=== PATIENT | male | born 1935 | race Caucasian/White ===

== ENCOUNTER 2018-05-25 09:05 | Emergency (ER) | payer MEDICARE ==
[2018-05-25] MEDS ORDERED: OXYMETAZOLINE 0.05% NASL SPRAY 1 SPRAY BOTTLE NASAL STA (09:30)
[2018-05-25] MEDS ORDERED: LIDOCAINE/EPINEPHR/TETRACAINE 5 ML BOTTLE TOPICAL ONE (09:30)
--- NOTE | 2018-05-25 09:54 | ED ---
ENT HPI - General Chief complaint: ENT Stated complaint: Fell nose bleed Time Seen by Provider: 05/25/18 09:29 Source: patient, family, RN notes reviewed, old records reviewed Mode of arrival: wheelchair Limitations: no limitations - History of Present Illness Initial comments: Patient is an 82-year-old male presents emergency department today with chief complaint nosebleed. He reports he had a fall on Wednesday where he has had an. He states is been having intermittent nosebleeds for the past 4 days. Patient states that he has had multiple nosebleeds. Severe bleeding this morning. Patient states he continues to keep packing with paper towels. He is on Coumadin. His last INR was 2.2 last week. - Related Data Home Medications Medication Instructions Recorded Confirmed Carvedilol [Coreg] 3.125 mg PO BID 05/25/18 05/25/18 Warfarin [Coumadin] 5 mg PO SUMOWETHFRSA 05/25/18 05/25/18 Warfarin [Coumadin] 7.5 mg PO TU 05/25/18 05/25/18 Previous Rx's Medication Instructions Recorded Amoxic-Pot Clav 875-125Mg 1 tab PO Q12HR #20 tablet 05/25/18 [Augmentin 875-125] Mupirocin Calcium [Bactroban 2% 1 applic NASAL TID #1 tube 05/25/18 Nasal Oint] Allergies Allergy/AdvReac Type Severity Reaction Status Date / Time No Known Allergies Allergy Verified 05/25/18 09:57 Review of Systems ROS Statement: Those systems with pertinent positive or pertinent negative responses have been documented in the HPI. ROS Other: All systems not noted in ROS Statement are negative. Past Medical History Past Medical History: Atrial Fibrillation History of Any Multi-Drug Resistant Organisms: None Reported Additional Past Surgical History / Comment(s): Pacemaker Past Psychological History: No Psychological Hx Reported Smoking Status: Never smoker Past Alcohol Use History: None Reported General Exam - General Exam Comments Initial Comments: 82-year-old male. Alert and oriented. No significant distress. Limitations: no limitations General appearance: alert, in no apparent distress Head exam: Present: atraumatic, normocephalic, normal inspection Eye exam: Present: normal appearance, PERRL, EOMI. Absent: scleral icterus, conjunctival injection, periorbital swelling ENT exam: Present: normal exam, normal oropharynx, mucous membranes moist, other (Paper towel packing within the left near.) Neck exam: Present: normal inspection, other. Absent: tenderness, meningismus, lymphadenopathy Respiratory exam: Present: normal lung sounds bilaterally. Absent: respiratory distress, wheezes, rales, rhonchi, stridor Cardiovascular Exam: Present: regular rate, normal rhythm, normal heart sounds. Absent: systolic murmur, diastolic murmur, rubs, gallop, clicks Extremities exam: Present: normal inspection, full ROM, normal capillary refill. Absent: tenderness, pedal edema, joint swelling, calf tenderness Back exam: Present: normal inspection Neurological exam: Present: alert, oriented X3, CN II-XII intact Course Vital Signs 05/25/18 05/25/18 09:06 11:48 Temperature 97.8 F Pulse Rate 70 79 Respiratory 20 16 Rate Blood Pressure 151/86 139/74 O2 Sat by Pulse 95 98 Oximetry Medical Decision Making - Medical Decision Making 82 year old male presents today with nose bleed in left nare. Patient fell on Wednesday and hit the head and nose. He has had intermittent bleeding for the past 3 days. AFter arrival nose bleed did stop. Patient then later had a small amount of bleeding. Patient had topical Let solution and afrin applied to nare. Patient hten had nasal cautery with silver nitrate and bleeding stopped. Discussed using antibiotic cream into the nare. CT shows evidence of nasal bone fracture, no evidence of intracranial hemorrhage. Patient placed on antibiotic for nasal bone fracture. Discussed ENT follow up. - Lab Data Result diagrams: 05/25/18 10:01 Lab Results 05/25/18 05/25/18 Range/Units 10:01 10:01 WBC 7.4 (3.8-10.6) k/uL RBC 3.23 L (4.30-5.90) m/uL Hgb 10.9 L (13.0-17.5) gm/dL Hct 33.2 L (39.0-53.0) % MCV 102.9 H (80.0-100.0) fL MCH 33.6 (25.0-35.0) pg MCHC 32.7 (31.0-37.0) g/dL RDW 14.5 (11.5-15.5) % Plt Count 176 (150-450) k/uL Neutrophils % 74 % Lymphocytes % 11 % Monocytes % 7 % Eosinophils % 5 % Basophils % 0 % Neutrophils # 5.5 (1.3-7.7) k/uL Lymphocytes # 0.8 L (1.0-4.8) k/uL Monocytes # 0.6 (0-1.0) k/uL Eosinophils # 0.4 (0-0.7) k/uL Basophils # 0.0 (0-0.2) k/uL Macrocytosis Slight PT 17.7 H (9.0-12.0) sec INR 1.9 H (<1.2) APTT 28.9 (22.0-30.0) sec - Radiology Data Radiology results: report reviewed Nasal septum and nasal bone fracture. No acute brain abnormality. Related changes of atrophy and probable chronic small vessel disease. 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 Disposition Clinical Impression: Bleeding nose, Nasal fracture, Bleeding on Coumadin Disposition: HOME SELF-CARE Condition: Good Additional Instructions: Patient advised to follow-up with primary care provider regards to INR levels rechecked. Resume Coumadin. Patient should follow-up with your nose and throat specialist. Apply the nasal ointment few times a day to keep the area moist and dry. Make sure the have a humidifier running in her house as well. Return to emergency department if any alarming signs or symptoms occur. Prescriptions: Amoxic-Pot Clav 875-125Mg [Augmentin 875-125] 1 tab PO Q12HR #20 tablet Mupirocin Calcium [Bactroban 2% Nasal Oint] 1 applic NASAL TID #1 tube Is patient prescribed a controlled substance at d/c from ED?: No Referrals: Nonstaff,Physician [Primary Care Provider] - 1-2 days Jesus Chavez DO [Doctor of Osteopathic Medicine] - 1-2 days Time of Disposition: 11:26
[2018-05-25 10:31] LABS: Basophils % (A) 0 %; Eosinophils # (A) 0.4 k/uL (0-0.7); Eosinophils % (A) 5 %; HCT 33.2 % (39.0-53.0); HGB 10.9 gm/dL (13.0-17.5); Lymphocytes # (A) 0.8 k/uL (1.0-4.8); Lymphocytes % (A) 11 %; MCH 33.6 pg (25.0-35.0); MCHC 32.7 g/dL (31.0-37.0); MCV 102.9 fL (80.0-100.0); Macrocytosis Slight; Mean Platelet Volume 7.5; Monocytes # (A) 0.6 k/uL (0-1.0); Monocytes % (A) 7 %; Neutrophils # (A) 5.5 k/uL (1.3-7.7); Neutrophils % (A) 74 %; Platelet Count 176 k/uL (150-450); RBC 3.23 m/uL (4.30-5.90); RDW 14.5 % (11.5-15.5); WBC 7.4 k/uL (3.8-10.6)
[2018-05-25 10:49] LABS: INR 1.9 (<1.2); Partial Thromboplastin Time 28.9 sec (22.0-30.0); Prothrombin Time 17.7 sec (9.0-12.0)
--- NOTE | 2018-05-25 10:59 | CT ---
EXAMINATION TYPE: CT brain wo con, CT facial bones wo con DATE OF EXAM: 05/25/2018 COMPARISON: Prior CT brain 12/03/2009 HISTORY: patient fall on face (accession [id number]), Patient fell on face (accession [id number]) CT DLP: 984.8 (accession [id number]), 556.9 (accession [id number]) mGycm Automated exposure control for dose reduction was used. Helical imaging through the brain and facial bones. FINDINGS: There is cortical atrophy present. Periventricular white matter shows patchy areas of low attenuation . Some progression of extra-axial fluid spaces especially over the frontal region and convexity may b e due to chronic subdural hygromas. No hemorrhage or hydrocephalus. There are cerebral vascular calci fications present. Calvarium is intact. Orbits are symmetric. Some inflammatory change noted within t he maxillary sinus on the right. Facial bones are remarkable for some irregularity of the nasal bone suggesting possible nondisplaced fracture distally, the nasal septum shows minimally displaced fractu re distally. Unerupted incisor noted in the left maxilla. IMPRESSION: NASAL SEPTUM AND NASAL BONE FRACTURES. NO ACUTE BRAIN ABNORMALITY. AGE-RELATED CHANGES OF ATROPHY AND PROBABLE CHRONIC SMALL VESSEL ISCHEMIA. DIFFICULT TO EXCLUDE CHRONIC SUBDURAL HYGROMAS.
[2018-05-25] MEDS ORDERED: SILVER NITRATE APPLICATOR 1 EACH STICK..EA. TOPICAL STA (11:08)
[2018-05-25 11:50] VITALS: BP 139/74; PULSE 79; RESP 16; TEMP 97.8
== END 2018-05-25 11:47 | disposition home or self-care (01) ==
LOC: EC 09:05
DX: S02.2XXA Fracture of nasal bones, initial encounter for closed fracture (principal); I48.91 Unspecified atrial fibrillation; Z95.0 Presence of cardiac pacemaker; Z79.01 Long term (current) use of anticoagulants; Z79.899 Other long term (current) drug therapy; W01.198A Fall on same level from slipping, tripping and stumbling with subsequent striking against other object, initial encounter
CPT/HCPCS: 36415; 70450; 70486; 85025; 85610; 85730; 99284

== ENCOUNTER 2018-11-21 22:28 | Inpatient (IN) | payer MEDICARE ==
[2018-11-21] MEDS ORDERED: SODIUM CHLORIDE 0.9% 1,000 ML IV STA (22:56)
[2018-11-21] MEDS ORDERED: ONDANSETRON 4 MG/2 ML VIAL IVP STA (23:23)
[2018-11-22 00:06] LABS: Potassium 3.3 mmol/L (3.5-5.1); Total Protein 5.8 g/dL (6.3-8.2)
--- NOTE | 2018-11-22 00:14 | XR ---
EXAM: XR Abdomen, 1 View CLINICAL HISTORY: Pain TECHNIQUE: Frontal supine view of the abdomen/pelvis. COMPARISON: No relevant prior studies available. FINDINGS: Gastrointestinal tract: Unremarkable. No dilation. Bones/joints: Unremarkable. IMPRESSION: Normal abdominal x-ray.
[2018-11-22 00:26] LABS: HCT 36.3 % (39.0-53.0); HGB 12.2 gm/dL (13.0-17.5); MCH 33.1 pg (25.0-35.0); MCHC 33.7 g/dL (31.0-37.0); MCV 98.2 fL (80.0-100.0); Mean Platelet Volume 8.7; Platelet Count 200 k/uL (150-450); RDW 14.4 % (11.5-15.5); WBC 7.7 k/uL (3.8-10.6)
[2018-11-22 00:59] LABS: Calcium 8.6 mg/dL (8.4-10.2); Total Bilirubin 0.4 mg/dL (0.2-1.3)
[2018-11-22 02:00] LABS: Band Neutrophils % 28 %; Eosinophils # (M) 0.08 k/uL (0-0.7); Lymphocytes # (M) 1.46 k/uL (1.0-4.8); Monocytes # (M) 1.23 k/uL (0-1.0); Neutrophils % (M) 37 %; Nucleated Red Blood Cells 0 /100 WBC (0-0); Total Cells Counted 200
[2018-11-22 02:01] LABS: Large Platelets Present
[2018-11-22 02:04] LABS: Anisocytosis (M) Present; Poikilocytosis (M) Present; Polychromasia Present
[2018-11-22] MEDS ORDERED: SODIUM CHLORIDE 0.9% 1,000 ML IV ONE ×3 (02:44→20:26)
--- NOTE | 2018-11-22 03:11 | ED ---
Nausea/Vomiting/Diarrhea HPI - General Chief complaint: Nausea/Vomiting/Diarrhea Stated complaint: Dehyrdated Time Seen by Provider: 11/21/18 22:43 Source: patient, EMS, RN notes reviewed, old records reviewed Mode of arrival: EMS Limitations: no limitations - History of Present Illness Initial comments: Patient is an 83-year-old male who presents emergency department today with intermittent nausea vomiting diarrhea for the past week. Patient states he has been feeling dizzy. His concerns for dehydration. No bloody stools. Denies any chest pain. He denies any associated shortness of breath. Past medical history of CAD. - Related Data Home Medications Medication Instructions Recorded Confirmed Carvedilol [Coreg] 3.125 mg PO BID 05/25/18 05/25/18 Warfarin [Coumadin] 5 mg PO SUMOWETHFRSA 05/25/18 05/25/18 Warfarin [Coumadin] 7.5 mg PO TU 05/25/18 05/25/18 Previous Rx's Medication Instructions Recorded Amoxic-Pot Clav 875-125Mg 1 tab PO Q12HR #20 tablet 05/25/18 [Augmentin 875-125] Mupirocin Calcium [Bactroban 2% 1 applic NASAL TID #1 tube 05/25/18 Nasal Oint] Allergies Allergy/AdvReac Type Severity Reaction Status Date / Time No Known Allergies Allergy Verified 11/21/18 22:47 Review of Systems ROS Statement: Those systems with pertinent positive or pertinent negative responses have been documented in the HPI. ROS Other: All systems not noted in ROS Statement are negative. Past Medical History Past Medical History: Atrial Fibrillation History of Any Multi-Drug Resistant Organisms: None Reported Additional Past Surgical History / Comment(s): Pacemaker Past Psychological History: No Psychological Hx Reported Smoking Status: Never smoker Past Alcohol Use History: None Reported General Exam - General Exam Comments Initial Comments: 83-year-old male. Alert and oriented 3. Patient appears in no significant distress. Limitations: no limitations General appearance: alert, in no apparent distress Head exam: Present: atraumatic, normocephalic, normal inspection Eye exam: Present: normal appearance, PERRL, EOMI. Absent: scleral icterus, conjunctival injection, periorbital swelling ENT exam: Present: normal exam, mucous membranes moist Neck exam: Present: normal inspection. Absent: tenderness, meningismus, lymphadenopathy Respiratory exam: Present: normal lung sounds bilaterally. Absent: respiratory distress, wheezes, rales, rhonchi, stridor Cardiovascular Exam: Present: regular rate, normal rhythm, normal heart sounds. Absent: systolic murmur, diastolic murmur, rubs, gallop, clicks GI/Abdominal exam: Present: soft, tenderness (Periumbilical and epigastric tenderness.), normal bowel sounds. Absent: distended, guarding, rebound, rigid Extremities exam: Present: normal inspection, full ROM, normal capillary refill. Absent: tenderness, pedal edema, joint swelling, calf tenderness Back exam: Present: normal inspection Neurological exam: Present: alert, oriented X3, CN II-XII intact Psychiatric exam: Present: normal affect, normal mood Skin exam: Present: warm, dry, intact, normal color. Absent: rash Course Vital Signs 11/21/18 11/21/18 11/21/18 22:38 22:44 23:00 Temperature 98 F Pulse Rate 69 70 Respiratory 24 Rate Blood Pressure 117/94 117/94 O2 Sat by Pulse 94 L 95 97 Oximetry 11/21/18 11/22/18 11/22/18 23:30 00:00 00:30 Temperature Pulse Rate 73 69 73 Respiratory 14 14 Rate Blood Pressure 103/58 73/37 87/49 O2 Sat by Pulse 96 97 96 Oximetry 11/22/18 11/22/18 02:30 03:00 Temperature Pulse Rate 76 Respiratory 9 L Rate Blood Pressure 81/47 76/44 O2 Sat by Pulse 95 Oximetry Medical Decision Making - Medical Decision Making Patient is an 83-year-old male presents today with one week of nausea vomiting diarrhea. Patient has been dizzy with sitting and standing. Patient was given IV fluids labwork obtained. He complains of no significant abdominal pain. Minimal epigastric tenderness. Patient denies any associated chest pain shortness breath. At this time patient's lab work show significant acute kidney injury. BUN elevated at 68. Creatinine 4.8. While in the ER patient's blood pressure continued to drop. He is given a third liter bolus. Patient will be admitted this time with consult Dr. Cade. - Lab Data Result diagrams: 11/21/18 23:44 11/21/18 23:44 Lab Results 11/21/18 11/21/18 Range/Units 23:44 23:44 WBC 7.7 (3.8-10.6) k/uL RBC 3.70 L (4.30-5.90) m/uL Hgb 12.2 L (13.0-17.5) gm/dL Hct 36.3 L (39.0-53.0) % MCV 98.2 (80.0-100.0) fL MCH 33.1 (25.0-35.0) pg MCHC 33.7 (31.0-37.0) g/dL RDW 14.4 (11.5-15.5) % Plt Count 200 (150-450) k/uL Neutrophils % (Manual) 37 % Band Neutrophils % 28 % Lymphocytes % (Manual) 19 % Monocytes % (Manual) 16 % Eosinophils % (Manual) 1 % Neutrophils # (Manual) 5.00 (1.3-7.7) k/uL Lymphocytes # (Manual) 1.46 (1.0-4.8) k/uL Monocytes # (Manual) 1.23 H (0-1.0) k/uL Eosinophils # (Manual) 0.08 (0-0.7) k/uL Nucleated RBCs 0 (0-0) /100 WBC Manual Slide Review Performed Large Platelets Present Polychromasia Present Poikilocytosis (manual Present Anisocytosis (manual) Present Sodium 140 (137-145) mmol/L Potassium 3.3 L (3.5-5.1) mmol/L Chloride 108 H (98-107) mmol/L Carbon Dioxide 17 L (22-30) mmol/L Anion Gap 15 mmol/L BUN 66 H (9-20) mg/dL Creatinine 4.82 H (0.66-1.25) mg/dL Est GFR (CKD-EPI)AfAm 12 (>60 ml/min/1.73 sqM) Est GFR (CKD-EPI)NonAf 11 (>60 ml/min/1.73 sqM) Glucose 104 H (74-99) mg/dL Calcium 8.6 (8.4-10.2) mg/dL Total Bilirubin 0.4 (0.2-1.3) mg/dL AST 46 (17-59) U/L ALT 29 (21-72) U/L Alkaline Phosphatase 73 (38-126) U/L Total Protein 5.8 L (6.3-8.2) g/dL Albumin 3.0 L (3.5-5.0) g/dL Amylase 34 (30-110) U/L Lipase 232 (23-300) U/L 11/22/18 04:12 EKG shows undetermined rhythm, low-voltage QRS. Possible anterior lateral infarct. Abnormal EKG noted. Ventricular rate 129 ms. NH interval undetected. QRS duration 80 ms. QT QTc is 1:30 milliseconds. - Radiology Data Radiology results: report reviewed Normal abdominal x-ray. Disposition Clinical Impression: KIM (acute kidney injury), Nausea & vomiting, Hypotension Disposition: ADMITTED IP TO THIS HOSP Condition: Stable Is patient prescribed a controlled substance at d/c from ED?: No Time of Disposition: 03:35
[2018-11-22] MEDS ORDERED: Acetaminophen-Codeine 300-30mg TAB PO PRN (03:36)
[2018-11-22] MEDS ORDERED: MORPHINE SULFATE 4 MG/ML SYRINGE IV PRN (03:36)
[2018-11-22] MEDS ORDERED: NALOXONE 0.4 MG/ML 1 ML VIAL IV PRN (03:36)
[2018-11-22] MEDS ORDERED: SODIUM CHLORIDE 0.9% 1,000 ML IV STA (06:31)
[2018-11-22] MEDS: SODIUM CHLORIDE 0.9% 1,000 ML IV SCH ×2 (06:44→19:12)
[2018-11-22] MEDS: NOREPINEPHRINE 4 MG in SODIUM CHLORIDE 0.9% 250 ML IV SCH ×2 (06:44→21:52)
[2018-11-22 09:14] LABS: Glucose,Whole Blood 95 mg/dL (75-99)
[2018-11-22] MEDS ORDERED: Potassium Replacement Protocol 1 EACH MISC MISCELLANE PRN (09:18)
[2018-11-22] MEDS: POTASSIUM CHLORIDE ER 20 MEQ TAB.ER PO SCH ×2 (10:15→11:28)
[2018-11-22] MEDS: PANTOPRAZOLE 40 MG/10 ML VIAL IV SCH (10:15)
[2018-11-22 12:30] LABS: Amorphous Sediment,Urine Rare /hpf; Appearance,Urine Cloudy (Clear); Bacteria,Urine Rare /hpf; Bilirubin,Urine Negative (Negative); Blood,Urine Small (Negative); Color,Urine Yellow; Glucose,Urine (UA) Negative (Negative); Hyaline Casts,Urine 76 /lpf (0-2); Ketones,Urine Negative (Negative); Leukocyte Esterase,Urine Negative (Negative); Mucus,Urine Rare /hpf; Nitrite,Urine Negative (Negative); Protein,Urine 1+ (Negative); RBC,Urine 36 /hpf (0-5); Specific Gravity,Urine 1.023 (1.001-1.035); Squamous Epithelial Cell,Urine 1 /hpf (0-4); Urobilinogen,Urine <2.0 mg/dL (<2.0); WBC,Urine 5 /hpf (0-5)
--- NOTE | 2018-11-22 12:40 | P.CNPUL ---
History of Present Illness Consult date: 11/22/18 Chief complaint: Nausea, vomiting, dehydration History of present illness: This is a 83-year-old male patient with known history of coronary artery disease, previous history of pacemaker insertion and the patient has been on long-term articulation with warfarin. The patient is also obese. For the past 5-6 weeks the patient has been having intermittent episodes of nausea, vomiting and diarrhea. He tells that he has been stooling approximately 4-6 bouts of liquidy stool on a daily basis. He got to the point where he was getting very weak and dizzy and he was unable to keep up with his hydration and for that reason he came into the hospital. He also noted that there was a drop in her urine output. He denies having any chest pain. No cough or sputum production. No angina. No syncope. At the time of admission his labs are quite normal. His creatinine was at 4.8 with a BUN of 66. His sodium was at 140. He had a non-anion gap metabolic acidosis with a serum bicarb of 17. His cardiac rhythm was paced and coagulation profile is not available yet. He has some background A. fib. The majority of the rhythm that I saw her today was paced rhythm. In the emergency department the patient was given 4 L of IV fluids in the form of normal saline and was medicated the rate of 100 mL an hour. Driver cath was inserted in the ICU and the patient was found to have only 100 of urine output. He is currently on levo fed which is running at 0.03 units per KG per minute. No abdominal pain. No abdominal distention. No recent antibiotic use no. His bouts of diarrhea and this is obviously new findings. The patient has normal LFTs. Normal pancreatic enzymes. Influenza screen was negative. Stool for C. diff has been ordered and not resulted yet as the patient has not been ICU. Review of Systems Constitutional: Reports poor appetite, Reports weakness Eyes: denies as per HPI, denies blurred vision, denies bulging eye, denies decreased vision, denies diplopia, denies discharge, denies dry eye, denies irritation, denies itching, denies pain, denies photophobia, denies loss of peripheral vision, denies loss of vision, denies tunnel vision/blind spots Ears: deny: decreased hearing, ear discharge, earache, tinnitus Ears, nose, mouth and throat: Denies headache, Denies sore throat Cardiovascular: Reports palpitations, Denies chest pain, Denies shortness of breath Gastrointestinal: Reports diarrhea, Reports nausea, Reports vomiting Genitourinary: Reports as per HPI Musculoskeletal: Reports as per HPI Musculoskeletal: absent: ankle pain, ankle stiffness, ankle swelling, as per HPI, elbow pain, elbow stiffness, elbow swelling, foot pain, foot stiffness, foot swelling, hand pain, hand stiffness, hand swelling, hip pain, hip stiffness, hip swelling, knee pain, knee stiffness, knee swelling, shoulder pain, shoulder stiffness, shoulder swelling, wrist pain, wrist stiffness, wrist swelling Integumentary: Denies pruritus, Denies rash Neurological: Reports as per HPI Psychiatric: Reports as per HPI Endocrine: Reports fatigue Hematologic/Lymphatic: Reports as per HPI Allergic/Immunologic: Reports as per HPI Past Medical History Past Medical History: Atrial Fibrillation, Cancer, GERD/Reflux, Myocardial Infarction ([place]) Additional Past Medical History / Comment(s): Pt states he was told he had a "slight heart attack" in the , occasional low back pain, benign colon polyps, occasional lower leg edema. Last Myocardial Infarction Date:: History of Any Multi-Drug Resistant Organisms: None Reported Past Surgical History: Pacemaker Additional Past Surgical History / Comment(s): Pacemaker originally inserted in and replaced in 2018 at [facility] on [place], septal surgery for fractured nose, colonoscopy with benign polypectomy. Past Anesthesia/Blood Transfusion Reactions: No Reported Reaction Type of Cardiac Device: Permanent Pacemaker Device Placement Date:: and replaced in 2018 Smoking Status: Former smoker - Past Family History Father Family Medical History: No Reported History Additional Family Medical History / Comment(s): Father was healthy and lived to be in his 70s or 80s. Mother Family Medical History: CVA/TIA, Vascular Disorder Additional Family Medical History / Comment(s): Mother of a cerebral hemorrhage at the age of 57 yrs. Medications and Allergies Home Medications Medication Instructions Recorded Confirmed Type Carvedilol [Coreg] 3.125 mg PO BID 05/25/18 11/22/18 History Warfarin [Coumadin] 5 mg PO HS 05/25/18 11/22/18 History Furosemide [Lasix] 20 mg PO DAILY 11/22/18 11/22/18 History Allergies Allergy/AdvReac Type Severity Reaction Status Date / Time No Known Allergies Allergy Verified 11/22/18 07:09 Physical Exam Vitals: Vital Signs Temp Pulse Resp BP Pulse Ox 11/22/18 11:00 70 15 117/71 98 11/22/18 10:30 70 12 126/55 97 11/22/18 10:00 70 16 81/51 97 11/22/18 09:30 70 17 114/54 96 11/22/18 09:06 97.5 F L 70 12 126/64 97 11/22/18 08:30 70 14 99/46 97 11/22/18 08:00 70 15 99/39 97 11/22/18 07:30 70 20 101/51 98 11/22/18 07:00 75 20 89/33 98 11/22/18 06:30 68 15 75/47 11/22/18 06:00 70 16 89/56 99 11/22/18 05:30 70 12 77/51 98 11/22/18 05:08 71 20 92/40 98 11/22/18 05:00 73 23 53/38 97 11/22/18 04:30 68 12 66/46 98 11/22/18 04:00 70 18 61/45 97 11/22/18 03:30 70 14 68/46 96 11/22/18 03:00 76 9 L 76/44 95 11/22/18 02:30 81/47 11/22/18 00:30 73 14 87/49 96 11/22/18 00:00 69 14 73/37 97 11/21/18 23:30 73 103/58 96 11/21/18 23:00 70 117/94 97 11/21/18 22:44 95 11/21/18 22:38 98 F 69 24 117/94 94 L Intake and Output 11/21/18 11/22/18 11/22/18 22:59 06:59 14:59 Intake Total 320.443 Output Total 180 Balance 140.443 Intake: IV 200 Sodium Chloride 0.9% 1, 200 000 ml @ 100 mls/hr IV . Q10H TRINH Rx#:[id number] Intake, IV Titration 120.443 Amount Norepinephrine 4 mg In 120.443 Sodium Chloride 0.9% 250 ml @ 0.05 MCG/KG/MIN 26. 355 mls/hr IV .[id number] TRINH Rx#:[id number] Output: Urine 180 Other: Voiding Method Indwelling Catheter Weight 138.346 kg 155.7 kg The patient appeared well nourished and normally developed. Vital signs as documented. Head exam is unremarkable. No scleral icterus or corneal arcus noted. Neck is without jugular venous distension, thyromegaly, or carotid bruits. Carotid upstrokes are brisk bilaterally. Lungs are clear to auscultation and percussion. Cardiac exam reveals the PMI to be normally sized and situated. Rhythm is regular. First and second heart sounds normal. No murmurs, rubs or gallops. Abdominal exam reveals normal bowel sounds, no masses, no organomegaly and no aortic enlargement. Extremities are nonedematous and both femoral and pedal pulses are normal. My normal skin the patient is a pacemaker pocket over the left anterior chest area. Neurologically the patient is awake and alert and there is no focal neurological deficits. Results - Laboratory Findings CBC and BMP: 11/21/18 23:44 11/21/18 23:44 Abnormal lab findings: Abnormal Labs 11/21/18 11/21/18 11/22/18 23:44 23:44 09:38 RBC 3.70 L Hgb 12.2 L Hct 36.3 L Monocytes # (Manual) 1.23 H Potassium 3.3 L Chloride 108 H Carbon Dioxide 17 L BUN 66 H Creatinine 4.82 H Glucose 104 H Total Protein 5.8 L Albumin 3.0 L Urine Protein 1+ H Urine Blood Small H Urine RBC 36 H Amorphous Sediment Rare H Urine Bacteria Rare H Hyaline Casts 76 H Urine Mucus Rare H Assessment and Plan Plan: Assessment 1 intravascular volume depletion secondary to nausea vomiting and diarrhea. Consider gastroenteritis. Consider C. diff colitis. The patient presented with significant intravascular volume depletion and the patient had significant electrode abnormalities in kidney failure secondary to dehydration 2 acute kidney injury secondary to above 3 acute non-anion gap metabolic acidosis secondary to above 4 obesity with a BMI 45.3 5 history of paroxysmal atrial fibrillation 6 history of pacemaker insertion 7 history of coronary artery disease 8 acid reflux 9 benign colonic polyps Plan We'll continue IV fluids and will put the patient on D5 with 3 A of bicarb at the rate of 150 mL an hour. This will obviously help him with his underlying anion gap metabolic acidosis. Monitor the urine output. Monitor electrolytes. Replace potassium if needed. Check stool for C. diff antigen. Check stool for ova and parasites. Check stool for white cells. Check coagulation profile. Hold Coumadin for now and dose accordingly. The patient has been started on pressors. He has a Driver catheter in place. I'm confident we should be able to wean off the pressors with intravascular volume replenishment. He is on low- dose the low-fat for now. Adequate IV access. We'll continue to follow we'll keep him in ICU for another 24 hours. Consult GI.
[2018-11-22 12:59] LABS: Prothrombin Time 78.2 sec (9.0-12.0)
[2018-11-22 13:08] LABS: Potassium 3.6 mmol/L (3.5-5.1)
--- NOTE | 2018-11-22 13:11 | HP ---
HISTORY AND PHYSICAL CHIEF COMPLAINT: Dizziness, nausea, vomiting and diarrhea. HISTORY OF PRESENT ILLNESS: This is the first known admission for this 83-year-old white male. He presented to the emergency room with nausea, vomiting and dehydration; was extremely dehydrated. He was profoundly hypotensive. When he came in, his blood pressure was running around 70 systolically. He received fluid boluses and gradually it came up to around about 100. He denied any chest pain. He had no hematemesis, melena, etc. Little is known about him otherwise. Apparently, he is on Coumadin and carvedilol at home. He does have a history of atrial fibrillation and he has a pacemaker. He is a nonsmoker. In the emergency room, his white count was normal at 7700 with a hemoglobin of 12.2. Platelets were normal. Liver function is normal. BUN was 66 with a creatinine of 4.82. Potassium is slightly low at 3.3. PHYSICAL EXAMINATION: Blood pressure is 87/49 with a pulse of 96 and irregularly irregular. Respirations were 35. He is afebrile. In general, he appeared to be somewhat pale. He is awake, alert and oriented. Head, ears, eyes, nose, mouth, and throat were normal and neck veins were not distended. Thyroid was not enlarged. Carotids are normal. Chest is clear. Breath sounds are diminished. Cardiac exam demonstrated atrial fibrillation. Abdomen is soft, nontender without any visceromegaly or masses. Bowel sounds are present. Extremities are normal. Neurologically, he is intact He is admitted to the hospital with diagnoses: 1. Hypotension. 2. Dehydration. 3. Intractable nausea and vomiting. 4. Prerenal azotemia. 5. Rule out Chronic kidney disease. 6. Atrial fibrillation. 7. Hypokalemia. PLAN: 1. Bed rest. 2. IV fluids. 3. Cardiac evaluation. 4. Nephrology consult. MMODL / IJN: [id number] /
[2018-11-22] MEDS ORDERED: DEXTROSE 5% IN WATER 1,000 ML with SODIUM BICARB (1 MEQ/ML) 150 ML IV ONE (15:30)
[2018-11-22] MEDS ORDERED: POTASSIUM CHLORIDE ER 20 MEQ TAB.ER PO STA (18:20)
[2018-11-22] MEDS: CARVEDILOL 3.125 MG TAB PO SCH (19:12)
[2018-11-22] MEDS ORDERED: PHYTONADIONE 5 MG in SODIUM CHLORIDE 0.9% 50 ML IVPB STA (20:28)
--- NOTE | 2018-11-22 20:57 | US ---
EXAMINATION TYPE: US kidneys/renal and bladder DATE OF EXAM: 11/22/2018 COMPARISON: NONE CLINICAL HISTORY: RF. KIM hypotension, renal failure. EXAM MEASUREMENTS: Right Kidney: 10.8 x 4.9 x 4.1 cm Left Kidney: 11.4 x 4.9 x 5.3 cm Right Kidney: Simple cyst lower pole 4.6 x 5.1 x 4.9cm. Left Kidney: Lobulated cortex. Bladder: Patient has catheter in. There is no evidence for hydronephrosis at this point in time. No nephrolithiasis is seen. IMPRESSION: No acute process.
[2018-11-22] MEDS ORDERED: WARFARIN 2.5 MG TAB PO SCH (21:00)
--- NOTE | 2018-11-22 22:47 | CONS ---
CONSULTATION REASON FOR CONSULT: Renal failure. HISTORY OF PRESENT ILLNESS: The patient is an 83-year-old male who was admitted to the hospital with complaints of diarrhea, feeling weak. He was also nauseated. He was dizzy. Patient denies any prior history of kidney diseases. He was hypotensive. Blood pressure was in the 70s and 60s for systolic. Patient was therefore transferred to the ICU. He is maintained on a small amount of Levophed at about 3 mcg. He has received fluid bolus. Urine output is maintained. Patient has just had a Driver catheter placed. His serum creatinine was 4.8 yesterday. This morning it was 4.4. We do not have any previous labs available for comparison. UA was fairly benign except for hyaline casts and 1+ protein. PAST MEDICAL HISTORY: Significant for: 1. Atrial fibrillation. 2. History of coronary artery disease and PR. 3. Gastroesophageal reflux disease. 4. Cardiomyopathy. SOCIAL HISTORY: Negative for smoking currently. PAST SURGICAL HISTORY: 1. Pacemaker placement. 2. Colonoscopy. 3. Surgery for fractured nose. MEDICATIONS: Medications at home included: 1. Coreg. 2. Coumadin. 3. Lasix. ALLERGIES: NONE. PHYSICAL EXAMINATION: Patient is comfortable, awake, not in any acute distress. Blood pressure this morning was 126/55, heart rate 70 per minute. He is afebrile. EXAMINATION OF THE HEART: S1 and S2. EXAMINATION OF LUNGS: Bilateral breath sounds are heard. ABDOMEN: Soft, non-tender. Examination of lower extremities shows no significant edema. [employer] DRIVER exam is grossly intact. LABS: Sodium 140, potassium 3.3, chloride 108, CO2 17, BUN 66, serum creatinine 4.82, hemoglobin 12.2. C difficile toxin was negative. UA shows 1+ protein, hyaline casts 76. ASSESSMENT: 1. Acute kidney injury secondary to hypotension and volume depletion, currently maintained on IV fluids, which I will continue. 2. Metabolic acidosis, on sodium bicarb IV. 3. Gastroenteritis; seems to be symptomatically improved. 4. Hypokalemia from gastrointestinal fluid loss, currently improved. 5. Metabolic acidosis from diarrhea and renal failure. 6. Rule out chronic kidney disease. PLAN: Continue with IV hydration. Continue IV bicarb. Repeat labs in a.m. Avoid nephrotoxic medications. Check ultrasound of the kidneys. Thank you for this consultation. Will continue to follow the patient with you during his hospitalization. MMODL / IJN: [id number] /
[2018-11-23] MEDS: DEXTROSE 5% IN WATER 1,000 ML with SODIUM BICARB (1 MEQ/ML) 150 ML IV SCH ×3 (00:38→20:01)
[2018-11-23 06:27] LABS: HCT 35.4 % (39.0-53.0); HGB 11.2 gm/dL (13.0-17.5); MCH 32.2 pg (25.0-35.0); MCHC 31.7 g/dL (31.0-37.0); MCV 101.5 fL (80.0-100.0); Macrocytosis Slight; Platelet Count 192 k/uL (150-450); RBC 3.49 m/uL (4.30-5.90); RDW 14.3 % (11.5-15.5)
[2018-11-23 06:29] LABS: INR 2.1 (<1.2); Prothrombin Time 20.1 sec (9.0-12.0)
[2018-11-23 06:39] LABS: Calcium 7.8 mg/dL (8.4-10.2); Magnesium 1.7 mg/dL (1.6-2.3); Phosphorus 3.1 mg/dL (2.5-4.5); Potassium 3.7 mmol/L (3.5-5.1)
[2018-11-23 07:23] LABS: Band Neutrophils % 2 %; Large Platelets Present; Lymphocytes # (M) 1.62 k/uL (1.0-4.8); Neutrophils % (M) 60 %; Nucleated Red Blood Cells 0 /100 WBC (0-0); Polychromasia Present; Total Cells Counted 100
[2018-11-23] MEDS: PANTOPRAZOLE 40 MG/10 ML VIAL IV SCH (09:03)
[2018-11-23] MEDS: CARVEDILOL 3.125 MG TAB PO SCH ×2 (09:04→17:58)
[2018-11-23] MEDS: NOREPINEPHRINE 4 MG in SODIUM CHLORIDE 0.9% 250 ML IV SCH ×2 (11:32→20:35)
--- NOTE | 2018-11-23 12:42 | P.CONS ---
History of Present Illness - Reason for Consult Consult date: 11/23/18 Diarrhea Requesting physician: Carmela Garcia - Chief Complaint Nausea vomiting diarrhea lightheadedness - History of Present Illness 83-year-old gentleman admitted with intractable nausea vomiting dehydration acute kidney injury multiple episodes of nonbloody diarrhea up to 10-15 times a day for last several weeks. Blood pressures low on admission receive fluid boluses and IV pressors since discontinued. He has a history of atrial fibrillation maintained on warfarin with an elevated INR on admission 8.0 receive vitamin K presently 2.1. No history of diarrheal illnesses or infiltrate bowel diseases. Last colonoscopy less than 18 months ago to his memory was normal. Denies hematemesis hematochezia melena. No changes in medications. No recent travel sick contacts. Since admission no further episodes of diarrhea he's had one bowel movement that's more formed. Minimal abdominal discomfort associated with this until yesterday had increased lower abdominal discomfort. KUB normal. Lactoferrin positive. All other stool studies including Clostridium difficile negative. Tolerating advance diet. Afebrile. Review of Systems Constitutional: Denies fever, chills, sweats, weight gain, or loss. Lightheadedness dizziness. HEENT: Negative for migraines, blurred vision or loss, earaches, drainage, tinnitus, oral mucosal lesions, dysphagia, or odynophagia. Cardiac: Negative for chest pain, arrhythmias, or palpitation. Respiratory: Negative for shortness of breath, hemoptysis, cough, or sputum production. Gastrointestinal: See HPI for pertinent findings. Genitourinary: Negative for hematuria, urgency, frequency, polyuria, dysuria, or penile discharge. Musculoskeletal: Negative for muscle aches, swelling, arthritis, and arthralgias. Neurologic: Negative for stroke or TIA. Endocrine: Negative for thyroid problems. Skin: Negative for rash or itching. Psychiatric: Negative history for depression and anxiety Past Medical History Past Medical History: Atrial Fibrillation, Cancer, GERD/Reflux, Myocardial Infarction ([place]) Additional Past Medical History / Comment(s): Pt states he was told he had a "slight heart attack" in the , occasional low back pain, benign colon polyps, occasional lower leg edema. Last Myocardial Infarction Date:: History of Any Multi-Drug Resistant Organisms: None Reported Past Surgical History: Pacemaker Additional Past Surgical History / Comment(s): Pacemaker originally inserted in and replaced in 2018 at [facility] on [place], septal surgery for fractured nose, colonoscopy with benign polypectomy. Past Anesthesia/Blood Transfusion Reactions: No Reported Reaction Type of Cardiac Device: Permanent Pacemaker Device Placement Date:: and replaced in 2018 Smoking Status: Former smoker - Past Family History Father Family Medical History: No Reported History Additional Family Medical History / Comment(s): Father was healthy and lived to be in his 70s or 80s. Mother Family Medical History: CVA/TIA, Vascular Disorder Additional Family Medical History / Comment(s): Mother of a cerebral hemorrhage at the age of 57 yrs. Medications and Allergies Home Medications Medication Instructions Recorded Confirmed Type Carvedilol [Coreg] 3.125 mg PO BID 05/25/18 11/22/18 History Warfarin [Coumadin] 5 mg PO HS 05/25/18 11/22/18 History Furosemide [Lasix] 20 mg PO DAILY 11/22/18 11/22/18 History Allergies Allergy/AdvReac Type Severity Reaction Status Date / Time No Known Allergies Allergy Verified 11/22/18 07:09 Physical Exam Vitals: Vital Signs Temp Pulse Resp BP Pulse Ox 11/23/18 06:00 69 18 109/92 94 L 11/23/18 05:00 76 16 109/52 94 L 11/23/18 04:00 98.6 F 70 20 107/58 95 11/23/18 03:00 69 17 106/48 92 L 11/23/18 02:00 77 17 136/69 93 L 11/23/18 01:00 70 20 134/72 92 L 11/23/18 00:00 98.6 F 75 19 106/40 92 L 11/22/18 23:30 72 16 102/48 92 L 11/22/18 23:01 70 15 102/48 92 L 11/22/18 23:00 70 18 103/75 92 L 11/22/18 22:00 70 18 125/83 92 L 11/22/18 21:00 70 16 116/47 93 L 11/22/18 20:00 98.2 F 70 16 112/67 93 L 11/22/18 19:00 70 16 102/41 93 L 11/22/18 18:30 77 18 69/39 92 L 11/22/18 18:00 70 16 111/58 93 L 11/22/18 17:30 75 21 105/49 94 L 11/22/18 17:00 71 15 102/54 94 L 11/22/18 16:30 77 19 97/44 96 11/22/18 16:00 97.9 F 75 17 113/59 97 11/22/18 15:30 73 20 112/71 96 11/22/18 15:00 71 19 104/52 94 L 11/22/18 14:30 70 14 99/54 97 11/22/18 14:00 70 17 106/62 95 11/22/18 13:30 70 20 116/54 94 L 11/22/18 13:00 70 15 98/71 98 11/22/18 12:30 70 14 97/73 98 11/22/18 12:00 97.5 F L 70 13 104/63 98 11/22/18 11:30 70 16 114/61 96 11/22/18 11:00 70 15 117/71 98 11/22/18 10:30 70 12 126/55 97 11/22/18 10:00 70 16 81/51 97 11/22/18 09:30 70 17 114/54 96 Intake and Output 11/22/18 11/23/18 11/23/18 22:59 06:59 14:59 Intake Total 8995.835 8150.927 156.852 Output Total 235 380 40 Balance 4620.438 3719.927 116.852 Intake: IV 1000 2200 150 Dextrose 5% in Water 1, 850 1050 150 000 ml @ 150 mls/hr IV . Q7H40M ONE with Sodium Bicarb (1 Meq/ml) 150 ml Rx#:[id number] Phytonadione 5 mg In 50 150 Sodium Chloride 0.9% 50 ml @ 100 mls/hr IVPB ONCE STA Rx#:[id number] Sodium Chloride 0.9% 1, 100 000 ml @ 100 mls/hr IV . Q10H [facility] Rx#:[id number] Sodium Chloride 0.9% 1, 1000 000 ml @ 999 mls/hr IV . Q1H1M ONE Rx#:[id number] Intake, IV Titration 70.367 103.927 6.852 Amount Norepinephrine 4 mg In 70.367 103.927 6.852 Sodium Chloride 0.9% 250 ml @ 0.05 MCG/KG/MIN 26. 355 mls/hr IV .Q9H39M [facility] Rx#:[id number] Oral 840 Output: Urine 235 380 40 Other: Voiding Method Indwelling Catheter Indwelling Catheter General appearance: The patient is alert, oriented, in no acute distress. HET: Head is normocephalic and atraumatic. Pupils are equal and reactive. Oropharynx is clear without lesions. Neck: Supple without lymphadenopathy. Trachea midline. Heart: S1 S2. Regular rate and rhythm. Lungs: No crackles or wheezes are heard. Abdomen: Soft, nontender, nondistended with bowel sounds. No peritoneal signs. No palpable organomegaly or masses. Extremities: Normal skin color and turgor. No cyanosis, rash, ulceration, clubbing, or edema. Radial and pedal pulses are 2/4 bilaterally. Neurological: No focal deficits. Strength and sensation are grossly intact. Results CBC & Chem 7: 11/24/18 05:31 11/24/18 05:31 Labs: Abnormal Lab Results - Last 24 Hours (Table) 11/22/18 11/22/18 11/22/18 Range/Units 09:38 11:20 12:15 RBC (4.30-5.90) m/uL Hgb (13.0-17.5) gm/dL Hct (39.0-53.0) % MCV (80.0-100.0) fL Monocytes # (Manual) (0-1.0) k/uL PT (9.0-12.0) sec INR (<1.2) Chloride 114 H (98-107) mmol/L Carbon Dioxide 16 L (22-30) mmol/L BUN 67 H (9-20) mg/dL Creatinine 4.42 H (0.66-1.25) mg/dL Glucose (74-99) mg/dL Calcium 8.0 L (8.4-10.2) mg/dL Urine Protein 1+ H (Negative) Urine Blood Small H (Negative) Urine RBC 36 H (0-5) /hpf Amorphous Sediment Rare H (None) /hpf Urine Bacteria Rare H (None) /hpf Hyaline Casts 76 H (0-2) /lpf Urine Mucus Rare H (None) /hpf Stool Lactoferrin POSITIVE H (NEGATIVE) 11/22/18 11/23/18 11/23/18 Range/Units 12:15 05:30 05:30 RBC 3.49 L (4.30-5.90) m/uL Hgb 11.2 L (13.0-17.5) gm/dL Hct 35.4 L (39.0-53.0) % MCV 101.5 H (80.0-100.0) fL Monocytes # (Manual) 1.80 H (0-1.0) k/uL PT 78.2 H 20.1 H (9.0-12.0) sec INR 8.0 H* 2.1 H (<1.2) Chloride (98-107) mmol/L Carbon Dioxide (22-30) mmol/L BUN (9-20) mg/dL Creatinine (0.66-1.25) mg/dL Glucose (74-99) mg/dL Calcium (8.4-10.2) mg/dL Urine Protein (Negative) Urine Blood (Negative) Urine RBC (0-5) /hpf Amorphous Sediment (None) /hpf Urine Bacteria (None) /hpf Hyaline Casts (0-2) /lpf Urine Mucus (None) /hpf Stool Lactoferrin (NEGATIVE) 11/23/18 Range/Units 05:30 RBC (4.30-5.90) m/uL Hgb (13.0-17.5) gm/dL Hct (39.0-53.0) % MCV (80.0-100.0) fL Monocytes # (Manual) (0-1.0) k/uL PT (9.0-12.0) sec INR (<1.2) Chloride 110 H (98-107) mmol/L Carbon Dioxide 19 L (22-30) mmol/L BUN 67 H (9-20) mg/dL Creatinine 3.36 H (0.66-1.25) mg/dL Glucose 124 H (74-99) mg/dL Calcium 7.8 L (8.4-10.2) mg/dL Urine Protein (Negative) Urine Blood (Negative) Urine RBC (0-5) /hpf Amorphous Sediment (None) /hpf Urine Bacteria (None) /hpf Hyaline Casts (0-2) /lpf Urine Mucus (None) /hpf Stool Lactoferrin (NEGATIVE) Abdominal x-ray: report reviewed (Dr. Velocci) Assessment and Plan (1) Diarrhea Narrative/Plan: 83-year-old gentleman admitted with severe dehydration acute kidney injury intravascular volume depletion secondary to nausea vomiting nonbloody diarrhea several weeks duration stool studies unremarkable with the exception of positive lactoferrin. Suspect diarrhea secondary to self limiting infectious gastroenteritis possible viral. Diarrhea has improved significantly with hydration. Colonoscopy less than 18 months ago reported as normal. Current Visit: Yes Status: Acute Code(s): R19.7 - DIARRHEA, UNSPECIFIED SNOMED Code(s): 02376638 (2) Dehydration Current Visit: Yes Status: Acute Code(s): E86.0 - DEHYDRATION SNOMED Code(s): 57351159 (3) KIM (acute kidney injury) Current Visit: Yes Status: Acute Code(s): N17.9 - ACUTE KIDNEY FAILURE, UNSPECIFIED SNOMED Code(s): 60684617 (4) Warfarin-induced coagulopathy Current Visit: Yes Status: Acute Code(s): D68.32 - HEMORRHAGIC DISORD D/T EXTRINSIC CIRCULATING ANTICOAGULANTS; T45.515A - ADVERSE EFFECT OF ANTICOAGULANTS, INITIAL ENCOUNTER SNOMED Code(s): 26949413 (5) Paroxysmal atrial fibrillation Current Visit: Yes Status: Acute Code(s): I48.0 - PAROXYSMAL ATRIAL FIBRILLATION SNOMED Code(s): 527530745 (6) Morbid obesity with BMI of 45.0-49.9, adult Current Visit: Yes Status: Chronic Code(s): E66.01 - MORBID (SEVERE) OBESITY DUE TO EXCESS CALORIES; Z68.42 - BODY MASS INDEX (BMI) 45.0-49.9, ADULT SNOMED Code(s): 185173073 Plan: 1. Diet as tolerated. Inpatient endoscopic exams not planned at this time. Continue symptomatic supportive measures. Diarrhea has significantly improved. Thank you for this kind referral and the opportunity to participate in the care of your patient. This consultation was discussed with Dr. carbone. The impression and plan of care have been directed as dictated.
--- NOTE | 2018-11-23 13:53 | PN ---
PROGRESS NOTE CHIEF COMPLAINT: Dehydration and acute kidney injury with hypotension. HISTORY OF PRESENT ILLNESS: This gentleman seems to be doing fairly stable. He is somewhat lethargic. His blood pressure is still quite low. REVIEW OF SYSTEMS: Not obtainable. PHYSICAL EXAM: Chest is clear. Cardiac exam is normal and the abdomen is soft and nontender. Extremities are normal and neurologically is grossly intact. IMPRESSION: 1. Hypotension. 2. Prerenal azotemia. PLAN: Continue with rehydration and monitoring his blood pressure as well as his renal function. Discharge plan may be a problem. MMODL / IJN: [id number] /
--- NOTE | 2018-11-23 14:54 | P.PN ---
Subjective Progress Note Date: 11/23/18 This is a 83-year-old male patient with known history of coronary artery disease, previous history of pacemaker insertion and the patient has been on long-term articulation with warfarin. The patient is also obese. For the past 5-6 weeks the patient has been having intermittent episodes of nausea, vomiting and diarrhea. He tells that he has been stooling approximately 4-6 bouts of liquidy stool on a daily basis. He got to the point where he was getting very weak and dizzy and he was unable to keep up with his hydration and for that reason he came into the hospital. He also noted that there was a drop in her urine output. He denies having any chest pain. No cough or sputum production. No angina. No syncope. At the time of admission his labs are quite normal. His creatinine was at 4.8 with a BUN of 66. His sodium was at 140. He had a non-anion gap metabolic acidosis with a serum bicarb of 17. His cardiac rhythm was paced and coagulation profile is not available yet. He has some background A. fib. The majority of the rhythm that I saw her today was paced rhythm. In the emergency department the patient was given 4 L of IV fluids in the form of normal saline and was medicated the rate of 100 mL an hour. Driver cath was inserted in the ICU and the patient was found to have only 100 of urine output. He is currently on levo fed which is running at 0.03 units per KG per minute. No abdominal pain. No abdominal distention. No recent antibiotic use no. His bouts of diarrhea and this is obviously new findings. The patient has normal LFTs. Normal pancreatic enzymes. Influenza screen was negative. Stool for C. diff has been ordered and not resulted yet as the patient has not been ICU. on today's evaluation of 11/23/2018, the patient continues to be on a bicarb dr cornejo. The patient is having nonbloody diarrhea and he had few episodes in the stool for C. diff came back negative. GI has been consulted. The patient is improving. Urine output has improved. Creatinine is dropping and the patient's serum bicarb is improving. The patient also received 5 mg of vitamin K and INR today is down to 2.1. 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 Lactoferrin in the stool was positive. Ova and parasites are negative. Stool for C. diff is negative. No nausea or vomiting. No fever or chills. Objective - Vital Signs Vital signs: Vital Signs Temp 97 F L 11/23/18 12:00 Pulse 70 11/23/18 14:00 Resp 20 11/23/18 14:00 BP 124/81 11/23/18 14:00 Pulse Ox 99 11/23/18 14:00 Intake & Output 11/22/18 11/23/18 11/23/18 18:59 06:59 18:59 Intake Total 2053.007 2939.418 1446.852 Output Total 417 488 440 Balance 7545.897 1994.418 1006.852 Weight 155.7 kg Intake: IV 900 2800 1200 Dextrose 5% in Water 1, 300 1600 1200 000 ml @ 150 mls/hr IV . Q7H40M ONE with Sodium Bicarb (1 Meq/ml) 150 ml Rx#:[id number] Phytonadione 5 mg In 200 Sodium Chloride 0.9% 50 ml @ 100 mls/hr IVPB ONCE STA Rx#:[id number] Sodium Chloride 0.9% 1, 600 000 ml @ 100 mls/hr IV . Q10H [facility] Rx#:[id number] Sodium Chloride 0.9% 1, 1000 000 ml @ 999 mls/hr IV . Q1H1M ONE Rx#:[id number] Intake, IV Titration 193.007 139.418 6.852 Amount Norepinephrine 4 mg In 193.007 139.418 6.852 Sodium Chloride 0.9% 250 ml @ 0.05 MCG/KG/MIN 26. 355 mls/hr IV .Q9H39M [facility] Rx#:[id number] Oral 960 240 Output: Urine 417 488 440 Other: Voiding Method Indwelling Catheter Indwelling Catheter Indwelling Catheter # Bowel Movements 1 - Exam The patient appeared well nourished and normally developed. Vital signs as documented. Head exam is unremarkable. No scleral icterus or corneal arcus noted. Neck is without jugular venous distension, thyromegaly, or carotid bruits. Carotid upstrokes are brisk bilaterally. Lungs are clear to auscultation and percussion. Cardiac exam reveals the PMI to be normally sized and situated. Rhythm is regular. First and second heart sounds normal. No murmurs, rubs or gallops. Abdominal exam reveals normal bowel sounds, no masses, no organomegaly and no aortic enlargement. Extremities are nonedematous and both femoral and pedal pulses are normal. My normal skin the patient is a pacemaker pocket over the left anterior chest area. Neurologically the patient is awake and alert and there is no focal neurological deficits. - Labs CBC & Chem 7: 11/23/18 05:30 11/23/18 05:30 Labs: Abnormal Lab Results - Last 24 Hours (Table) 11/22/18 11/23/18 11/23/18 Range/Units 11:20 05:30 05:30 RBC 3.49 L (4.30-5.90) m/uL Hgb 11.2 L (13.0-17.5) gm/dL Hct 35.4 L (39.0-53.0) % MCV 101.5 H (80.0-100.0) fL Monocytes # (Manual) 1.80 H (0-1.0) k/uL PT 20.1 H (9.0-12.0) sec INR 2.1 H (<1.2) Chloride (98-107) mmol/L Carbon Dioxide (22-30) mmol/L BUN (9-20) mg/dL Creatinine (0.66-1.25) mg/dL Glucose (74-99) mg/dL Calcium (8.4-10.2) mg/dL Stool Lactoferrin POSITIVE H (NEGATIVE) 11/23/18 Range/Units 05:30 RBC (4.30-5.90) m/uL Hgb (13.0-17.5) gm/dL Hct (39.0-53.0) % MCV (80.0-100.0) fL Monocytes # (Manual) (0-1.0) k/uL PT (9.0-12.0) sec INR (<1.2) Chloride 110 H (98-107) mmol/L Carbon Dioxide 19 L (22-30) mmol/L BUN 67 H (9-20) mg/dL Creatinine 3.36 H (0.66-1.25) mg/dL Glucose 124 H (74-99) mg/dL Calcium 7.8 L (8.4-10.2) mg/dL Stool Lactoferrin (NEGATIVE) Assessment and Plan Plan: Assessment 1 intravascular volume depletion secondary to nausea vomiting and diarrhea. Consider gastroenteritis. The patient presented with significant intravascular volume depletion and the patient had significant electrode abnormalities in kidney failure secondary to dehydration, clinically improving 2 acute kidney injury secondary to above, improving 3 acute non-anion gap metabolic acidosis secondary to above, improving 4 obesity with a BMI 45.3 5 history of paroxysmal atrial fibrillation 6 history of pacemaker insertion 7 history of coronary artery disease 8 acid reflux 9 benign colonic polyps 10 previous history of GI bleed with a bleeding AV malformation the ascending colon that has been treated with argon plasma coagulation back in 2017 at [facility] in [place]. Plan We'll continue IV fluids and will put the patient on D5 with 3 A of bicarb at the rate of 150 mL an hour. the patient's INR/Coumadin toxicity has been treated with vitamin K. INR is down to 2.1.acute kidney injury is improving and the creatinine is down to 3.36. The serum bicarbs up to 19. GI consultation regarding the diarrhea. Hemodynamically stable and the patient is currently off pressors. He'll be kept in ICU for 24 hours and will continue to follow.
--- NOTE | 2018-11-23 22:12 | PN ---
PROGRESS NOTE Patient is seen for followup for acute kidney injury. He was admitted with hypotension and diarrhea nausea and vomiting. His diarrhea seems to have improved. The patient is maintained on IV fluids. Renal function is also improved with creatinine down to 3.36 from 4.82 on initial admission. The patient has had good urine output and he has an indwelling Driver catheter. He is maintained on IV bicarb. Stool for C difficile toxin was negative. EXAMINATION: Today blood pressure this morning was 104/52, heart rate of 70 per minute. Patient is afebrile. Examination of the heart S1, S2. Examination of the lungs, decreased breath sounds at bases. Abdomen is soft, nontender. Examination of lower extremities shows trace edema bilaterally. 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 LABS SHOW: Sodium 139, potassium 3.7, chloride 110, CO2 is 19, BUN 67, serum creatinine of 3.36, hemoglobin 11.2, white cell count 9.0. ASSESSMENT: 1. Acute kidney injury associated with volume depletion, hypotension currently improving. UA shows trace protein with small amount of blood, multiple hyaline casts which go along with hypotension and hypoperfusion. There is no evidence of obstructive uropathy and I will continue with the IV fluids for now. 2. Metabolic acidosis associated with renal failure, gastrointestinal fluid loss from diarrhea, currently improved. 3. History of paroxysmal atrial fibrillation. 4. History of gastrointestinal bleed previously in 2017 from AV malformation. 5. Hypokalemia from gastrointestinal fluid loss, improving. PLAN: Continue with IV bicarb. Repeat labs in a.m. If renal function does not improve further, I will obtain serologies studies. MMODL / IJN: [id number] /
[2018-11-24] MEDS: DEXTROSE 5% IN WATER 1,000 ML with SODIUM BICARB (1 MEQ/ML) 150 ML IV SCH ×2 (02:00→06:50)
[2018-11-24 06:11] LABS: Basophils % (A) 0 %; Eosinophils # (A) 0.2 k/uL (0-0.7); Eosinophils % (A) 2 %; HCT 34.1 % (39.0-53.0); HGB 10.6 gm/dL (13.0-17.5); Hypochromasia Slight; Lymphocytes # (A) 0.5 k/uL (1.0-4.8); Lymphocytes % (A) 6 %; MCH 32.2 pg (25.0-35.0); MCHC 31.1 g/dL (31.0-37.0); MCV 103.5 fL (80.0-100.0); Macrocytosis Slight; Mean Platelet Volume 8.3; Monocytes # (A) 0.6 k/uL (0-1.0); Monocytes % (A) 7 %; Neutrophils % (A) 80 %; Platelet Count 176 k/uL (150-450); RBC 3.29 m/uL (4.30-5.90); WBC 8.8 k/uL (3.8-10.6)
[2018-11-24 06:18] LABS: INR 1.3 (<1.2)
[2018-11-24 06:20] LABS: Calcium 7.9 mg/dL (8.4-10.2); Potassium 3.7 mmol/L (3.5-5.1)
[2018-11-24] MEDS: NOREPINEPHRINE 4 MG in SODIUM CHLORIDE 0.9% 250 ML IV SCH (06:50)
[2018-11-24] MEDS: CARVEDILOL 3.125 MG TAB PO SCH ×2 (08:15→17:09)
[2018-11-24] MEDS: PANTOPRAZOLE 40 MG TABLET PO SCH (08:15)
--- NOTE | 2018-11-24 09:46 | P.PN ---
Subjective Progress Note Date: 11/24/18 This is a 83-year-old male patient with known history of coronary artery disease, previous history of pacemaker insertion and the patient has been on long-term articulation with warfarin. The patient is also obese. For the past 5-6 weeks the patient has been having intermittent episodes of nausea, vomiting and diarrhea. He tells that he has been stooling approximately 4-6 bouts of liquidy stool on a daily basis. He got to the point where he was getting very weak and dizzy and he was unable to keep up with his hydration and for that reason he came into the hospital. He also noted that there was a drop in her urine output. He denies having any chest pain. No cough or sputum production. No angina. No syncope. At the time of admission his labs are quite normal. His creatinine was at 4.8 with a BUN of 66. His sodium was at 140. He had a non-anion gap metabolic acidosis with a serum bicarb of 17. His cardiac rhythm was paced and coagulation profile is not available yet. He has some background A. fib. The majority of the rhythm that I saw her today was paced rhythm. In the emergency department the patient was given 4 L of IV fluids in the form of normal saline and was medicated the rate of 100 mL an hour. Driver cath was inserted in the ICU and the patient was found to have only 100 of urine output. He is currently on levo fed which is running at 0.03 units per KG per minute. No abdominal pain. No abdominal distention. No recent antibiotic use no. His bouts of diarrhea and this is obviously new findings. The patient has normal LFTs. Normal pancreatic enzymes. Influenza screen was negative. Stool for C. diff has been ordered and not resulted yet as the patient has not been ICU. on today's evaluation of 11/23/2018, the patient continues to be on a bicarb dr cornejo. The patient is having nonbloody diarrhea and he had few episodes in the stool for C. diff came back negative. GI has been consulted. The patient is improving. Urine output has improved. Creatinine is dropping and the patient's serum bicarb is improving. The patient also received 5 mg of vitamin K and INR today is down to 2.1. 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 Lactoferrin in the stool was positive. Ova and parasites are negative. Stool for C. diff is negative. No nausea or vomiting. No fever or chills. On 11/24/2018 the patient is doing well. No diarrhea. Serum bicarb has normalized. Renal function is improving. INR is down to 1.3. No plans to do a colonoscopy. No nausea. No vomiting. Hemodynamically stable. No other significant events overnight. He is resting comfortably and is able to sit up on a chair. No dizziness. No hypotension. No other significant events overnight. No fever or chills. GI is on the case. Objective - Vital Signs Vital signs: Vital Signs Temp 98.9 F 11/24/18 08:00 Pulse 67 11/24/18 09:00 Resp 15 11/24/18 09:00 BP 119/64 11/24/18 09:00 Pulse Ox 96 11/24/18 09:34 Intake & Output 11/23/18 11/24/18 11/24/18 18:59 06:59 18:59 Intake Total 2196.852 1650 690 Output Total 965 930 240 Balance 1231.852 720 450 Weight 159.1 kg Intake: IV 1950 1650 450 Dextrose 5% in Water 1949 1650 450 000 ml @ 150 mls/hr IV . Q7H40M ONE with Sodium Bicarb (1 Meq/ml) 150 ml Rx#:[id number] Intake, IV Titration 6.852 Amount Norepinephrine 4 mg In 6.852 Sodium Chloride 0.9% 250 ml @ 0.05 MCG/KG/MIN 26. 355 mls/hr IV .Q9H39M [facility] Rx#:[id number] Oral 240 240 Output: Urine 965 930 240 Other: Voiding Method Indwelling Catheter Indwelling Catheter Indwelling Catheter - Exam The patient appeared well nourished and normally developed. Vital signs as doc umented. Head exam is unremarkable. No scleral icterus or corneal arcus noted. Neck is without jugular venous distension, thyromegaly, or carotid bruits. Carotid upstrokes are brisk bilaterally. Lungs are clear to auscultation and percussion. Cardiac exam reveals the PMI to be normally sized and situated. Rhythm is regular. First and second heart sounds normal. No murmurs, rubs or gallops. Abdominal exam reveals normal bowel sounds, no masses, no organomegaly and no aortic enlargement. Extremities are nonedematous and both femoral and pedal pulses are normal. My normal skin the patient is a pacemaker pocket over the left anterior chest area. Neurologically the patient is awake and alert and there is no focal neurological deficits. - Labs CBC & Chem 7: 11/24/18 05:31 11/24/18 05:31 Labs: Abnormal Lab Results - Last 24 Hours (Table) 11/24/18 11/24/18 11/24/18 Range/Units 05:31 05:31 05:31 RBC 3.29 L (4.30-5.90) m/uL Hgb 10.6 L (13.0-17.5) gm/dL Hct 34.1 L (39.0-53.0) % MCV 103.5 H (80.0-100.0) fL Lymphocytes # 0.5 L (1.0-4.8) k/uL PT 13.0 H (9.0-12.0) sec INR 1.3 H (<1.2) Chloride 109 H (98-107) mmol/L BUN 60 H (9-20) mg/dL Creatinine 2.12 H (0.66-1.25) mg/dL Glucose 106 H (74-99) mg/dL Calcium 7.9 L (8.4-10.2) mg/dL Assessment and Plan Plan: Assessment 1 intravascular volume depletion secondary to nausea vomiting and diarrhea. Consider gastroenteritis. The patient presented with significant intravascular volume depletion and the patient had significant electrode abnormalities in kidney failure secondary to dehydration, clinically improving 2 acute kidney injury secondary to above, improving 3 acute non-anion gap metabolic acidosis secondary to above, covered 4 obesity with a BMI 45.3 5 history of paroxysmal atrial fibrillation, subtherapeutic PT/INR 6 history of pacemaker insertion 7 history of coronary artery disease 8 acid reflux 9 benign colonic polyps 10 previous history of GI bleed with a bleeding AV malformation the ascending colon that has been treated with argon plasma coagulation back in 2017 at [facility] in [place]. Plan Discontinue the bicarb and start the patient on half normal saline at the rate of 1 25 mL's an hour. Restart Coumadin 5 mg by mouth daily. Monitor PT/INR. Monitor diarrhea. Patient is on no pressors for now. Transfer this patient to a medical surgical floor.
--- NOTE | 2018-11-24 11:34 | P.PN ---
Subjective Progress Note Date: 11/24/18 Principal diagnosis: Diarrhea No further episodes of diarrhea. Feels well. Additional information provided by linux administrator about previous colonoscopy approximately 18 months ago patient had an AVM that was cauterized in the colon. No rectal bleeding. Tolerating diet. Afebrile. Hemoccult in 10.6. White count 8.8. Warfarin restarted. INR 1.3. Objective - Vital Signs Vital signs: Vital Signs Temp 98.9 F 11/24/18 08:00 Pulse 67 11/24/18 09:00 Resp 15 11/24/18 09:00 BP 119/64 11/24/18 09:00 Pulse Ox 96 11/24/18 09:34 Intake & Output 11/23/18 11/24/18 11/24/18 18:59 06:59 18:59 Intake Total 2196.852 1650 990 Output Total 965 930 515 Balance 1231.852 720 475 Weight 159.1 kg Intake: IV 1949 1650 750 Dextrose 5% in Water 1949 1650 750 000 ml @ 150 mls/hr IV . Q7H40M ONE with Sodium Bicarb (1 Meq/ml) 150 ml Rx#:[id number] Intake, IV Titration 6.852 Amount Norepinephrine 4 mg In 6.852 Sodium Chloride 0.9% 250 ml @ 0.05 MCG/KG/MIN 26. 355 mls/hr IV .Q9H39M [facility] Rx#:[id number] Oral 240 240 Output: Urine 965 930 515 Other: Voiding Method Indwelling Catheter Indwelling Catheter Indwelling Catheter - Exam General appearance: The patient is alert, oriented, in no acute distress. HET: Head is normocephalic and atraumatic. Pupils are equal and reactive. Oropharynx is clear without lesions. Neck: Supple without lymphadenopathy. Trachea midline. Heart: S1 S2. Regular rate and rhythm. Lungs: No crackles or wheezes are heard. Abdomen: Soft, nontender, nondistended with bowel sounds. No peritoneal signs. No palpable organomegaly or masses. Extremities: Normal skin color and turgor. No cyanosis, rash, ulceration, clubbing, or edema. Radial and pedal pulses are 2/4 bilaterally. Neurological: No focal deficits. Strength and sensation are grossly intact. - Labs CBC & Chem 7: 11/24/18 05:31 11/24/18 05:31 Labs: Abnormal Lab Results - Last 24 Hours (Table) 11/24/18 11/24/18 11/24/18 Range/Units 05:31 05:31 05:31 RBC 3.29 L (4.30-5.90) m/uL Hgb 10.6 L (13.0-17.5) gm/dL Hct 34.1 L (39.0-53.0) % MCV 103.5 H (80.0-100.0) fL Lymphocytes # 0.5 L (1.0-4.8) k/uL PT 13.0 H (9.0-12.0) sec INR 1.3 H (<1.2) Chloride 109 H (98-107) mmol/L BUN 60 H (9-20) mg/dL Creatinine 2.12 H (0.66-1.25) mg/dL Glucose 106 H (74-99) mg/dL Calcium 7.9 L (8.4-10.2) mg/dL Assessment and Plan (1) Diarrhea Narrative/Plan: 83-year-old gentleman admitted with severe dehydration acute kidney injury intravascular volume depletion secondary to nausea vomiting nonbloody diarrhea s everal weeks duration stool studies unremarkable with the exception of positive lactoferrin. Suspect diarrhea secondary to self limiting infectious gastroenteritis possible viral. Diarrhea has improved significantly with hydration. Colonoscopy less than 18 months ago with reported bleeding colonic AVM status post cautery. Clinically improving no active diarrhea. Current Visit: Yes Status: Acute Code(s): R19.7 - DIARRHEA, UNSPECIFIED SNOMED Code(s): 53741798 (2) Dehydration Current Visit: Yes Status: Acute Code(s): E86.0 - DEHYDRATION SNOMED Code(s): 41480604 (3) KIM (acute kidney injury) Current Visit: Yes Status: Acute Code(s): N17.9 - ACUTE KIDNEY FAILURE, UN SPECIFIED SNOMED Code(s): 95240453 (4) Warfarin-induced coagulopathy Current Visit: Yes Status: Acute Code(s): D68.32 - HEMORRHAGIC DISORD D/T EXTRINSIC CIRCULATING ANTICOAGULANTS; T45.515A - ADVERSE EFFECT OF ANTICOAGULANTS, INITIAL ENCOUNTER SNOMED Code(s): 11335314 (5) Paroxysmal atrial fibrillation Current Visit: Yes Status: Acute Code(s): I48.0 - PAROXYSMAL ATRIAL FIBRILLATION SNOMED Code(s): 816191044 (6) Morbid obesity with BMI of 45.0-49.9, adult Current Visit: Yes Status: Chronic Code(s): E66.01 - MORBID (SEVERE) OBESITY DUE TO EXCESS CALORIES; Z68.42 - BODY MASS INDEX (BMI) 45.0-49.9, ADULT SNOMED Code(s): 187828509 Plan: 1. Okay to restart warfarin. CBC PT/INR monitoring. Diet as tolerate. We'll continue to follow. Assessment and plan a care discussed with Dr. Tomlinson
[2018-11-24] MEDS: SODIUM CHLORIDE 0.45% 1,000 ML IV SCH ×2 (12:37→17:11)
--- NOTE | 2018-11-24 13:37 | PN ---
PROGRESS NOTE Patient is seen for followup for acute kidney injury, mainly prerenal associated with volume depletion from diarrhea, nausea and vomiting. The patient is maintained on IV fluids. His creatinine is down to 2.1 from 4.8 on initial admission. He has had good urine output. Diarrhea has improved as well. PHYSICAL EXAMINATION: On examination, blood pressure this morning was 128/64, heart rate 70 per minute. Patient is afebrile. EXAMINATION OF THE HEART: S1 and S2. EXAMINATION OF THE LUNGS: Decreased breath sounds at the bases. Abdomen is soft, obese. Examination of the lower extremities showed no edema bilaterally. [employer] exam is grossly intact. LABS: Labs show sodium 140, potassium 3.7, chloride 109, BUN 60, creatinine 2.12. INR 1.3. Hemoglobin 10.6. ASSESSMENT: 1. Acute kidney injury, prerenal, currently improving. 2. Metabolic acidosis, non anion gap secondary to gastrointestinal fluid loss and renal failure. 3. History of paroxysmal atrial fibrillation. 4. History of previous gastrointestinal bleed in 2017 from AV malformation. 5. Hypokalemia secondary to gastrointestinal fluid loss, status post replacement. PLAN: DC IV bicarb. Continue to avoid nephrotoxic agents. Repeat labs in a.m. MMODL / IJN: [id number] /
[2018-11-24] MEDS ORDERED: WARFARIN 5 MG TAB PO ONE (18:00)
--- NOTE | 2018-11-24 18:34 | PN ---
PROGRESS NOTE CHIEF COMPLAINT: Hypotension, dehydration and renal failure. HISTORY OF PRESENT ILLNESS: This gentleman is doing reasonably well. His renal function is improving. His creatinine has gone from 4.4 to 2.12. PHYSICAL EXAM: He remains slightly lethargic, but neurologically intact when he is awaken. Hydration is improving. Chest is clear. Cardiac exam is normal. Abdomen is soft and nontender. Extremities are normal. IMPRESSION: 1. Dehydration. 2. Prerenal azotemia. 3. Chronic renal failure. 4. Delirium. PLAN: Continue with IV fluids and continue while watching his renal function. MMODL / IJN: [id number] /
[2018-11-25] MEDS ORDERED: LISINOPRIL 20 MG TAB PO STA (05:14)
[2018-11-25 05:50] LABS: INR 1.4 (<1.2); Prothrombin Time 14.3 sec (9.0-12.0)
[2018-11-25] MEDS: CARVEDILOL 3.125 MG TAB PO SCH ×2 (08:03→17:07)
[2018-11-25] MEDS: PANTOPRAZOLE 40 MG TABLET PO SCH (08:03)
[2018-11-25] MEDS: SODIUM CHLORIDE 0.45% 1,000 ML IV SCH ×3 (10:30→17:38)
--- NOTE | 2018-11-25 10:32 | P.PN ---
Subjective Progress Note Date: 11/25/18 Principal diagnosis: Diarrhea No complaints. Tolerating diet. No diarrhea. No bleeding. Objective - Vital Signs Vital signs: Vital Signs Temp 98.1 F 11/25/18 07:00 Pulse 70 11/25/18 07:00 Resp 20 11/25/18 07:00 BP 123/71 11/25/18 07:00 Pulse Ox 95 11/25/18 04:00 Intake & Output 11/24/18 11/25/18 11/25/18 18:59 06:59 18:59 Intake Total 1490 2590 Output Total 515 Balance 975 2590 Intake: IV 750 2000 Dextrose 5% in Water 1, 750 000 ml @ 150 mls/hr IV . Q7H40M ONE with Sodium Bicarb (1 Meq/ml) 150 ml Rx#:[id number] Sodium Chloride 0.45% 1, 2000 000 ml @ 125 mls/hr IV . Q8H [facility] Rx#:[id number] Intake, IV Titration 500 Amount Sodium Chloride 0.45% 1, 500 000 ml @ 125 mls/hr IV . Q8H [facility] Rx#:[id number] Oral 240 590 Output: Urine 515 Other: Voiding Method Indwelling Catheter # Voids 2 3 # Bowel Movements 2 - Exam General appearance: The patient is alert, oriented, in no acute distress. HET: Head is normocephalic and atraumatic. Pupils are equal and reactive. Oropharynx is clear without lesions. Neck: Supple without lymphadenopathy. Trachea midline. Heart: S1 S2. Regular rate and rhythm. Lungs: No crackles or wheezes are heard. Abdomen: Soft, nontender, nondistended with bowel sounds. No peritoneal signs. No palpable organomegaly or masses. Extremities: Normal skin color and turgor. No cyanosis, rash, ulceration, clubbing, or edema. Radial and pedal pulses are 2/4 bilaterally. Neurological: No focal deficits. Strength and sensation are grossly intact. - Labs CBC & Chem 7: 11/24/18 05:31 11/24/18 05:31 Labs: Abnormal Lab Results - Last 24 Hours (Table) 11/25/18 Range/Units 05:09 PT 14.3 H (9.0-12.0) sec INR 1.4 H (<1.2) Assessment and Plan (1) Diarrhea Narrative/Plan: 83-year-old gentleman admitted with severe dehydration acute kidney injury intravascular volume depletion secondary to nausea vomiting nonbloody diarrhea several weeks duration stool studies unremarkable with the exception of positive lactoferrin. Suspect diarrhea secondary to self limiting infectious gastroenteritis possible viral. Diarrhea has improved significantly with hydration. Colonoscopy less than 18 months ago with reported bleeding colonic AVM status post cautery. Clinically improving no active diarrhea. Current Visit: Yes Status: Acute Code(s): R19.7 - DIARRHEA, UNSPECIFIED SNOMED Code(s): 67614155 (2) Dehydration Current Visit: Yes Status: Acute Code(s): E86.0 - DEHYDRATION SNOMED C ode(s): 40562266 (3) KIM (acute kidney injury) Current Visit: Yes Status: Acute Code(s): N17.9 - ACUTE KIDNEY FAILURE, UNSPECIFIED SNOMED Code(s): 09092017 (4) Warfarin-induced coagulopathy Current Visit: Yes Status: Acute Code(s): D68.32 - HEMORRHAGIC DISORD D/T EXTRINSIC CIRCULATING ANTICOAGULANTS; T45.515A - ADVERSE EFFECT OF ANTICOAGULANTS, INITIAL ENCOUNTER SNOMED Code(s): 75731198 (5) Paroxysmal atrial fibrillation Current Visit: Yes Status: Acute Code(s): I48.0 - PAROXYSMAL ATRIAL FIBRILLATION SNOMED Code(s): 051341301 (6) Morbid obesity with BMI of 45.0-49.9, adult Current Visit: Yes Status: Chronic Code(s): E66.01 - MORBID (SEVERE) OBESITY DUE TO EXCESS CALORIES; Z68.42 - BODY MASS INDEX (BMI) 45.0-49.9, ADULT SNOMED Code(s): 221547211 Plan: 1. Continue present medical therapy and warfarin. Discharge per medicine. We'll follow as needed. Assessment and plan a care discussed with Dr. Tomlinson
[2018-11-25 11:17] VITALS: BMI 46.3
[2018-11-25 11:37] LABS: Calcium 8.1 mg/dL (8.4-10.2); Potassium 3.8 mmol/L (3.5-5.1)
--- NOTE | 2018-11-25 14:44 | CDI ---
Documentation Clarification Form Date: 11/25/2018 2:24:04 PM From: Kaya Huerta RN CCDS Admit Date: 11/22/2018 3:50:00 AM Patient Name: Royal Hopkins Visit Number: [id number] Discharge Date: ATTENTION: The Clinical Documentation Specialists (CDI) and [facility] Coding Staff appreciate your assistance in clarifying documentation. Please respond to the clarification below the line at the bottom and electronically sign. The CDI & [facility] Coding staff will review the response and follow-up if needed. Please note: Queries are made part of the Legal Health Record. If you have any questions, please contact the author of this message via ITS. Dr. Aneudy Sanches Conflicting documentation has been found in the medical record: Acute Renal Failure Nephrology Consult and Progress notes Chronic Renal Failure Your Progress note History/Risk Factors:83 y/o male presents to the ED with nausea vomiting and Diarrhea. Medical history Paroxysmal Fibrillation and GI Bleed Clinical Indicators: 11/21/2018 4.82; 11/22/2018 4.42; 11/23/2018 3.36; 11/24/2018 2.12; 11/25/2018 1.62; Per Nephro progress note 11/23/2018 Acute Kidney Injury associated with volume depletion, hypotension currently improving. Ua shows trace protein with small amount of blood, multiple hyaline casts which go along with hypotension and hypoperfusion. Thre is no evidence of obstructive uropathy and I will continue with IV fluids for now Treatment: Nephrology Consult , Sodium Bicarb 15cc/hr 11/22/2018 thru 11/24/2018; 0.9ns 4L iv bolus. In your opinion, what is the most clinically appropriate diagnosis for this patient? * Acute Renal Failure * Chronic Renal Failure * Other explanation of clinical findings * Unable to determine (no explanation for clinical findings) (Last Revision: November 2017) MTDD
--- NOTE | 2018-11-25 15:01 | P.PN ---
Subjective Progress Note Date: 11/25/18 On today's evaluation the patient has no specific complaints. Doing well. No diarrhea. Tolerating diet. The renal function continues to improve in the creatinine is down to 1.6. The patient was started back on Coumadin and INR is up to 1.4. No nausea. No vomiting. No abdominal pain. No altered mentation. No other significant events over the past 24 hours. The patient will be moved out of the intensive care unit. The patient is currently on IV fluids with half-normal saline at the rate of 125 mL an hour. Objective - Vital Signs Vital signs: Vital Signs Temp 98.1 F 11/25/18 13:55 Pulse 70 11/25/18 13:55 Resp 20 11/25/18 07:00 BP 144/68 11/25/18 13:55 Pulse Ox 95 11/25/18 13:55 Intake & Output 11/24/18 11/25/18 11/25/18 18:59 06:59 18:59 Intake Total 1490 2590 Output Total 515 Balance 975 2590 Weight 159.1 kg Intake: IV 750 2000 Dextrose 5% in Water 1, 750 000 ml @ 150 mls/hr IV . Q7H40M ONE with Sodium Bicarb (1 Meq/ml) 150 ml Rx#:[id number] Sodium Chloride 0.45% 1, 2000 000 ml @ 125 mls/hr IV . Q8H [facility] Rx#:[id number] Intake, IV Titration 500 Amount Sodium Chloride 0.45% 1, 500 000 ml @ 125 mls/hr IV . Q8H [facility] Rx#:[id number] Oral 240 590 Output: Urine 515 Other: Voiding Method Indwelling Catheter # Voids 2 3 1 # Bowel Movements 2 2 - Exam The patient appeared well nourished and normally developed. Vital signs as documented. Head exam is unremarkable. No scleral icterus or corneal arcus noted. Neck is without jugular venous distension, thyromegaly, or carotid bruits. Carotid upstrokes are brisk bilaterally. Lungs are clear to auscultation and percussion. Cardiac exam reveals the PMI to be normally sized and situated. Rhythm is regular. First and second heart sounds normal. No murmurs, rubs or gallops. Abdominal exam reveals normal bowel sounds, no masses, no organomegaly and no aortic enlargement. Extremities are nonedematous and both femoral and pedal pulses are normal. My normal skin the patient is a pacemaker pocket over the left anterior chest area. Neurologically the patient is awake and alert and there is no focal neurological deficits. - Labs CBC & Chem 7: 11/24/18 05:31 11/25/18 05:09 Labs: Abnormal Lab Results - Last 24 Hours (Table) 11/25/18 11/25/18 Range/Units 05:09 05:09 PT 14.3 H (9.0-12.0) sec INR 1.4 H (<1.2) BUN 51 H (9-20) mg/dL Creatinine 1.62 H (0.66-1.25) mg/dL Glucose 101 H (74-99) mg/dL Calcium 8.1 L (8.4-10.2) mg/dL Assessment and Plan Plan: Assessment 1 intravascular volume depletion secondary to nausea vomiting and diarrhea. Consider gastroenteritis. The patient presented with significant intravascular volume depletion and the patient had significant electrode abnormalities in kidney failure secondary to dehydration, clinically improving and the patient is diarrhea has subsided and the patient's renal function continues to improve 2 acute kidney injury secondary to above, improving 3 acute non-anion gap metabolic acidosis secondary to above, covered 4 obesity with a BMI 45.3 5 history of paroxysmal atrial fibrillation, subtherapeutic PT/INR, currently b ack on Coumadin 6 history of pacemaker insertion 7 history of coronary artery disease 8 acid reflux 9 benign colonic polyps 10 previous history of GI bleed with a bleeding AV malformation the ascending colon that has been treated with argon plasma coagulation back in 2017 at [facility] in [place]. Plan Continue IV fluids. 5 mg of Coumadin today. Creatinine is down to 1.6. Continue IV fluids for another 24 hours. No diarrhea. Hemodynamically stable. Transfer out of the intensive care units.
[2018-11-25] MEDS ORDERED: WARFARIN 5 MG TAB PO ONE (18:00)
--- NOTE | 2018-11-25 19:41 | PN ---
PROGRESS NOTE Patient is seen for followup for acute kidney injury which was mainly prerenal and improved with IV hydration. Serum creatinine is down to 1.6 mg/dL from 4.8 on initial admission. Diarrhea has improved and patient will be transferred out of the ICU. PHYSICAL EXAMINATION: This morning blood pressure was 123/71, heart rate about 80 per minute. Patient is afebrile. Examination shows he is euvolemic with no evidence of edema in his lower extremities. ABDOMEN: Soft and obese, nontender. LABS: Show sodium 141, potassium 3.8, chloride 107, BUN 51, serum creatinine 1.62. ASSESSMENT: 1. Acute kidney injury, prerenal, nonoliguric, currently improving. The patient is maintained on half-normal saline. 2. Diarrhea, most likely viral, currently improved. 3. Hypertension, controlled. 4. Non-gap metabolic acidosis secondary to diarrhea and renal failure, currently resolved. PLAN: Continue to encourage increased oral intake. Repeat labs in a.m. The patient is stable for discharge from Nephrology standpoint. MMODL / IJN: [id number] /
--- NOTE | 2018-11-25 22:02 | PN ---
PROGRESS NOTE DATE OF SERVICE: 11/25/2018 CHIEF COMPLAINT: Dehydration, hypotension and acute kidney injury. HISTORY OF PRESENT ILLNESS: This gentleman is doing a little bit better each day. He has slowly become a little bit more alert. His blood pressure has gone up today, and this will be treated. REVIEW OF SYSTEMS: He has no complaints. PHYSICAL EXAMINATION: He is awake and breath sounds are heard bilaterally. Cardiac exam is normal. The abdomen is soft and nontender. IMPRESSION: 1. Dehydration with hypotension and acute renal injury. 2. Hypertension. PLAN: Treat elevated blood pressure. Work on a discharge plan. MMODL / IJN: [id number] /
[2018-11-26] MEDS: SODIUM CHLORIDE 0.45% 1,000 ML IV SCH ×3 (04:38→17:46)
[2018-11-26] MEDS: CARVEDILOL 3.125 MG TAB PO SCH ×2 (08:44→17:58)
[2018-11-26] MEDS: PANTOPRAZOLE 40 MG TABLET PO SCH (08:44)
[2018-11-26] MEDS: ACETAMINOPHEN TAB 325 MG TAB PO PRN (08:47)
[2018-11-26 09:33] LABS: INR 1.6 (<1.2); Prothrombin Time 16.4 sec (9.0-12.0)
[2018-11-26] MEDS ORDERED: FUROSEMIDE 10 MG/ML 2 ML VIAL IV STA (11:50)
[2018-11-26] MEDS: IPRATROPIUM-ALBUTEROL 3 ML NEB INHALATION SCH ×3 (11:59→20:58)
--- NOTE | 2018-11-26 12:44 | XR ---
EXAMINATION TYPE: XR chest 1V portable DATE OF EXAM: 11/26/2018 HISTORY: shortness of breath. REFERENCE: Previous study dated 4:20 PM. FINDINGS: There is a bipolar pacemaker in place on the left. There is an interval change. Approximate ly overlies the right atrium and distally overlies right ventricle. The heart is enlarged. There is mild vascular congestion without edema. There is some bibasilar airsp jemma disease. No definite pleural fluid is seen. IMPRESSION: 1. CARDIOMEGALY. 2. BIBASILAR AIRSPACE DISEASE.
--- NOTE | 2018-11-26 15:29 | P.PN ---
Subjective Progress Note Date: 11/26/18 Principal diagnosis: Intravascular volume depletion secondary to nausea vomiting diarrhea. The patient is seen today in follow-up on the regular medical floor. He is currently awake and alert in no acute distress. He's been up ambulating to the bathroom and back. No pulmonary complaints. Maintaining O2 saturations in the 90s on room air. He's been afebrile. Hemodynamically stable. INR 1.6. His warfarin has been resumed. IV 0.45 normal saline at 20 ML's per hour. Objective - Vital Signs Vital signs: Vital Signs Temp 98.1 F 11/26/18 08:44 Pulse 68 11/26/18 12:02 Resp 18 11/26/18 11:40 BP 99/65 11/26/18 12:03 Pulse Ox 95 11/26/18 11:40 Intake & Output 11/25/18 11/26/18 11/26/18 18:59 06:59 18:59 Intake Total 437.5 360 Balance 437.5 360 Weight 159.1 kg Intake: IV 437.5 Sodium Chloride 0.45% 1, 437.5 000 ml @ 125 mls/hr IV . Q8H [facility] Rx#:[id number] Oral 360 Other: Voiding Method Toilet Toilet # Voids 1 2 # Bowel Movements 2 - Exam The patient appeared well nourished and normally developed. Vital signs as documented. Head exam is unremarkable. No scleral icterus or corneal arcus noted. Neck is without jugular venous distension, thyromegaly, or carotid bru its. Carotid upstrokes are brisk bilaterally. Lungs are clear to auscultation and percussion. Cardiac exam reveals the PMI to be normally sized and situated. Rhythm is regular. First and second heart sounds normal. No murmurs, rubs or gallops. Abdominal exam reveals normal bowel sounds, no masses, no organomegaly and no aortic enlargement. Extremities are nonedematous and both femoral and pedal pulses are normal. My normal skin the patient is a pacemaker pocket over the left anterior chest area. Neurologically the patient is awake and alert and there is no focal neurological deficits. - Labs CBC & Chem 7: 11/24/18 05:31 11/25/18 05:09 Labs: Abnormal Lab Results - Last 24 Hours (Table) 11/26/18 Range/Units 08:30 PT 16.4 H (9.0-12.0) sec INR 1.6 H (<1.2) Assessment and Plan Assessment: Assessment 1 intravascular volume depletion secondary to nausea vomiting and diarrhea. Consider gastroenteritis. The patient presented with significant intravascular volume depletion and the patient had significant electrode abnormalities in kidney failure secondary to dehydration, clinically improving and the patient is diarrhea has subsided and the patient's renal function continues to improve 2 acute kidney injury secondary to above, improving 3 acute non-anion gap metabolic acidosis secondary to above, covered 4 obesity with a BMI 45.3 5 history of paroxysmal atrial fibrillation, subtherapeutic PT/INR, currently back on Coumadin 6 history of pacemaker insertion 7 history of coronary artery disease 8 acid reflux 9 benign colonic polyps 10 previous history of 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 Plan The patient was seen and evaluated by Dr. Garcia. He is stable from the pulmonary and critical care standpoint. He is back on his warfarin. INR 1.6. We'll follow the patient on as-needed basis. I, the cosigning physician, performed a history & physical examination of the patient. Lungs sounds are clear. Maintaining good O2 saturations in the 90s on room air. I discussed the assessment and plan of care with my nurse practitioner, Radha Chung. I attest to the above note as dictated by her.
--- NOTE | 2018-11-26 15:33 | PN ---
PROGRESS NOTE DATE OF SERVICE: 11/26/2018 CHIEF COMPLAINT: Dehydration, electrolyte imbalance and prerenal azotemia. HISTORY OF PRESENT ILLNESS: This gentleman started to have difficulty with shortness of breath. He was probably fluid-overloaded. A small dose of diuretic was administered and his IV rate was slowed and he feels much better. PHYSICAL EXAMINATION: He has occasional rales. Cardiac exam is normal. Abdomen is protuberant and soft. IMPRESSION: 1. Congestive heart failure. 2. Dehydration. 3. Prerenal azotemia. 4. Hypotension. 5. Renal failure. PLAN: He has been referred for discharge planning, but he lives alone and probably will be able to return there in a day or two. MMODL / IJN: [id number] /
[2018-11-26] MEDS: LOPERAMIDE 2 MG CAP PO SCH ×2 (17:58→22:23)
[2018-11-26] MEDS ORDERED: WARFARIN 5 MG TAB PO ONE ×2 (18:00→19:30)
[2018-11-27] MEDS: IPRATROPIUM-ALBUTEROL 3 ML NEB INHALATION PRN (05:13)
[2018-11-27] MEDS: IPRATROPIUM-ALBUTEROL 3 ML NEB INHALATION SCH ×4 (07:50→19:46)
[2018-11-27 08:06] LABS: Calcium 8.1 mg/dL (8.4-10.2); Potassium 3.6 mmol/L (3.5-5.1)
[2018-11-27 08:07] LABS: INR 1.9 (<1.2); Prothrombin Time 19.1 sec (9.0-12.0)
[2018-11-27] MEDS: CARVEDILOL 3.125 MG TAB PO SCH ×2 (09:29→17:01)
[2018-11-27] MEDS: PANTOPRAZOLE 40 MG TABLET PO SCH (09:29)
[2018-11-27] MEDS: LOPERAMIDE 2 MG CAP PO SCH ×4 (09:29→22:26)
--- NOTE | 2018-11-27 11:45 | PN ---
PROGRESS NOTE Patient is seen for followup for acute kidney injury which was mainly prerenal associated with diarrhea and volume depletion. Renal function has improved with creatinine down to 1.59 now from 4.8 mg/dL on initial admission. The patient was maintained on IV fluids, however, they were held as patient became volume overloaded and he received a dose of Lasix. Currently he is comfortable. The patient denies any significant symptoms. PHYSICAL EXAMINATION: Blood pressure was 103/67, heart rate 70 per minute. He is afebrile. Examination of the heart S1, S2. Examination of the lungs, decreased breath sounds at the bases. Abdomen is soft, obese, nontender. Examination lower extremities shows edema trace bilaterally. TRAUMA DOCTOR exam is grossly intact. LABS: Sodium 140, potassium 3.6, BUN 44, serum creatinine 1.59. ASSESSMENT: 1. Acute kidney injury, mainly prerenal, currently improving with IV fluids. 2. Non-gap metabolic acidosis associated with diarrhea and renal failure, now resolved. 3. Mild volume overload. Continue to maintain patient off of IV fluids for now. 4. Diarrhea on admission. Seems to have improved although still present. Clostridium difficile toxin is negative. MMODL / IJN: [id number] /
--- NOTE | 2018-11-27 14:45 | P.PN ---
Subjective Progress Note Date: 11/27/18 On 11/27/2018 the patient doing well no complaints still having some liquidy diarrhea currently on Imodium. Adequately replenished and the patient's creatinine is down to 1.59 and the patient has been resuscitated with IV fluids. INR is at 1.9. No reported chest pain. No shortness of breath. A bit weak especially with activity. Objective - Vital Signs Vital signs: Vital Signs Temp 99.3 F 11/27/18 07:49 Pulse 72 11/27/18 11:25 Resp 20 11/27/18 07:49 BP 103/67 11/27/18 07:49 Pulse Ox 93 L 11/27/18 07:49 Intake & Output 11/26/18 11/27/18 11/27/18 18:59 06:59 18:59 Intake Total 360 320 200 Output Total 300 Balance 360 320 -100 Intake: IV 320 Sodium Chloride 0.45% 1, 320 000 ml @ 20 mls/hr IV . Q24H [facility] Rx#:[id number] Oral 360 200 Output: Stool 300 Other: # Voids 3 # Bowel Movements 3 1 2 - Exam The patient appeared well nourished and normally developed. Vital signs as documented. Head exam is unremarkable. No scleral icterus or corneal arcus noted. Neck is without jugular venous distension, thyromegaly, or carotid bruits. Carotid upstrokes are brisk bilaterally. Lungs are clear to auscultation and percussion. Cardiac exam reveals the PMI to be normally sized and situated. Rhythm is regular. First and second heart sounds normal. No murmurs, rubs or gallops. Abdominal exam reveals normal bowel sounds, no masses, no organomegaly and no aortic enlargement. Extremities are nonedematous and both femoral and pedal pulses are normal. My normal skin the patient is a pacemaker pocket over the left anterior chest area. Neurologically the patient is awake and alert and there is no focal neurological deficits. - Labs CBC & Chem 7: 11/24/18 05:31 11/27/18 07:19 Labs: Abnormal Lab Results - Last 24 Hours (Table) 11/27/18 11/27/18 Range/Units 07:11 07:19 PT 19.1 H (9.0-12.0) sec INR 1.9 H (<1.2) Chloride 108 H (98-107) mmol/L BUN 44 H (9-20) mg/dL Creatinine 1.59 H (0.66-1.25) mg/dL Glucose 113 H (74-99) mg/dL Calcium 8.1 L (8.4-10.2) mg/dL Assessment and Plan Plan: Assessment 1 acute dehydration/ intravascular volume depletion secondary to nausea vomiting and diarrhea. Consider gastroenteritis. The patient presented with significant intravascular volume depletion and the patient had significant electrode abnormalities in kidney failure secondary to dehydration, clinically improving and the patient is diarrhea has subsided and the patient's renal function continues to improve 2 acute kidney injury secondary to above, improving 3 acute non-anion gap metabolic acidosis secondary to above, covered 4 obesity with a BMI 45.3 5 history of paroxysmal atrial fibrillation, subtherapeutic PT/INR, currently back on Coumadin 6 history of pacemaker insertion 7 history of coronary artery disease 8 acid reflux 9 benign colonic polyps 10 previous history of GI bleed with a bleeding AV malformation the ascending colon that has been treated with argon plasma coagulation back in 2017 at [facility] in [place]. Plan Give the patient 2.5 mg of Coumadin today. Diarrhea management per medicine. Accurately and adequately replenished with IV fluids. Pulmonary and critical care services we'll sign off.
[2018-11-27] MEDS ORDERED: WARFARIN 2.5 MG TAB PO ONE (18:00)
[2018-11-27 18:36] LABS: Basophils % (A) 1 %; Eosinophils # (A) 0.2 k/uL (0-0.7); Eosinophils % (A) 2 %; HCT 33.1 % (39.0-53.0); HGB 10.5 gm/dL (13.0-17.5); Lymphocytes # (A) 0.6 k/uL (1.0-4.8); Lymphocytes % (A) 8 %; MCH 31.7 pg (25.0-35.0); MCHC 31.6 g/dL (31.0-37.0); MCV 100.5 fL (80.0-100.0); Macrocytosis Slight; Mean Platelet Volume 7.7; Monocytes # (A) 0.4 k/uL (0-1.0); Monocytes % (A) 5 %; Neutrophils # (A) 6.1 k/uL (1.3-7.7); Neutrophils % (A) 79 %; Platelet Count 227 k/uL (150-450); WBC 7.8 k/uL (3.8-10.6)
--- NOTE | 2018-11-27 19:00 | XR ---
EXAMINATION TYPE: XR chest 2V DATE OF EXAM: 11/27/2018 COMPARISON: 11/26/2018 HISTORY: Heart failure. Short of breath TECHNIQUE: Frontal and lateral views of the chest are obtained. FINDINGS: Heart is enlarged. There is mild pulmonary congestion. There is no definite pleural effusi on. There is a left axillary pacemaker. Bony thorax is intact. IMPRESSION: Cardiomegaly and mild heart failure. Pulmonary vascularity is increased compared to yest [place].
[2018-11-27] MEDS ORDERED: WARFARIN 5 MG TAB PO ONE (19:30)
[2018-11-27] MEDS: ACETAMINOPHEN TAB 325 MG TAB PO PRN (19:58)
[2018-11-27] MEDS ORDERED: FUROSEMIDE 10 MG/ML 2 ML VIAL IV STA (20:50)
--- NOTE | 2018-11-27 21:04 | PN ---
PROGRESS NOTE CHIEF COMPLAINT: Dehydration. HISTORY OF PRESENT ILLNESS: This gentleman has suddenly started to have difficulties. He has elevated his temp over 100, and he is describing chills and shaking. He is also developing nausea and vomiting and he states it is due to "1 pill." He denies chest pain, abdominal pain, cough, etc. PHYSICAL EXAM: Chest demonstrates poor breath sounds with occasional rales. Cardiac exam is normal. The abdomen is protuberant and soft and nontender without any visceromegaly or masses. Bowel sounds are present. IMPRESSION: 1. Low-grade fever. 2. Nausea and vomiting, etiology unknown. 3. Dehydration. 4. Renal failure. PLAN: 1. Blood cultures. 2. Stop Coreg. 3. Continue to monitor. If he continues to have further difficulty, he will have to undergo further GI evaluation. MMODL / IJN: [id number] /
[2018-11-27] MEDS: SODIUM CHLORIDE 0.45% 1,000 ML IV SCH (22:19)
[2018-11-28] MEDS: IPRATROPIUM-ALBUTEROL 3 ML NEB INHALATION PRN (04:14)
[2018-11-28] MEDS: PANTOPRAZOLE 40 MG TABLET PO SCH (06:21)
[2018-11-28 07:35] LABS: INR 2.3 (<1.2); Prothrombin Time 22.3 sec (9.0-12.0)
[2018-11-28 07:47] LABS: Albumin 2.7 g/dL (3.5-5.0); Potassium 3.8 mmol/L (3.5-5.1); Total Bilirubin 0.6 mg/dL (0.2-1.3); Total Protein 5.8 g/dL (6.3-8.2)
[2018-11-28] MEDS: LOPERAMIDE 2 MG CAP PO SCH ×4 (08:14→22:54)
[2018-11-28] MEDS: IPRATROPIUM-ALBUTEROL 3 ML NEB INHALATION SCH ×4 (09:04→20:12)
--- NOTE | 2018-11-28 11:46 | CONS ---
CONSULTATION CHIEF COMPLAINT: Shortness of breath. Royal is an 83-year-old gentleman with history of atrial fibrillation, congestive heart failure, who follows with a it training specialist in [place] but lives in [place]. Initially came to hospital almost a week ago with symptoms of nausea, vomiting. He was dehydrated and hypotensive. He has since received IV fluids. Diarrhea has improved and he is feeling better. Subsequently developed some shortness of breath and leg edema and workup showed that he has congestive heart failure for which Cardiology had been consulted. At the time of my evaluation this morning, patient is comfortable at rest. Has O2 on. A chest x-ray revealed cardiomegaly with mild congestive heart failure. Patient had been seen by multiple experts on this admission including the wool puller and packaging sales and a photoengraving finisher. The patient initially was in renal failure and this is improved significantly. I believe patient developed fluid overload, probably related to the IV hydration he received and he is currently receiving IV Lasix. We do not have an echocardiogram on this admission. I am going to obtain one on him. PAST MEDICAL HISTORY: Significant for atrial fibrillation, hypertension, and permanent pacemaker. MEDICATIONS: Include Lasix, Coreg 3.125 b.i.d., and Coumadin. ALLERGIES: There are no known drug allergies. FAMILY HISTORY: Negative for premature coronary artery disease. SOCIAL HISTORY: Significant for smoking. There is no history of EtOH abuse or drug abuse. REVIEW OF SYSTEMS: HEENT is unremarkable. CARDIAC: As described above. RESPIRATORY: As described above. GI: As described above. GENITOURINARY: As described above. PSYCHOSOCIAL: Negative. ENDOCRINE: Negative. DERM: Negative. CONSTITUTIONAL: Negative. ONCOLOGICAL: Negative. Rest of the system review is not relevant. PHYSICAL EXAM: He is comfortable at rest, O2 sat is 96% on 2 L. Heart rate is 79 beats per minute. Blood pressure is 120/97, respiratory rate is 18. Chest exam reveals diminished air entry at the bases without any crackles or rhonchi. Heart exam reveals first and second heart sounds, irregular rhythm and a systolic murmur at the apex. Abdomen is soft. Exam of extremities reveal trace edema. Peripheral pulses are palpable. LABS: Show an INR of 2.3. Hemoglobin is 10.5. Potassium is 3.8. His creatinine is 1.3. Patient initially came in with a creatinine of 4.8. Her BNP is elevated at 2170. ASSESSMENT: Acute onset congestive heart failure probably secondary to fluid overload and diastolic dysfunction. Try to hold off on IV fluids at this time and use and use IV Lasix judiciously. This will resume the patient's Coreg that he was on and will obtain a 2D echo. CITNIA / ANNI: [id number] /
[2018-11-28] MEDS ORDERED: FUROSEMIDE 10 MG/ML 4 ML VIAL IV STA (13:39)
[2018-11-28] MEDS: ACETAMINOPHEN TAB 325 MG TAB PO PRN ×2 (14:41→20:54)
--- NOTE | 2018-11-28 15:14 | PN ---
PROGRESS NOTE Patient is seen for followup for acute kidney injury which was mainly prerenal. Patient was admitted with complaints of diarrhea. He was volume depleted. Renal function has improved with serum creatinine down to 1.3 from 4.28 mg/dL on initial admission. PHYSICAL EXAMINATION: This morning, blood pressure is 163/77, heart rate 71 per minute. He is afebrile. Examination of the heart, S1, S2. Examination of the lungs, bilateral breath sounds are heard. Abdomen is soft, nontender. Examination of the lower extremities shows trace edema bilaterally. EXTENSION CLERK exam is grossly intact. LABS: Show sodium of 140, potassium 3.8, chloride 108, BUN 39, serum creatinine 1.3, hemoglobin 10.5 g/dL. ASSESSMENT: 1. Acute kidney injury, prerenal, currently improved. 2. Diarrhea with Clostridium difficile toxin negative, improved since admission, still persistent though. 3. History of paroxysmal atrial fibrillation maintained on anticoagulation. 4. Previous history of GI bleed from AV malformation in the ascending colon in 2017. 5. Non-gap metabolic acidosis secondary to renal failure and diarrhea, now improved. 6. Volume overload, now improved. PLAN: Continue to encourage increased oral intake. Continue off of IV fluids. I will repeat a dose of IV Lasix today and then we can maintain him on oral Lasix, if needed. MMODL / IJN: [id number] /
[2018-11-28] MEDS: PIPERACILLIN-TAZOBACTAM 3.375 GM in SODIUM CHLORIDE 0.9% 100 ML IVPB SCH ×2 (16:04→22:45)
[2018-11-28] MEDS: SODIUM CHLORIDE 0.45% 1,000 ML IV SCH (16:04)
[2018-11-28] MEDS: CARVEDILOL 3.125 MG TAB PO SCH (16:04)
[2018-11-28 17:09] LABS: Appearance,Urine Cloudy (Clear); Bacteria,Urine Moderate /hpf; Bilirubin,Urine Negative (Negative); Blood,Urine Trace (Negative); Color,Urine Yellow; Glucose,Urine (UA) Negative (Negative); Ketones,Urine Negative (Negative); Leukocyte Esterase,Urine Large (Negative); Mucus,Urine Rare /hpf; Nitrite,Urine Positive (Negative); PH, Urine 5.5 (5.0-8.0); Protein,Urine Trace (Negative); RBC,Urine 5 /hpf (0-5); Specific Gravity,Urine 1.016 (1.001-1.035); Squamous Epithelial Cell,Urine 2 /hpf (0-4); Urobilinogen,Urine <2.0 mg/dL (<2.0)
--- NOTE | 2018-11-28 17:44 | PN ---
PROGRESS NOTE CHIEF COMPLAINT: Congestive heart failure, renal failure, and hypotension. HISTORY OF PRESENT ILLNESS: This gentleman continues to be a difficult management issue. He is still short of breath. He does not seem to be nauseated today. His blood pressure is still low. He received a small dose of Lasix IV, but he still is short of breath and congested. PHYSICAL EXAM: He has occasional scattered rales and rhonchi bilaterally with an inspiratory wheeze on both sides. Cardiac exam is unchanged. Abdomen is soft and nontender. IMPRESSION: 1. Congestive heart failure. 2. Renal failure. 3. Hypotension. PLAN: Continue efforts to treat to hold his congestive heart failure under control. Discharge planning is in progress. MMODL / IJN: [id number] /
[2018-11-28] MEDS ORDERED: WARFARIN 2.5 MG TAB PO ONE (18:00)
--- NOTE | 2018-11-28 18:25 | CONS ---
CONSULTATION DATE OF SERVICE: 11/28/2018 REASON FOR CONSULTATION: Fever. HISTORY OF PRESENT ILLNESS: The patient is an 83-year-old male who initially presented to the [facility] ER on 11/21/2018 with chief complaints of intermittent nausea, vomiting and diarrhea for about a week. The patient had been feeling dizzy, with concern about dehydration. No fever or any bloody stool. With these symptoms, the patient was initially evaluated by the ER physician. On admission the patient has been afebrile. The patient did have a normal white count of 7.7. His white count remains normal. The patient did have elevated BUN and creatinine with a creatinine of 4.82 that was thought to be related to dehydration with nausea, vomiting and diarrhea. The patient did have stool for C difficile which came back negative, and the stool cultures were negative as well. Stool lactoferrin was positive. The patient has been treated symptomatically with Imodium. The patient did spike a new fever of 100.4 yesterday afternoon and a subsequent fever of 100 degrees Fahrenheit. The patient also was complaining of some increasing shortness of breath. For that reason, the patient has been transferred down to the telemetry unit. The patient did have a chest x-ray completed which shows cardiomegaly with mild heart failure, and pulmonary vascular disease increased compared to yesterday. With his fever pattern, infectious disease consultation and UA were requested; however, not completed. Blood cultures have been obtained which are currently pending. As of this morning, the patient is afebrile. He is breathing comfortably. The patient did have a very mild cough, but not bringing up any sputum. No chest pain. No nausea, no vomiting. No abdominal pain. His diarrhea has resolved. REVIEW OF SYSTEMS: Positive points have been mentioned in the HPI. Rest of the systems negative. PAST MEDICAL HISTORY: 1. Atrial fibrillation. 2. Gastroesophageal reflux disease. 3. FL. 4. Colon polyps. PAST SURGICAL HISTORY: 1. Pacemaker placement that had to be replaced. It was replaced in 2018 at [facility]. 2. Septal surgery for fractured nose. 3. Colonoscopy with benign polypectomy. SOCIAL HISTORY: Remote history of smoking. No drinking or drug use. FAMILY HISTORY: Mother with history of CVA, TIA. ALLERGIES: NO KNOWN DRUG ALLERGIES. MEDICATION: Current medications include: 1. Tylenol. 2. DuoNeb. 3. Coreg. 4. Morphine sulfate. 5. Narcan. 6. Protonix. 7. Coumadin. 8. Imodium. PHYSICAL EXAMINATION: Blood pressure 163/77 with a pulse of 70. Temperature 98.7. He is 100% on 2 L nasal cannula. General description is an elderly male up in the chair in no distress. No tachypnea or accessory muscle of respiration use. HEENT examination shows pallor. No scleral icterus. Oral mucosa membrane is dry. No pharyngeal erythema or thrush. NECK: Trachea is central. No thyromegaly. LUNGS: Unlabored breathing with decreased breath sounds in the bases. No wheeze. HEART: S1, S2. Regular rate and rhythm. No added sound. ABDOMEN: Soft. No tenderness. No guarding or rigidity. No hepatosplenomegaly. EXTREMITIES: Some trace edema of feet. SKIN EXAMINATION: No rash or mass palpable. Neurologically patient is awake, alert, oriented x3. Mood and affect normal. LABS: Hemoglobin 10.5, white count 7.8. BUN of 60, creatinine 2.12. It was last done on 11/24. His creatinine is 1.31 as of blood work this morning. Urine on admission has been negative. DIAGNOSTIC IMPRESSION AND PLAN: Patient admitted to hospital with acute nausea and vomiting, diarrhea, and this patient did have acute renal failure, more likely because of dehydration. The patient did have a workup for infectious diarrhea that was negative, and currently on Imodium with resolution of his diarrhea. Now the patient with a new fever with no obvious clinical focus of infection. Chest x-ray report more of a congestive heart failure. Patient with no evidence of any cellulitis. UA has been requested. No significant urinary symptoms and not collected. PLAN: 1. Will advise obtaining a UA and culture to complete the workup. 2. Discontinue the Imodium. 3. As the patient's fever has resolved and does not look toxic, we will hold on any systemic empiric antibiotic therapy. However, if the patient spikes any fever or has changes in his clinical condition, antibiotic will be started after obtaining further cultures. Continue with supportive care. MMODL / IJN: [id number] /
[2018-11-29] MEDS: IPRATROPIUM-ALBUTEROL 3 ML NEB INHALATION PRN (04:41)
[2018-11-29] MEDS: CARVEDILOL 3.125 MG TAB PO SCH ×2 (06:22→16:28)
[2018-11-29] MEDS: PANTOPRAZOLE 40 MG TABLET PO SCH (06:22)
[2018-11-29 06:28] LABS: INR 2.6 (<1.2); Prothrombin Time 25.2 sec (9.0-12.0)
--- NOTE | 2018-11-29 07:48 | ECHOF ---
Referral Reason:heart failure MEASUREMENTS -------- HEIGHT: 185.4 cm WEIGHT: 158.8 kg BP: 140/91 RVIDd: 4.7 cm (< 3.3) IVSd: 1.2 cm (0.6 - 1.1) LVIDd: 5.2 cm (3.9 - 5.3) LVPWd: 1.3 cm (0.6 - 1.1) IVSs: 1.7 cm LVIDs: 4.9 cm LVPWs: 1.6 cm LA Diam: 4.9 cm (2.7 - 3.8) LAESV Index (A-L): 43.76 ml/m Ao Diam: 3.9 cm (2.0 - 3.7) AV Cusp: 2.4 cm (1.5 - 2.6) MV EXCURSION: 12.148 mm (> 18.000) MV EF SLOPE: 94 mm/s (70 - 150) EPSS: 0.4 cm IVSd: 3.9 cm (0.6 - 1.1) AV maxP.14 mmHg AV meanP.33 mmHg RAP: 5.00 mmHg RVSP: 71.77 mmHg FINDINGS -------- Paced rhythm. This was a technically difficult study with suboptimal views. The left ventricular size is normal. There is mild concentric left ventricular hypertrophy. Overa ll left ventricular systolic function is low-normal with, an EF between 50 - 55 %. There is septal flattening in diastole and systole which is consistent with right ventricular pressure and volume ove rload. The right ventricle is severely enlarged. LA is severely dilated >40 ml/m2 The right atrium is normal in size. 5 ml of Lumason was utilized for enhancement of images. There is mild aortic stenosis present. Peak/mean gradient across the Aortic Valve is 15.14mmHg / 9. 33mmHg. The mitral valve leaflets are mildly thickened. Mild mitral annular calcification present. Mild-t o-moderate mitral regurgitation is present. Severe tricuspid regurgitation present. There is severe pulmonary hypertension. The right ventric ular systolic pressure, as measured by Doppler, is 71.77mmHg. The pulmonic valve was not well visualized. The aortic root is dilated measuring 3.9cm. IVC Not well visulized. There is a moderate pericardial effusion located near the left ventricle. CONCLUSIONS -------- 1. Paced rhythm. 2. This was a technically difficult study with suboptimal views. 3. The left ventricular size is normal. 4. There is mild concentric left ventricular hypertrophy. 5. Overall left ventricular systolic function is low-normal with, an EF between 50 - 55 %. 6. There is septal flattening in diastole and systole which is consistent with right ventricular pres sure and volume overload. 7. The right ventricle is severely enlarged. 8. LA is severely dilated >40 ml/m2 9. The right atrium is normal in size. 10. 5 ml of Lumason was utilized for enhancement of images. 11. There is mild aortic stenosis present. 12. Peak/mean gradient across the Aortic Valve is 15.14mmHg / 9.33mmHg. 13. The mitral valve leaflets are mildly thickened. 14. Mild mitral annular calcification present. 15. [id number] mitral regurgitation is present. 16. Severe tricuspid regurgitation present. 17. There is severe pulmonary hypertension. 18. The right ventricular systolic pressure, as measured by Doppler, is 71.77mmHg. 19. The pulmonic valve was not well visualized. 20. The aortic root is dilated measuring 3.9cm. 21. IVC Not well visulized. 22. There is a moderate pericardial effusion located near the left ventricle. VENEER GRADER: Delicia Sullivan RDCS
[2018-11-29] MEDS: IPRATROPIUM-ALBUTEROL 3 ML NEB INHALATION SCH ×4 (07:59→20:13)
[2018-11-29] MEDS: LOPERAMIDE 2 MG CAP PO SCH ×4 (09:08→20:54)
[2018-11-29] MEDS: PIPERACILLIN-TAZOBACTAM 3.375 GM in SODIUM CHLORIDE 0.9% 100 ML IVPB SCH ×2 (09:08→16:28)
[2018-11-29 10:20] LABS: Calcium 8.2 mg/dL (8.4-10.2); Potassium 3.7 mmol/L (3.5-5.1)
--- NOTE | 2018-11-29 11:48 | P.PN ---
Subjective Patient is seen in follow-up for acute kidney injury which is improved significantly since admission. Creatinine 1.39 today. Admits to edema in his lower extremity. He did receive a dose of IV Lasix yesterday. He has been voiding. Denies chest pain or shortness of breath. Vital signs are stable. General: The patient appeared well nourished and normally developed. HEENT: Head exam is unremarkable. Neck is without jugular venous distension. LUNGS: Breath sounds decreased. HEART: Rate and Rhythm are regular. First and second heart sounds normal. No murmurs, rubs or gallops. ABDOMEN: Abdominal exam reveals normal bowel sounds. Non-tender and non- distended. No evidence of peritonitis. EXTREMITITES: 1+ edema. Objective - Vital Signs Vital signs: Vital Signs Temp 97.7 F 11/29/18 08:00 Pulse 76 11/29/18 08:10 Resp 18 11/29/18 08:00 BP 130/75 11/29/18 08:00 Pulse Ox 92 L 11/29/18 08:00 Intake & Output 11/28/18 11/29/18 11/29/18 18:59 06:59 18:59 Intake Total 600 480 Balance 600 480 Weight 156 kg Intake: Oral 600 480 Other: Voiding Method Toilet Bedside Commode Bedside Commode # Voids 1 200 # Bowel Movements 2 4 - Labs CBC & Chem 7: 11/27/18 17:54 11/29/18 05:29 Labs: Abnormal Lab Results - Last 24 Hours (Table) 11/28/18 11/29/18 11/29/18 Range/Units 16:35 05:29 05:29 PT 25.2 H (9.0-12.0) sec INR 2.6 H (<1.2) BUN 35 H (9-20) mg/dL Creatinine 1.39 H (0.66-1.25) mg/dL Glucose 102 H (74-99) mg/dL Calcium 8.2 L (8.4-10.2) mg/dL Urine Protein Trace H (Negative) Urine Blood Trace H (Negative) Ur Leukocyte Esterase Large H (Negative) Urine WBC >182 H (0-5) /hpf Urine WBC Clumps Few H (None) /hpf Urine Bacteria Moderate H (None) /hpf Urine Mucus Rare H (None) /hpf Microbiology - Last 24 Hours (Table) 11/28/18 16:35 Urine Culture - Preliminary Urine,Voided 11/27/18 17:54 Blood Culture - Preliminary Blood No Growth after 24 hours Assessment and Plan Plan: Assessment: 1. Acute kidney injury mostly prerenal secondary to intravascular volume depletion from diarrhea improved with IV hydration. Renal function stable. 2. Volume overload. 3. History of A. fib maintained on anticoagulation. 4. Diastolic CHF with mild to moderate mitral regurgitation and severe tricuspid regurgitation and pulmonary hypertension. Plan: Add Lasix 40 mg IV twice daily. Low-salt diet. Repeat electrolytes in the morning.
[2018-11-29] MEDS: FUROSEMIDE 10 MG/ML 4 ML VIAL IV SCH ×2 (12:32→21:14)
--- NOTE | 2018-11-29 15:25 | P.PN ---
Subjective Progress Note Date: 11/29/18 Intravascular volume depletion secondary to nausea, vomiting, and diarrhea. Patient seen and examined today, awake and alert, in no acute distress. Maintaining oxygen saturations in the 90s, blood pressure 130/60 with a heart rate of 70. Pro time 25.2 with an INR of 2.6. Sodium 139, potassium 3.7, BUN 35 and creatinine 1.3. We will continue with the Lasix IV 40 mg twice a day, if patient continues to diurese well we'll loom changeover operator to oral diuretics tomorrow. Objective - Vital Signs Vital signs: Vital Signs Temp 97.4 F L 11/29/18 12:00 Pulse 78 11/29/18 12:03 Resp 18 11/29/18 12:00 BP 132/63 11/29/18 12:00 Pulse Ox 93 L 11/29/18 12:00 Intake & Output 11/28/18 11/29/18 11/29/18 18:59 06:59 18:59 Intake Total 600 580 Balance 600 580 Weight 156 kg Intake: Intake, IV Titration 100 Amount Piperacillin-Tazobactam 3 100 .375 gm In Sodium Chloride 0.9% 100 ml @ 25 mls/hr IVPB Q8HR [facility] Rx# :[id number] Oral 600 480 Other: Voiding Method Toilet Bedside Commode Bedside Commode # Voids 1 200 # Bowel Movements 2 4 - Exam Vital signs are stable. General: The patient appeared well nourished and normally developed. HEENT: Head exam is unremarkable. Neck is without jugular venous distension. LUNGS: Breath sounds decreased. HEART: Rate and Rhythm are regular. First and second heart sounds normal. No murmurs, rubs or gallops. ABDOMEN: Abdominal exam reveals normal bowel sounds. Non-tender and non- distended. No evidence of peritonitis. EXTREMITITES: 1+ edema. - Labs CBC & Chem 7: 11/27/18 17:54 11/29/18 05:29 Labs: Abnormal Lab Results - Last 24 Hours (Table) 11/28/18 11/29/18 11/29/18 Range/Units 16:35 05:29 05:29 PT 25.2 H (9.0-12.0) sec INR 2.6 H (<1.2) BUN 35 H (9-20) mg/dL Creatinine 1.39 H (0.66-1.25) mg/dL Glucose 102 H (74-99) mg/dL Calcium 8.2 L (8.4-10.2) mg/dL Urine Protein Trace H (Negative) Urine Blood Trace H (Negative) Ur Leukocyte Esterase Large H (Negative) Urine WBC >182 H (0-5) /hpf Urine WBC Clumps Few H (None) /hpf Urine Bacteria Moderate H (None) /hpf Urine Mucus Rare H (None) /hpf Microbiology - Last 24 Hours (Table) 11/28/18 16:35 Urine Culture - Preliminary Urine,Voided 11/27/18 17:54 Blood Culture - Preliminary Blood No Growth after 24 hours Assessment and Plan Plan: Assessment: 1. Acute kidney injury mostly prerenal secondary to intravascular volume depletion from diarrhea improved with IV hydration. Renal function stable. 2. Volume overload. 3. History of A. fib maintained on anticoagulation. 4. Diastolic CHF with mild to moderate mitral regurgitation and severe tricuspid regurgitation and pulmonary hypertension. Plan Continue IV Lasix 40 mg twice a day, lytes BUN and creatinine in the morning. Patient continues to her grass while we may discontinue the IV Lasix and change patient over to oral diuretics tomorrow. DNP note has been reviewed, I agree with a documented findings and plan of care. Patient was seen and examined.
[2018-11-29] MEDS: SODIUM CHLORIDE 0.45% 1,000 ML IV SCH (16:29)
--- NOTE | 2018-11-29 16:56 | PN ---
PROGRESS NOTE DATE OF SERVICE: 11/29/2018. REASON FOR FOLLOWUP: Fever, source likely urinary tract infection. INTERVAL HISTORY: The patient's overall fever pattern has improved. No fever has been recorded in the last 24 hours. The patient is breathing comfortably. Complaining of some lower abdominal pain. Did have slight loose stool. No chest pain. Some shortness of breath. Occasional cough. PHYSICAL EXAMINATION: Blood pressure 132/63 with a pulse of 70. Temperature 97.4. He is 93% on room air. General description is an elderly male lying in bed in no distress. Respiratory system: Unlabored breathing. Clear to auscultation anteriorly. Heart S1, S2. Regular rate and rhythm. Abdomen soft, mildly distended. No guarding or rigidity. LABS: BUN of 35, creatinine is 1.39. UA was positive. Urine cultures currently pending. DIAGNOSTIC IMPRESSION AND PLAN: Patient with fever, source is likely urinary tract infection. The patient currently covered with Zosyn that will continue while waiting for the culture to finalize to determine his discharge antibiotics. Continue supportive care. MMODL / IJN: [id number] /
[2018-11-29] MEDS ORDERED: WARFARIN 2.5 MG TAB PO ONE (18:00)
--- NOTE | 2018-11-29 19:36 | PN ---
PROGRESS NOTE . CHIEF COMPLAINT: Dehydration and congestive heart failure. HISTORY OF PRESENT ILLNESS: This gentleman continues to struggle. He has developed increased peripheral edema and he is still quite dyspneic. PHYSICAL EXAM: He has extensive rales at the bases posteriorly as well as throughout and occasional rhonchi. He has an expiratory wheeze. He has 3 to 4+ edema in the lower extremities now. IMPRESSION: Congestive heart failure. PLAN: 1. Probably increase diuretic management. 2. Discussed with Cardiology who will re-evaluate the patient. MMODL / IJN: [id number] /
[2018-11-30] MEDS: PIPERACILLIN-TAZOBACTAM 3.375 GM in SODIUM CHLORIDE 0.9% 100 ML IVPB SCH ×3 (01:49→16:26)
[2018-11-30] MEDS: CARVEDILOL 3.125 MG TAB PO SCH ×2 (07:00→17:29)
[2018-11-30] MEDS: PANTOPRAZOLE 40 MG TABLET PO SCH (07:00)
[2018-11-30 07:07] LABS: INR 2.9 (<1.2); Prothrombin Time 27.9 sec (9.0-12.0)
[2018-11-30 07:18] LABS: Calcium 8.2 mg/dL (8.4-10.2); Magnesium 1.4 mg/dL (1.6-2.3); Potassium 3.4 mmol/L (3.5-5.1)
[2018-11-30] MEDS: IPRATROPIUM-ALBUTEROL 3 ML NEB INHALATION SCH ×4 (08:36→20:40)
[2018-11-30] MEDS: FUROSEMIDE 10 MG/ML 4 ML VIAL IV SCH ×2 (08:49→22:55)
[2018-11-30] MEDS: LOPERAMIDE 2 MG CAP PO SCH ×4 (08:49→22:56)
[2018-11-30] MEDS ORDERED: POTASSIUM CHLORIDE ER 20 MEQ TAB.ER PO STA (10:36)
--- NOTE | 2018-11-30 11:05 | P.PN ---
Subjective Patient is seen in follow-up for acute kidney injury which is improved significantly since admission. Creatinine 1.42 today. Admits to edema in his lower extremity. Currently maintained on Lasix 40 mg IV twice daily. Urine output is good. Weight is trending down. Denies chest pain or shortness of breath. Vital signs are stable. General: The patient appeared well nourished and normally developed. HEENT: Head exam is unremarkable. Neck is without jugular venous distension. LUNGS: Breath sounds decreased. HEART: Rate and Rhythm are regular. First and second heart sounds normal. No murmurs, rubs or gallops. ABDOMEN: Abdominal exam reveals normal bowel sounds. Non-tender and non- distended. No evidence of peritonitis. EXTREMITITES: 1+ edema. Objective - Vital Signs Vital signs: Vital Signs Temp 98.3 F 11/30/18 07:53 Pulse 76 11/30/18 08:49 Resp 20 11/30/18 07:53 BP 126/59 11/30/18 07:53 Pulse Ox 93 L 11/30/18 07:53 Intake & Output 11/29/18 11/30/18 11/30/18 18:59 06:59 18:59 Intake Total 820 600 150 Output Total 600 Balance 820 0 150 Weight 152.2 kg Intake: Intake, IV Titration 100 600 Amount Piperacillin-Tazobactam 3 100 600 .375 gm In Sodium Chloride 0.9% 100 ml @ 25 mls/hr IVPB Q8HR [facility] Rx# :[id number] Oral 720 150 Output: Stool 600 Other: Voiding Method Bedside Commode Bedside Commode - Labs CBC & Chem 7: 11/27/18 17:54 11/30/18 06:34 Labs: Abnormal Lab Results - Last 24 Hours (Table) 11/30/18 11/30/18 Range/Units 06:34 06:34 PT 27.9 H (9.0-12.0) sec INR 2.9 H (<1.2) Potassium 3.4 L (3.5-5.1) mmol/L BUN 28 H (9-20) mg/dL Creatinine 1.42 H (0.66-1.25) mg/dL Glucose 105 H (74-99) mg/dL Calcium 8.2 L (8.4-10.2) mg/dL Magnesium 1.4 L (1.6-2.3) mg/dL Microbiology - Last 24 Hours (Table) 11/28/18 16:35 Urine Culture - Preliminary Urine,Voided Gram Neg Bacilli 11/27/18 17:54 Blood Culture - Preliminary Blood No Growth after 48 hours 11/28/18 15:44 Blood Culture - Preliminary Blood No Growth after 24 hours Assessment and Plan Plan: Assessment: 1. Acute kidney injury mostly prerenal secondary to intravascular volume depletion from diarrhea improved with IV hydration. Renal function stable. 2. Volume overload. 3. History of A. fib maintained on anticoagulation. 4. Diastolic CHF with mild to moderate mitral regurgitation and severe tricuspid regurgitation and pulmonary hypertension. 5. Hypokalemia secondary to diuresis. 6. Hypomagnesemia secondary to diuresis. Plan: Maintain Lasix 40 mg IV twice daily. Replace potassium. 40 mEq today. Replace magnesium. 2 g IV today. Low-salt diet. Repeat electrolytes in the morning.
[2018-11-30] MEDS: MAGNESIUM SULFATE-D5W PMX 1 GM in DEXTROSE/WATER 1 100ML.BAG IVPB SCH ×2 (12:10→14:19)
[2018-11-30] MEDS: ACETAMINOPHEN TAB 325 MG TAB PO PRN (12:10)
[2018-11-30] MEDS ORDERED: MECLIZINE 12.5 MG TAB PO STA (13:26)
--- NOTE | 2018-11-30 13:51 | PN ---
PROGRESS NOTE CHIEF COMPLAINT: Congestive heart failure and renal failure. HISTORY OF PRESENT ILLNESS: This gentleman is improving. He is no longer vomiting. His breathing improved. PHYSICAL EXAM: He has slightly less edema distally. Chest demonstrates breath sounds to be improved and there is fewer and scattered rales. Cardiac exam is unchanged. Abdomen is protuberant soft. IMPRESSION: 1. Congestive heart failure. 2. Renal failure. PLAN: Continue slow diuresis and continue to monitor his renal function. MMODL / IJN: [id number] /
--- NOTE | 2018-11-30 14:11 | XR ---
EXAMINATION TYPE: XR chest 2V DATE OF EXAM: 11/30/2018 COMPARISON: 11/27/2018 TECHNIQUE: PA and lateral views submitted. HISTORY: Shortness of breath FINDINGS: Cardiac device is seen and there is cardiomegaly and diffuse increased interstitial pattern with tiny right pleural effusion. Arthropathy of the shoulders greater on the right. No pneumothorax. Hypertro phic and degenerative change of the spine. IMPRESSION: 1. Severe cardiomegaly correlate for mild interstitial venous congestion.
--- NOTE | 2018-11-30 14:46 | P.PN ---
Subjective Progress Note Date: 11/30/18 Intravascular volume depletion secondary to nausea, vomiting, and diarrhea. Patient seen and examined today, awake and alert, in no acute distress. Maintaining oxygen saturations in the 90s, blood pressure 130/60 with a heart rate of 70. Pro time 25.2 with an INR of 2.6. Sodium 139, potassium 3.7, BUN 35 and creatinine 1.3. We will continue with the Lasix IV 40 mg twice a day, if patient continues to diurese well we'll exchange administrator to oral diuretics tomorrow. 11/30/2018 Patient was seen and examined today, renal function improving significantly. Creatinine today 1.4. Continues to have lower extremity edema however improving. Currently being maintained on Lasix 40 mg IV twice a day with good urine output. Weight is trending down. Patient was complaining of some double vision and dizziness this morning Objective - Vital Signs Vital signs: Vital Signs Temp 98.7 F 11/30/18 11:16 Pulse 70 11/30/18 12:13 Resp 20 11/30/18 11:16 BP 118/58 11/30/18 11:16 Pulse Ox 95 11/30/18 11:16 Intake & Output 11/29/18 11/30/18 11/30/18 18:59 06:59 18:59 Intake Total 820 600 850 Output Total 600 100 Balance 820 0 750 Weight 152.2 kg Intake: IV 160 Sodium Chloride 0.45% 1, 160 000 ml @ 20 mls/hr IV . Q24H [facility] Rx#:[id number] Intake, IV Titration 100 600 300 Amount Magnesium Sulfate-D5w Pmx 200 1 gm In Dextrose/Water 1 100ml.bag @ 100 mls/hr IVPB Q1H [facility] Rx#: [id number] Piperacillin-Tazobactam 3 100 600 100 .375 gm In Sodium Chloride 0.9% 100 ml @ 25 mls/hr IVPB Q8HR [facility] Rx# :[id number] Oral 720 390 Output: Urine 100 Stool 600 Other: Voiding Method Bedside Commode Bedside Commode # Bowel Movements 2 - Exam Vital signs are stable. General: The patient appeared well nourished and normally developed. HEENT: Head exam is unremarkable. Neck is without jugular venous distension. LUNGS: Breath sounds decreased. HEART: Rate and Rhythm are regular. First and second heart sounds normal. No murmurs, rubs or gallops. ABDOMEN: Abdominal exam reveals normal bowel sounds. Non-tender and non-distende d. No evidence of peritonitis. EXTREMITITES: 1+ edema. - Labs CBC & Chem 7: 11/27/18 17:54 11/30/18 06:34 Labs: Abnormal Lab Results - Last 24 Hours (Table) 11/30/18 11/30/18 Range/Units 06:34 06:34 PT 27.9 H (9.0-12.0) sec INR 2.9 H (<1.2) Potassium 3.4 L (3.5-5.1) mmol/L BUN 28 H (9-20) mg/dL Creatinine 1.42 H (0.66-1.25) mg/dL Glucose 105 H (74-99) mg/dL Calcium 8.2 L (8.4-10.2) mg/dL Magnesium 1.4 L (1.6-2.3) mg/dL Microbiology - Last 24 Hours (Table) 11/28/18 16:35 Urine Culture - Preliminary Urine,Voided Gram Neg Bacilli 11/27/18 17:54 Blood Culture - Preliminary Blood No Growth after 48 hours 11/28/18 15:44 Blood Culture - Preliminary Blood No Growth after 24 hours Assessment and Plan Plan: Assessment: 1. Acute kidney injury mostly prerenal secondary to intravascular volume depletion from diarrhea improved with IV hydration. Renal function stable. 2. Volume overload. 3. History of A. fib maintained on anticoagulation. 4. Diastolic CHF with mild to moderate mitral regurgitation and severe tricuspid regurgitation and pulmonary hypertension. Plan Continue IV Lasix 40 mg twice a day, exchange administrator to once daily from tomorrow. lytes BUN and creatinine in the morning. Replace potassium and magnesium. Add Antivert to the medication regime. DNP note has been reviewed, I agree with a documented findings and plan of care. Patient was seen and examined.
--- NOTE | 2018-11-30 17:52 | PN ---
PROGRESS NOTE DATE OF SERVICE: 11/30/2018. REASON FOR FOLLOWUP: Urinary tract infection. INTERVAL HISTORY: The patient is currently afebrile with no fever recorded in last 72 hours. The patient denies having any chest pain or shortness of breath. Occasional cough. No abdominal pain. No diarrhea. EXAMINATION: Blood pressure 118/58 with a pulse of 73, temperature 98.7. He is 95% on 2 L nasal cannula. General description is an elderly male lying in bed in no distress. Respiratory system: Unlabored breathing with decreased breath sounds at the bases. No wheeze. Heart S1, S2. Regular rate and rhythm. Abdomen soft. No tenderness. LABS: BUN of 28, creatinine 1.42. Urine showing gram-negative blood culture remains to be negative. DIAGNOSTIC IMPRESSION AND PLAN: Patient with a fever, source is gram-negative urinary tract infection. Patient is currently covered on Zosyn that will continue for now, to which his fever has responded adjusting the culture report. Continue supportive care. MMODL / IJN: [id number] /
[2018-11-30] MEDS ORDERED: WARFARIN 2 MG TAB PO ONE (18:00)
[2018-12-01] MEDS: PIPERACILLIN-TAZOBACTAM 3.375 GM in SODIUM CHLORIDE 0.9% 100 ML IVPB SCH ×3 (00:05→14:59)
[2018-12-01 07:46] LABS: INR 3.3 (<1.2); Prothrombin Time 31.4 sec (9.0-12.0)
[2018-12-01 07:47] LABS: Calcium 8.2 mg/dL (8.4-10.2); Magnesium 1.8 mg/dL (1.6-2.3); Potassium 3.4 mmol/L (3.5-5.1)
[2018-12-01] MEDS: IPRATROPIUM-ALBUTEROL 3 ML NEB INHALATION SCH ×3 (08:36→16:14)
[2018-12-01] MEDS: SODIUM CHLORIDE 0.45% 1,000 ML IV SCH ×2 (08:36→14:55)
[2018-12-01] MEDS: LOPERAMIDE 2 MG CAP PO SCH ×3 (08:37→14:56)
[2018-12-01] MEDS: PANTOPRAZOLE 40 MG TABLET PO SCH (08:44)
[2018-12-01] MEDS: CARVEDILOL 3.125 MG TAB PO SCH ×2 (08:44→14:55)
[2018-12-01] MEDS ORDERED: FUROSEMIDE 10 MG/ML 4 ML VIAL IV SCH (09:00)
[2018-12-01] MEDS ORDERED: POTASSIUM CHLORIDE ER 20 MEQ TAB.ER PO STA (10:41)
[2018-12-01 11:15] LABS: Glucose,Whole Blood 167 mg/dL (75-99)
--- NOTE | 2018-12-01 11:22 | P.PN ---
Subjective Patient is seen in follow-up for acute kidney injury which is improved significantly since admission. Creatinine 1.48 today. Admits to edema in his lower extremities. Currently maintained on Lasix 40 mg IV twice daily. Accurate Is and Os not being done. Patient was slightly more confused today. He's also been complaining of dizziness. Vital signs are stable. General: The patient appeared well nourished and normally developed. HEENT: Head exam is unremarkable. Neck is without jugular venous distension. LUNGS: Breath sounds decreased. HEART: Rate and Rhythm are regular. First and second heart sounds normal. No murmurs, rubs or gallops. ABDOMEN: Abdominal exam reveals normal bowel sounds. Non-tender and non- distended. No evidence of peritonitis. EXTREMITITES: 2+ edema. Objective - Vital Signs Vital signs: Vital Signs Temp 98.4 F 12/01/18 08:00 Pulse 75 12/01/18 08:45 Resp 20 12/01/18 08:00 BP 130/56 12/01/18 08:00 Pulse Ox 94 L 12/01/18 08:00 Intake & Output 11/30/18 12/01/18 12/01/18 18:59 06:59 18:59 Intake Total 1090 300 400 Output Total 200 Balance 890 300 400 Intake: IV 160 Sodium Chloride 0.45% 1, 160 000 ml @ 20 mls/hr IV . Q24H [facility] Rx#:[id number] Intake, IV Titration 300 Amount Magnesium Sulfate-D5w Pmx 200 1 gm In Dextrose/Water 1 100ml.bag @ 100 mls/hr IVPB Q1H [facility] Rx#: [id number] Piperacillin-Tazobactam 3 100 .375 gm In Sodium Chloride 0.9% 100 ml @ 25 mls/hr IVPB Q8HR [facility] Rx# :[id number] Oral 630 300 400 Output: Urine 200 Other: Voiding Method Bedside Commode Incontinent # Voids 1 1 # Bowel Movements 2 - Labs CBC & Chem 7: 11/27/18 17:54 12/01/18 07:18 Labs: Abnormal Lab Results - Last 24 Hours (Table) 12/01/18 12/01/18 12/01/18 Range/Units 07:18 07:18 11:05 PT 31.4 H (9.0-12.0) sec INR 3.3 H (<1.2) Potassium 3.4 L (3.5-5.1) mmol/L Carbon Dioxide 31 H (22-30) mmol/L BUN 26 H (9-20) mg/dL Creatinine 1.48 H (0.66-1.25) mg/dL Glucose 107 H (74-99) mg/dL POC Glucose (mg/dL) 167 H (75-99) mg/dL Calcium 8.2 L (8.4-10.2) mg/dL Microbiology - Last 24 Hours (Table) 11/28/18 16:35 Urine Culture - Final Urine,Voided Escherichia coli 11/27/18 17:54 Blood Culture - Preliminary Blood No Growth after 72 hours 11/28/18 15:44 Blood Culture - Preliminary Blood No Growth after 48 hours Assessment and Plan Plan: Assessment: 1. Acute kidney injury mostly prerenal secondary to intravascular volume depletion from diarrhea improved with IV hydration. Renal function slightly worse which is due to diuresis. Creatinine 1.4 today. 2. Volume overload. 3. History of A. fib maintained on anticoagulation. 4. Diastolic CHF with mild to moderate mitral regurgitation and severe tricuspid regurgitation and pulmonary hypertension. 5. Hypokalemia secondary to diuresis. 6. Hypomagnesemia secondary to diuresis. Better post replacement. 7. UTI. Urine culture positive for E. coli maintained on antibiotics. Plan: Discontinue IV Lasix. Start Lasix drip at 10 mL an hour. Add metolazone 5 mg once daily. Replace potassium. 40 mEq today. Insert Driver catheter. Strict is and os. Repeat electrolytes in the morning. Check CT of the brain due to confusion.
[2018-12-01] MEDS ORDERED: METOLAZONE 5 MG TAB PO SCH (11:30)
[2018-12-01] MEDS ORDERED: FUROSEMIDE 100 MG in SODIUM CHLORIDE 0.9% 90 ML IV SCH (11:30)
--- NOTE | 2018-12-01 12:18 | CT ---
EXAMINATION TYPE: CT brain wo con DATE OF EXAM: 12/01/2018 COMPARISON: 05/25/2018 HISTORY: Patient poor historian CT DLP: 1217.4 mGycm Automated exposure control for dose reduction was used. FINDINGS: Exam limited by patient rotation. Grossly the calvarium. There is no midline shift or mass effect. No acute intracranial hemorrhage. Ventricular system compat ible with the patient's age. Low-attenuation the white matter is nonspecific. Intracranial atherosclerotic changes are noted. Calcification in the right basal ganglia stable. Soft tissue density in the right posterior parietal subcutaneous tissues is stable from the prior exa m may represent a subcutaneous lesion rather than a small amount of edema or hematoma. IMPRESSION: NONSPECIFIC WHITE MATTER CHANGES MOST SUGGESTIVE OF REMOTE MICROVASCULAR ISCHEMIA. IF THERE IS CONCER N FOR ACUTE ISCHEMIA CORRELATE WITH MRI CLINICALLY WARRANTED.
--- NOTE | 2018-12-01 14:44 | P.PN ---
Subjective Progress Note Date: 12/01/18 Intravascular volume depletion secondary to nausea, vomiting, and diarrhea. Patient seen and examined today, awake and alert, in no acute distress. Maintaining oxygen saturations in the 90s, blood pressure 130/60 with a heart rate of 70. Pro time 25.2 with an INR of 2.6. Sodium 139, potassium 3.7, BUN 35 and creatinine 1.3. We will continue with the Lasix IV 40 mg twice a day, if patient continues to diurese well we'll tar heat exchanger cleaner to oral diuretics tomorrow. 11/30/2018 Patient was seen and examined today, renal function improving significantly. Creatinine today 1.4. Continues to have lower extremity edema however improving. Currently being maintained on Lasix 40 mg IV twice a day with good urine output. Weight is trending down. Patient was complaining of some double vision and dizziness this morning. 12/01/2018 Patient seen and examined this morning, continues to feel dizzy and is very tired today. Blood pressure 130/50 with a heart rate in the 70s, 94% on 2 L of oxygen. PTT 31.4 with an INR 3.3, sodium 140, potassium 3.4, BUN 26 and creatinine 1.4. Patient has been initiated on IV Lasix drip by nephrology as well as Rose. Objective - Vital Signs Vital signs: Vital Signs Temp 97.3 F L 12/01/18 12:00 Pulse 86 12/01/18 12:00 Resp 18 12/01/18 12:00 BP 121/59 12/01/18 12:00 Pulse Ox 96 12/01/18 12:00 Intake & Output 11/30/18 12/01/18 12/01/18 18:59 06:59 18:59 Intake Total 1090 300 690 Output Total 200 1000 Balance 890 300 -310 Weight 156.1 kg Intake: IV 160 290 Furosemide 100 mg In 30 Sodium Chloride 0.9% 90 ml @ 10 MG/HR 10 mls/hr IV .Q10H [facility] Rx#: [id number] Piperacillin-Tazobactam 3 100 .375 gm In Sodium Chloride 0.9% 100 ml @ 25 mls/hr IVPB Q8HR [facility] Rx# :[id number] Sodium Chloride 0.45% 1, 160 160 000 ml @ 20 mls/hr IV . Q24H [facility] Rx#:[id number] Intake, IV Titration 300 Amount Magnesium Sulfate-D5w Pmx 200 1 gm In Dextrose/Water 1 100ml.bag @ 100 mls/hr IVPB Q1H [facility] Rx#: [id number] Piperacillin-Tazobactam 3 100 .375 gm In Sodium Chloride 0.9% 100 ml @ 25 mls/hr IVPB Q8HR [facility] Rx# :[id number] Oral 630 300 400 Output: Urine 200 1000 Other: Voiding Method Indwelling Catheter # Voids 1 1 # Bowel Movements 2 - Exam Vital signs are stable. General: The patient appeared well nourished and normally developed. HEENT: Head exam is unremarkable. Neck is without jugular venous distension. LUNGS: Breath sounds decreased. HEART: Rate and Rhythm are regular. First and second heart sounds normal. No murmurs, rubs or gallops. ABDOMEN: Abdominal exam reveals normal bowel sounds. Non-tender and non- distended. No evidence of peritonitis. EXTREMITITES: 1+ edema. - Labs CBC & Chem 7: 11/27/18 17:54 12/01/18 07:18 Labs: Abnormal Lab Results - Last 24 Hours (Table) 12/01/18 12/01/18 12/01/18 Range/Units 07:18 07:18 11:05 PT 31.4 H (9.0-12.0) sec INR 3.3 H (<1.2) Potassium 3.4 L (3.5-5.1) mmol/L Carbon Dioxide 31 H (22-30) mmol/L BUN 26 H (9-20) mg/dL Creatinine 1.48 H (0.66-1.25) mg/dL Glucose 107 H (74-99) mg/dL POC Glucose (mg/dL) 167 H (75-99) mg/dL Calcium 8.2 L (8.4-10.2) mg/dL Microbiology - Last 24 Hours (Table) 11/28/18 16:35 Urine Culture - Final Urine,Voided Escherichia coli 11/27/18 17:54 Blood Culture - Preliminary Blood No Growth after 72 hours 11/28/18 15:44 Blood Culture - Preliminary Blood No Growth after 48 hours Assessment and Plan Plan: Assessment: 1. Acute kidney injury mostly prerenal secondary to intravascular volume depletion from diarrhea improved with IV hydration. Renal function stable. 2. Volume overload. 3. History of A. fib maintained on anticoagulation. 4. Diastolic CHF with mild to moderate mitral regurgitation and severe tricuspid regurgitation and pulmonary hypertension. Plan Patient has been initiated on IV Lasix drip along with Zaroxolyn today by nephrology. Potassium is been replaced. Continues to complain of dizziness and tiredness. DNP note has been reviewed, I agree with a documented findings and plan of care. Patient was seen and examined.
[2018-12-01 15:08] VITALS: BP 130/61; PULSE 69; RESP 16; TEMP 97.2
--- NOTE | 2018-12-01 17:26 | PN ---
PROGRESS NOTE DATE OF SERVICE: 12/01/2018. REASON FOR FOLLOW UP: E. coli urinary tract infection. INTERVAL HISTORY: The patient is currently afebrile. The patient noticed to have some mental status changes, adjusted CT has been ordered by admitting team. The patient himself after CT denies any headache to me or any chest pain. He is complaining of feeling weak. No nausea, vomiting. No abdominal pain or any diarrhea. PHYSICAL EXAMINATION: Blood pressure is 121/59, pulse 86. Temperature 97.3. He is 93% on 2 L nasal cannula. General description is an elderly male lying in bed in no distress. RESPIRATORY SYSTEM: Unlabored breathing. Clear to auscultation anteriorly. Heart is S1, S2. Regular rate and rhythm. ABDOMEN: Soft. No tenderness. LABS: BUN of 26, creatinine is 1.48. Urine has been colonized with an E coli that is sensitive to pathogen. Blood cultures negative. DIAGNOSTIC IMPRESSION AND PLAN: Patient admitted with fever, source is likely E coli urinary tract infection. Antibiotic will be adjusted to Rocephin 2 g daily. Discontinue the Zosyn. Monitor his clinical course closely. Continue supportive care. MMODL / IJN: [id number] /
[2018-12-01] MEDS ORDERED: WARFARIN 0.5 MG TAB PO ONE (18:00)
--- NOTE | 2018-12-01 18:14 | DS ---
DISCHARGE SUMMARY CHIEF COMPLAINT: Dehydration, hypotension, and renal failure. HISTORY OF PRESENT ILLNESS AND PHYSICAL EXAM: Details of this man's history and physical can be found in the initial workup. LABORATORY STUDIES: While he was in the hospital, he had laboratory studies, details of which can be found laboratory section of his chart. COURSE IN HOSPITAL: After admission, he was placed on bedrest, started on intravenous fluids and efforts were made to rehydrate him. Throughout his hospitalization, he remained short of breath and edematous. Whenever efforts were made to push his diuresis, his blood pressure would drop. His renal function was not normal, but remained steady. He suddenly was noted to have an acute change in his mental status on the morning of the when he was seen by Nephrology. CT was ordered and there were multiple ischemic areas seen. It is felt that he may have a progressing cerebral vascular issue. He does not have an advance directive and has this a significant other who thought that he would want everything done. There being no neurology available in this hospital, [facility] was contacted and agreed to take him in transfer. FINAL DIAGNOSES: 1. Hypotension. 2. Dehydration. 3. Chronic renal failure. 4. Congestive heart failure. 5. Cerebrovascular accident. OPERATIONS: None. CONSULTATIONS: Cardiology and Pulmonology. MMODL / IJN: [id number] /
[2018-12-01] MEDS ORDERED: FUROSEMIDE 10 MG/ML 10 ML VIAL IVP SCH (21:00)
--- NOTE | 2018-12-03 13:21 | MISC ---
MISCELLANOUS REPORT QUERY Chronic renal failure. MMODL / IJN: [id number] /
== END 2018-12-01 16:13 | disposition short-term general hospital (02) | DRG 682 ==
LOC: EC 22:28 → 3SCARD 11-22 03:50 → 2SICU 11-22 07:54 → 4SSUR 11-25 14:04 → 3SCARD 11-27 22:14
PROVIDERS: ADMIT Family Medicine; ATTEND Family Medicine
DX: N17.9 Acute kidney failure, unspecified (principal); I50.33 Acute on chronic diastolic (congestive) heart failure; I63.9 Cerebral infarction, unspecified; N39.0 Urinary tract infection, site not specified; E87.2 Acidosis; Z68.42 Body mass index [BMI] 45.0-49.9, adult; I42.9 Cardiomyopathy, unspecified; I13.0 Hypertensive heart and chronic kidney disease with heart failure and stage 1 through stage 4 chronic kidney disease, or unspecified chronic kidney disease; E66.01 Morbid (severe) obesity due to excess calories; I48.0 Paroxysmal atrial fibrillation; I95.9 Hypotension, unspecified; E86.0 Dehydration; I27.20 Pulmonary hypertension, unspecified; I08.1 Rheumatic disorders of both mitral and tricuspid valves; E83.42 Hypomagnesemia; E87.6 Hypokalemia; N18.9 Chronic kidney disease, unspecified; I25.10 Atherosclerotic heart disease of native coronary artery without angina pectoris; H53.2 Diplopia; A08.4 Viral intestinal infection, unspecified; B96.20 Unspecified Escherichia coli [E. coli] as the cause of diseases classified elsewhere; T50.2X5A Adverse effect of carbonic-anhydrase inhibitors, benzothiadiazides and other diuretics, initial encounter; R79.1 Abnormal coagulation profile; T45.515A Adverse effect of anticoagulants, initial encounter; K55.20 Angiodysplasia of colon without hemorrhage; I25.2 Old myocardial infarction; M54.5 Low back pain; K21.9 Gastro-esophageal reflux disease without esophagitis; Z79.01 Long term (current) use of anticoagulants; Z79.899 Other long term (current) drug therapy; Z71.3 Dietary counseling and surveillance; Z95.0 Presence of cardiac pacemaker; Z87.19 Personal history of other diseases of the digestive system; Z87.891 Personal history of nicotine dependence; Z87.81 Personal history of (healed) traumatic fracture; Z82.3 Family history of stroke
CPT/HCPCS: 36415; 70450; 71045; 71046; 74018; 76770; 80048; 80053; 81001; 82150; 83605; 83630; 83690; 83735; 83880; 84100; 85025; 85610; 87040; 87077; 87086; 87186; 87324; 87328; 87329; 87502; 93005; 93306; 94640; 94760; 96361; 96365; 96366; 96375; 99285

== ENCOUNTER 2019-06-29 11:00 | Inpatient (IN) | payer MEDICARE ==
--- NOTE | 2019-06-29 11:49 | ED ---
Recheck HPI - General Chief Complaint: Recheck/Abnormal Lab/Rx Stated Complaint: Low blood count Time Seen by Provider: 06/29/19 11:25 Source: patient, family, RN notes reviewed Mode of arrival: wheelchair Limitations: physical limitation - History of Present Illness Initial Comments: This is a 83-year-old male with a history of anemia in the past also pacemaker who is here today because he was told to come in by his physician who stated he had hemoglobin level . Patient has been hospitalized recently and had an extensive workup and colonoscopies with no source of his anemia being found. He had previously been on Coumadin is no longer on Coumadin. He is only an 81 mg of aspirin daily. He denies any headaches does have lightheadedness dizziness weakness he states when he sitting down he's fine going tries moving doesn't. Patient denies any black or burgundy red colored stools no hematemesis. No other modifying factors MD Complaint: other - Related Data Home Medications Medication Instructions Recorded Confirmed Carvedilol [Coreg] 3.125 mg PO BID 05/25/18 06/29/19 Aspirin [Adult Low Dose Aspirin EC] 81 mg PO DAILY 06/29/19 06/29/19 Atorvastatin [Lipitor] 40 mg PO DAILY 06/29/19 06/29/19 Bumetanide [Bumex] 1 mg PO BID@0900,1200 06/29/19 06/29/19 Docusate [Colace] 100 mg PO DAILY 06/29/19 06/29/19 Ferrous Sulfate [Feosol] 325 mg PO DAILY 06/29/19 06/29/19 Furosemide [Lasix] 40 mg PO DAILY 06/29/19 06/29/19 Magnesium Oxide [Mag-Ox] 400 mg PO BID 06/29/19 06/29/19 Pantoprazole [Protonix] 40 mg PO DAILY 06/29/19 06/29/19 Potassium Chloride ER [K-Dur 20] 20 meq PO DAILY 06/29/19 06/29/19 Spironolactone 50 mg PO DAILY 06/29/19 06/29/19 Allergies Allergy/AdvReac Type Severity Reaction Status Date / Time No Known Allergies Allergy Verified 06/29/19 11:21 Review of Systems ROS Statement: Those systems with pertinent positive or pertinent negative responses have been documented in the HPI. ROS Other: All systems not noted in ROS Statement are negative. Past Medical History Past Medical History: Atrial Fibrillation, Cancer, GERD/Reflux, Myocardial Infarction (OR) Additional Past Medical History / Comment(s): Pt states he was told he had a "slight heart attack" in the , occasional low back pain, benign colon polyps, occasional lower leg edema. Last Myocardial Infarction Date:: History of Any Multi-Drug Resistant Organisms: None Reported Past Surgical History: Pacemaker Additional Past Surgical History / Comment(s): Pacemaker originally inserted in and replaced in 2018 at [facility] on [place], septal surgery for fractured nose, colonoscopy with benign polypectomy. Past Anesthesia/Blood Transfusion Reactions: No Reported Reaction Type of Cardiac Device: Permanent Pacemaker Device Placement Date:: and replaced in 2018 Past Psychological History: No Psychological Hx Reported Smoking Status: Former smoker Past Alcohol Use History: None Reported Past Drug Use History: None Reported - Past Family History Father Family Medical History: No Reported History Additional Family Medical History / Comment(s): Father was healthy and lived to be in his 70s or 80s. Mother Family Medical History: CVA/TIA, Vascular Disorder Additional Family Medical History / Comment(s): Mother of a cerebral hemorrhage at the age of 57 yrs. General Exam - General Exam Comments Initial Comments: This is a well-developed well-nourished awake alert oriented 3 male Limitations: physical limitation General appearance: alert, in no apparent distress Head exam: Present: atraumatic, normocephalic, normal inspection Eye exam: Present: normal appearance, PERRL, EOMI. Absent: scleral icterus, conjunctival injection, periorbital swelling ENT exam: Present: normal exam, mucous membranes moist Neck exam: Present: normal inspection. Absent: tenderness, meningismus, lymphadenopathy Respiratory exam: Present: normal lung sounds bilaterally. Absent: respiratory distress, wheezes, rales, rhonchi, stridor Cardiovascular Exam: Present: regular rate, normal rhythm, normal heart sounds. Absent: systolic murmur, diastolic murmur, rubs, gallop, clicks GI/Abdominal exam: Present: soft, normal bowel sounds. Absent: distended, tenderness, guarding, rebound, rigid Rectal exam: Present: normal inspection, heme (+) stool (HEENT positive dark brown stool) Extremities exam: Present: normal inspection, full ROM, normal capillary refill. Absent: tenderness, pedal edema, joint swelling, calf tenderness Back exam: Present: normal inspection Neurological exam: Present: alert, oriented X3, CN II-XII intact Psychiatric exam: Present: normal affect, normal mood Skin exam: Present: warm, dry, intact, pallor. Absent: rash Course Vital Signs 06/29/19 06/29/19 11:18 12:51 Temperature 97.4 F L Pulse Rate 74 70 Respiratory 18 16 Rate Blood Pressure 119/50 119/93 O2 Sat by Pulse 94 L 98 Oximetry Medical Decision Making - Medical Decision Making I did discuss [employer] the patient family members patient will be admitted for transfusion. The case is discussed with Dr. Sarmiento's group - Lab Data Result diagrams: 06/29/19 11:38 06/29/19 11:38 Lab Results 06/29/19 06/29/19 06/29/19 Range/Units 11:35 11:38 11:38 WBC 6.3 (3.8-10.6) k/uL RBC 2.07 L (4.30-5.90) m/uL Hgb 6.1 L* (13.0-17.5) gm/dL Hct 19.5 L* (39.0-53.0) % MCV 94.1 (80.0-100.0) fL MCH 29.4 (25.0-35.0) pg MCHC 31.2 (31.0-37.0) g/dL RDW 15.4 (11.5-15.5) % Plt Count 250 (150-450) k/uL Neutrophils % (Manual) 70 % Band Neutrophils % 1 % Lymphocytes % (Manual) 10 % Monocytes % (Manual) 7 % Eosinophils % (Manual) 13 % Neutrophils # (Manual) 4.40 (1.3-7.7) k/uL Lymphocytes # (Manual) 0.63 L (1.0-4.8) k/uL Monocytes # (Manual) 0.44 (0-1.0) k/uL Eosinophils # (Manual) 0.82 H (0-0.7) k/uL Nucleated RBCs 0 (0-0) /100 WBC Manual Slide Review Performed Polychromasia Present Hypochromasia Marked Poikilocytosis Slight Anisocytosis (manual) Present Sodium (137-145) mmol/L Potassium (3.5-5.1) mmol/L Chloride (98-107) mmol/L Carbon Dioxide (22-30) mmol/L Anion Gap mmol/L BUN (9-20) mg/dL Creatinine (0.66-1.25) mg/dL Est GFR (CKD-EPI)AfAm (>60 ml/min/1.73 sqM) Est GFR (CKD-EPI)NonAf (>60 ml/min/1.73 sqM) Glucose (74-99) mg/dL Calcium (8.4-10.2) mg/dL Magnesium (1.6-2.3) mg/dL Total Bilirubin (0.2-1.3) mg/dL AST (17-59) U/L ALT (21-72) U/L Alkaline Phosphatase (38-126) U/L Creatine Kinase (55-170) U/L Troponin I (0.000-0.034) ng/mL Total Protein (6.3-8.2) g/dL Albumin (3.5-5.0) g/dL Blood Type A Positive Blood Type Confirm A Positive Blood Type Recheck No Previous Record Bld Type Recheck Status CABO Indicated Antibody Screen NEGATIVE Crossmatch See Detail Spec Expiration Date 07/02/2019 - 233706/29/19 06/29/19 Range/Units 11:38 11:38 WBC (3.8-10.6) k/uL RBC (4.30-5.90) m/uL Hgb (13.0-17.5) gm/dL Hct (39.0-53.0) % MCV (80.0-100.0) fL MCH (25.0-35.0) pg MCHC (31.0-37.0) g/dL RDW (11.5-15.5) % Plt Count (150-450) k/uL Neutrophils % (Manual) % Band Neutrophils % % Lymphocytes % (Manual) % Monocytes % (Manual) % Eosinophils % (Manual) % Neutrophils # (Manual) (1.3-7.7) k/uL Lymphocytes # (Manual) (1.0-4.8) k/uL Monocytes # (Manual) (0-1.0) k/uL Eosinophils # (Manual) (0-0.7) k/uL Nucleated RBCs (0-0) /100 WBC Manual Slide Review Polychromasia Hypochromasia Poikilocytosis Anisocytosis (manual) Sodium 141 (137-145) mmol/L Potassium 4.6 (3.5-5.1) mmol/L Chloride 102 (98-107) mmol/L Carbon Dioxide 34 H (22-30) mmol/L Anion Gap 5 mmol/L BUN 23 H (9-20) mg/dL Creatinine 1.06 (0.66-1.25) mg/dL Est GFR (CKD-EPI)AfAm 76 (>60 ml/min/1.73 sqM) Est GFR (CKD-EPI)NonAf 66 (>60 ml/min/1.73 sqM) Glucose 108 H (74-99) mg/dL Calcium 9.0 (8.4-10.2) mg/dL Magnesium 2.3 (1.6-2.3) mg/dL Total Bilirubin 0.6 (0.2-1.3) mg/dL AST 28 (17-59) U/L ALT 22 (21-72) U/L Alkaline Phosphatase 191 H (38-126) U/L Creatine Kinase 40 L (55-170) U/L Troponin I 0.016 (0.000-0.034) ng/mL Total Protein 6.6 (6.3-8.2) g/dL Albumin 3.3 L (3.5-5.0) g/dL Blood Type Blood Type Confirm Blood Type Recheck Bld Type Recheck Status Antibody Screen Crossmatch Spec Expiration Date Disposition Clinical Impression: Symptomatic anemia, GI bleed Disposition: ADMITTED IP TO THIS [facility] Condition: Fair Referrals: Renato Maya MD [Primary Care Provider] - 1-2 days
[2019-06-29 12:00] LABS: Hypochromasia Marked; MCH 29.4 pg (25.0-35.0); MCHC 31.2 g/dL (31.0-37.0); MCV 94.1 fL (80.0-100.0); Mean Platelet Volume 6.9; Platelet Count 250 k/uL (150-450); Poikilocytosis Slight; RBC 2.07 m/uL (4.30-5.90); RDW 15.4 % (11.5-15.5); WBC 6.3 k/uL (3.8-10.6)
[2019-06-29 12:09] LABS: Albumin 3.3 g/dL (3.5-5.0); Magnesium 2.3 mg/dL (1.6-2.3); Potassium 4.6 mmol/L (3.5-5.1); Total Bilirubin 0.6 mg/dL (0.2-1.3); Total Protein 6.6 g/dL (6.3-8.2)
[2019-06-29 12:25] LABS: HCT 19.5 % (39.0-53.0); HGB 6.1 gm/dL (13.0-17.5)
[2019-06-29 12:52] LABS: Band Neutrophils % 1 %; Eosinophils # (M) 0.82 k/uL (0-0.7); Lymphocytes # (M) 0.63 k/uL (1.0-4.8); Monocytes # (M) 0.44 k/uL (0-1.0); Neutrophils % (M) 70 %; Nucleated Red Blood Cells 0 /100 WBC (0-0); Total Cells Counted 200
[2019-06-29 12:53] LABS: Anisocytosis (M) Present; Polychromasia Present
[2019-06-29] MEDS ORDERED: ONDANSETRON 4 MG/2 ML VIAL IVP PRN (13:11)
[2019-06-29] MEDS ORDERED: NALOXONE 0.4 MG/ML 1 ML VIAL IV PRN (13:11)
[2019-06-29] MEDS ORDERED: SODIUM CHLORIDE 0.9% 1,000 ML IV SCH (13:15)
[2019-06-29 14:19] VITALS: RESP 18
[2019-06-29] MEDS ORDERED: FUROSEMIDE 10 MG/ML 4 ML VIAL IV STA (15:21)
--- NOTE | 2019-06-29 15:28 | P.HPIM ---
History of Present Illness 83-year-old pleasant gentleman with known history of atrial fibrillation was on Coumadin until 3 weeks ago had an extensive history of GI bleed. 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 This is all from patient's history. At the time of discharge from [facility] about a week ago patient's hemoglobin apparently was 7 now came down to 6.1 after his discharge it appears like patient has couple episodes of small GI bleed and a nosebleed and his hemoglobin is 6.1 at this point of time and for last couple days patient denied any GI bleed he denied any hematemesis hematochezia or melena. He believes his hemoglobin dropped because of this nosebleed and small blood in the stools and blood draws. Patient is on aspirin twice a day because of atrial fibrillation. Patient believes and I agree that we probably have to switch aspirin to 81 mg once a day and see if he has any bleeding episodes and patient need to be transfused about a unit or 2 and probably can be discharged tomorrow. She appears to chronic diastolic dysfunction along with the severe pulmonary hypertension, pulmonary right-sided heart failure leading to extensive pedal edema patient is on Bumex and oral Lasix. Couple doses of IV Lasix will benefit him to get it of some that edema after which the the Bumex and oral Lasix can be effective. According to one dose of Lasix now as he is receiving blood transfusion. Review of Systems REVIEW OF SYSTEMS: CONSTITUTIONAL: No fever, no malaise, no fatigue. HEENT: No recent visual problems or hearing problems. Denied any sore throat. CARDIOVASCULAR: No chest pain, orthopnea, PND, no palpitations, no syncope. PULMONARY: No shortness of breath, no cough, no hemoptysis. GASTROINTESTINAL: No diarrhea, no nausea, no vomiting, no abdominal pain. NEUROLOGICAL: No headaches, no weakness, no numbness. HEMATOLOGICAL: Denies any bleeding or petechiae. GENITOURINARY: Denies any burning micturition, frequency, or urgency. MUSCULOSKELETAL/RHEUMATOLOGICAL: Denies any joint pain, swelling, or any muscle pain. ENDOCRINE: Denies any polyuria or polydipsia. The rest of the 14-point review of systems is negative. Past Medical History Past Medical History: Atrial Fibrillation, Cancer, GERD/Reflux, Myocardial Infarction (NM) Additional Past Medical History / Comment(s): Pt states he was told he had a "slight heart attack" in the , occasional low back pain, benign colon polyps, occasional lower leg edema. Last Myocardial Infarction Date:: History of Any Multi-Drug Resistant Organisms: None Reported Past Surgical History: Pacemaker Additional Past Surgical History / Comment(s): Pacemaker originally inserted in and replaced in 2018 at [facility] on [place], septal surgery for fractured nose, colonoscopy with benign polypectomy, upper scope Past Anesthesia/Blood Transfusion Reactions: No Reported Reaction Type of Cardiac Device: Permanent Pacemaker Device Placement Date:: and replaced in 2017 Past Psychological History: No Psychological Hx Reported Additional Psychological History / Comment(s): Pt resides with his girlfriend. He is independent Smoking Status: Former smoker Past Alcohol Use History: None Reported Additional Past Alcohol Use History / Comment(s): Pt started smoking in 1952 and quit in 1993 Past Drug Use History: None Reported - Past Family History Father Family Medical History: No Reported History Additional Family Medical History / Comment(s): Father was healthy and lived to be in his 70s or 80s. Mother Family Medical History: CVA/TIA, Vascular Disorder Additional Family Medical History / Comment(s): Mother of a cerebral hemorrhage at the age of 57 yrs. Medications and Allergies Home Medications Medication Instructions Recorded Confirmed Type Carvedilol [Coreg] 3.125 mg PO BID 05/25/18 06/29/19 History Aspirin [Adult Low Dose Aspirin EC] 81 mg PO DAILY 06/29/19 06/29/19 History Atorvastatin [Lipitor] 40 mg PO DAILY 06/29/19 06/29/19 History Bumetanide [Bumex] 1 mg PO BID@0900,1200 06/29/19 06/29/19 History Docusate [Colace] 100 mg PO DAILY 06/29/19 06/29/19 History Ferrous Sulfate [Feosol] 325 mg PO DAILY 06/29/19 06/29/19 History Furosemide [Lasix] 40 mg PO DAILY 06/29/19 06/29/19 History Magnesium Oxide [Mag-Ox] 400 mg PO BID 06/29/19 06/29/19 History Pantoprazole [Protonix] 40 mg PO DAILY 06/29/19 06/29/19 History Potassium Chloride ER [K-Dur 20] 20 meq PO DAILY 06/29/19 06/29/19 History Spironolactone 50 mg PO DAILY 06/29/19 06/29/19 History Allergies Allergy/AdvReac Type Severity Reaction Status Date / Time No Known Allergies Allergy Verified 06/29/19 11:21 Physical Exam Vitals: Vital Signs Temp Pulse Pulse Resp BP BP Pulse Ox 06/29/19 14:58 97.4 F L 73 18 128/58 95 06/29/19 14:28 97.6 F 70 18 108/51 94 L 06/29/19 14:18 97.8 F 70 18 114/57 100 06/29/19 14:02 97.4 F L 73 20 118/44 98 06/29/19 13:30 97.8 F 72 18 122/78 98 06/29/19 12:51 70 16 119/93 98 06/29/19 11:18 97.4 F L 74 18 119/50 94 L Intake and Output 06/29/19 06/29/19 06/29/19 06:59 14:59 22:59 Intake Total 20 Balance 20 Intake: Intake, IV Titration 20 Amount Sodium Chloride 0.9% 1, 20 000 ml @ 20 mls/hr IV . Q24H [facility] Rx#:[id number] Blood Product 0 Rc As-1 Unit 0 [id number] Other: Weight 140.614 kg PHYSICAL EXAMINATION: GENERAL: The patient is alert and oriented x3, not in any acute distress. obese HEENT: Pupils are round and equally reacting to light. EOMI. No scleral icterus. Does have conjunctival pallor. Normocephalic, atraumatic. No pharyngeal erythema. No thyromegaly. CARDIOVASCULAR: S1 and S2 present. No murmurs, rubs, or gallops. PULMONARY: Chest is clear to auscultation, no wheezing or crackles. ABDOMEN: Soft, nontender, nondistended, normoactive bowel sounds. No palpable organomegaly. MUSCULOSKELETAL: No joint swelling or deformity. EXTREMITIES: No cyanosis, clubbing, 3+ pitting pedal edema NEUROLOGICAL: Gross neurological examination did not reveal any focal deficits. SKIN: No rashes. Results CBC & Chem 7: 06/29/19 11:38 06/29/19 11:38 Labs: Abnormal Lab Results - Last 24 Hours (Table) 06/29/19 06/29/19 06/29/19 Range/Units 11:38 11:38 11:38 RBC 2.07 L (4.30-5.90) m/uL Hgb 6.1 L* (13.0-17.5) gm/dL Hct 19.5 L* (39.0-53.0) % Lymphocytes # (Manual) 0.63 L (1.0-4.8) k/uL Eosinophils # (Manual) 0.82 H (0-0.7) k/uL Carbon Dioxide 34 H (22-30) mmol/L BUN 23 H (9-20) mg/dL Glucose 108 H (74-99) mg/dL Alkaline Phosphatase 191 H (38-126) U/L Creatine Kinase 40 L (55-170) U/L Albumin 3.3 L (3.5-5.0) g/dL Crossmatch See Detail Thrombosis Risk Factor Assmnt - Choose All That Apply Any of the Below Risk Factors Present?: Yes Each Factor Represents 1 point: Obesity (BMI >25) Other Risk Factors: Yes Each Risk Factor Represents 3 Points: Age 75 years or older Thrombosis Risk Factor Assessment Total Risk Factor Score: 4 Thrombosis Risk Factor Assessment Level: Moderate Risk Assessment and Plan Plan: -Anemia appears to be subacute to chronic no evidence of acute GI bleed at this time patient will be transfused 102 units of PRBC gastroenterology was consulted will hold off on aspirin now probably patient need to be discharged on 81 mg of aspirin and if he continues to have these on and off small bleeds, even that need to be discontinued at length I discussed with the patient regarding his risk of stroke without anticoagulation. -Atrial fibrillation presently rate controlled continue with Coreg and regarding anti-correlation as mentioned above Extensive bilateral pedal edema secondary to right-sided heart failure, cor pulmonale patient will benefit from couple doses of IV Lasix followed by resumption of oral Lasix and continuation of Bumex. -Chronic diastolic dysfunction without any acute exacerbation -Gastroesophageal reflux disease - Recent GI bleed Morbid obesity, pulmonary hypertension although patient denies history of sleep apnea
[2019-06-29 16:52] LABS: Reticulocyte % 2.3 % (0.5-2.0)
[2019-06-29] MEDS: CARVEDILOL 3.125 MG TAB PO SCH (17:08)
[2019-06-29] MEDS: PANTOPRAZOLE 40 MG/10 ML VIAL IV SCH (19:56)
[2019-06-29] MEDS ORDERED: FUROSEMIDE 10 MG/ML 4 ML VIAL IV SCH (21:00)
--- NOTE | 2019-06-30 00:04 | CONS ---
CONSULTATION DATE OF DICTATION: 06/29/2019 REASON FOR CONSULTATION: Severe symptomatic anemia. HISTORY OF PRESENT ILLNESS: The patient is an 83-year-old pleasant white male who was admitted to the hospital with severe symptomatic anemia and a hemoglobin of 7 g/dL. He has history of atrial fibrillation, on Coumadin until 3 weeks ago. He was admitted to [facility] in the [facility] for severe anemia requiring 3 units of blood transfusion. He underwent an EGD and a colonoscopy, and according to the patient he was diagnosed with possible AV malformation, for which he underwent clip replacement. Three days later he stated that he had a repeat upper endoscopy as well as colonoscopy done, and this time he had no active bleeding. He was discharged home and is now admitted to the hospital with fatigue, weakness, hemoglobin of 7 g/dL. He denies any active bleeding. He reports no nausea, vomiting. No rectal bleeding or melena. He has been off the Coumadin for the last 2 weeks' duration. No recent NSAID use. No prior history of peptic ulcer disease. PAST MEDICAL HISTORY: Past medical history is significant for atrial fibrillation, on Coumadin, on hold for the last 2 weeks, history of GI bleed with recent hospitalization as mentioned above. Coronary artery disease, status post [facility] in the past and pacemaker implantation. PAST SURGICAL HISTORY: 1. EGD and colonoscopy 3 weeks ago. 2. Pacemaker implantation. 3. Nasal septal surgery. SOCIAL HISTORY: Former smoker. No alcohol use. FAMILY HISTORY: Father lived up to his 70s and was healthy. Mother had CVA and vascular disorder. MEDICATIONS: Medications at home include: 1. Aspirin. 2. Lipitor. 3. Bumex. 4. Colace. 5. Feosol. 6. Lasix. 7. Magnesium oxide. 8. Protonix. 9. K-Dur. 10.Spironolactone. 11.Coreg. ALLERGIES: NONE. REVIEW OF SYSTEMS: CARDIOPULMONARY: No chest pain or shortness of breath. GENITOURINARY: No dysuria or hematuria. MUSCULOSKELETAL: Unremarkable. SKIN: Unremarkable. ENDOCRINE: Unremarkable. PSYCHIATRIC: Unremarkable. NEUROLOGY: Unremarkable. ENT/VISION: Unremarkable. CONSTITUTIONAL: Fatigue, weakness, shortness of breath. HEMATOLOGY: Severe anemia. CARDIOLOGY: As mentioned above. PHYSICAL EXAMINATION: He appears comfortable. No apparent distress. Vital signs are stable. Blood pressure is 132/86, pulse rate 76, temperature 98. HEENT examination unremarkable. Conjunctivae pink. Sclerae anicteric. Oral cavity no lesions. NECK: No JVD or lymph node enlargement. CHEST: Clear to auscultation. HEART: Regular rate and rhythm. ABDOMEN: Soft. Obese. Bowel sounds are positive. No organomegaly. EXTREMITIES: No pedal edema. SKIN: No rashes. NEUROLOGIC: Alert and oriented x3. No focal deficits. LABS: Labs done today show WBC 6.3, hemoglobin 6.1, platelets 250. BUN is 23, creatinine 1.06. Rest of the labs are normal. Stool Hemoccult was positive. IMPRESSION: 1. Severe symptomatic anemia with a hemoglobin of 6.1 g/dL. Clinically no active bleeding. However, he does have occult GI blood loss. 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 Reports not available at the time of this dictation. Clinically he does not have any active bleeding currently. 2. Atrial fibrillation, on Coumadin, which has been on hold for the last few weeks since he had a gastrointestinal bleed. 3. History of pacemaker implantation. 4. Morbid obesity. RECOMMENDATIONS: 1. Agree with blood transfusion. 2. Repeat CBC in the morning. 3. Will request all the records of previous EGD and colonoscopy done 2 to 3 weeks ago. 4. No plans for any endoscopic intervention at the present time. Will follow with you closely during his hospital stay. Thank you for this consultation. MMODL / IJN: [id number] /
[2019-06-30 06:13] LABS: Anisocytosis Slight; HCT 22.8 % (39.0-53.0); Hypochromasia Marked; MCH 28.7 pg (25.0-35.0); MCHC 30.9 g/dL (31.0-37.0); MCV 93.2 fL (80.0-100.0); Platelet Count 244 k/uL (150-450); Poikilocytosis Moderate; RBC 2.45 m/uL (4.30-5.90); RDW 16.2 % (11.5-15.5); WBC 7.3 k/uL (3.8-10.6)
[2019-06-30] MEDS: CARVEDILOL 3.125 MG TAB PO SCH (06:15)
[2019-06-30 06:20] LABS: Calcium 8.8 mg/dL (8.4-10.2); Potassium 4.4 mmol/L (3.5-5.1)
[2019-06-30] MEDS: PANTOPRAZOLE 40 MG/10 ML VIAL IV SCH (08:23)
[2019-06-30] MEDS ORDERED: SPIRONOLACTONE 25 MG TAB PO SCH (09:00)
[2019-06-30] MEDS ORDERED: BUMETANIDE 1 MG TAB PO SCH (09:00)
[2019-06-30] MEDS ORDERED: FUROSEMIDE 40 MG TAB PO SCH ×2 (09:00)
[2019-06-30] MEDS ORDERED: ATORVASTATIN 40 MG TAB PO SCH (09:00)
[2019-06-30 09:37] VITALS: BP 138/69; PULSE 74; TEMP 98.4
--- NOTE | 2019-06-30 09:52 | CDI ---
Documentation Clarification Form Date: 06/30/2019 9:38:10 AM From: Liliana Benavidez RN, CCDS Admit Date: 06/29/2019 1:13:00 PM Patient Name: Royal Hopkins Visit Number: [id number] ATTENTION: The Clinical Documentation Specialists (CDI) and [facility] Coding Staff appreciate your assistance in clarifying documentation. Please respond to the clarification below the line at the bottom and electronically sign. The CDI & [facility] Coding staff will review the response and follow-up if needed. Please note: Queries are made part of the Legal Health Record. If you have any questions, please contact the author of this message via ITS. Dr. Jammie Peterson A diagnosis of anemia lacks specificity to accurately reflect your patients severity of condition and clarification is needed. History/Risk Factors: Recent hospitalization of anemia and GIB at outside facility, Atrial Fib, GERD, [place], former smoker Clinical indicators: 06/29 H&P: "Anemia appears to be subacute to chronic no evidence of acute GI bleed at this time patient will be transfused 102 units of PRBC gastroenterology was consulted will hold off on aspirin now probably patient need to be discharged on 81 mg of aspirin and if he continues to have these on and off small bleeds." 06/29 GI Consult: "IMPRESSION: 1."Severe symptomatic anemia with a hemoglobin of 6.1 g/dL. Clinically no active bleeding. However, he does have occult GI blood loss. 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 Reports not available at the time of this dictation. Clinically he does not have any active bleeding currently." Hemoglobin: 6.1/7 Hematocrit: 19.5/22.8 Treatment: 2 units of PRBCs transfused Monitoring labs In order to capture the severity of condition, please clarify the type of anemia and etiology if known: Acute on chronic blood loss anemia Chronic blood loss anemia Iron deficiency anemia Drug induced anemia Nutritional anemia Anemia of chronic disease Unable to determine Other, please specify (Last Revision: May 2017) Unable to determine MTDD
--- NOTE | 2019-06-30 10:00 | CDI ---
Documentation Clarification Form Date: 06/30/2019 9:53:23 AM From: Liliana Benavidez RN, CCDS Admit Date: 06/29/2019 1:13:00 PM Patient Name: Royal Hopkins Visit Number: [id number] ATTENTION: The Clinical Documentation Specialists (CDI) and [facility] Coding Staff appreciate your assistance in clarifying documentation. Please respond to the clarification below the line at the bottom and electronically sign. The CDI & [facility] Coding staff will review the response and follow-up if needed. Please note: Queries are made part of the Legal Health Record. If you have any questions, please contact the author of this message via ITS. Dr. Jammie Peterson Atrial Fibrillation is documented in the H&P and consult and requires further specificity. History/Risk Factors: Atrial Fib, GIB, CO, PPM Clinical Indicators: 06/29 GI Consult: "Past medical history is significant for atrial fibrillation, on Coumadin, on hold for the last 2 weeks, history of GI bleed with recent hospitalization as mentioned above." 06/29 H&P: "83-year-old pleasant gentleman with known history of atrial fibrillation was on Coumadin until 3 weeks ago had an extensive history of GI bleed. Patient is on aspirin twice a day because of atrial fibrillation. Past Medical History: Atrial Fibrillation, Cancer, GERD/Reflux, Myocardial Infarction (CO) Plan: -Atrial fibrillation presently rate controlled continue with Coreg and regarding anti-correlation as mentioned above." EKG/telemetry: Ventricular pacing Treatment: none at current time In your professional opinion, can you please clarify the type of Atrial Fibrillation, if known? Chronic/Permanent Paroxysmal Persistent Other, please specify Unable to determine (Last Revision: November 2017) Unable to determine MTDD
[2019-06-30 15:59] LABS: % Iron Saturation 27.02 (15.00-50.00)
--- NOTE | 2019-06-30 17:45 | P.DS ---
Providers Date of admission: 06/29/19 13:13 Expected date of discharge: 06/30/19 Attending physician: Jammie Peterson Consults: 06/29/19 13:13 Consult Physician Routine Consulting Provider: Brigitte Briceno Consult Reason/Comments: Anemia with heme positive stools Do you want consulting provider notified?: Yes Primary care physician: [facility] Course: 83-year-old pleasant gentleman with known history of atrial fibrillation was on Coumadin until 3 weeks ago had an extensive history of GI bleed. 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 This is all from patient's history. At the time of discharge from [facility] about a week ago patient's hemoglobin apparently was 7 now came down to 6.1 after his discharge it appears like patient has couple episodes of small GI bleed and a nosebleed and his hemoglobin is 6.1 at this point of time and for last couple days patient denied any GI bleed he denied any hematemesis hematochezia or melena. He believes his hemoglobin dropped because of this nosebleed and small blood in the stools and blood draws. Patient is on aspirin twice a day because of atrial fibrillation. Patient believes and I agree that we probably have to switch aspirin to 81 mg once a day and see if he has any bleeding episodes and patient need to be transfused about a unit or 2 and probably can be discharged tomorrow. She appears to chronic diastolic dysfunction along with the severe pulmonary hypertension, pulmonary right-sided heart failure leading to extensive pedal edema patient is on Bumex and oral Lasix. Couple doses of IV Lasix will benefit him to get it of some that edema after which the the Bumex and oral Lasix can be effective. According to one dose of Lasix now as he is receiving blood transfusion. Patient was evaluated by GI and was recommended continued monitoring of hemoglobin; due to recent GI workup no further evaluation was recommended; patient was advised continued monitoring of hemoglobin for next 24 hours; patient related that he could have his hemoglobin checked at his primary care physician's office and threatening to leave AMA if not discharged; hemoglobin was stable at that point see was discharged to have repeat CBC done on Wednesday in 2 days at PCP Patient Condition at Discharge: Stable Plan - Discharge Summary Discharge Rx Participant: Yes New Discharge Prescriptions: Continue Carvedilol [Coreg] 3.125 mg PO BID Pantoprazole [Protonix] 40 mg PO DAILY Ferrous Sulfate [Iron (65 MG Elemental)] 325 mg PO DAILY Docusate [Colace] 100 mg PO DAILY Aspirin [Adult Low Dose Aspirin EC] 81 mg PO DAILY Spironolactone 50 mg PO DAILY Potassium Chloride ER [K-Dur 20] 20 meq PO DAILY Magnesium Oxide [Mag-Ox] 400 mg PO BID Furosemide [Lasix] 40 mg PO DAILY Bumetanide [BUMEX] 1 mg PO BID@0900,1200 Atorvastatin [Lipitor] 40 mg PO DAILY Discharge Medication List Carvedilol [Coreg] 3.125 mg PO BID 05/25/18 [History] Aspirin [Adult Low Dose Aspirin EC] 81 mg PO DAILY 06/29/19 [History] Atorvastatin [Lipitor] 40 mg PO DAILY 06/29/19 [History] Bumetanide [BUMEX] 1 mg PO BID@0900,1200 06/29/19 [History] Docusate [Colace] 100 mg PO DAILY 06/29/19 [History] Ferrous Sulfate [Iron (65 MG Elemental)] 325 mg PO DAILY 06/29/19 [History] Furosemide [Lasix] 40 mg PO DAILY 06/29/19 [History] Magnesium Oxide [Mag-Ox] 400 mg PO BID 06/29/19 [History] Pantoprazole [Protonix] 40 mg PO DAILY 06/29/19 [History] Potassium Chloride ER [K-Dur 20] 20 meq PO DAILY 06/29/19 [History] Spironolactone 50 mg PO DAILY 06/29/19 [History] Follow up Appointment(s)/Referral(s): Renato Maya MD [Primary Care Provider] - 07/04/19 (Physician will be out to visit on Wednesday.) Ambulatory/Diagnostic Orders: Complete Blood Count w/diff [LAB.AMB] Time Frame: 3 Days, Facility: [facility], Location: [facility] Patient Instructions/Handouts: Gastrointestinal Bleeding (DC), Diet for Stomach Ulcers and Gastritis (ED) Activity/Diet/Wound Care/Special Instructions: GI BLEED 1. Take all new medication as directed. 2. Avoid foods that can be irritating to your intestines (See dietary teaching). 3. Avoid motrin (ibuprofen) and aleve (naproxen). These medications can increase your risk of internal bleeding. Tylenol (acetaminophen) is safe to take as long as you do not have any liver disease. 4. Avoid drinking alcohol and smoking, these can also irritate your intestines and increase risk of internal bleeding. 5. Increase activity gradually, do not overexert yourself. Your blood count is lower and your body will need time to recover. Discharge Disposition: HOME SELF-CARE Care Plan Goals (MU): Follow up with Primary Gastroenerologist in 2-3 days
== END 2019-06-30 15:37 | disposition home or self-care (01) | DRG 812 ==
LOC: EC 11:00 → 3SCARD 13:13
PROVIDERS: ADMIT Internal Medicine; ATTEND Internal Medicine
PROC: 30233N1 Transfusion of Nonautologous Red Blood Cells into Peripheral Vein, Percutaneous Approach (ICD-10-PCS; principal; 2019-06-29)
DX: D64.9 Anemia, unspecified (principal); I50.32 Chronic diastolic (congestive) heart failure; Z68.41 Body mass index [BMI] 40.0-44.9, adult; E66.01 Morbid (severe) obesity due to excess calories; I25.10 Atherosclerotic heart disease of native coronary artery without angina pectoris; I25.2 Old myocardial infarction; I27.29 Other secondary pulmonary hypertension; I27.81 Cor pulmonale (chronic); I48.91 Unspecified atrial fibrillation; K21.9 Gastro-esophageal reflux disease without esophagitis; Z79.01 Long term (current) use of anticoagulants; Z79.82 Long term (current) use of aspirin; Z79.899 Other long term (current) drug therapy; Z82.3 Family history of stroke; Z87.891 Personal history of nicotine dependence; Z95.0 Presence of cardiac pacemaker
CPT/HCPCS: 36415; 80048; 80053; 82272; 82550; 82607; 82728; 83540; 83550; 83735; 84484; 85025; 85027; 85045; 86850; 86900; 86901; 86920; 93005; 99285

== ENCOUNTER → 2020-03-05 | Outpatient (CLI) | payer MEDICARE ==
--- NOTE | 2020-03-05 17:38 | XR ---
EXAMINATION TYPE: XR knee complete LT DATE OF EXAM: 03/05/2020 CLINICAL HISTORY: Knee pain with twisting. No known injury. TECHNIQUE: AP, oblique, and lateral views of the left knee are obtained. COMPARISON: None. FINDINGS: There is no acute fracture/dislocation evident in left knee. There is chondrocalcinosis of the medial and lateral compartments. There is joint space narrowing of the medial compartment. Trico mpartmental degenerative spurring is seen. There is high riding patella. Small suprapatellar joint ef fusion. Normal osseous mineralization. Vascular calcifications. IMPRESSION: 1. There is no acute fracture or dislocation in the left knee. 2. Tricompartmental degenerative changes with chondrocalcinosis, medial compartment joint space narr owing, and high riding patella. 3. Small suprapatellar joint effusion.
== END | disposition home or self-care (01) ==
LOC: RADXRYALE 16:20
PROVIDERS: ATTEND Family Medicine
DX: M11.262 Other chondrocalcinosis, left knee (principal)

== ENCOUNTER → 2020-12-05 | Outpatient (CLI) | payer MEDICARE ==
--- NOTE | 2020-12-05 15:18 | XR ---
EXAMINATION TYPE: XR chest 2V DATE OF EXAM: 12/05/2020 COMPARISON: Chest x-ray 11/30/2018 HISTORY: Congestive heart failure, increased shortness of breath TECHNIQUE: Frontal and lateral views of the chest are obtained. FINDINGS: Heart remains enlarged, pacemaker is stable. No evident pneumothorax or pleural effusion. Interstitium is mildly increased. Patient is rotated. There is increased AP diameter chest, prominent lung volumes with flattening of hemidiaphragms. Aorta is dense. IMPRESSION: Correlate for possible pulmonary venous hypertension and interstitial edema in a patient with pre-existing COPD.
== END | disposition home or self-care (01) ==
LOC: RADXRYALE 14:36
PROVIDERS: ATTEND Physician Assistant Medical
DX: I50.22 Chronic systolic (congestive) heart failure (principal)
CPT/HCPCS: 71046

== ENCOUNTER → 2021-04-11 | Outpatient (CLI) | payer MEDICARE ==
--- NOTE | 2021-04-11 10:38 | XR ---
EXAMINATION TYPE: XR chest 2V DATE OF EXAM: 04/11/2021 COMPARISON: 12/05/2020 TECHNIQUE: PA and lateral views submitted. HISTORY: Shortness of breath FINDINGS: Heart is enlarged and there is bilateral small effusions and basilar infiltrate with interstitial pat tern. No sizable pneumothorax. Cardiac device seen. Atherosclerotic change aorta. Hyperinflation sugg ests COPD. Hypertrophic and degenerative changes spine. IMPRESSION: 1. Correlate for CHF.
== END | disposition home or self-care (01) ==
LOC: RADXRYALE 09:49
PROVIDERS: ATTEND Family Medicine
DX: J90 Pleural effusion, not elsewhere classified (principal); R91.8 Other nonspecific abnormal finding of lung field; I70.0 Atherosclerosis of aorta
CPT/HCPCS: 71046

== ENCOUNTER → 2022-03-09 | Outpatient (CLI) | payer MEDICARE ==
--- NOTE | 2022-03-09 18:50 | US ---
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 Cystitis EXAM MEASUREMENTS: Right Kidney: 10.5 x 5.1 x 4.7 cm Left Kidney: 11.1 x 5.8 x 5.2 cm technical limitations due to patient's body habitus. Patient unable to lay down, exam performed in wheelchair Right Kidney: cystic area = 4.9 x 5.8 x 5.1cm Left Kidney: lobulated contour Bladder: not fully distended and limited assessment. Bilateral Jets seen: no No hydronephrosis or nephrolithiasis. IMPRESSION: 1. Bladder is limited by incomplete distention and therefore suboptimally evaluated. Spina bifida 2 t here is 5.8 cm cyst right kidney slightly increased in size relative to prior exam. Cortical thinning and lobulation more pronounced on the left. Correlate for chronic medical renal disease.
== END | disposition home or self-care (01) ==
LOC: RADUSWWP 16:22
PROVIDERS: ATTEND Family Medicine
DX: N30.21 Other chronic cystitis with hematuria (principal); N32.89 Other specified disorders of bladder
CPT/HCPCS: 76770

== ENCOUNTER 2023-02-17 19:49 | Inpatient (IN) | payer MEDICARE ==
--- NOTE | 2023-02-17 20:36 | ED ---
General Adult HPI - General Source: patient, EMS, RN notes reviewed, old records reviewed Mode of arrival: EMS Limitations: no limitations <Andrews Beckett - Last Filed: 02/17/23 20:36> <Bob Brar - Last Filed: 02/26/23 05:52> - General Chief complaint: Shortness of Breath Stated complaint: MISSY Time Seen by Provider: 02/17/23 20:00 - History of Present Illness Initial comments: This is an 87-year-old male who presents emergency Department is a very poor historian. Patient states here for shortness of breath which she states she's been getting worse for the last couple months. Patient also is noted for the last few months and is getting weaker and weaker and more and more off balance. Patient states his been no acute change in the last couple of days she has been slowly progressing to the point where he feels unstable and very short of breath doing anything so he came to the emergency department. Patient denies any headache patient denies any focal numbness or weakness. Patient denies any re cent fever chills or cough per patient denies any chest pain or palpitations. Patient denies any abdominal pain patient denies nausea vomiting. Patient states there is no calf pain. Patient states that someone told him there might be some fluid around his lung or heart he can't remember (Andrews Beckett) - Related Data Home Medications Medication Instructions Recorded Confirmed carvediloL [Coreg] 3.125 mg PO BID 05/25/18 02/17/23 Aspirin [Adult Low Dose Aspirin EC] 81 mg PO BID 06/29/19 02/17/23 Bumetanide [BUMEX] 1 mg PO BID@0900,1200 06/29/19 02/17/23 Docusate [Colace] 100 mg PO BID 06/29/19 02/17/23 Spironolactone 50 mg PO DAILY 06/29/19 02/17/23 HYDROcodone/APAP 7.5-325MG [[place] 1.5 tab PO BID 02/17/23 02/17/23 7.5-325] Solifenacin Succinate [Vesicare] 5 mg PO DAILY 02/17/23 02/17/23 metOLazone [Zaroxolyn] 2.5 mg PO MOFR 02/17/23 02/17/23 Allergies Allergy/AdvReac Type Severity Reaction Status Date / Time No Known Allergies Allergy Verified 02/17/23 21:48 Review of Systems ROS Other: All systems not noted in ROS Statement are negative. <Andrews Beckett - Last Filed: 02/17/23 20:36> ROS Other: All systems not noted in ROS Statement are negative. <RaheelBob pantoja - Last Filed: 02/26/23 05:52> ROS Statement: Those systems with pertinent positive or pertinent negative responses have been documented in the HPI. Past Medical History Past Medical History: Atrial Fibrillation, Cancer, GERD/Reflux, Myocardial Infarction (VT) Additional Past Medical History / Comment(s): Pt states he was told he had a "slight heart attack" in the , occasional low back pain, benign colon p olyps, occasional lower leg edema. Last Myocardial Infarction Date:: History of Any Multi-Drug Resistant Organisms: None Reported Past Surgical History: Pacemaker Additional Past Surgical History / Comment(s): Pacemaker originally inserted in and replaced in 2018 at [facility] on [place], septal surgery for fractured nose, colonoscopy with benign polypectomy, upper scope Past Anesthesia/Blood Transfusion Reactions: No Reported Reaction Type of Cardiac Device: Permanent Pacemaker Device Placement Date:: and replaced in 2018 Past Psychological History: No Psychological Hx Reported Smoking Status: Former smoker Past Alcohol Use History: None Reported Past Drug Use History: None Reported - Past Family History Father Family Medical History: No Reported History Additional Family Medical History / Comment(s): Father was healthy and lived to be in his 70s or 80s. Mother Family Medical History: CVA/TIA, Vascular Disorder Additional Family Medical History / Comment(s): Mother of a cerebral hemorrhage at the age of 57 yrs. <Andrews Beckett - Last Filed: 02/17/23 20:36> General Exam Limitations: no limitations <Andrews Beckett - Last Filed: 02/17/23 20:36> - General Exam Comments Initial Comments: GENERAL: Patient is well-developed and well-nourished. Patient is nontoxic and well- hydrated and is in mild distress. ENT: Neck is soft and supple. No significant lymphadenopathy is noted. Oropharynx is clear. Moist mucous membranes. Neck has full range of motion without eliciting any pain. EYES: The sclera were anicteric and conjunctiva were pink and moist. Extraocular movements were intact and pupils were equal round and reactive to light. Eyelids were unremarkable. PULMONARY: Unlabored respirations. Good breath sounds bilaterally. No audible rales rhonchi or wheezing was noted. CARDIOVASCULAR: There is a regular rate and rhythm without any murmurs gallops or rubs. ABDOMEN: Soft and nontender with normal bowel sounds. Patient is morbidly obese SKIN: Skin is clear with no lesions or rashes and otherwise unremarkable. NEUROLOGIC: Patient is alert and oriented x3. Cranial nerves II through XII are grossly intact. Motor and sensory are also intact. Normal speech, volume and content. Symmetrical smile. Patient's NIH is 0 MUSCULOSKELETAL: Normal extremities with adequate strength and full range of motion. 1+ edema bilaterally LYMPHATICS: No significant lymphadenopathy is noted PSYCHIATRIC: Normal psychiatric evaluation. (Andrews Beckett) Course Vital Signs 02/17/23 02/17/23 02/18/23 19:53 21:03 00:00 Temperature 97.4 F L Pulse Rate 71 70 70 Respiratory 20 20 20 Rate Blood Pressure 109/84 111/72 119/63 O2 Sat by Pulse 99 97 98 Oximetry 02/18/23 02/18/23 02/18/23 01:00 02:00 03:51 Temperature Pulse Rate 71 70 70 Respiratory 20 20 20 Rate Blood Pressure 94/67 120/79 121/63 O2 Sat by Pulse 98 97 97 Oximetry 02/18/23 02/18/23 02/18/23 05:35 07:40 08:00 Temperature 97.5 F L Pulse Rate 70 67 70 Respiratory 20 20 20 Rate Blood Pressure 107/58 110/66 110/64 O2 Sat by Pulse 99 98 98 Oximetry 02/18/23 02/18/23 02/18/23 10:06 12:56 14:35 Temperature Pulse Rate 70 70 70 Respiratory 20 20 22 Rate Blood Pressure 106/57 99/59 106/90 O2 Sat by Pulse 98 99 98 Oximetry 02/18/23 20:44 Temperature 97.6 F Pulse Rate 70 Respiratory 20 Rate Blood Pressure 102/73 O2 Sat by Pulse 98 Oximetry Medical Decision Making <Andrews Beckett - Last Filed: 02/17/23 20:36> - Lab Data Result diagrams: 02/25/23 03:35 02/25/23 03:35 <Bob Brar - Last Filed: 02/26/23 05:52> - Medical Decision Making EKG is interpreted by myself shows a paced rhythm at 70 bpm QRS is 176 QT interval 460 QTC is 481. Was pt. sent in by a medical professional or institution ([facility], [employer], urgent care, hospital, or senior care...) When possible be specific @ -[No] Did you speak to anyone other than the patient for history (EMS, parent, family, police, friend...)? What history was obtained from this source @ -[No] Did you review nursing and triage notes (agree or disagree)? Why? @ -[I reviewed and agree with nursing and triage notes] Were old charts reviewed (outside hosp., previous admission, EMS record, old EKG, old radiological studies, urgent care reports/EKG's, senior care records)? Report findings @ -I reviewed prior lab work from prior charts on this patient Differential Diagnosis (chest pain, altered mental status, abdominal pain women, abdominal pain men, vaginal bleeding, weakness, fever, dyspnea, syncope, headache, dizziness, GI bleed, back pain, seizure, CVA, palpatations, mental health, musculoskeletal)? @ -Differential Dyspnea: Coronary syndrome, arrhythmia, tamponade, asthma, COPD, pulmonary embolism, pneumonia, pneumothorax, pulmonary effusion, anaphylaxis, diabetic ketoacidosis, flailed chest, pulmonary contusion, diaphragmatic rupture, anemia, neuromuscular, this is not meant to be an all-inclusive list. EKG interpreted by me (3pts min.). @ -[As above] X-rays interpreted by me (1pt min.). @ -[None done] CT interpreted by me (1pt min.). @ -[None done] U/S interpreted by me (1pt. min.). @ -[None done] What testing was considered but not performed or refused? (CT, X-rays, U/S, labs)? Why? @ -[None] What meds were considered but not given or refused? Why? @ -[None] Did you discuss the management of the patient with other professionals (professionals i.e. [facility], [employer], lab, RT, psych nurse, social services coordinator, meat hostess, teacher, learning officer, family service caseworker)? Give summary @ -[No] Was smoking cessation discussed for >3mins.? @ -[No] Was critical care preformed (if so, how long)? @ -[No] Were there social determinants of health that impacted care today? How? (Homele ssness, low income, unemployed, alcoholism, drug addiction, transportation, low edu. Level, literacy, decrease access to med. care, retirement, rehab)? @ -[No] Was there de-escalation of care discussed even if they declined (Discuss DNR or withdrawal of care, Hospice)? DNR status @ -[No] What co-morbidities impacted this encounter? (DM, HTN, Smoking, COPD, CAD, Cancer, CVA, ARF, Chemo, Hep., AIDS, mental health diagnosis, sleep apnea, morbid obesity)? @ -[None] Was patient admitted / discharged? Hospital course, mention meds given and route, prescriptions, significant lab abnormalities, going to OR and other pertinent info. @ -1 initially saw this patient he was oxygenating in the high 90s to 100%. Patient was on 4 L of oxygen at that time. Patient had poor breath sounds in the bases but he stated he couldn't take a deep breath because his abdomen was so big. Patient was in no distress at this time lab work was ordered x-rays ordered. Dr. Brar be taking over care of this patient at 9 PM (Andrews Beckett) Was patient admitted / discharged? Hospital course, mention meds given and route, prescriptions, significant lab abnormalities, going to OR and other pertinent info. @ -[I receive this patient has a sign out pending some of the studies. The lab results do show a number of abnormalities including significant hyponatremia. Other abnormalities include anemia and abnormal kidney function however we do not have old results to go whether this is acute or chronic. The patient is displaying weakness and given the hypokalemia will admit to have sodium replacement and other evaluation and treatment Undiagnosed new problem with uncertain prognosis? @ -[No] Drug Therapy requiring intensive monitoring for toxicity (Heparin, Nitro, Insulin, Cardizem)? @ -[No] Were any procedures done? @ -[No] Diagnosis/symptom? @ -[Acute hyponatremia Acute, or Chronic, or Acute on Chronic? @ -[default] Uncomplicated (without systemic symptoms) or Complicated (systemic symptoms)? @ -[Complicated by generalized weakness and fatigue Side effects of treatment? @ -[No] Exacerbation, Progression, or Severe Exacerbation? @ -[No] Poses a threat to life or bodily function? How? (Chest pain, USA, VT, pneumonia, PE, COPD, DKA, ARF, appy, cholecystitis, CVA, Diverticulitis, Homicidal, Suicidal, threat to staff... and all critical care pts) @ -[No] (MaykelBob) - Lab Data Lab Results 02/17/23 02/17/23 02/17/23 Range/Units 20:28 20:28 20:28 WBC 5.2 (3.8-10.6) k/uL RBC 2.20 L (4.30-5.90) m/uL Hgb 7.9 L (13.0-17.5) gm/dL Hct 23.0 L (39.0-53.0) % MCV 104.6 H (80.0-100.0) fL MCH 35.7 H (25.0-35.0) pg MCHC 34.2 (31.0-37.0) g/dL RDW 13.2 (11.5-15.5) % Plt Count 154 (150-450) k/uL MPV 9.1 Neutrophils % (Manual) 66 % Lymphocytes % (Manual) 7 % Monocytes % (Manual) 16 % Eosinophils % (Manual) 11 % Neutrophils # (Manual) 3.43 (1.3-7.7) k/uL Lymphocytes # (Manual) 0.36 L (1.0-4.8) k/uL Monocytes # (Manual) 0.83 (0-1.0) k/uL Eosinophils # (Manual) 0.57 (0-0.7) k/uL Nucleated RBCs 0 (0-0) /100 WBC Manual Slide Review Performed Macrocytosis Slight PT 11.0 (9.0-12.0) sec INR 1.0 (<1.2) APTT 26.5 (22.0-30.0) sec D-Dimer 0.67 H (<0.60) mg/L FEU Sodium 116 L* (137-145) mmol/L Potassium 4.7 (3.5-5.1) mmol/L Chloride 81 L (98-107) mmol/L Carbon Dioxide 27 (22-30) mmol/L Anion Gap 8 mmol/L BUN 53 H (9-20) mg/dL Creatinine 2.23 H (0.66-1.25) mg/dL Est GFR (CKD-EPI)AfAm 30 (>60 ml/min/1.73 sqM) Est GFR (CKD-EPI)NonAf 26 (>60 ml/min/1.73 sqM) Glucose 114 H (74-99) mg/dL Osmolality (280-301) mosm/kg Plasma Lactic Acid Ranjan (0.7-2.0) mmol/L Calcium 8.4 (8.4-10.2) mg/dL Magnesium 2.6 H (1.6-2.3) mg/dL Total Bilirubin 1.4 H (0.2-1.3) mg/dL AST 39 (17-59) U/L ALT 17 (4-49) U/L Alkaline Phosphatase 152 H (38-126) U/L Troponin I (0.000-0.034) ng/mL NT-Pro-B Natriuret Pep pg/mL Total Protein 6.4 (6.3-8.2) g/dL Albumin 3.4 L (3.5-5.0) g/dL 02/17/23 02/17/23 02/17/23 Range/Units 20:28 20:28 20:28 WBC (3.8-10.6) k/uL RBC (4.30-5.90) m/uL Hgb (13.0-17.5) gm/dL Hct (39.0-53.0) % MCV (80.0-100.0) fL MCH (25.0-35.0) pg MCHC (31.0-37.0) g/dL RDW (11.5-15.5) % Plt Count (150-450) k/uL MPV Neutrophils % (Manual) % Lymphocytes % (Manual) % Monocytes % (Manual) % Eosinophils % (Manual) % Neutrophils # (Manual) (1.3-7.7) k/uL Lymphocytes # (Manual) (1.0-4.8) k/uL Monocytes # (Manual) (0-1.0) k/uL Eosinophils # (Manual) (0-0.7) k/uL Nucleated RBCs (0-0) /100 WBC Manual Slide Review Macrocytosis PT (9.0-12.0) sec INR (<1.2) APTT (22.0-30.0) sec D-Dimer (<0.60) mg/L FEU Sodium (137-145) mmol/L Potassium (3.5-5.1) mmol/L Chloride (98-107) mmol/L Carbon Dioxide (22-30) mmol/L Anion Gap mmol/L BUN (9-20) mg/dL Creatinine (0.66-1.25) mg/dL Est GFR (CKD-EPI)AfAm (>60 ml/min/1.73 sqM) Est GFR (CKD-EPI)NonAf (>60 ml/min/1.73 sqM) Glucose (74-99) mg/dL Osmolality (280-301) mosm/kg Plasma Lactic Acid Ranjan 0.9 (0.7-2.0) mmol/L Calcium (8.4-10.2) mg/dL Magnesium (1.6-2.3) mg/dL Total Bilirubin (0.2-1.3) mg/dL AST (17-59) U/L ALT (4-49) U/L Alkaline Phosphatase (38-126) U/L Troponin I 0.013 (0.000-0.034) ng/mL NT-Pro-B Natriuret Pep 801 pg/mL Total Protein (6.3-8.2) g/dL Albumin (3.5-5.0) g/dL 02/17/23 Range/Units 20:28 WBC (3.8-10.6) k/uL RBC (4.30-5.90) m/uL Hgb (13.0-17.5) gm/dL Hct (39.0-53.0) % MCV (80.0-100.0) fL MCH (25.0-35.0) pg MCHC (31.0-37.0) g/dL RDW (11.5-15.5) % Plt Count (150-450) k/uL MPV Neutrophils % (Manual) % Lymphocytes % (Manual) % Monocytes % (Manual) % Eosinophils % (Manual) % Neutrophils # (Manual) (1.3-7.7) k/uL Lymphocytes # (Manual) (1.0-4.8) k/uL Monocytes # (Manual) (0-1.0) k/uL Eosinophils # (Manual) (0-0.7) k/uL Nucleated RBCs (0-0) /100 WBC Manual Slide Review Macrocytosis PT (9.0-12.0) sec INR (<1.2) APTT (22.0-30.0) sec D-Dimer (<0.60) mg/L FEU Sodium (137-145) mmol/L Potassium (3.5-5.1) mmol/L Chloride (98-107) mmol/L Carbon Dioxide (22-30) mmol/L Anion Gap mmol/L BUN (9-20) mg/dL Creatinine (0.66-1.25) mg/dL Est GFR (CKD-EPI)AfAm (>60 ml/min/1.73 sqM) Est GFR (CKD-EPI)NonAf (>60 ml/min/1.73 sqM) Glucose (74-99) mg/dL Osmolality 265 L (280-301) mosm/kg Plasma Lactic Acid Ranjan (0.7-2.0) mmol/L Calcium (8.4-10.2) mg/dL Magnesium (1.6-2.3) mg/dL Total Bilirubin (0.2-1.3) mg/dL AST (17-59) U/L ALT (4-49) U/L Alkaline Phosphatase (38-126) U/L Troponin I (0.000-0.034) ng/mL NT-Pro-B Natriuret Pep pg/mL Total Protein (6.3-8.2) g/dL Albumin (3.5-5.0) g/dL Disposition <Andrews Beckett - Last Filed: 02/17/23 20:36> <Bob Brar - Last Filed: 02/26/23 05:52> Clinical Impression: Hyponatremia Disposition: ADMITTED IP TO THIS HOSP Condition: Poor
[2023-02-17 20:38] LABS: HGB 7.9 gm/dL (13.0-17.5); MCH 35.7 pg (25.0-35.0); MCHC 34.2 g/dL (31.0-37.0); MCV 104.6 fL (80.0-100.0); Macrocytosis Slight; Mean Platelet Volume 9.1; Platelet Count 154 k/uL (150-450); RDW 13.2 % (11.5-15.5); WBC 5.2 k/uL (3.8-10.6)
[2023-02-17 20:51] LABS: ALT 17 U/L (4-49); AST 39 U/L (17-59); African American GFR (CKD) 30 (>60 ml/min/1.73 sqM); Albumin 3.4 g/dL (3.5-5.0); Alkaline Phosphatase 152 U/L (38-126); Anion Gap 8 mmol/L; Blood Urea Nitrogen 53 mg/dL (9-20); Calcium 8.4 mg/dL (8.4-10.2); Carbon Dioxide 27 mmol/L (22-30); Chloride 81 mmol/L (98-107); Glucose 114 mg/dL (74-99); Magnesium 2.6 mg/dL (1.6-2.3); Non-African American GFR(CKD) 26 (>60 ml/min/1.73 sqM); Potassium 4.7 mmol/L (3.5-5.1); Total Bilirubin 1.4 mg/dL (0.2-1.3); Total Protein 6.4 g/dL (6.3-8.2)
[2023-02-17 20:54] LABS: Partial Thromboplastin Time 26.5 sec (22.0-30.0)
--- NOTE | 2023-02-17 20:57 | XR ---
EXAMINATION TYPE: XR chest 2V DATE OF EXAM: 02/17/2023 8:44 PM COMPARISON: Chest radiographs from 04/11/2021 TECHNIQUE: XR chest 2V Frontal and lateral views of the chest. CLINICAL INDICATION:Male, 87 years old with history of difficulty breathing; FINDINGS: Lungs/Pleura: Blunting of the left posterior angle. No focal consolidation or pneumothorax. Pulmonary vascularity: Pulmonary vascular congestion. Heart/mediastinum: Cardiomediastinal silhouette is enlarged and stable. Atherosclerotic calcificatio ns are seen in the aorta. Three lead cardiac conduction device overlying the left hemithorax with benito d tips projecting over the right ventricle, right atrium and coronary sinus. Musculoskeletal: No acute osseous pathology. Mild multilevel degenerative disc disease of the thoraci c spine. IMPRESSION: Cardiomegaly, pulmonary vascular congestion and small left pleural effusion. Correlate with BNP for c ongestive heart failure.
[2023-02-17 21:01] LABS: Sodium 116 mmol/L (137-145)
[2023-02-17] MEDS ORDERED: MAG HYDROX/AL HYDROX/SIMETH 30 ML CUP PO PRN (21:23)
[2023-02-17] MEDS ORDERED: NALOXONE 0.4 MG/ML 1 ML VIAL IV PRN (21:23)
[2023-02-17] MEDS ORDERED: ONDANSETRON 4 MG/2 ML VIAL IVP PRN (21:23)
[2023-02-17 21:41] LABS: Eosinophils # (M) 0.57 k/uL (0-0.7); Lymphocytes # (M) 0.36 k/uL (1.0-4.8); Monocytes # (M) 0.83 k/uL (0-1.0); Neutrophils # (M) 3.43 k/uL (1.3-7.7); Neutrophils % (M) 66 %; Nucleated Red Blood Cells 0 /100 WBC (0-0); Total Cells Counted 100
[2023-02-17 21:57] LABS: Appearance,Urine Clear (Clear); Bilirubin,Urine Negative (Negative); Blood,Urine Negative (Negative); Color,Urine Yellow; Glucose,Urine (UA) Negative (Negative); Ketones,Urine Negative (Negative); Leukocyte Esterase,Urine Negative (Negative); Nitrite,Urine Negative (Negative); Protein,Urine Negative (Negative); Urobilinogen,Urine <2.0 mg/dL (<2.0)
[2023-02-17 22:44] LABS: Creatinine,Urine Random 78.4 mg/dL
--- NOTE | 2023-02-18 01:07 | P.HPIM ---
History of Present Illness H&P Date: 02/17/23 Patient is a 87-year-old male with a PMH of chronic CHF, status post pacemaker placement, macrocytic anemia, chronic kidney disease, who presents to the emergency room with complaints of shortness of breath and lower extremity edema. History supplemented by the patient's partner at the bedside. The patient reports that he has been feeling somewhat uneasy over the past few days with gradually worsening swelling of both his legs. He also reports that his appetite is severely diminished. Denied extremity chest discomfort, nausea, vomiting. Also denied diarrhea, fever, chills, cough. Chest x-ray in the emergency room was consistent with congestive heart failure. EKG revealed a V paced rhythm at 70 bpm. Laboratory evaluation revealed a hemoglobin of 7.9 down from previously 10.8 in 2020, sodium 116, chloride 81, BUN 53, creatinine 2.23, serum osmolality 265, lactic acid 0.9, magnesium 2.6, pro BNP 801, and urine osmolality 313. ED documentation reviewed and case discussed with ED provider. Review of systems: Pertinent positives and negatives as discussed in HPI, a complete review of systems was performed and all other systems are negative. Physical examination: Vital signs reviewed General: non toxic, no distress, appears at stated age Derm: no unusual rashes/lesions, warm Head: atraumatic, normocephalic, symmetric Eyes: EOMI, no lid lag, anicteric sclera, pupils equal round reactive to light ENT: Nose and ears atraumatic Neck: No cervical lymphadenopathy, trachea midline, supple Mouth: no lip lesion, mucus membranes dry Cardiovascular: S1S2 reg, no murmur, positive dorsalis pedis pulse bilateral, 1+ luis LE pitting edema Lungs: Bibasilar rales noted, no accessory muscle use Abdominal: soft, nontender to palpation, no guarding Ext: muscle strength 4 out of 5 in all 4 extremities grossly, no gross muscle atrophy, no contractures, Neuro: CN II-XI grossly intact, no gross focal neuro deficits Psych: Alert, oriented, appropriate affect Assessment: Severe hyponatremia, suspect may be due to diuretic use (Aldactone and Bumex) Macrocytic anemia Acute kidney injury Imaging: Chest x-ray in the emergency room was consistent with congestive heart failure. EKG revealed a V paced rhythm at 70 bpm. Data Review: Laboratory evaluation revealed a hemoglobin of 7.9 down from previously 10.8 in 2020, sodium 116, chloride 81, BUN 53, creatinine 2.23, serum osmolality 265, lactic acid 0.9, magnesium 2.6, pro BNP 801, and urine osmolality 313. Plan: Hyponatremia workup pending Nephrology consulted Hold off on IV fluids Monitor BMP closely DVT prophylaxis: Heparin subcu The patient is admitted with an anticipated greater than 2 midnight stay for evaluation of hypoNa CODE STATUS: Full Code Discussed with: Patient Anticipated discharge place: Home Past Medical History Past Medical History: Atrial Fibrillation, Cancer, GERD/Reflux, Myocardial Infarction ([place]) Additional Past Medical History / Comment(s): Pt states he was told he had a "slight heart attack" in the , occasional low back pain, benign colon p olyps, occasional lower leg edema. Last Myocardial Infarction Date:: History of Any Multi-Drug Resistant Organisms: None Reported Past Surgical History: Pacemaker Additional Past Surgical History / Comment(s): Pacemaker originally inserted in and replaced in 2018 at [facility] on [place], septal surgery for fractured nose, colonoscopy with benign polypectomy, upper scope Past Anesthesia/Blood Transfusion Reactions: No Reported Reaction Type of Cardiac Device: Permanent Pacemaker Device Placement Date:: and replaced in 2018 Past Psychological History: No Psychological Hx Reported Smoking Status: Former smoker Past Alcohol Use History: None Reported Past Drug Use History: None Reported - Past Family History Father Family Medical History: No Reported History Additional Family Medical History / Comment(s): Father was healthy and lived to be in his 70s or 80s. Mother Family Medical History: CVA/TIA, Vascular Disorder Additional Family Medical History / Comment(s): Mother of a cerebral hemorrhage at the age of 57 yrs. Medications and Allergies Home Medications Medication Instructions Recorded Confirmed Type carvediloL [Coreg] 3.125 mg PO BID 05/25/18 02/17/23 History Aspirin [Adult Low Dose Aspirin EC] 81 mg PO BID 06/29/19 02/17/23 History Bumetanide [BUMEX] 1 mg PO BID@0900,1200 06/29/19 02/17/23 History Docusate [Colace] 100 mg PO BID 06/29/19 02/17/23 History Spironolactone 50 mg PO DAILY 06/29/19 02/17/23 History HYDROcodone/APAP 7.5-325MG [[place] 1.5 tab PO BID 02/17/23 02/17/23 History 7.5-325] Solifenacin Succinate [Vesicare] 5 mg PO DAILY 02/17/23 02/17/23 History metOLazone [Zaroxolyn] 2.5 mg PO MOFR 02/17/23 02/17/23 History Allergies Allergy/AdvReac Type Severity Reaction Status Date / Time No Known Allergies Allergy Verified 02/17/23 21:48 Physical Exam Vitals: Vital Signs Temp Pulse Resp BP Pulse Ox 02/17/23 21:03 70 20 111/72 97 02/17/23 19:53 97.4 F L 71 20 109/84 99 Intake and Output 02/17/23 02/17/23 02/18/23 14:59 22:59 06:59 Other: Weight 136.078 kg Results CBC & Chem 7: 02/17/23 20:28 02/17/23 20:28 Labs: Abnormal Lab Results - Last 24 Hours (Table) 02/17/23 02/17/23 02/17/23 Range/Units 20:28 20:28 20:28 RBC 2.20 L (4.30-5.90) m/uL Hgb 7.9 L (13.0-17.5) gm/dL Hct 23.0 L (39.0-53.0) % MCV 104.6 H (80.0-100.0) fL MCH 35.7 H (25.0-35.0) pg Lymphocytes # (Manual) 0.36 L (1.0-4.8) k/uL D-Dimer 0.67 H (<0.60) mg/L FEU Sodium 116 L* (137-145) mmol/L Chloride 81 L (98-107) mmol/L BUN 53 H (9-20) mg/dL Creatinine 2.23 H (0.66-1.25) mg/dL Glucose 114 H (74-99) mg/dL Osmolality (280-301) mosm/kg Magnesium 2.6 H (1.6-2.3) mg/dL Total Bilirubin 1.4 H (0.2-1.3) mg/dL Alkaline Phosphatase 152 H (38-126) U/L Albumin 3.4 L (3.5-5.0) g/dL 02/17/23 Range/Units 20:28 RBC (4.30-5.90) m/uL Hgb (13.0-17.5) gm/dL Hct (39.0-53.0) % MCV (80.0-100.0) fL MCH (25.0-35.0) pg Lymphocytes # (Manual) (1.0-4.8) k/uL D-Dimer (<0.60) mg/L FEU Sodium (137-145) mmol/L Chloride (98-107) mmol/L BUN (9-20) mg/dL Creatinine (0.66-1.25) mg/dL Glucose (74-99) mg/dL Osmolality 265 L (280-301) mosm/kg Magnesium (1.6-2.3) mg/dL Total Bilirubin (0.2-1.3) mg/dL Alkaline Phosphatase (38-126) U/L Albumin (3.5-5.0) g/dL
--- NOTE | 2023-02-18 07:48 | P.CRDCN ---
History of Present Illness Consult date: 02/18/23 Chief complaint: Generalized weakness History of present illness: The patient is an 87-year-old gentleman who is extremely poor historian. We re quested to see the patient in the emergency department for further evaluation of congestive heart failure. The patient is very poor historian. According to the previous medical record he does have history of permanent pacemaker as well as history of paroxysmal atrial fibrillation and coronary artery disease and morbid obesity and overweight. He lives alone. He was brought because he was experi encing symptoms of being tired and fatigued and also he is more short of breath. No pain in the chest. He underwent further workup including an EKG and that showed underlying atrial fibrillation with ventricular paced rhythm and also underwent chest x-ray showed evidence of volume overload with bilateral pleural effusion and pulmonary vascular congestions. Also further workup including electrolytes checked and came in to be abnormal showing a sodium of 116 and his creatinine is 2.36. His baseline creatinine his weight lower than that. Currently the patient is not experiencing any chest pain or chest discomfort. Hemodynamically he is stable. He is experiencing upper and lower extremity discomfort and generalized pain. He doesn't seems to be in overt congestive heart failure. The last echo from 2018 showing normal biventricular dimension and systolic function with mild aortic stenosis and moderate mitral regurgitation and severe pulmonary hypertension and severe tricuspid regurg itation. The examination is remarkable for distant heart sounds with diminished breathing sounds bilaterally and mild bilateral lower extremity edema Assessment Generalized weakness and fatigue Severe electrolytes abnormalities with severe hyponatremia Acute on chronic renal failure Mild volume overload Generalized pain Multiple comorbid conditions Plan Avoid any diuretics at this point in the light of severe hyponatremia and the patient is not in overt overload Further risk stratification by obtaining an echo to assess the current ejection fraction and the current status of the aortic and mitral valve He is not on any oral anticoagulation probably because of high risk of falling and bleeding Follow-up with the patient and further recommendation to follow the echocardiogram Past Medical History Past Medical History: Atrial Fibrillation, Cancer, GERD/Reflux, Myocardial Infarction ([place]) Additional Past Medical History / Comment(s): Pt states he was told he had a "slight heart attack" in the , occasional low back pain, benign colon polyps, occasional lower leg edema. Last Myocardial Infarction Date:: History of Any Multi-Drug Resistant Organisms: None Reported Past Surgical History: Pacemaker Additional Past Surgical History / Comment(s): Pacemaker originally inserted in and replaced in 2018 at [facility] on [place], septal surgery for fractured nose, colonoscopy with benign polypectomy, upper scope Past Anesthesia/Blood Transfusion Reactions: No Reported Reaction Type of Cardiac Device: Permanent Pacemaker Device Placement Date:: and replaced in 2017 Past Psychological History: No Psychological Hx Reported Smoking Status: Former smoker Past Alcohol Use History: None Reported Past Drug Use History: None Reported - Past Family History Father Family Medical History: No Reported History Additional Family Medical History / Comment(s): Father was healthy and lived to be in his 70s or 80s. Mother Family Medical History: CVA/TIA, Vascular Disorder Additional Family Medical History / Comment(s): Mother of a cerebral hemorrhage at the age of 57 yrs. Medications and Allergies Home Medications Medication Instructions Recorded Confirmed Type carvediloL [Coreg] 3.125 mg PO BID 05/25/18 02/17/23 History Aspirin [Adult Low Dose Aspirin EC] 81 mg PO BID 06/29/19 02/17/23 History Bumetanide [BUMEX] 1 mg PO BID@0900,1200 06/29/19 02/17/23 History Docusate [Colace] 100 mg PO BID 06/29/19 02/17/23 History Spironolactone 50 mg PO DAILY 06/29/19 02/17/23 History HYDROcodone/APAP 7.5-325MG [[place] 1.5 tab PO BID 02/17/23 02/17/23 History 7.5-325] Solifenacin Succinate [Vesicare] 5 mg PO DAILY 02/17/23 02/17/23 History metOLazone [Zaroxolyn] 2.5 mg PO MOFR 02/17/23 02/17/23 History Allergies Allergy/AdvReac Type Severity Reaction Status Date / Time No Known Allergies Allergy Verified 02/17/23 21:48 Physical Exam Vitals: Vital Signs Temp Pulse Resp BP Pulse Ox 02/18/23 05:35 70 20 107/58 99 02/18/23 03:51 70 20 121/63 97 02/18/23 02:00 70 20 120/79 97 02/18/23 01:00 71 20 94/67 98 02/18/23 00:00 70 20 119/63 98 02/17/23 21:03 70 20 111/72 97 02/17/23 19:53 97.4 F L 71 20 109/84 99 Intake and Output 02/17/23 02/18/23 02/18/23 22:59 06:59 14:59 Other: Weight 136.078 kg Results 02/17/23 20:28 02/17/23 20:28 Cardiac Enzymes 02/17/23 02/17/23 Range/Units 20:28 20:28 AST 39 (17-59) U/L Troponin I 0.013 (0.000-0.034) ng/mL Coagulation 02/17/23 Range/Units 20:28 PT 11.0 (9.0-12.0) sec APTT 26.5 (22.0-30.0) sec CBC 02/17/23 Range/Units 20:28 WBC 5.2 (3.8-10.6) k/uL RBC 2.20 L (4.30-5.90) m/uL Hgb 7.9 L (13.0-17.5) gm/dL Hct 23.0 L (39.0-53.0) % Plt Count 154 (150-450) k/uL Comprehensive Metabolic Panel 02/17/23 Range/Units 20:28 Sodium 116 L* (137-145) mmol/L Potassium 4.7 (3.5-5.1) mmol/L Chloride 81 L (98-107) mmol/L Carbon Dioxide 27 (22-30) mmol/L BUN 53 H (9-20) mg/dL Creatinine 2.23 H (0.66-1.25) mg/dL Glucose 114 H (74-99) mg/dL Calcium 8.4 (8.4-10.2) mg/dL AST 39 (17-59) U/L ALT 17 (4-49) U/L Alkaline Phosphatase 152 H (38-126) U/L Total Protein 6.4 (6.3-8.2) g/dL Albumin 3.4 L (3.5-5.0) g/dL Current Medications Generic Name Dose Route Start Last Admin Trade Name Freq PRN Reason Stop Dose Admin Acetaminophen 650 mg 02/17/23 21:23 Acetaminophen Tab 325 Mg Tab PO Q6HR PRN Mild Pain or Fever > 100.5 Hydrocodone Bitart/Acetaminophen 1.5 each 02/18/23 09:00 Hydrocodone/Apap 7.5-325mg 1 Each Tab PO BID TRINH Al Hydroxide/Mg Hydroxide 15 ml 02/17/23 21:23 Mag Hydrox/Al Hydrox/Simeth 30 Ml Cup PO Q6HR PRN Indigestion Alprazolam 0.25 mg 02/17/23 21:23 Alprazolam 0.25 Mg Tab PO Q6HR PRN Anxiety Aspirin 81 mg 02/18/23 09:00 Aspirin 81 Mg PO BID [facility] Carvedilol 3.125 mg 02/18/23 07:30 Carvedilol 3.125 Mg Tab PO BID-W/MEALS TRINH Famotidine 20 mg 02/18/23 09:00 Famotidine 20 Mg Tab PO BID [facility] Naloxone HCl 0.2 mg 02/17/23 21:23 Naloxone 0.4 Mg/Ml 1 Ml Vial IV Q2M PRN Opioid Reversal Ondansetron HCl 4 mg 02/17/23 21:23 Ondansetron 4 Mg/2 Ml Vial IVP Q8HR PRN Nausea And Vomiting Intake and Output 02/17/23 02/18/23 02/18/23 22:59 06:59 14:59 Other: Weight 136.078 kg 02/17/23 20:28 02/17/23 20:28
[2023-02-18] MEDS: HYDROcodone/APAP 7.5-325MG 1 EACH TAB PO SCH ×2 (08:01→22:16)
[2023-02-18] MEDS: carvediloL 3.125 MG TAB PO SCH ×2 (08:03→18:27)
[2023-02-18] MEDS: ASPIRIN 81 MG PO SCH ×2 (08:56→22:16)
[2023-02-18] MEDS ORDERED: FAMOTIDINE 20 MG TAB PO SCH (09:00)
--- NOTE | 2023-02-18 11:58 | P.NPCON ---
History of Present Illness - Reason for Consult hyponatremia - History of Present Illness Patient is an 87-year-old male who has a history of CHF and [facility] due to history of fatigue and weakness. It appears that patient was also short of breath. Blood pressure has been on the lower side Chest x-ray showed cardiomegaly and pulmonary vascular congestion. O2 sats 98% on 2 L nasal cannula No history of fever and no cough Patient is a poor historian Sodium was noted to be 116. No previous history of hyponatremia. He was maintained on Bumex at the prison. Patient has not been voiding much. Review of Systems [facility] HPI. Other systems negative Past Medical History Past Medical History: Atrial Fibrillation, Cancer, GERD/Reflux, Myocardial Infarction ([place]) Additional Past Medical History / Comment(s): Pt states he was told he had a "slight heart attack" in the , occasional low back pain, benign colon polyps, occasional lower leg edema. Last Myocardial Infarction Date:: History of Any Multi-Drug Resistant Organisms: None Reported Past Surgical History: Pacemaker Additional Past Surgical History / Comment(s): Pacemaker originally inserted in and replaced in 2018 at [facility] on [place], septal surgery for fractured nose, colonoscopy with benign polypectomy, upper scope Past Anesthesia/Blood Transfusion Reactions: No Reported Reaction Type of Cardiac Device: Permanent Pacemaker Device Placement Date:: and replaced in 2018 Past Psychological History: No Psychological Hx Reported Smoking Status: Former smoker Past Alcohol Use History: None Reported Past Drug Use History: None Reported - Past Family History Father Family Medical History: No Reported History Additional Family Medical History / Comment(s): Father was healthy and lived to be in his 70s or 80s. Mother Family Medical History: CVA/TIA, Vascular Disorder Additional Family Medical History / Comment(s): Mother of a cerebral hemorrhage at the age of 57 yrs. Medications and Allergies Home Medications Medication Instructions Recorded Confirmed Type carvediloL [Coreg] 3.125 mg PO BID 05/25/18 02/17/23 History Aspirin [Adult Low Dose Aspirin EC] 81 mg PO BID 06/29/19 02/17/23 History Bumetanide [BUMEX] 1 mg PO BID@0900,1200 06/29/19 02/17/23 History Docusate [Colace] 100 mg PO BID 06/29/19 02/17/23 History Spironolactone 50 mg PO DAILY 06/29/19 02/17/23 History HYDROcodone/APAP 7.5-325MG [[place] 1.5 tab PO BID 02/17/23 02/17/23 History 7.5-325] Solifenacin Succinate [Vesicare] 5 mg PO DAILY 02/17/23 02/17/23 History metOLazone [Zaroxolyn] 2.5 mg PO MOFR 02/17/23 02/17/23 History Allergies Allergy/AdvReac Type Severity Reaction Status Date / Time No Known Allergies Allergy Verified 02/17/23 21:48 Physical Exam Vitals: Vital Signs Temp Pulse Resp BP Pulse Ox 02/18/23 10:06 70 20 106/57 98 02/18/23 08:00 70 20 110/64 98 02/18/23 07:40 97.5 F L 67 20 110/66 98 02/18/23 05:35 70 20 107/58 99 02/18/23 03:51 70 20 121/63 97 02/18/23 02:00 70 20 120/79 97 02/18/23 01:00 71 20 94/67 98 02/18/23 00:00 70 20 119/63 98 02/17/23 21:03 70 20 111/72 97 02/17/23 19:53 97.4 F L 71 20 109/84 99 Intake and Output 02/17/23 02/18/23 02/18/23 22:59 06:59 14:59 Output Total 500 Balance -500 Output: Urine 500 Other: Weight 136.078 kg Patient is awake, comfortable, no acute distress Examination of the heart S1 and S2 Examination of the lungs bilateral breath sounds are heard Abdomen is soft obese nontender Examination of the lower extremities shows no significant edema, trace edema right lower extremity LINE [employer]DER exam shows patient is moving all 4 extremities. Results - Lab Results Most recent lab results Calcium 8.4 mg/dL (8.4-10.2) 02/17/23 20:28 Magnesium 2.6 mg/dL (1.6-2.3) H 02/17/23 20:28 02/17/23 20:28 02/18/23 10:41 Assessment and Plan Assessment: 1. Hyponatremia, clinically patient does not appear significantly hypervolemic although chest x-ray shows evidence of pulmonary vascular congestion. Urine sodium of less than 20 and urine osmolality at 313. Rule out urine retention. Continue off of IV fluids and diuretics for now. Repeat stat sodium level. 2. Mental status changes possibly related to electrolyte imbalance 3. History of CHF with EF 50-55% on echocardiogram in 2019 with severely dilated left atrium. Severe pulmonary hypertension was noted 4. Severe pulmonary hypertension which can cause some degree of lower extremity edema with elevated right heart pressures 5. Obesity Plan: Check a bladder scan Continue off of IV fluids and diuretics for now. Repeat sodium now and then again in about 4-5 hours. Add parameters for Coreg as blood pressure is low Thank you for the consultation. We will continue to follow the patient with you during his hospitalization
[2023-02-18] MEDS: ALPRAZolam 0.25 MG TAB PO PRN (13:06)
--- NOTE | 2023-02-18 13:51 | P.PN ---
Subjective Progress Note Date: 02/18/23 Hospital Course: 87-year-old male with a PMH of chronic CHF, status post pacemaker placement, macrocytic anemia, chronic kidney disease, who presents to the emergency room with complaints of shortness of breath and lower extremity edema. Chest x-ray in the emergency room was consistent with congestive heart failure. EKG revealed a V paced rhythm at 70 bpm. Laboratory evaluation revealed a hemoglobin of 7.9 down from previously 10.8 in 2020, sodium 116, chloride 81, BUN 53, creatinine 2.23, serum osmolality 265, lactic acid 0.9, magnesium 2.6, pro BNP 801, and urine osmolality 313. Nephrology and cardiology consulted. Subjective: Patient seen and examined at bedside. He is a poor historian. Continues to have shortness of breath. Pertinent positives and negatives as discussed above, a complete review of systems was performed and all other systems are negative. Vitals Signs Reviewed. Vital signs reviewed General: non toxic, no distress, appears at stated age Derm: no unusual rashes/lesions, warm Head: atraumatic, normocephalic, symmetric Eyes: EOMI, no lid lag, anicteric sclera, pupils equal round reactive to light ENT: Nose and ears atraumatic Neck: No cervical lymphadenopathy, trachea midline, supple Mouth: no lip lesion, mucus membranes dry Cardiovascular: S1S2 reg, no murmur, positive dorsalis pedis pulse bilateral, no significant edema Lungs: Bibasilar rales noted, no accessory muscle use Abdominal: soft, nontender to palpation, no guarding Ext: muscle strength 4 out of 5 in all 4 extremities grossly, no gross muscle atrophy, no contractures, Neuro: CN II-XI grossly intact, no gross focal neuro deficits Psych: Alert, oriented, appropriate affect Data Reviewed Today: Pertinent Labs: Repeat sodium is still 116, urinalysis negative, urine sodium less than 20, urine osmolarity 313 Imaging: No new imaging Assessment and Plan: Severe hyponatremia, likely in the setting of diuretic use Macrocytic anemia Acute kidney injury History of CHF History of atrial fibrillation, paroxysmal History of coronary artery disease -Cardiology noted review, avoid diuretics at the moment -Personally discussed management with nephrology repeat sodium, check bladder scan, may need to decrease Couric, may need to challenge with IV fluids -Repeat BMP tomorrow -Currently not on anticoagulation DVT ppx: SCDs Code status: Full code Anticipated discharge place: Pending clinical course Anticipated discharge time: Pending clinical course Objective - Vital Signs Vital signs: Vital Signs Temp 97.5 F L 02/18/23 07:40 Pulse 70 02/18/23 13:03 Resp 7 L 02/18/23 13:03 BP 99/59 02/18/23 13:03 Pulse Ox 100 02/18/23 13:03 FiO2 Intake & Output 02/17/23 02/18/23 02/18/23 18:59 06:59 18:59 Output Total 1300 Balance -1300 Weight 136.078 kg Output: Urine 1300 Uretheral (Driver) 700 Other: # Voids 1 - Labs CBC & Chem 7: 02/17/23 20:28 02/18/23 10:41 Labs: Abnormal Lab Results - Last 24 Hours (Table) 02/17/23 02/17/23 02/17/23 Range/Units 20:28 20:28 20:28 RBC 2.20 L (4.30-5.90) m/uL Hgb 7.9 L (13.0-17.5) gm/dL Hct 23.0 L (39.0-53.0) % MCV 104.6 H (80.0-100.0) fL MCH 35.7 H (25.0-35.0) pg Lymphocytes # (Manual) 0.36 L (1.0-4.8) k/uL D-Dimer 0.67 H (<0.60) mg/L FEU Sodium 116 L* (137-145) mmol/L Chloride 81 L (98-107) mmol/L BUN 53 H (9-20) mg/dL Creatinine 2.23 H (0.66-1.25) mg/dL Glucose 114 H (74-99) mg/dL Osmolality (280-301) mosm/kg Magnesium 2.6 H (1.6-2.3) mg/dL Total Bilirubin 1.4 H (0.2-1.3) mg/dL Alkaline Phosphatase 152 H (38-126) U/L Albumin 3.4 L (3.5-5.0) g/dL Ur Random Sodium (40-220) mmol/L 02/17/23 02/17/23 02/18/23 Range/Units 20:28 21:36 10:41 RBC (4.30-5.90) m/uL Hgb (13.0-17.5) gm/dL Hct (39.0-53.0) % MCV (80.0-100.0) fL MCH (25.0-35.0) pg Lymphocytes # (Manual) (1.0-4.8) k/uL D-Dimer (<0.60) mg/L FEU Sodium 116 L* (137-145) mmol/L Chloride (98-107) mmol/L BUN (9-20) mg/dL Creatinine (0.66-1.25) mg/dL Glucose (74-99) mg/dL Osmolality 265 L (280-301) mosm/kg Magnesium (1.6-2.3) mg/dL Total Bilirubin (0.2-1.3) mg/dL Alkaline Phosphatase (38-126) U/L Albumin (3.5-5.0) g/dL Ur Random Sodium <20 L (40-220) mmol/L
--- NOTE | 2023-02-18 15:13 | CA ---
Transthoracic Echo Report Name: Royal Hopkins Age: 87 Gender: M : 1935 Exam Date: 02/18/2023 09:01 Exam Location: [facility] Ht (in): 72 Wt (lb): 300 Ordering Physician: Lebron Cano MD ([id number]) Attending/Referring Phys: Pants Presser Delicia Sullivan RDCS Procedure CPT: Indications: chf Cardiac Hx: pacemaker Technical Quality: Very technically difficult study Contrast 1: Lumason Total Dose (mL): 3 Contrast 2: Total Dose (mL): MEASUREMENTS (Male / Female) Normal Values 2D ECHO LV Diastolic Diameter PLAX 7.3 cm 4.2 - 5.9 / 3.9 - 5.3 cm LV Systolic Diameter PLAX 4.4 cm IVS Diastolic Thickness 1.3 cm 0.6 - 1.0 / 0.6 - 0.9 cm LVPW Diastolic Thickness 1.5 cm 0.6 - 1.0 / 0.6 - 0.9 cm LV Relative Wall Thickness 0.4 RV Internal Dim ED PLAX 5.2 cm LA Systolic Diameter LX 5.1 cm 3.0 - 4.0 / 2.7 - 3.8 cm M-MODE Aortic Root Diameter MM 3.8 cm AV Cusp Separation MM 2.3 cm DOPPLER AV Peak Velocity 163.2 cm/s AV Peak Gradient 10.7 mmHg MV Area PHT 4.3 cm??? MV Deceleration Time 233.6 ms TR Peak Velocity 357.2 cm/s TR Peak Gradient 51.0 mmHg Right Ventricular Systolic Press 56.0 mmHg FINDINGS Left Ventricle Left ventricular ejection fraction is estimated at 45-50 %. Mildly increased septal wall thickness. Severely increased left ventricular diastolic diameter. Mildly reduced global left ventricular systolic function. Right Ventricle Severe right ventricular dilatation. Severe pulmonary hypertension. Right ventricular systolic pressure estimated at 56 mm hg. Right Atrium Right atrium not well visualized. Left Atrium Moderately increased left atrial diameter. Mitral Valve Mitral valve not well visualized. Mild mitral regurgitation. Aortic Valve Aortic valve not well visualized. No aortic valve stenosis or regurgitation. Tricuspid Valve Tricuspid valve not well visualized. [id number] tricuspid regurgitation. Pulmonic Valve Pulmonic valve not well visualized. Pericardium Small pericardial effusion. Aorta Mild aortic dilatation at the level of the sinuses of valsalva 38 mm CONCLUSIONS Dilated LV with reduced systolic function ejection fraction 45-50% Dilated RV with pulmonary hypertension Previewed by: Dr. Cam Rivera MD (Electronically Signed) Final Date: 18 February 2023 15:12
[2023-02-18] MEDS: ACETAMINOPHEN TAB 325 MG TAB PO PRN (16:41)
[2023-02-18] MEDS: SODIUM CHLORIDE 0.9% 1,000 ML IV SCH (16:42)
[2023-02-18 17:09] LABS: ABG Base Excess 5.6 mmol/L; ABG HCO3 30 mmol/L (21-25); ABG Oxygen Saturation 98.7 % (94-97); ABG PCO2 43 mmHg (35-45); ABG PH 7.45 (7.35-7.45); ABG PO2 108 mmHg (83-108); ABG TCO2 31 mmol/L (19-24); Allen Test Performed? Yes
[2023-02-18 21:54] LABS: African American GFR (CKD) 29 (>60 ml/min/1.73 sqM); Anion Gap 8 mmol/L; Blood Urea Nitrogen 53 mg/dL (9-20); Calcium 8.5 mg/dL (8.4-10.2); Carbon Dioxide 28 mmol/L (22-30); Chloride 80 mmol/L (98-107); Glucose 95 mg/dL (74-99); Non-African American GFR(CKD) 25 (>60 ml/min/1.73 sqM)
[2023-02-18 22:05] LABS: Sodium 116 mmol/L (137-145)
[2023-02-19 05:13] LABS: African American GFR (CKD) 29 (>60 ml/min/1.73 sqM); Anion Gap 7 mmol/L; Blood Urea Nitrogen 54 mg/dL (9-20); Calcium 8.3 mg/dL (8.4-10.2); Carbon Dioxide 27 mmol/L (22-30); Chloride 82 mmol/L (98-107); Glucose 81 mg/dL (74-99); Non-African American GFR(CKD) 26 (>60 ml/min/1.73 sqM); Potassium 5.1 mmol/L (3.5-5.1)
[2023-02-19 05:17] LABS: Sodium 116 mmol/L (137-145)
[2023-02-19 05:21] LABS: HCT 22.5 % (39.0-53.0); HGB 7.6 gm/dL (13.0-17.5); MCH 35.4 pg (25.0-35.0); MCHC 33.5 g/dL (31.0-37.0); MCV 105.6 fL (80.0-100.0); Macrocytosis Moderate; Platelet Count 150 k/uL (150-450); RBC 2.14 m/uL (4.30-5.90); RDW 13.2 % (11.5-15.5); WBC 7.4 k/uL (3.8-10.6)
[2023-02-19] MEDS ORDERED: FUROSEMIDE 10 MG/ML 4 ML VIAL IV STA (05:41)
[2023-02-19] MEDS: carvediloL 3.125 MG TAB PO SCH ×2 (05:48→17:09)
[2023-02-19] MEDS: SODIUM CHLORIDE 0.9% 1,000 ML IV SCH (05:49)
--- NOTE | 2023-02-19 06:34 | P.PN ---
Subjective Progress Note Date: 02/19/23 Principal diagnosis: CHF The patient is an 87-year-old gentleman who is extremely poor historian. We requested to see the patient in the emergency department for further evaluation of congestive heart failure. The patient is very poor historian. According to the previous medical record he does have history of permanent pacemaker as well as history of paroxysmal atrial fibrillation and coronary artery disease and morbid obesity and overweight. He lives alone. He was brought because he was experiencing symptoms of being tired and fatigued and also he is more short of breath. No pain in the chest. He underwent further workup including an EKG and that showed underlying atrial fibrillation with ventricular paced rhythm and also underwent chest x-ray showed evidence of volume overload with bilateral pleural effusion and pulmonary vascular congestions. Also further workup including electrolytes checked and came in to be abnormal showing a sodium of 116 and his creatinine is 2.36. His baseline creatinine his weight lower than that. Currently the patient is not experiencing any chest pain or chest discomfort. Hemodynamically he is stable. He is experiencing upper and lower extremity discomfort and generalized pain. He doesn't seems to be in overt congestive heart failure. The last echo from 2017 showing normal biventricular dimension and systolic function with mild aortic stenosis and moderate mitral regurgitation and severe pulmonary hypertension and severe tricuspid regurgitation. 02/19/2023 The patient was seen and evaluated this morning. His mentation has improved compared to before. He still hypoxic requiring only some oxygen. On examina tion he seems to be euvolemic with only diminished breathing sounds bilaterally and no lower extremities edema noted. He was given one dose of Lasix yesterday by the nephrology service. The echo revealed mildly impaired LV function was EF around 45% with moderate pulmonary hypertension. The examination is remarkable for distant heart sounds with diminished breathing sounds bilaterally and no bilateral lower extremity edema Assessment Generalized weakness and fatigue Severe electrolytes abnormalities with severe hyponatremia Acute on chronic renal failure Mild volume overload Generalized pain Cardiomyopathy was EF around 45% Plan Continue the current medical regimen Diuretics to be managed by the nephrology service Follow-up with the patient Objective - Vital Signs Vital signs: Vital Signs Temp 97.8 F 02/19/23 04:00 Pulse 68 02/19/23 04:00 Resp 15 02/19/23 04:00 BP 122/69 02/19/23 04:00 Pulse Ox 98 02/19/23 06:25 FiO2 Intake & Output 02/18/23 02/18/23 02/19/23 06:59 18:59 06:59 Output Total 1500 600 Balance -1500 -600 Weight 136.078 kg 136.078 kg Output: Urine 1500 600 Uretheral (Driver) 900 Other: Voiding Method Indwelling Catheter # Voids 1 - Labs CBC & Chem 7: 02/19/23 03:46 02/19/23 03:46 Labs: Abnormal Lab Results - Last 24 Hours (Table) 02/18/23 02/18/23 02/18/23 Range/Units 10:41 14:52 17:05 RBC (4.30-5.90) m/uL Hgb (13.0-17.5) gm/dL Hct (39.0-53.0) % MCV (80.0-100.0) fL MCH (25.0-35.0) pg ABG HCO3 30 H (21-25) mmol/L ABG Total CO2 31 H (19-24) mmol/L ABG O2 Saturation 98.7 H (94-97) % Sodium 116 L* 115 L* (137-145) mmol/L Chloride (98-107) mmol/L BUN (9-20) mg/dL Creatinine (0.66-1.25) mg/dL Calcium (8.4-10.2) mg/dL 02/18/23 02/19/23 02/19/23 Range/Units 21:22 03:46 03:46 RBC 2.14 L (4.30-5.90) m/uL Hgb 7.6 L (13.0-17.5) gm/dL Hct 22.5 L (39.0-53.0) % MCV 105.6 H (80.0-100.0) fL MCH 35.4 H (25.0-35.0) pg ABG HCO3 (21-25) mmol/L ABG Total CO2 (19-24) mmol/L ABG O2 Saturation (94-97) % Sodium 116 L* 116 L* (137-145) mmol/L Chloride 80 L 82 L (98-107) mmol/L BUN 53 H 54 H (9-20) mg/dL Creatinine 2.28 H 2.26 H (0.66-1.25) mg/dL Calcium 8.3 L (8.4-10.2) mg/dL
[2023-02-19 07:37] LABS: Eosinophils # (M) 0.15 k/uL (0-0.7); Lymphocytes # (M) 1.11 k/uL (1.0-4.8); Monocytes # (M) 0.74 k/uL (0-1.0); Neutrophils % (M) 73 %; Nucleated Red Blood Cells 0 /100 WBC (0-0); Total Cells Counted 100
[2023-02-19 07:40] LABS: Anisocytosis (M) Present; Poikilocytosis (M) Present
[2023-02-19] MEDS: HYDROcodone/APAP 7.5-325MG 1 EACH TAB PO SCH ×2 (08:38→20:11)
[2023-02-19] MEDS: ASPIRIN 81 MG PO SCH ×2 (08:38→20:10)
[2023-02-19] MEDS: FAMOTIDINE 20 MG TAB PO SCH (08:38)
[2023-02-19 11:07] LABS: African American GFR (CKD) 28 (>60 ml/min/1.73 sqM); Anion Gap 7 mmol/L; Blood Urea Nitrogen 51 mg/dL (9-20); Calcium 8.1 mg/dL (8.4-10.2); Carbon Dioxide 28 mmol/L (22-30); Chloride 82 mmol/L (98-107); Glucose 137 mg/dL (74-99); Non-African American GFR(CKD) 24 (>60 ml/min/1.73 sqM); Potassium 4.5 mmol/L (3.5-5.1)
[2023-02-19] MEDS ORDERED: TOLVAPTAN 15 MG TABLET PO ONE ×2 (11:09→22:30)
--- NOTE | 2023-02-19 11:09 | P.PN ---
Subjective Patient is seen for follow-up for hyponatremia. Patient was started on challenge of normal saline yesterday as he did not appear to be clinically significantly volume overloaded. Chest x-ray shows evidence of pulmonary vascular congestion. Urine osmolality is 313 and random urine sodium less than 20 Serum sodium has not changed and remains at 116. Driver catheter was placed for urine retention. This morning patient is comfortable awake. No acute distress. Objective - Vital Signs Vital signs: Vital Signs Temp 98.5 F 02/19/23 08:00 Pulse 74 02/19/23 08:00 Resp 20 02/19/23 08:00 BP 125/65 02/19/23 08:00 Pulse Ox 98 02/19/23 08:00 FiO2 Intake & Output 02/18/23 02/19/23 02/19/23 18:59 06:59 18:59 Intake Total 118 Output Total 1500 600 Balance -1500 -600 118 Weight 136.078 kg Intake: Oral 118 Output: Urine 1500 600 Uretheral (Driver) 900 Other: Voiding Method Indwelling Catheter Indwelling Catheter # Voids 1 - Exam Patient is awake, comfortable, no acute distress Examination of the heart S1 and S2 Examination of the lungs bilateral breath sounds are heard Abdomen is soft obese nontender Examination of the lower extremities shows no significant edema OFFICE SECRETARY exam shows patient is moving all 4 extremities. - Labs CBC & Chem 7: 02/19/23 03:46 02/19/23 03:46 Labs: Abnormal Lab Results - Last 24 Hours (Table) 02/18/23 02/18/23 02/18/23 Range/Units 10:41 14:52 17:05 RBC (4.30-5.90) m/uL Hgb (13.0-17.5) gm/dL Hct (39.0-53.0) % MCV (80.0-100.0) fL MCH (25.0-35.0) pg ABG HCO3 30 H (21-25) mmol/L ABG Total CO2 31 H (19-24) mmol/L ABG O2 Saturation 98.7 H (94-97) % Sodium 116 L* 115 L* (137-145) mmol/L Chloride (98-107) mmol/L BUN (9-20) mg/dL Creatinine (0.66-1.25) mg/dL Calcium (8.4-10.2) mg/dL 02/18/23 02/19/23 02/19/23 Range/Units 21:22 03:46 03:46 RBC 2.14 L (4.30-5.90) m/uL Hgb 7.6 L (13.0-17.5) gm/dL Hct 22.5 L (39.0-53.0) % MCV 105.6 H (80.0-100.0) fL MCH 35.4 H (25.0-35.0) pg ABG HCO3 (21-25) mmol/L ABG Total CO2 (19-24) mmol/L ABG O2 Saturation (94-97) % Sodium 116 L* 116 L* (137-145) mmol/L Chloride 80 L 82 L (98-107) mmol/L BUN 53 H 54 H (9-20) mg/dL Creatinine 2.28 H 2.26 H (0.66-1.25) mg/dL Calcium 8.3 L (8.4-10.2) mg/dL Assessment and Plan Assessment: 1. Hyponatremia, clinically patient does not appear significantly hypervolemic although chest x-ray shows evidence of pulmonary vascular congestion. Urine sodium of less than 20 and urine osmolality at 313. Status post challenge with normal saline with no improvement in serum sodium. Driver catheter was placed for urine retention. I will order cortisol level as blood pressure remains low and potassium is borderline at 5. 2. Mental status changes possibly related to electrolyte imbalance 3. History of CHF with EF 50-55% on echocardiogram in 2019 with severely dilated left atrium. Severe pulmonary hypertension was noted 4. Severe pulmonary hypertension which can cause some degree of lower extremity edema with elevated right heart pressures 5. Obesity Plan: Check random cortisol level Continue off of IV fluids. Status post normal saline challenge with no improvement in serum sodium. Samsca 1 Repeat sodium later this evening Continue with Driver catheter
[2023-02-19 11:10] LABS: Sodium 117 mmol/L (137-145)
--- NOTE | 2023-02-19 12:17 | P.PN ---
Subjective Progress Note Date: 02/19/23 Hospital Course: 87-year-old male with a PMH of chronic CHF, status post pacemaker placement, ma crocytic anemia, chronic kidney disease, who presents to the emergency room with complaints of shortness of breath and lower extremity edema. Chest x-ray in the emergency room was consistent with congestive heart failure. EKG revealed a V paced rhythm at 70 bpm. Laboratory evaluation revealed a hemoglobin of 7.9 down from previously 10.8 in 2020, sodium 116, chloride 81, BUN 53, creatinine 2.23, serum osmolality 265, lactic acid 0.9, magnesium 2.6, pro BNP 801, and urine osmolality 313. Nephrology and cardiology consulted. Subjective: Patient seen and examined at bedside. Shortness of breath is improved. Has a Driver catheter in place. Pertinent positives and negatives as discussed above, a complete review of systems was performed and all other systems are negative. Vital signs reviewed General: non toxic, no distress, appears at stated age Derm: no unusual rashes/lesions, warm Head: atraumatic, normocephalic, symmetric Eyes: EOMI, no lid lag, anicteric sclera, pupils equal round reactive to light ENT: Nose and ears atraumatic Neck: No cervical lymphadenopathy, trachea midline, supple Mouth: no lip lesion, mucus membranes dry Cardiovascular: S1S2 reg, no murmur, positive dorsalis pedis pulse bilateral, no significant edema Lungs: Bibasilar rales noted, no accessory muscle use Abdominal: soft, nontender to palpation, no guarding Ext: muscle strength 4 out of 5 in all 4 extremities grossly, no gross muscle atrophy, no contractures, Neuro: CN II-XI grossly intact, no gross focal neuro deficits Psych: Alert, oriented, appropriate affect Data Reviewed Today: Pertinent Labs: Sodium 117, creatinine 2.24, hemoglobin 7.6 Imaging: No new imaging Assessment and Plan: Patient is critically ill, prognosis guarded Severe hyponatremia, likely in the setting of diuretic use Macrocytic anemia Acute kidney injury History of CHF History of atrial fibrillation, paroxysmal History of coronary artery disease -Cardiology note review, continue current management -Personally discussed management with nephrology IV fluids discontinued, Samsca 1 -Repeat sodium in the afternoon -Currently not on anticoagulation DVT ppx: SCDs Code status: Full code Anticipated discharge place: Pending clinical course Anticipated discharge time: Pending clinical course Objective - Vital Signs Vital signs: Vital Signs Temp 98.5 F 02/19/23 08:00 Pulse 74 02/19/23 08:00 Resp 20 02/19/23 08:00 BP 125/65 02/19/23 08:00 Pulse Ox 98 02/19/23 08:00 FiO2 Intake & Output 02/18/23 02/19/23 02/19/23 18:59 06:59 18:59 Intake Total 118 Output Total 1500 600 Balance -1500 -600 118 Weight 136.078 kg Intake: Oral 118 Output: Urine 1500 600 Uretheral (Driver) 900 Other: Voiding Method Indwelling Catheter Indwelling Catheter # Voids 1 - Labs CBC & Chem 7: 02/19/23 03:46 02/19/23 10:08 Labs: Abnormal Lab Results - Last 24 Hours (Table) 02/18/23 02/18/23 02/18/23 Range/Units 14:52 17:05 21:22 RBC (4.30-5.90) m/uL Hgb (13.0-17.5) gm/dL Hct (39.0-53.0) % MCV (80.0-100.0) fL MCH (25.0-35.0) pg ABG HCO3 30 H (21-25) mmol/L ABG Total CO2 31 H (19-24) mmol/L ABG O2 Saturation 98.7 H (94-97) % Sodium 115 L* 116 L* (137-145) mmol/L Chloride 80 L (98-107) mmol/L BUN 53 H (9-20) mg/dL Creatinine 2.28 H (0.66-1.25) mg/dL Glucose (74-99) mg/dL Calcium (8.4-10.2) mg/dL 02/19/23 02/19/23 02/19/23 Range/Units 03:46 03:46 10:08 RBC 2.14 L (4.30-5.90) m/uL Hgb 7.6 L (13.0-17.5) gm/dL Hct 22.5 L (39.0-53.0) % MCV 105.6 H (80.0-100.0) fL MCH 35.4 H (25.0-35.0) pg ABG HCO3 (21-25) mmol/L ABG Total CO2 (19-24) mmol/L ABG O2 Saturation (94-97) % Sodium 116 L* 117 L* (137-145) mmol/L Chloride 82 L 82 L (98-107) mmol/L BUN 54 H 51 H (9-20) mg/dL Creatinine 2.26 H 2.34 H (0.66-1.25) mg/dL Glucose 137 H (74-99) mg/dL Calcium 8.3 L 8.1 L (8.4-10.2) mg/dL
--- NOTE | 2023-02-19 13:15 | CDI ---
Documentation Clarification Form Date: From: Lucy Bradley Phone: [phone] Admit Date: 02/17/2023 09:23:00 PM Patient Name: Royal Hopkins Visit Number: [id number] Discharge Date: ATTENTION: The Clinical Documentation Specialists (CDI) and [facility] Coding Staff appreciate your assistance in clarifying documentation. Please respond to the clarification below the line at the bottom and electronically sign. The CDI & [facility] Coding staff will review the response and follow-up if needed. Please note: Queries are made part of the Legal Health Record. If you have any questions, please contact the author of this message via ITS. Dr. Alix King Your patient has the documented symptom of Altered Mental Status in H&P dated 02/17. Additional clarification regarding the etiology/cause of this symptom is requested. History/Risk Factors: "87-year-old male who presents emergency Department is a very poor historian. Patient states here for shortness of breath which she states she's been getting worse for the last couple months. Patient also is noted for the last few months and is getting weaker and weaker and more and more off balance." Clinical Indicators: "Mental status changes possibly related to electrolyte imbalance" - Per Progress Note on 02/19 Labs: Sodium: 02/17 - 116 02/18 - 116, 115, 116 02/19 - 16 02/19 - 117 Treatment: Consult Nephrology Per Nephrology Note on 02/19 "Check random cortisol level Continue off of IV fluids. Status post normal saline challenge with no improvement in serum sodium. Samsca 1 Repeat sodium later this evening" Please clarify the etiology of the symptom of Altered Mental Status: [ ] Metabolic Encephalopathy due to Hyponatremia [ ] Other condition (please specify) [ ] Unable to determine MTDD
--- NOTE | 2023-02-19 13:32 | CDI ---
Documentation Clarification Form Date: From: Lucy Bradley Phone: [phone] Admit Date: 02/17/2023 09:23:00 PM Patient Name: Royal Hopkins Visit Number: [id number] Discharge Date: ATTENTION: The Clinical Documentation Specialists (CDI) and [facility] Coding Staff appreciate your assistance in clarifying documentation. Please respond to the clarification below the line at the bottom and electronically sign. The CDI & [facility] Coding staff will review the response and follow-up if needed. Please note: Queries are made part of the Legal Health Record. If you have any questions, please contact the author of this message via ITS. Dr. Alix King Your patient has Hypoxia documented in the Progress Note on 02/19. Based on this information and the findings below, is there an additional diagnosis that is clinically appropriate for this patient? History/Risk Factors: "87-year-old male with a PMH of chronic CHF, status post pacemaker placement, macrocytic anemia, chronic kidney disease, who presents to the emergency room with complaints of shortness of breath and lower extremity edema." - Per H&P on 02/17 Tobacco use: former smoker Home oxygen: none Clinical Indicators: "shortness of breath which she states she's been getting worse for the last couple months" - Per ED Note on 02/17 "still hypoxic requiring only some oxygen" - Per Progress Note on 02/19 Pulse oximetry: 02/17 - 99% on 4L NC 02/18 - 98% on 2L NC 02/19 - 98% on 2L NC "Lungs: Bibasilar rales noted, no accessory muscle use" - Per H&P on 02/17 "Chest x-ray in the emergency room was consistent with congestive heart failure" - Per H&P on 02/17 Treatment: "one dose of Lasix yesterday by the nephrology service" - Per Progress Note on 02/19 Supplemental O2 via Nasal Canula Is there an additional diagnosis that is clinically appropriate for this patient? [ ] Acute Hypoxic Respiratory Failure (pO2 <60 mm Hg or SpO2 <91% on room air) [ ] Other Diagnosis, please specify [ ] Unable to determine MTDD
[2023-02-19 15:52] VITALS: BMI 40.6
[2023-02-19 20:49] LABS: Sodium 117 mmol/L (137-145)
[2023-02-20 04:25] LABS: HCT 20.9 % (39.0-53.0); HGB 7.1 gm/dL (13.0-17.5); MCH 35.1 pg (25.0-35.0); MCHC 34.2 g/dL (31.0-37.0); MCV 102.6 fL (80.0-100.0); Macrocytosis Slight; Mean Platelet Volume 9.1; Platelet Count 141 k/uL (150-450); RBC 2.04 m/uL (4.30-5.90); RDW 13.5 % (11.5-15.5); WBC 7.1 k/uL (3.8-10.6)
[2023-02-20 04:39] LABS: African American GFR (CKD) 27 (>60 ml/min/1.73 sqM); Anion Gap 9 mmol/L; Blood Urea Nitrogen 57 mg/dL (9-20); Calcium 8.4 mg/dL (8.4-10.2); Carbon Dioxide 26 mmol/L (22-30); Chloride 82 mmol/L (98-107); Glucose 86 mg/dL (74-99); Non-African American GFR(CKD) 23 (>60 ml/min/1.73 sqM); Potassium 4.8 mmol/L (3.5-5.1)
[2023-02-20 04:43] LABS: Band Neutrophils % 1 %; Monocytes # (M) 0.92 k/uL (0-1.0); Neutrophils % (M) 72 %; Nucleated Red Blood Cells 0 /100 WBC (0-0); Total Cells Counted 100
[2023-02-20 05:07] LABS: Sodium 117 mmol/L (137-145)
[2023-02-20] MEDS: carvediloL 3.125 MG TAB PO SCH ×2 (06:30→17:03)
--- NOTE | 2023-02-20 07:05 | P.PN ---
Subjective Progress Note Date: 02/20/23 Principal diagnosis: CHF The patient is an 87-year-old gentleman who is extremely poor historian. We requested to see the patient in the emergency department for further evaluation of congestive heart failure. The patient is very poor historian. According to the previous medical record he does have history of permanent pacemaker as well as history of paroxysmal atrial fibrillation and coronary artery disease and morbid obesity and overweight. He lives alone. He was brought because he was experiencing symptoms of being tired and fatigued and also he is more short of breath. No pain in the chest. He underwent further workup including an EKG and that showed underlying atrial fibrillation with ventricular paced rhythm and also underwent chest x-ray showed evidence of volume overload with bilateral pleural effusion and pulmonary vascular congestions. Also further workup including electrolytes checked and came in to be abnormal showing a sodium of 116 and his creatinine is 2.36. His baseline creatinine his weight lower than that. Currently the patient is not experiencing any chest pain or chest discomfort. Hemodynamically he is stable. He is experiencing upper and lower extremity discomfort and generalized pain. He doesn't seems to be in overt congestive heart failure. The last echo from 2018 showing normal biventricular dimension and systolic function with mild aortic stenosis and moderate mitral regurgitation and severe pulmonary hypertension and severe tricuspid regurgitation. 02/19/2023 The patient was seen and evaluated this morning. His mentation has improved compared to before. He still hypoxic requiring only some oxygen. On examina tion he seems to be euvolemic with only diminished breathing sounds bilaterally and no lower extremities edema noted. He was given one dose of Lasix yesterday by the nephrology service. The echo revealed mildly impaired LV function was EF around 45% with moderate pulmonary hypertension. 02/20/2023 The patient was seen and evaluated this morning. He seems to be stable from the cardiovascular standpoint of view. He doesn't seems to be in any overt congestive heart failure at this point. The sodium is slightly better. Hemodynamically he is stable. The echo revealed mildly impaired LV function was EF around 45% with pulmonary hypertension and dilated the right ventricle. From the cardiovascular standpoint of view, we will continue the current medical regimen. The examination is remarkable for distant heart sounds with diminished breathing sounds bilaterally and no bilateral lower extremity edema Assessment Generalized weakness and fatigue Severe electrolytes abnormalities with severe hyponatremia Acute on chronic renal failure Mild volume overload Generalized pain Cardiomyopathy was EF around 45% Plan Continue the current medical regimen Diuretics to be managed by the nephrology service Follow-up with the patient Objective - Vital Signs Vital signs: Vital Signs Temp 97.8 F 02/20/23 04:00 Pulse 70 02/20/23 04:00 Resp 16 02/20/23 04:00 BP 122/60 02/20/23 04:00 Pulse Ox 97 02/20/23 04:00 FiO2 Intake & Output 02/19/23 02/20/23 02/20/23 18:59 06:59 18:59 Intake Total 118 560 Output Total 600 400 Balance -482 160 Weight 136.078 kg Intake: IV 20 Invasive Line 1 10 Invasive Line 2 10 Oral 118 540 Output: Urine 600 400 Uretheral (Driver) 200 Other: Voiding Method Indwelling Catheter Indwelling Catheter - Labs CBC & Chem 7: 02/20/23 03:50 02/20/23 03:47 Labs: Abnormal Lab Results - Last 24 Hours (Table) 02/19/23 02/19/23 02/19/23 Range/Units 10:08 16:18 20:15 RBC (4.30-5.90) m/uL Hgb (13.0-17.5) gm/dL Hct (39.0-53.0) % MCV (80.0-100.0) fL MCH (25.0-35.0) pg Plt Count (150-450) k/uL Lymphocytes # (Manual) (1.0-4.8) k/uL Sodium 117 L* 116 L* 117 L* (137-145) mmol/L Chloride 82 L (98-107) mmol/L BUN 51 H (9-20) mg/dL Creatinine 2.34 H (0.66-1.25) mg/dL Glucose 137 H (74-99) mg/dL Calcium 8.1 L (8.4-10.2) mg/dL 02/20/23 02/20/23 Range/Units 03:47 03:50 RBC 2.04 L (4.30-5.90) m/uL Hgb 7.1 L (13.0-17.5) gm/dL Hct 20.9 L (39.0-53.0) % MCV 102.6 H (80.0-100.0) fL MCH 35.1 H (25.0-35.0) pg Plt Count 141 L (150-450) k/uL Lymphocytes # (Manual) 0.50 L (1.0-4.8) k/uL Sodium 117 L* (137-145) mmol/L Chloride 82 L (98-107) mmol/L BUN 57 H (9-20) mg/dL Creatinine 2.47 H (0.66-1.25) mg/dL Glucose (74-99) mg/dL Calcium (8.4-10.2) mg/dL
[2023-02-20] MEDS: HYDROcodone/APAP 7.5-325MG 1 EACH TAB PO SCH ×2 (09:43→21:19)
[2023-02-20] MEDS: FAMOTIDINE 20 MG TAB PO SCH (09:43)
[2023-02-20] MEDS: ASPIRIN 81 MG PO SCH ×2 (09:43→21:20)
[2023-02-20] MEDS ORDERED: IPRATROPIUM-ALBUTEROL 3 ML NEB INHALATION PRN (10:08)
[2023-02-20] MEDS ORDERED: FUROSEMIDE 10 MG/ML 4 ML VIAL IV STA (10:09)
--- NOTE | 2023-02-20 10:13 | P.PN ---
Subjective Patient is seen in follow-up for acute kidney injury and hyponatremia. Sodium level 117 as of this morning. Creatinine stable at 2.47. Has a Driver catheter for urinary retention. Nonoliguric. Oral intake fair. Hemodynamically stable. Vital signs are stable. General: No acute distress. HEENT: Head exam is unremarkable. LUNGS: No audible rhonchi or wheezes. HEART: Rate and Rhythm are regular. ABDOMEN: Nontender. EXTREMITITES: No edema. Objective - Vital Signs Vital signs: Vital Signs Temp 97.8 F 02/20/23 04:00 Pulse 70 02/20/23 04:00 Resp 16 02/20/23 04:00 BP 122/60 02/20/23 04:00 Pulse Ox 97 02/20/23 04:00 FiO2 Intake & Output 02/19/23 02/20/23 02/20/23 18:59 06:59 18:59 Intake Total 118 560 118 Output Total 600 400 Balance -482 160 118 Weight 136.078 kg Intake: IV 20 Invasive Line 1 10 Invasive Line 2 10 Oral 118 540 118 Output: Urine 600 400 Uretheral (Driver) 200 Other: Voiding Method Indwelling Catheter Indwelling Catheter - Labs CBC & Chem 7: 02/20/23 03:50 02/20/23 03:47 Labs: Abnormal Lab Results - Last 24 Hours (Table) 02/19/23 02/19/23 02/19/23 Range/Units 10:08 16:18 20:15 RBC (4.30-5.90) m/uL Hgb (13.0-17.5) gm/dL Hct (39.0-53.0) % MCV (80.0-100.0) fL MCH (25.0-35.0) pg Plt Count (150-450) k/uL Lymphocytes # (Manual) (1.0-4.8) k/uL Sodium 117 L* 116 L* 117 L* (137-145) mmol/L Chloride 82 L (98-107) mmol/L BUN 51 H (9-20) mg/dL Creatinine 2.34 H (0.66-1.25) mg/dL Glucose 137 H (74-99) mg/dL Calcium 8.1 L (8.4-10.2) mg/dL 07/08/23 07/08/23 Range/Units 03:47 03:50 RBC 2.04 L (4.30-5.90) m/uL Hgb 7.1 L (13.0-17.5) gm/dL Hct 20.9 L (39.0-53.0) % MCV 102.6 H (80.0-100.0) fL MCH 35.1 H (25.0-35.0) pg Plt Count 141 L (150-450) k/uL Lymphocytes # (Manual) 0.50 L (1.0-4.8) k/uL Sodium 117 L* (137-145) mmol/L Chloride 82 L (98-107) mmol/L BUN 57 H (9-20) mg/dL Creatinine 2.47 H (0.66-1.25) mg/dL Glucose (74-99) mg/dL Calcium (8.4-10.2) mg/dL Assessment and Plan Plan: Assessment: 1. Acute kidney injury secondary to ATN and component of urinary retention. Creatinine stable at 2.47 today. UA benign. 2. Hyponatremia, hypervolemic. Urine sodium less than 20 and urine osmolality 313. Cortisol level not low. 3. Chronic kidney disease stage IIIa with baseline creatinine 1.1-1.3 secondary to nephrosclerosis. 4. Urinary retention. Has Driver catheter. 5. Acute on chronic systolic CHF with ejection fraction of 45-50% with mild to moderate tricuspid regurgitation and severe pulmonary hypertension. 6. Anemia. Rule out iron deficiency. Plan: Lasix 40 mg IV once now. Patient received Samsca yesterday evening and again near midnight. Add fluid restriction. Repeat sodium level this afternoon. Check TSH. Add Flomax. Check iron studies.
[2023-02-20] MEDS: TAMSULOSIN 0.4 MG CAP.ER.24H PO SCH (11:57)
[2023-02-20] MEDS: NYSTATIN 100,000 UNIT/GM POWD 15 GM TOPICAL SCH ×2 (11:57→21:20)
--- NOTE | 2023-02-20 12:15 | P.PN ---
Subjective Progress Note Date: 02/20/23 Hospital Course: 87-year-old male with a PMH of chronic CHF, status post pacemaker placement, macrocytic anemia, chronic kidney disease, who presents to the emergency room with complaints of shortness of breath and lower extremity edema. Chest x-ray in the emergency room was consistent with congestive heart failure. EKG revealed a V paced rhythm at 70 bpm. Laboratory evaluation revealed a hemoglobin of 7.9 down from previously 10.8 in 2020, sodium 116, chloride 81, BUN 53, creatinine 2.23, serum osmolality 265, lactic acid 0.9, magnesium 2.6, pro BNP 801, and urine osmolality 313. Nephrology and cardiology consulted. She is samsca x2, Na remains similar. Subjective: Patient seen and examined at bedside. Shortness of breath is improved. Has a Driver catheter in place. Pertinent positives and negatives as discussed above, a complete review of systems was performed and all other systems are negative. Vital signs reviewed General: non toxic, no distress, appears at stated age Derm: no unusual rashes/lesions, warm Head: atraumatic, normocephalic, symmetric Eyes: EOMI, no lid lag, anicteric sclera, pupils equal round reactive to light ENT: Nose and ears atraumatic Neck: No cervical lymphadenopathy, trachea midline, supple Mouth: no lip lesion, mucus membranes dry Cardiovascular: S1S2 reg, no murmur, positive dorsalis pedis pulse bilateral, no significant edema Lungs: Bibasilar rales noted, no accessory muscle use Abdominal: soft, nontender to palpation, no guarding Ext: muscle strength 4 out of 5 in all 4 extremities grossly, no gross muscle atrophy, no contractures, Neuro: CN II-XI grossly intact, no gross focal neuro deficits Psych: Alert, oriented, appropriate affect Data Reviewed Today: Pertinent Labs: Hemoglobin 7.1, sodium 117, creatinine 2.47, TSH 1.04, cortisol 21 Imaging: No new imaging Assessment and Plan: Patient is critically ill, prognosis guarded Severe hyponatremia Macrocytic anemia Acute kidney injury History of CHF History of atrial fibrillation, paroxysmal History of coronary artery disease -Cardiology note review, continue current management -Nephrology note reviewed, samsca x2, 40 IV Lasix today, but restriction -Repeat sodium in the afternoon -Currently not on anticoagulation DVT ppx: SCDs Code status: Full code Anticipated discharge place: Pending clinical course Anticipated discharge time: Pending clinical course Objective - Vital Signs Vital signs: Vital Signs Temp 98.1 F 02/20/23 09:40 Pulse 70 02/20/23 09:40 Resp 18 02/20/23 09:40 BP 120/77 02/20/23 09:40 Pulse Ox 99 02/20/23 09:40 FiO2 Intake & Output 02/19/23 02/20/23 02/20/23 18:59 06:59 18:59 Intake Total 118 560 358 Output Total 600 400 Balance -482 160 358 Weight 136.078 kg Intake: IV 20 Invasive Line 1 10 Invasive Line 2 10 Oral 118 540 358 Output: Urine 600 400 Uretheral (Driver) 200 Other: Voiding Method Indwelling Catheter Indwelling Catheter Indwelling Catheter - Labs CBC & Chem 7: 02/20/23 03:50 02/20/23 03:47 Labs: Abnormal Lab Results - Last 24 Hours (Table) 02/19/23 02/19/23 02/20/23 Range/Units 16:18 20:15 03:47 RBC (4.30-5.90) m/uL Hgb (13.0-17.5) gm/dL Hct (39.0-53.0) % MCV (80.0-100.0) fL MCH (25.0-35.0) pg Plt Count (150-450) k/uL Lymphocytes # (Manual) (1.0-4.8) k/uL Sodium 116 L* 117 L* 117 L* (137-145) mmol/L Chloride 82 L (98-107) mmol/L BUN 57 H (9-20) mg/dL Creatinine 2.47 H (0.66-1.25) mg/dL 02/20/23 Range/Units 03:50 RBC 2.04 L (4.30-5.90) m/uL Hgb 7.1 L (13.0-17.5) gm/dL Hct 20.9 L (39.0-53.0) % MCV 102.6 H (80.0-100.0) fL MCH 35.1 H (25.0-35.0) pg Plt Count 141 L (150-450) k/uL Lymphocytes # (Manual) 0.50 L (1.0-4.8) k/uL Sodium (137-145) mmol/L Chloride (98-107) mmol/L BUN (9-20) mg/dL Creatinine (0.66-1.25) mg/dL
[2023-02-20 18:03] LABS: Glucose,Whole Blood 131 mg/dL (70-110)
[2023-02-20] MEDS: SODIUM CHLORIDE 3%(HYPERTONIC) 500 ML IV ONE (18:18)
[2023-02-20 23:48] LABS: % Iron Saturation 10.16 (15.00-50.00); Ferritin 86.4 ng/mL (22.0-322.0)
[2023-02-21] MEDS: ACETAMINOPHEN TAB 325 MG TAB PO PRN (01:28)
[2023-02-21 05:56] LABS: African American GFR (CKD) 24 (>60 ml/min/1.73 sqM); Anion Gap 6 mmol/L; Blood Urea Nitrogen 61 mg/dL (9-20); Calcium 8.3 mg/dL (8.4-10.2); Carbon Dioxide 27 mmol/L (22-30); Chloride 87 mmol/L (98-107); Glucose 121 mg/dL (74-99); Non-African American GFR(CKD) 21 (>60 ml/min/1.73 sqM); Potassium 4.7 mmol/L (3.5-5.1); Sodium 120 mmol/L (137-145)
[2023-02-21 05:57] LABS: HCT 20.8 % (39.0-53.0); HGB 7.1 gm/dL (13.0-17.5); MCH 35.4 pg (25.0-35.0); MCV 104.2 fL (80.0-100.0); Macrocytosis Slight; Mean Platelet Volume 8.9; Platelet Count 122 k/uL (150-450); RDW 13.5 % (11.5-15.5); WBC 6.8 k/uL (3.8-10.6)
[2023-02-21 06:51] LABS: Eosinophils # (M) 1.09 k/uL (0-0.7); Lymphocytes # (M) 0.54 k/uL (1.0-4.8); Monocytes # (M) 0.75 k/uL (0-1.0); Neutrophils # (M) 4.42 k/uL (1.3-7.7); Neutrophils % (M) 65 %; Nucleated Red Blood Cells 0 /100 WBC (0-0); Total Cells Counted 100
--- NOTE | 2023-02-21 08:01 | XR ---
EXAMINATION TYPE: XR chest 1V DATE OF EXAM: 02/21/2023 7:45 AM COMPARISON: Chest radiographs from 02/17/2023 TECHNIQUE: XR chest 1V Frontal view of the chest. CLINICAL INDICATION:Male, 87 years old with history of sob; FINDINGS: Lungs/Pleura: Patchy left basilar airspace opacities. No pneumothorax. Blunting of the left costophre moose angle. Pulmonary vascularity: Unremarkable. Heart/mediastinum: Cardiomediastinal silhouette is enlarged and stable. Atherosclerotic calcificatio ns are seen in the aorta. Two lead cardiac conduction device overlying the left hemithorax with lead tips projecting over the right ventricle and right atrium. Musculoskeletal: No acute osseous pathology. IMPRESSION: Similar small left pleural effusion with left basilar patchy airspace opacities which may represent a telectasis versus infiltrate.
--- NOTE | 2023-02-21 09:03 | P.PN ---
Subjective Progress Note Date: 02/21/23 Principal diagnosis: CHF The patient is an 87-year-old gentleman who is extremely poor historian. We requested to see the patient in the emergency department for further evaluation of congestive heart failure. The patient is very poor historian. According to the previous medical record he does have history of permanent pacemaker as well as history of paroxysmal atrial fibrillation and coronary artery disease and morbid obesity and overweight. He lives alone. He was brought because he was experiencing symptoms of being tired and fatigued and also he is more short of breath. No pain in the chest. He underwent further workup including an EKG and that showed underlying atrial fibrillation with ventricular paced rhythm and also underwent chest x-ray showed evidence of volume overload with bilateral pleural effusion and pulmonary vascular congestions. Also further workup including electrolytes checked and came in to be abnormal showing a sodium of 116 and his creatinine is 2.36. His baseline creatinine his weight lower than that. Currently the patient is not experiencing any chest pain or chest discomfort. Hemodynamically he is stable. He is experiencing upper and lower extremity discomfort and generalized pain. He doesn't seems to be in overt congestive heart failure. The last echo from 2018 showing normal biventricular dimension and systolic function with mild aortic stenosis and moderate mitral regurgitation and severe pulmonary hypertension and severe tricuspid regurgitation. 02/19/2023 The patient was seen and evaluated this morning. His mentation has improved compared to before. He still hypoxic requiring only some oxygen. On examina tion he seems to be euvolemic with only diminished breathing sounds bilaterally and no lower extremities edema noted. He was given one dose of Lasix yesterday by the nephrology service. The echo revealed mildly impaired LV function was EF around 45% with moderate pulmonary hypertension. 02/20/2023 The patient was seen and evaluated this morning. He seems to be stable from the cardiovascular standpoint of view. He doesn't seems to be in any overt congestive heart failure at this point. The sodium is slightly better. Hemodynamically he is stable. The echo revealed mildly impaired LV function was EF around 45% with pulmonary hypertension and dilated the right ventricle. From the cardiovascular standpoint of view, we will continue the current medical regimen. February [id number] The patient was seen this morning. Hemodynamically he is stable. The sodium is slightly better. His mentation is slightly better. The patient has been treated with Lasix managed by the nephrology team. Currently he is on hypertonic saline. He seems to be slightly congested. The chest x-ray showed small bilateral pleural effusion with possible pneumonia. From the cardiovascular standpoint of view, we'll continue the current medical regimen including the current dose of carvedilol to manage her pressure. No need for any further cardiac workup. The echo revealed mildly impaired LV function with EF around 45% with pulmonary hypertension and dilated right ventricle. The examination is remarkable for distant heart sounds with diminished breathing sounds bilaterally and no bilateral lower extremity edema Assessment Generalized weakness and fatigue Severe electrolytes abnormalities with severe hyponatremia Acute on chronic renal failure Generalized pain Cardiomyopathy was EF around 45% Plan Continue the current medical regimen Diuretics to be managed by the nephrology service Follow-up with the patient on when necessary Objective - Vital Signs Vital signs: Vital Signs Temp 98.0 F 02/21/23 04:25 Pulse 70 02/21/23 07:03 Resp 21 02/21/23 07:03 BP 105/57 02/21/23 07:03 Pulse Ox 100 02/21/23 07:03 FiO2 Intake & Output 02/20/23 02/21/23 02/21/23 18:59 06:59 18:59 Intake Total 358 560 30 Output Total 290 520 30 Balance 68 40 0 Weight 151.3 kg Intake: Intake, IV Titration 360 30 Amount Sodium Chloride 3%( 360 30 Hypertonic) 500 ml @ 30 mls/hr IV .[id number] ONE Rx #:[id number] Oral 358 Tube Feeding 200 Output: Urine 290 520 30 Other: Voiding Method Indwelling Catheter Indwelling Catheter - Labs CBC & Chem 7: 02/21/23 05:16 02/21/23 05:16 Labs: Abnormal Lab Results - Last 24 Hours (Table) 02/20/23 02/20/23 02/20/23 Range/Units 03:47 15:14 18:01 RBC (4.30-5.90) m/uL Hgb (13.0-17.5) gm/dL Hct (39.0-53.0) % MCV (80.0-100.0) fL MCH (25.0-35.0) pg Plt Count (150-450) k/uL Lymphocytes # (Manual) (1.0-4.8) k/uL Eosinophils # (Manual) (0-0.7) k/uL Sodium 116 L* (137-145) mmol/L Chloride (98-107) mmol/L BUN (9-20) mg/dL Creatinine (0.66-1.25) mg/dL Glucose (74-99) mg/dL POC Glucose (mg/dL) 131 H (70-110) mg/dL Calcium (8.4-10.2) mg/dL Iron 39 L (65-175) UG/DL % Saturation 10.16 L (15.00-50.00) 02/20/23 02/21/23 02/21/23 Range/Units 20:08 00:06 05:16 RBC (4.30-5.90) m/uL Hgb (13.0-17.5) gm/dL Hct (39.0-53.0) % MCV (80.0-100.0) fL MCH (25.0-35.0) pg Plt Count (150-450) k/uL Lymphocytes # (Manual) (1.0-4.8) k/uL Eosinophils # (Manual) (0-0.7) k/uL Sodium 117 L* 119 L* 120 L (137-145) mmol/L Chloride 87 L (98-107) mmol/L BUN 61 H (9-20) mg/dL Creatinine 2.64 H (0.66-1.25) mg/dL Glucose 121 H (74-99) mg/dL POC Glucose (mg/dL) (70-110) mg/dL Calcium 8.3 L (8.4-10.2) mg/dL Iron (65-175) UG/DL % Saturation (15.00-50.00) 02/21/23 Range/Units 05:16 RBC 2.00 L (4.30-5.90) m/uL Hgb 7.1 L (13.0-17.5) gm/dL Hct 20.8 L (39.0-53.0) % MCV 104.2 H (80.0-100.0) fL MCH 35.4 H (25.0-35.0) pg Plt Count 122 L (150-450) k/uL Lymphocytes # (Manual) 0.54 L (1.0-4.8) k/uL Eosinophils # (Manual) 1.09 H (0-0.7) k/uL Sodium (137-145) mmol/L Chloride (98-107) mmol/L BUN (9-20) mg/dL Creatinine (0.66-1.25) mg/dL Glucose (74-99) mg/dL POC Glucose (mg/dL) (70-110) mg/dL Calcium (8.4-10.2) mg/dL Iron (65-175) UG/DL % Saturation (15.00-50.00)
[2023-02-21] MEDS: carvediloL 3.125 MG TAB PO SCH ×2 (09:17→18:39)
[2023-02-21] MEDS: FUROSEMIDE 10 MG/ML 4 ML VIAL IV STA ×2 (09:41→09:44)
[2023-02-21] MEDS: HYDROcodone/APAP 7.5-325MG 1 EACH TAB PO SCH ×2 (09:43→20:35)
[2023-02-21] MEDS: ASPIRIN 81 MG PO SCH (09:43)
[2023-02-21] MEDS: TAMSULOSIN 0.4 MG CAP.ER.24H PO SCH (09:44)
[2023-02-21] MEDS: FAMOTIDINE 20 MG TAB PO SCH (09:45)
[2023-02-21] MEDS: NYSTATIN 100,000 UNIT/GM POWD 15 GM TOPICAL SCH ×2 (09:45→20:37)
--- NOTE | 2023-02-21 09:55 | P.PN ---
Subjective Patient is seen in follow-up for acute kidney injury and hyponatremia. Sodium level 120 this morning. Creatinine 2.64. Urine output 25-30 mL an hour. Receiving 3% saline. Has a Driver catheter for urinary retention. Hemodynamically stable. Vital signs are stable. General: No acute distress. HEENT: Head exam is unremarkable. LUNGS: No audible rhonchi or wheezes. HEART: Rate and Rhythm are regular. ABDOMEN: Nontender. EXTREMITITES: No edema. Objective - Vital Signs Vital signs: Vital Signs Temp 98.0 F 02/21/23 04:25 Pulse 70 02/21/23 07:03 Resp 21 02/21/23 07:03 BP 105/57 02/21/23 07:03 Pulse Ox 100 02/21/23 07:03 FiO2 Intake & Output 02/20/23 02/21/23 02/21/23 18:59 06:59 18:59 Intake Total 358 560 30 Output Total 290 520 30 Balance 68 40 0 Weight 151.3 kg Intake: Intake, IV Titration 360 30 Amount Sodium Chloride 3%( 360 30 Hypertonic) 500 ml @ 30 mls/hr IV .[id number] ONE Rx #:[id number] Oral 358 Tube Feeding 200 Output: Urine 290 520 30 Other: Voiding Method Indwelling Catheter Indwelling Catheter - Labs CBC & Chem 7: 02/21/23 05:16 02/21/23 05:16 Labs: Abnormal Lab Results - Last 24 Hours (Table) 02/20/23 02/20/23 02/20/23 Range/Units 03:47 15:14 18:01 RBC (4.30-5.90) m/uL Hgb (13.0-17.5) gm/dL Hct (39.0-53.0) % MCV (80.0-100.0) fL MCH (25.0-35.0) pg Plt Count (150-450) k/uL Lymphocytes # (Manual) (1.0-4.8) k/uL Eosinophils # (Manual) (0-0.7) k/uL Sodium 116 L* (137-145) mmol/L Chloride (98-107) mmol/L BUN (9-20) mg/dL Creatinine (0.66-1.25) mg/dL Glucose (74-99) mg/dL POC Glucose (mg/dL) 131 H (70-110) mg/dL Calcium (8.4-10.2) mg/dL Iron 39 L (65-175) UG/DL % Saturation 10.16 L (15.00-50.00) 02/20/23 02/21/23 02/21/23 Range/Units 20:08 00:06 05:16 RBC (4.30-5.90) m/uL Hgb (13.0-17.5) gm/dL Hct (39.0-53.0) % MCV (80.0-100.0) fL MCH (25.0-35.0) pg Plt Count (150-450) k/uL Lymphocytes # (Manual) (1.0-4.8) k/uL Eosinophils # (Manual) (0-0.7) k/uL Sodium 117 L* 119 L* 120 L (137-145) mmol/L Chloride 87 L (98-107) mmol/L BUN 61 H (9-20) mg/dL Creatinine 2.64 H (0.66-1.25) mg/dL Glucose 121 H (74-99) mg/dL POC Glucose (mg/dL) (70-110) mg/dL Calcium 8.3 L (8.4-10.2) mg/dL Iron (65-175) UG/DL % Saturation (15.00-50.00) 02/21/23 Range/Units 05:16 RBC 2.00 L (4.30-5.90) m/uL Hgb 7.1 L (13.0-17.5) gm/dL Hct 20.8 L (39.0-53.0) % MCV 104.2 H (80.0-100.0) fL MCH 35.4 H (25.0-35.0) pg Plt Count 122 L (150-450) k/uL Lymphocytes # (Manual) 0.54 L (1.0-4.8) k/uL Eosinophils # (Manual) 1.09 H (0-0.7) k/uL Sodium (137-145) mmol/L Chloride (98-107) mmol/L BUN (9-20) mg/dL Creatinine (0.66-1.25) mg/dL Glucose (74-99) mg/dL POC Glucose (mg/dL) (70-110) mg/dL Calcium (8.4-10.2) mg/dL Iron (65-175) UG/DL % Saturation (15.00-50.00) Assessment and Plan Plan: Assessment: 1. Acute kidney injury secondary to ATN and component of urinary retention. Creatinine 2.64 today. UA benign. 2. Hyponatremia, hypervolemic. Urine sodium less than 20 and urine osmolality 313. Cortisol level not low. TSH normal. Status post IV Lasix and Samsca with no improvement in sodium level. Now on 3%. 3. Chronic kidney disease stage IIIa with baseline creatinine 1.1-1.3 secondary to nephrosclerosis. 4. Urinary retention. Has Driver catheter. On Flomax. 5. Acute on chronic systolic CHF with ejection fraction of 45-50% with mild to moderate tricuspid regurgitation and severe pulmonary hypertension. 6. Anemia. Iron deficiency noted. Plan: Maintain 3% saline for now. Stop if next level higher. Lasix 40 mg IV once again today. Maintain fluid restriction. Encouraged oral intake. Add IV iron.
[2023-02-21] MEDS: SODIUM FERRIC GLUCONAT-SUCROSE 125 MG in SODIUM CHLORIDE 0.9% 100 ML IVPB SCH (10:15)
[2023-02-21] MEDS: SODIUM CHLORIDE 3%(HYPERTONIC) 500 ML IV ONE (10:28)
--- NOTE | 2023-02-21 10:45 | P.CNPUL ---
History of Present Illness Consult date: 02/21/23 Requesting physician: Magdalena Jose Reason for consult: other (Critical care management) Chief complaint: Progressive weakness and shortness of breath History of present illness: This is an 87-year-old male patient who is a poor historian. He does have a history of atrial fibrillation, permanent pacemaker implantation, previous myocardial infarction, former smoker, congestive heart failure, gastroesophageal reflux disease. He presented to the emergency room back on 01/18/2023 with evette oing progression of weakness and worsening shortness of breath. Chest x-ray showed evidence of cardiomegaly and pulmonary vascular congestion with a small left pleural effusion. Echocardiogram revealed preserved left ventricular systolic function with ejection fraction of 45-50%. There is severe right ventricular dilatation. Severe pulmonary hypertension with an RSVP of 56 mmHg. Troponins were negative. ProBNP 801. He was hyponatremic on admission with sodium of 116. His sodium remained low last several days and nephrology was consulted yesterday. He wanted the patient on 3% saline and have the patient transferred to the ICU. He is seen today in consultation. Current sodium 121. White count 6.8. Hemoglobin 7.1. Platelets 122. Potassium 4.7. Bicarb 27. BUN 61. Creatinine 2.64. Glucose 121. He is on 3% saline at 30 ML's per hour. He is arousable. Maintain O2 saturations up to 100% on 2 L/m per nasal cannula. He's been afebrile. Hemodynamically stable. Paced rhythm. Chest x- ray reveals a similar small left pleural effusion with left basilar patchy airspace opacity/atelectasis. Review of Systems REVIEW OF SYSTEMS: CONSTITUTIONAL: Positive for progressive weakness. Denies any recent significant weight loss or weight gain. EYES: Denies change in vision. EARS, NOSE, MOUTH, THROAT: Denies headaches, denies sore throat. CARDIOVASCULAR: Denies chest pain, palpitations or syncopal episodes. RESPIRATORY: Positive for shortness of breath, cough, congestion no hemoptysis. GASTROINTESTINAL: Denies change in appetite, denies abdominal pain GENITOURINARY: Denies hematuria, denies infections. MUSKULOSKELETAL: Denies pain, denies swelling. INTEGUMENTARY: Denies rash, denies eczema. NEUROLOGICAL: Denies recent memory loss, no recent seizure activity. PSYCHIATRIC: Denies anxiety, denies depression. HEMATOLOGIC/LYMPHATIC: Denies anemia, denies enlarged lymph nodes. Past Medical History Past Medical History: Atrial Fibrillation, Cancer, GERD/Reflux, Myocardial Infarction ([place]) Additional Past Medical History / Comment(s): Pt states he was told he had a "slight heart attack" in the , occasional low back pain, benign colon polyps, occasional lower leg edema. Last Myocardial Infarction Date:: History of Any Multi-Drug Resistant Organisms: None Reported Past Surgical History: Pacemaker Additional Past Surgical History / Comment(s): Pacemaker originally inserted in and replaced in 2018 at [facility] on [place], septal surgery for fractured nose, colonoscopy with benign polypectomy, upper scope Past Anesthesia/Blood Transfusion Reactions: No Reported Reaction Type of Cardiac Device: Permanent Pacemaker Device Placement Date:: and replaced in 2017 Past Psychological History: No Psychological Hx Reported Additional Psychological History / Comment(s): Pt resides with his girlfriend. He is independent Smoking Status: Former smoker Past Alcohol Use History: None Reported Additional Past Alcohol Use History / Comment(s): Pt started smoking in 1951 and quit in 1993 Past Drug Use History: None Reported - Past Family History Father Family Medical History: No Reported History Additional Family Medical History / Comment(s): Father was healthy and lived to be in his 70s or 80s. Mother Family Medical History: CVA/TIA, Vascular Disorder Additional Family Medical History / Comment(s): Mother of a cerebral hemorrhage at the age of 57 yrs. Medications and Allergies Home Medications Medication Instructions Recorded Confirmed Type carvediloL [Coreg] 3.125 mg PO BID 05/25/18 02/17/23 History Aspirin [Adult Low Dose Aspirin EC] 81 mg PO BID 06/29/19 02/17/23 History Bumetanide [BUMEX] 1 mg PO BID@0900,1200 06/29/19 02/17/23 History Docusate [Colace] 100 mg PO BID 06/29/19 02/17/23 History Spironolactone 50 mg PO DAILY 06/29/19 02/17/23 History HYDROcodone/APAP 7.5-325MG [[place] 1.5 tab PO BID 02/17/23 02/17/23 History 7.5-325] Solifenacin Succinate [Vesicare] 5 mg PO DAILY 02/17/23 02/17/23 History metOLazone [Zaroxolyn] 2.5 mg PO MOFR 02/17/23 02/17/23 History Allergies Allergy/AdvReac Type Severity Reaction Status Date / Time No Known Allergies Allergy Verified 02/17/23 21:48 Physical Exam Vitals: Vital Signs Temp Pulse Pulse Resp BP BP Pulse Ox 02/21/23 10:06 70 16 99 02/21/23 09:58 98.0 F 70 20 104/58 100 02/21/23 07:03 70 21 105/57 100 02/21/23 06:03 70 9 L 102/61 100 02/21/23 05:02 70 10 L 106/64 100 02/21/23 04:25 98.0 F 70 22 107/63 100 02/21/23 04:00 70 02/21/23 03:54 70 8 L 86/70 100 02/21/23 02:00 62 16 87/58 100 02/21/23 01:05 70 14 87/58 100 02/21/23 00:08 98.0 F 70 7 L 98/56 100 02/21/23 00:00 70 02/20/23 23:23 70 10 L 98/43 100 02/20/23 22:11 70 7 L 93/44 100 02/20/23 20:05 98.3 F 70 11 L 85/41 98 02/20/23 20:00 70 02/20/23 19:08 70 20 116/57 92 L 02/20/23 18:19 97.9 F 70 18 113/54 93 L 02/20/23 17:00 70 18 94/56 99 02/20/23 13:21 18 02/20/23 12:56 72 02/20/23 12:45 72 02/20/23 11:55 97.7 F 70 18 136/80 98 Intake and Output 02/20/23 02/21/23 02/21/23 22:59 06:59 14:59 Intake Total 320 240 215 Output Total 285 275 30 Balance 35 -35 185 Intake: IV 90 Sodium Chloride 3%( 90 Hypertonic) 500 ml @ 30 mls/hr IV .[id number] ONE Rx #:[id number] Intake, IV Titration 120 240 125 Amount Sodium Chloride 3%( 120 240 125 Hypertonic) 500 ml @ 30 mls/hr IV .[id number] ONE Rx #:[id number] Tube Feeding 200 Output: Urine 285 275 30 Other: Voiding Method Indwelling Catheter Indwelling Catheter Weight 151.3 kg GENERAL EXAM: Arousable, poor historian, 87-year-old male patient, on 2 L nasal cannula, comfortable in no apparent distress. HEAD: Normocephalic. EYES: Normal reaction of pupils, equal size. NOSE: Clear with pink turbinates. THROAT: No erythema or exudates. NECK: No masses, no JVD. CHEST: No chest wall deformity. LUNGS: Equal air entry with faint crackles in the posterior bases. CVS: S1 and S2 normal with no audible murmur, regular rhythm. ABDOMEN: No hepatosplenomegaly, normal bowel sounds, no guarding or rigidity. SPINE: No scoliosis or deformity SKIN: No rashes CENTRAL NERVOUS SYSTEM: No focal deficits, tone is normal in all 4 extremities. EXTREMITIES: There is trace peripheral edema. No clubbing, no cyanosis. Peripheral pulses are intact. Results - Laboratory Findings CBC and BMP: 02/21/23 05:16 02/21/23 10:05 ABG ABG pH 7.45 (7.35-7.45) 02/18/23 17:05 ABG pCO2 43 mmHg (35-45) 02/18/23 17:05 ABG pO2 108 mmHg (83-108) 02/18/23 17:05 ABG O2 Saturation 98.7 % (94-97) H 02/18/23 17:05 PT/INR, D-dimer PT 11.0 sec (9.0-12.0) 02/17/23 20:28 INR 1.0 (<1.2) 02/17/23 20:28 D-Dimer 0.67 mg/L FEU (<0.60) H 02/17/23 20:28 Abnormal lab findings: Abnormal Labs 02/17/23 02/17/23 02/17/23 20:28 20:28 20:28 RBC 2.20 L Hgb 7.9 L Hct 23.0 L MCV 104.6 H MCH 35.7 H Plt Count Lymphocytes # (Manual) 0.36 L Eosinophils # (Manual) D-Dimer 0.67 H ABG HCO3 ABG Total CO2 ABG O2 Saturation Sodium 116 L* Chloride 81 L BUN 53 H Creatinine 2.23 H Glucose 114 H POC Glucose (mg/dL) Osmolality Calcium Magnesium 2.6 H Iron % Saturation Total Bilirubin 1.4 H Alkaline Phosphatase 152 H Albumin 3.4 L Ur Random Sodium 02/17/23 02/17/23 02/18/23 20:28 21:36 10:41 RBC Hgb Hct MCV MCH Plt Count Lymphocytes # (Manual) Eosinophils # (Manual) D-Dimer ABG HCO3 ABG Total CO2 ABG O2 Saturation Sodium 116 L* Chloride BUN Creatinine Glucose POC Glucose (mg/dL) Osmolality 265 L Calcium Magnesium Iron % Saturation Total Bilirubin Alkaline Phosphatase Albumin Ur Random Sodium <20 L 02/18/23 02/18/23 02/18/23 14:52 17:05 21:22 RBC Hgb Hct MCV MCH Plt Count Lymphocytes # (Manual) Eosinophils # (Manual) D-Dimer ABG HCO3 30 H ABG Total CO2 31 H ABG O2 Saturation 98.7 H Sodium 115 L* 116 L* Chloride 80 L BUN 53 H Creatinine 2.28 H Glucose POC Glucose (mg/dL) Osmolality Calcium Magnesium Iron % Saturation Total Bilirubin Alkaline Phosphatase Albumin Ur Random Sodium 02/19/23 02/19/23 02/19/23 03:46 03:46 10:08 RBC 2.14 L Hgb 7.6 L Hct 22.5 L MCV 105.6 H MCH 35.4 H Plt Count Lymphocytes # (Manual) Eosinophils # (Manual) D-Dimer ABG HCO3 ABG Total CO2 ABG O2 Saturation Sodium 116 L* 117 L* Chloride 82 L 82 L BUN 54 H 51 H Creatinine 2.26 H 2.34 H Glucose 137 H POC Glucose (mg/dL) Osmolality Calcium 8.3 L 8.1 L Magnesium Iron % Saturation Total Bilirubin Alkaline Phosphatase Albumin Ur Random Sodium 02/19/23 02/19/23 02/20/23 16:18 20:15 03:47 RBC Hgb Hct MCV MCH Plt Count Lymphocytes # (Manual) Eosinophils # (Manual) D-Dimer ABG HCO3 ABG Total CO2 ABG O2 Saturation Sodium 116 L* 117 L* 117 L* Chloride 82 L BUN 57 H Creatinine 2.47 H Glucose POC Glucose (mg/dL) Osmolality Calcium Magnesium Iron % Saturation Total Bilirubin Alkaline Phosphatase Albumin Ur Random Sodium 02/20/23 02/20/23 02/20/23 03:47 03:50 15:14 RBC 2.04 L Hgb 7.1 L Hct 20.9 L MCV 102.6 H MCH 35.1 H Plt Count 141 L Lymphocytes # (Manual) 0.50 L Eosinophils # (Manual) D-Dimer ABG HCO3 ABG Total CO2 ABG O2 Saturation Sodium 116 L* Chloride BUN Creatinine Glucose POC Glucose (mg/dL) Osmolality Calcium Magnesium Iron 39 L % Saturation 10.16 L Total Bilirubin Alkaline Phosphatase Albumin Ur Random Sodium 02/20/23 02/20/23 02/21/23 18:01 20:08 00:06 RBC Hgb Hct MCV MCH Plt Count Lymphocytes # (Manual) Eosinophils # (Manual) D-Dimer ABG HCO3 ABG Total CO2 ABG O2 Saturation Sodium 117 L* 119 L* Chloride BUN Creatinine Glucose POC Glucose (mg/dL) 131 H Osmolality Calcium Magnesium Iron % Saturation Total Bilirubin Alkaline Phosphatase Albumin Ur Random Sodium 02/21/23 02/21/23 02/21/23 05:16 05:16 10:05 RBC 2.00 L Hgb 7.1 L Hct 20.8 L MCV 104.2 H MCH 35.4 H Plt Count 122 L Lymphocytes # (Manual) 0.54 L Eosinophils # (Manual) 1.09 H D-Dimer ABG HCO3 ABG Total CO2 ABG O2 Saturation Sodium 120 L 121 L Chloride 87 L BUN 61 H Creatinine 2.64 H Glucose 121 H POC Glucose (mg/dL) Osmolality Calcium 8.3 L Magnesium Iron % Saturation Total Bilirubin Alkaline Phosphatase Albumin Ur Random Sodium - Diagnostic Findings Chest x-ray: image reviewed Assessment and Plan Assessment: Progressive weakness suspect secondary to hyponatremia and acute kidney injury Hypovolemic hyponatremia with presenting sodium of 116. Currently on 3% normal saline at 30 MLS per hour. 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 Number of minutes spent on the visit: 20.
--- NOTE | 2023-02-21 11:13 | P.PN ---
Subjective Progress Note Date: 02/21/23 Hospital Course: 87-year-old male with a PMH of chronic CHF, status post pacemaker placement, ma crocytic anemia, chronic kidney disease, who presents to the emergency room with complaints of shortness of breath and lower extremity edema. Chest x-ray in the emergency room was consistent with congestive heart failure. EKG revealed a V paced rhythm at 70 bpm. Laboratory evaluation revealed a hemoglobin of 7.9 down from previously 10.8 in 2020, sodium 116, chloride 81, BUN 53, creatinine 2.23, serum osmolality 265, lactic acid 0.9, magnesium 2.6, pro BNP 801, and urine osmolality 313. Nephrology and cardiology consulted. She is samsca x2, sodium remained similar. Patient transferred to medical ICU for 3% saline infusion. Sodium now slowly improving. Subjective: Patient seen and examined at bedside. Shortness of breath is improved. Has a Driver catheter in place. Mental status is at baseline Pertinent positives and negatives as discussed above, a complete review of systems was performed and all other systems are negative. Vital signs reviewed General: non toxic, no distress, appears at stated age Derm: no unusual rashes/lesions, warm Head: atraumatic, normocephalic, symmetric Eyes: EOMI, no lid lag, anicteric sclera, pupils equal round reactive to light ENT: Nose and ears atraumatic Neck: No cervical lymphadenopathy, trachea midline, supple Mouth: no lip lesion, mucus membranes dry Cardiovascular: S1S2 reg, no murmur, positive dorsalis pedis pulse bilateral, no significant edema Lungs: Bibasilar rales noted, no accessory muscle use Abdominal: soft, nontender to palpation, no guarding Ext: muscle strength 4 out of 5 in all 4 extremities grossly, no gross muscle atrophy, no contractures, Neuro: CN II-XI grossly intact, no gross focal neuro deficits Psych: Alert, oriented 2, appropriate affect Data Reviewed Today: Pertinent Labs: Hemoglobin 7.1, sodium 120, creatinine 2.64 Imaging: Chest x-ray independently interpreted, appears slightly improved from admission, less congestion Assessment and Plan: Patient is critically ill in the medical ICU, prognosis guarded. Severe hyponatremia Iron deficiency anemia Macrocytic anemia Acute kidney injury History of CHF History of atrial fibrillation, paroxysmal History of coronary artery disease -Cardiology note review, continue current management -Nephrology note reviewed, continue 3% saline, another 40 mg Lasix IV once today, maintain fluid restriction -Started on IV iron -Folic acid and B12 levels pending -Repeat sodium in the afternoon -Currently not on anticoagulation DVT ppx: SCDs Code status: Full code Anticipated discharge place: Pending clinical course Anticipated discharge time: Pending clinical course Objective - Vital Signs Vital signs: Vital Signs Temp 98.0 F 02/21/23 09:58 Pulse 70 02/21/23 11:05 Resp 17 02/21/23 11:05 BP 116/59 02/21/23 11:05 Pulse Ox 100 02/21/23 11:05 FiO2 40 02/21/23 11:05 Intake & Output 02/20/23 02/21/23 02/21/23 18:59 06:59 18:59 Intake Total 358 560 245 Output Total 290 520 130 Balance 68 40 115 Weight 151.3 kg Intake: IV 120 Sodium Chloride 3%( 120 Hypertonic) 500 ml @ 30 mls/hr IV .[id number] ONE Rx #:[id number] Intake, IV Titration 360 125 Amount Sodium Chloride 3%( 360 125 Hypertonic) 500 ml @ 30 mls/hr IV .[id number] ONE Rx #:[id number] Oral 358 Tube Feeding 200 Output: Urine 290 520 130 Other: Voiding Method Indwelling Catheter Indwelling Catheter - Labs CBC & Chem 7: 02/21/23 05:16 02/21/23 10:05 Labs: Abnormal Lab Results - Last 24 Hours (Table) 02/20/23 02/20/23 02/20/23 Range/Units 03:47 15:14 18:01 RBC (4.30-5.90) m/uL Hgb (13.0-17.5) gm/dL Hct (39.0-53.0) % MCV (80.0-100.0) fL MCH (25.0-35.0) pg Plt Count (150-450) k/uL Lymphocytes # (Manual) (1.0-4.8) k/uL Eosinophils # (Manual) (0-0.7) k/uL Sodium 116 L* (137-145) mmol/L Chloride (98-107) mmol/L BUN (9-20) mg/dL Creatinine (0.66-1.25) mg/dL Glucose (74-99) mg/dL POC Glucose (mg/dL) 131 H (70-110) mg/dL Calcium (8.4-10.2) mg/dL Iron 39 L (65-175) UG/DL % Saturation 10.16 L (15.00-50.00) 02/20/23 02/21/23 02/21/23 Range/Units 20:08 00:06 05:16 RBC (4.30-5.90) m/uL Hgb (13.0-17.5) gm/dL Hct (39.0-53.0) % MCV (80.0-100.0) fL MCH (25.0-35.0) pg Plt Count (150-450) k/uL Lymphocytes # (Manual) (1.0-4.8) k/uL Eosinophils # (Manual) (0-0.7) k/uL Sodium 117 L* 119 L* 120 L (137-145) mmol/L Chloride 87 L (98-107) mmol/L BUN 61 H (9-20) mg/dL Creatinine 2.64 H (0.66-1.25) mg/dL Glucose 121 H (74-99) mg/dL POC Glucose (mg/dL) (70-110) mg/dL Calcium 8.3 L (8.4-10.2) mg/dL Iron (65-175) UG/DL % Saturation (15.00-50.00) 02/21/23 02/21/23 Range/Units 05:16 10:05 RBC 2.00 L (4.30-5.90) m/uL Hgb 7.1 L (13.0-17.5) gm/dL Hct 20.8 L (39.0-53.0) % MCV 104.2 H (80.0-100.0) fL MCH 35.4 H (25.0-35.0) pg Plt Count 122 L (150-450) k/uL Lymphocytes # (Manual) 0.54 L (1.0-4.8) k/uL Eosinophils # (Manual) 1.09 H (0-0.7) k/uL Sodium 121 L (137-145) mmol/L Chloride (98-107) mmol/L BUN (9-20) mg/dL Creatinine (0.66-1.25) mg/dL Glucose (74-99) mg/dL POC Glucose (mg/dL) (70-110) mg/dL Calcium (8.4-10.2) mg/dL Iron (65-175) UG/DL % Saturation (15.00-50.00)
[2023-02-22 04:13] LABS: HCT 21.5 % (39.0-53.0); HGB 7.2 gm/dL (13.0-17.5); MCH 35.9 pg (25.0-35.0); MCHC 33.5 g/dL (31.0-37.0); MCV 107.2 fL (80.0-100.0); Macrocytosis Moderate; Mean Platelet Volume 8.5; Platelet Count 134 k/uL (150-450); RDW 13.4 % (11.5-15.5); WBC 9.7 k/uL (3.8-10.6)
[2023-02-22 04:33] LABS: Band Neutrophils % 3 %; Eosinophils # (M) 0.39 k/uL (0-0.7); Lymphocytes # (M) 0.49 k/uL (1.0-4.8); Monocytes # (M) 1.16 k/uL (0-1.0); Neutrophils % (M) 76 %; Nucleated Red Blood Cells 0 /100 WBC (0-0); Total Cells Counted 100
[2023-02-22 05:00] LABS: African American GFR (CKD) 23 (>60 ml/min/1.73 sqM); Anion Gap 7 mmol/L; Blood Urea Nitrogen 63 mg/dL (9-20); Calcium 8.4 mg/dL (8.4-10.2); Carbon Dioxide 27 mmol/L (22-30); Chloride 90 mmol/L (98-107); Glucose 120 mg/dL (74-99); Non-African American GFR(CKD) 20 (>60 ml/min/1.73 sqM); Potassium 4.8 mmol/L (3.5-5.1); Sodium 124 mmol/L (137-145)
--- NOTE | 2023-02-22 07:53 | P.PN ---
Subjective Progress Note Date: 02/22/23 PROGRESS NOTE The patient is an 87-year-old male with a history of cardiomyopathy, atrial fibrillation who presented with change in mental status and severe hyponatremia. He has a history of permanent pacemaker implantation. He received hypertonic saline infusion. He is awake, alert, denies any chest discomfort, dizziness or palpitations. He denies any nausea or vomiting. His blood pressure has been on the low side and his beta tuyet has been on hold. Medications: Aspirin, Flomax, he received IV Lasix once PHYSICAL EXAMINATION: Blood pressure 98/50 heart rate 70 LUNGS: Clear to auscultation HEART: Irregular rate and rhythm, S1, S2. No S3. Holosystolic systolic murmur ABDOMEN: Soft, nontender, no organomegaly EXTREMETIES: Trace to 1+ edema LAB: Sodium 124, BUN 63, creatinine 2.73. Hemoglobin 7.2 IMPRESSION: 1. Severe hyponatremia, improving 2. Cardiomyopathy, etiology unclear 3. History of atrial fibrillation 4. Post-pacemaker implantation 5. Renal failure PLAN: 1. Continue to hold beta tuyet for now 2. Follow blood pressure to adjust beta tuyet 3. Will need to assess the reason for not being anticoagulated, the patient has a prior history of atrial fibrillation 4. Follow renal functions 5. Management of sodium per nephrology 6. Depending on his progress further recommendations will be made Objective - Vital Signs Vital signs: Vital Signs Temp 99.2 F 02/22/23 06:40 Pulse 70 02/22/23 03:14 Resp 21 02/22/23 06:40 BP 94/54 02/22/23 06:40 Pulse Ox 97 02/22/23 06:40 FiO2 40 02/21/23 11:05 Intake & Output 02/21/23 02/22/23 02/22/23 18:59 06:59 18:59 Intake Total 405 110 Output Total 865 360 Balance -460 -250 Weight 147.1 kg Intake: IV 280 110 0.9 NACL 40 110 Sodium Chloride 3%( 240 Hypertonic) 500 ml @ 30 mls/hr IV .[id number] ONE Rx #:[id number] Intake, IV Titration 125 Amount Sodium Chloride 3%( 125 Hypertonic) 500 ml @ 30 mls/hr IV .[id number] ONE Rx #:[id number] Output: Urine 865 360 Other: Voiding Method Indwelling Catheter Indwelling Catheter - Labs CBC & Chem 7: 02/22/23 03:47 02/22/23 03:47 Labs: Abnormal Lab Results - Last 24 Hours (Table) 02/21/23 02/21/23 02/21/23 Range/Units 10:05 10:05 14:05 RBC (4.30-5.90) m/uL Hgb (13.0-17.5) gm/dL Hct (39.0-53.0) % MCV (80.0-100.0) fL MCH (25.0-35.0) pg Plt Count (150-450) k/uL Lymphocytes # (Manual) (1.0-4.8) k/uL Monocytes # (Manual) (0-1.0) k/uL Sodium 121 L 123 L (137-145) mmol/L Chloride (98-107) mmol/L BUN (9-20) mg/dL Creatinine (0.66-1.25) mg/dL Glucose (74-99) mg/dL Procalcitonin 0.15 H (0.02-0.09) ng/mL 02/21/23 02/22/23 02/22/23 Range/Units 18:45 03:47 03:47 RBC 2.00 L (4.30-5.90) m/uL Hgb 7.2 L (13.0-17.5) gm/dL Hct 21.5 L (39.0-53.0) % MCV 107.2 H (80.0-100.0) fL MCH 35.9 H (25.0-35.0) pg Plt Count 134 L (150-450) k/uL Lymphocytes # (Manual) 0.49 L (1.0-4.8) k/uL Monocytes # (Manual) 1.16 H (0-1.0) k/uL Sodium 124 L 124 L (137-145) mmol/L Chloride 90 L (98-107) mmol/L BUN 63 H (9-20) mg/dL Creatinine 2.73 H (0.66-1.25) mg/dL Glucose 120 H (74-99) mg/dL Procalcitonin (0.02-0.09) ng/mL
[2023-02-22] MEDS: SODIUM FERRIC GLUCONAT-SUCROSE 125 MG in SODIUM CHLORIDE 0.9% 100 ML IVPB SCH (08:22)
[2023-02-22] MEDS: TAMSULOSIN 0.4 MG CAP.ER.24H PO SCH (08:46)
[2023-02-22] MEDS: FAMOTIDINE 20 MG TAB PO SCH (08:46)
[2023-02-22] MEDS: HYDROcodone/APAP 7.5-325MG 1 EACH TAB PO SCH ×2 (08:47→21:19)
[2023-02-22] MEDS: ASPIRIN 81 MG PO SCH (08:47)
[2023-02-22] MEDS: FUROSEMIDE 10 MG/ML 4 ML VIAL IV STA ×2 (08:47→09:28)
[2023-02-22] MEDS: NYSTATIN 100,000 UNIT/GM POWD 15 GM TOPICAL SCH ×2 (08:47→21:42)
--- NOTE | 2023-02-22 09:31 | P.PN ---
Subjective Progress Note Date: 02/22/23 This is an 87-year-old male patient who is a poor historian. He does have a history of atrial fibrillation, permanent pacemaker implantation, previous myocardial infarction, former smoker, congestive heart failure, gastroesophageal reflux disease. He presented to the emergency room back on 01/18/2023 with ongoing progression of weakness and worsening shortness of breath. Chest x-ray showed evidence of cardiomegaly and pulmonary vascular congestion with a small left pleural effusion. Echocardiogram revealed preserved left ventricular systolic function with ejection fraction of 45-50%. There is severe right ventricular dilatation. Severe pulmonary hypertension with an RSVP of 56 mmHg. Troponins were negative. ProBNP 801. He was hyponatremic on admission with sodium of 116. His sodium remained low last several days and nephrology was consulted yesterday. He wanted the patient on 3% saline and have the patient transferred to the ICU. He is seen today in consultation. Current sodium 121. White count 6.8. Hemoglobin 7.1. Platelets 122. Potassium 4.7. Bicarb 27. BUN 61. Creatinine 2.64. Glucose 121. He is on 3% saline at 30 ML's per hour. He is arousable. Maintain O2 saturations up to 100% on 2 L/m per nasal cannula. He's been afebrile. Hemodynamically stable. Paced rhythm. Chest x- ray reveals a similar small left pleural effusion with left basilar patchy airsp jemma opacity/atelectasis. On today's evaluation of 02/22/2023, patient's volume status is adequate. No significant abnormalities of the chest x-ray. No evidence of any heart failure. The patient has diastolic heart failure with ejection fraction of 45-50% with severe pulmonary hypertension. The patient also developed an acute on top of chronic kidney failure with significant hyponatremia requiring hypertonic saline. The patient was given 3% saline and his sodium level is currently improvedIs at 124, potassium is at 4.8, BUN is at 63 with a creatinine of 2.7. The patient also has a built-in seat of 9.7 with a hemoglobin of 7.2 and a platelet count of 134. Chest x-ray shows no acute abnormalities. The patient is currently on room air oxygen. The patient was started on salt tablets. Lasix is currently on hold. No altered mentation. Is communicating. Is having his breakfast this morning. Objective - Vital Signs Vital signs: Vital Signs Temp 100.0 F H 02/22/23 08:28 Pulse 70 02/22/23 08:28 Resp 27 H 02/22/23 08:28 BP 117/73 02/22/23 08:28 Pulse Ox 97 02/22/23 08:28 FiO2 40 02/21/23 11:05 Intake & Output 02/21/23 02/22/23 02/22/23 18:59 06:59 18:59 Intake Total 405 110 120 Output Total 865 360 80 Balance -460 -250 40 Weight 147.1 kg Intake: IV 280 110 120 0.9 NACL 40 110 20 Sodium Chloride 3%( 240 Hypertonic) 500 ml @ 30 mls/hr IV .[id number] ONE Rx #:[id number] Sodium Ferric Gluconat- 100 Sucrose 125 mg In Sodium Chloride 0.9% 100 ml @ 100 mls/hr IVPB DAILY [facility] Rx#:[id number] Intake, IV Titration 125 Amount Sodium Chloride 3%( 125 Hypertonic) 500 ml @ 30 mls/hr IV .[id number] ONE Rx #:[id number] Output: Urine 865 360 80 Other: Voiding Method Indwelling Catheter Indwelling Catheter - Exam GENERAL EXAM: Arousable, poor historian, 87-year-old male patient, on RA, comfortable in no apparent distress. HEAD: Normocephalic. EYES: Normal reaction of pupils, equal size. NOSE: Clear with pink turbinates. THROAT: No erythema or exudates. NECK: No masses, no JVD. CHEST: No chest wall deformity. LUNGS: Equal air entry with faint crackles in the posterior bases. CVS: S1 and S2 normal with no audible murmur, regular rhythm. ABDOMEN: No hepatosplenomegaly, normal bowel sounds, no guarding or rigidity. SPINE: No scoliosis or deformity SKIN: No rashes CENTRAL NERVOUS SYSTEM: No focal deficits, tone is normal in all 4 extremities. EXTREMITIES: There is trace peripheral edema. No clubbing, no cyanosis. Peripheral pulses are intact. - Labs CBC & Chem 7: 02/22/23 03:47 02/22/23 03:47 Labs: Abnormal Lab Results - Last 24 Hours (Table) 02/21/23 02/21/23 02/21/23 Range/Units 10:05 10:05 14:05 RBC (4.30-5.90) m/uL Hgb (13.0-17.5) gm/dL Hct (39.0-53.0) % MCV (80.0-100.0) fL MCH (25.0-35.0) pg Plt Count (150-450) k/uL Lymphocytes # (Manual) (1.0-4.8) k/uL Monocytes # (Manual) (0-1.0) k/uL Sodium 121 L 123 L (137-145) mmol/L Chloride (98-107) mmol/L BUN (9-20) mg/dL Creatinine (0.66-1.25) mg/dL Glucose (74-99) mg/dL Vitamin B12 1324.0 H (200.0-944.0) pg/mL Procalcitonin 0.15 H (0.02-0.09) ng/mL 02/21/23 02/22/23 02/22/23 Range/Units 18:45 03:47 03:47 RBC 2.00 L (4.30-5.90) m/uL Hgb 7.2 L (13.0-17.5) gm/dL Hct 21.5 L (39.0-53.0) % MCV 107.2 H (80.0-100.0) fL MCH 35.9 H (25.0-35.0) pg Plt Count 134 L (150-450) k/uL Lymphocytes # (Manual) 0.49 L (1.0-4.8) k/uL Monocytes # (Manual) 1.16 H (0-1.0) k/uL Sodium 124 L 124 L (137-145) mmol/L Chloride 90 L (98-107) mmol/L BUN 63 H (9-20) mg/dL Creatinine 2.73 H (0.66-1.25) mg/dL Glucose 120 H (74-99) mg/dL Vitamin B12 (200.0-944.0) pg/mL Procalcitonin (0.02-0.09) ng/mL Assessment and Plan Plan: Hyponatremia, likely secondary to diuresis/CHF and the patient is optimized and the fluid balance is adequate for now. No edema in his lower extremities. No significant abnormalities in his chest x-ray. The patient was given hypertonic saline and his sodium level came from 116-124. Currently is off the hypertonic saline taken salt tablets. That is also placed on hold. Progressive weakness suspect secondary to hyponatremia Acute hypoxemic respiratory failure secondary to acute exacerbation of combined chronic mild systolic and diastolic congestive heart failure, currently on room air oxygen History of chronic kidney disease stage III Acute on top of chronic kidney disease and a creatinine today is at 2.7 with a serum bicarb of 27 History of atrial fibrillation Permanent pacemaker implantation Morbid obesity Former smoker Plan: Hold diuretics Fluid restriction Stop hypertonic saline Monitor sodium level Continue aspirin Continue Coreg with parameters Aldactone and Zaroxolyn are both on hold. The patient was also taking Bumex on outpatient basis is also on hold. Monitor renal function Monitor fluid balance
[2023-02-22] MEDS: SODIUM CHLORIDE TAB 1 GM TAB PO SCH ×2 (09:37→21:19)
[2023-02-22] MEDS: carvediloL 3.125 MG TAB PO SCH ×2 (09:37→18:51)
--- NOTE | 2023-02-22 10:15 | P.PN ---
Subjective Patient is seen in follow-up for acute kidney injury and hyponatremia. Sodium level 124 this morning. Creatinine 2.73. Urine output 25-30 mL an hour. Currently off IV fluids. Has a Driver catheter for urinary retention. Hemodynamically stable. Vital signs are stable. General: No acute distress. HEENT: Head exam is unremarkable. LUNGS: No audible rhonchi or wheezes. HEART: Rate and Rhythm are regular. ABDOMEN: Nontender. EXTREMITITES: No edema. Objective - Vital Signs Vital signs: Vital Signs Temp 100.0 F H 02/22/23 08:28 Pulse 70 02/22/23 09:45 Resp 20 02/22/23 09:45 BP 123/82 02/22/23 09:45 Pulse Ox 98 02/22/23 09:45 FiO2 40 02/21/23 11:05 Intake & Output 02/21/23 02/22/23 02/22/23 18:59 06:59 18:59 Intake Total 405 110 630 Output Total 865 360 135 Balance -460 -250 495 Weight 147.1 kg Intake: IV 280 110 140 0.9 NACL 40 110 40 Sodium Chloride 3%( 240 Hypertonic) 500 ml @ 30 mls/hr IV .[id number] ONE Rx #:[id number] Sodium Ferric Gluconat- 100 Sucrose 125 mg In Sodium Chloride 0.9% 100 ml @ 100 mls/hr IVPB DAILY [facility] Rx#:[id number] Intake, IV Titration 125 Amount Sodium Chloride 3%( 125 Hypertonic) 500 ml @ 30 mls/hr IV .[id number] ONE Rx #:[id number] Oral 490 Output: Urine 865 360 135 Other: Voiding Method Indwelling Catheter Indwelling Catheter - Labs CBC & Chem 7: 02/22/23 03:47 02/22/23 03:47 Labs: Abnormal Lab Results - Last 24 Hours (Table) 02/21/23 02/21/23 02/21/23 Range/Units 10:05 10:05 14:05 RBC (4.30-5.90) m/uL Hgb (13.0-17.5) gm/dL Hct (39.0-53.0) % MCV (80.0-100.0) fL MCH (25.0-35.0) pg Plt Count (150-450) k/uL Lymphocytes # (Manual) (1.0-4.8) k/uL Monocytes # (Manual) (0-1.0) k/uL Sodium 121 L 123 L (137-145) mmol/L Chloride (98-107) mmol/L BUN (9-20) mg/dL Creatinine (0.66-1.25) mg/dL Glucose (74-99) mg/dL Vitamin B12 1324.0 H (200.0-944.0) pg/mL Procalcitonin 0.15 H (0.02-0.09) ng/mL 02/21/23 02/22/23 02/22/23 Range/Units 18:45 03:47 03:47 RBC 2.00 L (4.30-5.90) m/uL Hgb 7.2 L (13.0-17.5) gm/dL Hct 21.5 L (39.0-53.0) % MCV 107.2 H (80.0-100.0) fL MCH 35.9 H (25.0-35.0) pg Plt Count 134 L (150-450) k/uL Lymphocytes # (Manual) 0.49 L (1.0-4.8) k/uL Monocytes # (Manual) 1.16 H (0-1.0) k/uL Sodium 124 L 124 L (137-145) mmol/L Chloride 90 L (98-107) mmol/L BUN 63 H (9-20) mg/dL Creatinine 2.73 H (0.66-1.25) mg/dL Glucose 120 H (74-99) mg/dL Vitamin B12 (200.0-944.0) pg/mL Procalcitonin (0.02-0.09) ng/mL Assessment and Plan Plan: Assessment: 1. Acute kidney injury secondary to ATN and component of urinary retention. Creatinine 2.73 today. UA benign. 2. Hyponatremia, hypervolemic. Urine sodium less than 20 and urine osmolality 313. Cortisol level not low. TSH normal. Status post IV Lasix and Samsca with no improvement in sodium level. Status post 3% yesterday. Sodium level 124 this morning. 3. Chronic kidney disease stage IIIa with baseline creatinine 1.1-1.3 secondary to nephrosclerosis. 4. Urinary retention. Has Driver catheter. On Flomax. 5. Acute on chronic systolic CHF with ejection fraction of 45-50% with mild to moderate tricuspid regurgitation and severe pulmonary hypertension. 6. Anemia. Iron deficiency noted. Plan: Add sodium chloride tablet 1 g twice daily. Maintain fluid restriction. Encouraged oral intake. Maintain IV iron. Repeat BMP this afternoon. Hold off on diuretics at this time.
--- NOTE | 2023-02-22 15:13 | P.PN ---
Subjective Progress Note Date: 02/22/23 Patient is an 87-year-old male with chronic systolic congestive heart failure, anemia, and chronic kidney disease stage III who presented to the ER with complaints of shortness of breath and lower extremity edema. In the ER he underwent an extensive evaluation. It was significant for chest x-ray consistent with congestive heart failure, hemoglobin 7.9, sodium 116, BUN 53, creatinine 2.23 with serum osmolality of 265 and urine osmolality of 313. Patient was admitted for severe hyponatremia suspected to be secondary very to diuretic use with Aldactone and Bumex. Initially they held off on IV fluids and consulted nephrology. The patient was evaluated by nephrology and was started on diuretics and sodium was monitored closely. He was also evaluated by cardiology and pulmonary. Initially diuretics were used, then Samsca 2 doses, and finally he was transferred to the ICU for 3% normal saline. Patient seen and examined at bedside. He denies any chest pain, his shortness of breath is unchanged, he denies any nausea or vomiting. Vital signs reviewed General: nontoxic, no distress, appears at stated age Cardiovascular: S1S2 reg, no murmur, positive posterior tibial pulse bilateral, Lungs: Decreased breath sounds bilateral, no rhonchi, no rales , no accessory muscle use Abdominal: soft, nontender to palpation, no guarding, no appreciable organomegaly Ext: no gross muscle atrophy, 1+ edema b/l lower extremities, no contractures Neuro: CN II-XI grossly intact, no focal neuro deficits Psych: Alert, oriented, appropriate affect Assessment/Plan: Hypervolemic hyponatremia with a urine sodium less than 20 and urine osmolality of 313, status post 3% saline Acute kidney injury on chronic kidney disease stage III Urinary retention Acute on chronic systolic congestive heart failure with ejection fraction 45 to 50% and severe pulmonary hypertension -Nephrology note reviewed: Cortisol level not low, TSH normal, status post 3% normal saline. -Pulmonary note reviewed: Hold diuretics, fluid restriction, stop hypertonic sa line -Cardiology note reviewed: Continue beta tuyet, assess reasons for patient not being anticoagulated secondary to history of atrial fibrillation. -Serial sodium levels -Currently off of Aldactone, Zaroxolyn, and Bumex -Continue Coreg 3.125 mg twice daily Macrocytic anemia - on IV iron per nephrology (10% SAT) - TSH and B12 normal - follow CBC Imaging: None new Data Review: It is reviewed and temperature 100, pulse 70, respirations 27, blood pressure 117/73, O2 sat 97% on room air Labs reviewed and remarkable for hemoglobin 7.2, platelets 134, sodium 124, BUN 63, creatinine 2.73 DVT prophylaxis: SCDs Anticipated discharge date: Pending Clinical Course Anticipated discharge place: Pending Clinical Course This dictation was prepared using [employer] voice recognition software. Though every attempt is made to correct errors during dictation some may still exist. Objective - Vital Signs Vital signs: Vital Signs Temp 98.2 F 02/22/23 13:32 Pulse 70 02/22/23 15:09 Resp 19 02/22/23 15:09 BP 103/65 02/22/23 15:09 Pulse Ox 96 02/22/23 15:09 FiO2 40 02/21/23 11:05 Intake & Output 02/21/23 02/22/23 02/22/23 18:59 06:59 18:59 Intake Total 405 110 798 Output Total 865 360 215 Balance -460 -250 583 Weight 147.1 kg Intake: IV 280 110 190 0.9 NACL 40 110 90 Sodium Chloride 3%( 240 Hypertonic) 500 ml @ 30 mls/hr IV .[id number] ONE Rx #:[id number] Sodium Ferric Gluconat- 100 Sucrose 125 mg In Sodium Chloride 0.9% 100 ml @ 100 mls/hr IVPB DAILY [facility] Rx#:[id number] Intake, IV Titration 125 Amount Sodium Chloride 3%( 125 Hypertonic) 500 ml @ 30 mls/hr IV .[id number] ONE Rx #:[id number] Oral 608 Output: Urine 865 360 215 Other: Voiding Method Indwelling Catheter Indwelling Catheter - Labs CBC & Chem 7: 02/22/23 03:47 02/22/23 03:47 Labs: Abnormal Lab Results - Last 24 Hours (Table) 02/21/23 02/21/23 02/22/23 Range/Units 14:05 18:45 03:47 RBC 2.00 L (4.30-5.90) m/uL Hgb 7.2 L (13.0-17.5) gm/dL Hct 21.5 L (39.0-53.0) % MCV 107.2 H (80.0-100.0) fL MCH 35.9 H (25.0-35.0) pg Plt Count 134 L (150-450) k/uL Lymphocytes # (Manual) 0.49 L (1.0-4.8) k/uL Monocytes # (Manual) 1.16 H (0-1.0) k/uL Sodium 124 L (137-145) mmol/L Chloride (98-107) mmol/L BUN (9-20) mg/dL Creatinine (0.66-1.25) mg/dL Glucose (74-99) mg/dL Vitamin B12 1324.0 H (200.0-944.0) pg/mL 02/22/23 Range/Units 03:47 RBC (4.30-5.90) m/uL Hgb (13.0-17.5) gm/dL Hct (39.0-53.0) % MCV (80.0-100.0) fL MCH (25.0-35.0) pg Plt Count (150-450) k/uL Lymphocytes # (Manual) (1.0-4.8) k/uL Monocytes # (Manual) (0-1.0) k/uL Sodium 124 L (137-145) mmol/L Chloride 90 L (98-107) mmol/L BUN 63 H (9-20) mg/dL Creatinine 2.73 H (0.66-1.25) mg/dL Glucose 120 H (74-99) mg/dL Vitamin B12 (200.0-944.0) pg/mL
[2023-02-22 16:29] LABS: African American GFR (CKD) 21 (>60 ml/min/1.73 sqM); Anion Gap 8 mmol/L; Blood Urea Nitrogen 67 mg/dL (9-20); Calcium 8.3 mg/dL (8.4-10.2); Carbon Dioxide 27 mmol/L (22-30); Chloride 90 mmol/L (98-107); Glucose 105 mg/dL (74-99); Non-African American GFR(CKD) 18 (>60 ml/min/1.73 sqM); Potassium 4.4 mmol/L (3.5-5.1); Sodium 125 mmol/L (137-145)
[2023-02-22] MEDS ORDERED: TOLVAPTAN 15 MG TABLET PO ONE (21:00)
[2023-02-23 05:45] LABS: HCT 21.6 % (39.0-53.0); HGB 7.1 gm/dL (13.0-17.5); Hypochromasia Slight; MCH 35.3 pg (25.0-35.0); MCHC 32.8 g/dL (31.0-37.0); MCV 107.7 fL (80.0-100.0); Macrocytosis Moderate; Mean Platelet Volume 9.4; Platelet Count 154 k/uL (150-450); RDW 13.4 % (11.5-15.5)
[2023-02-23 05:55] LABS: African American GFR (CKD) 21 (>60 ml/min/1.73 sqM); Anion Gap 8 mmol/L; Blood Urea Nitrogen 66 mg/dL (9-20); Calcium 8.6 mg/dL (8.4-10.2); Carbon Dioxide 27 mmol/L (22-30); Chloride 91 mmol/L (98-107); Glucose 99 mg/dL (74-99); Non-African American GFR(CKD) 18 (>60 ml/min/1.73 sqM); Potassium 4.7 mmol/L (3.5-5.1); Sodium 126 mmol/L (137-145)
[2023-02-23] MEDS: HYDROcodone/APAP 7.5-325MG 1 EACH TAB PO SCH ×2 (09:09→22:03)
[2023-02-23] MEDS: FAMOTIDINE 20 MG TAB PO SCH (09:10)
[2023-02-23] MEDS: NYSTATIN 100,000 UNIT/GM POWD 15 GM TOPICAL SCH ×2 (09:11→22:03)
[2023-02-23] MEDS: TAMSULOSIN 0.4 MG CAP.ER.24H PO SCH (09:11)
[2023-02-23] MEDS: ALPRAZolam 0.25 MG TAB PO PRN ×2 (09:11→22:03)
[2023-02-23] MEDS: ASPIRIN 81 MG PO SCH (09:11)
[2023-02-23] MEDS: SODIUM FERRIC GLUCONAT-SUCROSE 125 MG in SODIUM CHLORIDE 0.9% 100 ML IVPB SCH (09:12)
[2023-02-23] MEDS: SODIUM CHLORIDE TAB 1 GM TAB PO SCH ×3 (09:13→22:12)
--- NOTE | 2023-02-23 09:31 | P.PN ---
Subjective Progress Note Date: 02/23/23 This is an 87-year-old male patient who is a poor historian. He does have a history of atrial fibrillation, permanent pacemaker implantation, previous myocardial infarction, former smoker, congestive heart failure, gastroesophageal reflux disease. He presented to the emergency room back on 01/18/2023 with ongoing progression of weakness and worsening shortness of breath. Chest x-ray showed evidence of cardiomegaly and pulmonary vascular congestion with a small left pleural effusion. Echocardiogram revealed preserved left ventricular systolic function with ejection fraction of 45-50%. There is severe right ventricular dilatation. Severe pulmonary hypertension with an RSVP of 56 mmHg. Troponins were negative. ProBNP 801. He was hyponatremic on admission with sodium of 116. His sodium remained low last several days and nephrology was consulted yesterday. He wanted the patient on 3% saline and have the patient transferred to the ICU. He is seen today in consultation. Current sodium 121. White count 6.8. Hemoglobin 7.1. Platelets 122. Potassium 4.7. Bicarb 27. BUN 61. Creatinine 2.64. Glucose 121. He is on 3% saline at 30 ML's per hour. He is arousable. Maintain O2 saturations up to 100% on 2 L/m per nasal cannula. He's been afebrile. Hemodynamically stable. Paced rhythm. Chest x- ray reveals a similar small left pleural effusion with left basilar patchy airsp jemma opacity/atelectasis. On today's evaluation of 02/22/2023, patient's volume status is adequate. No significant abnormalities of the chest x-ray. No evidence of any heart failure. The patient has diastolic heart failure with ejection fraction of 45-50% with severe pulmonary hypertension. The patient also developed an acute on top of chronic kidney failure with significant hyponatremia requiring hypertonic saline. The patient was given 3% saline and his sodium level is currently improvedIs at 124, potassium is at 4.8, BUN is at 63 with a creatinine of 2.7. The patient also has a built-in seat of 9.7 with a hemoglobin of 7.2 and a platelet count of 134. Chest x-ray shows no acute abnormalities. The patient is currently on room air oxygen. The patient was started on salt tablets. Lasix is currently on hold. No altered mentation. Is communicating. Is having his breakfast this morning. On 02/23/2023, no change in the patient's neurologic functions. On and off some limited confusion. He is communicating. He is still off the hypertonic saline solution. The patient's sodium level is stable at 126. Is also off diuretics. BUN is 66 with a creatinine of 3.02 which is essentially stable compared to yesterday. The white cell count of 10 with a hemoglobin of 7.5 and hemoglobin is also stable. He is on room air oxygen. No significant edema in his lower extremities bilaterally. The cardiac rhythm is sinus. Is able to tolerate diet. He had breakfast. He is communicating. The most recent chest x-ray was done on 02/21/2023 and the patient was found to have cardiomegaly. Pacemaker over the left anterior chest area with the leads. No airspace disease or pulmo nary infiltrates. He is receiving IV iron for his underlying iron deficiency anemia. Rest of the medications remain unchanged. Is able to urinate and he is on Flomax Objective - Vital Signs Vital signs: Vital Signs Temp 99.0 F 02/22/23 16:00 Pulse 70 02/22/23 19:00 Resp 24 02/22/23 19:00 BP 101/94 02/22/23 19:00 Pulse Ox 93 L 02/23/23 08:37 FiO2 40 02/21/23 11:05 Intake & Output 02/22/23 02/23/23 02/23/23 18:59 06:59 18:59 Intake Total 956 110 10 Output Total 340 255 25 Balance 616 -145 -15 Weight 146.7 kg Intake: IV 230 110 10 0.9 NACL 130 110 10 Sodium Ferric Gluconat- 100 Sucrose 125 mg In Sodium Chloride 0.9% 100 ml @ 100 mls/hr IVPB DAILY [facility] Rx#:[id number] Oral 726 Output: Urine 340 255 25 Other: Voiding Method Indwelling Catheter Indwelling Catheter - Exam GENERAL EXAM: Arousable, poor historian, 87-year-old male patient, on RA, comfortable in no apparent distress. HEAD: Normocephalic. EYES: Normal reaction of pupils, equal size. NOSE: Clear with pink turbinates. THROAT: No erythema or exudates. NECK: No masses, no JVD. CHEST: No chest wall deformity. LUNGS: Equal air entry with faint crackles in the posterior bases. CVS: S1 and S2 normal with no audible murmur, regular rhythm. ABDOMEN: No hepatosplenomegaly, normal bowel sounds, no guarding or rigidity. SPINE: No scoliosis or deformity SKIN: No rashes CENTRAL NERVOUS SYSTEM: No focal deficits, tone is normal in all 4 extremities. EXTREMITIES: There is trace peripheral edema. No clubbing, no cyanosis. Peripheral pulses are intact. - Labs CBC & Chem 7: 02/23/23 05:11 02/23/23 05:11 Labs: Abnormal Lab Results - Last 24 Hours (Table) 02/22/23 02/23/23 02/23/23 Range/Units 15:37 05:11 05:11 RBC 2.00 L (4.30-5.90) m/uL Hgb 7.1 L (13.0-17.5) gm/dL Hct 21.6 L (39.0-53.0) % MCV 107.7 H (80.0-100.0) fL MCH 35.3 H (25.0-35.0) pg Sodium 125 L 126 L (137-145) mmol/L Chloride 90 L 91 L (98-107) mmol/L BUN 67 H 66 H (9-20) mg/dL Creatinine 3.04 H 3.02 H (0.66-1.25) mg/dL Glucose 105 H (74-99) mg/dL Calcium 8.3 L (8.4-10.2) mg/dL Assessment and Plan Plan: Hyponatremia, likely secondary to diuresis/CHF and the patient is optimized and the fluid balance is adequate for now. No edema in his lower extremities. No significant abnormalities in his chest x-ray. The patient was given hypertonic saline and his sodium level came from 116-124. Currently is off the hypertonic saline taken salt tablets. That is also placed on hold. The sodium level is at 126. No signs of any fluid overload still on today's evaluation. Progressive weakness suspect secondary to hyponatremia , sodium level is stable, slowly improving Acute hypoxemic respiratory failure secondary to acute exacerbation of combined chronic mild systolic and diastolic congestive heart failure, currently on room air oxygen History of chronic kidney disease stage III Acute on top of chronic kidney disease and a creatinine today is at 2.7 with a serum bicarb of 27 History of atrial fibrillation Permanent pacemaker implantation Morbid obesity Former smoker Plan: Keep the diuretics on hold Fluid restriction The patient is off hypertonic saline Monitor sodium level Continue aspirin Continue Coreg with parameters Aldactone and Zaroxolyn are both on hold. The patient was also taking Bumex on outpatient basis is also on hold. Monitor renal function Monitor fluid balance May transfer out from the pulmonary standpoint
--- NOTE | 2023-02-23 09:57 | P.PN ---
Subjective Patient is seen in follow-up for acute kidney injury and hyponatremia. Sodium level 126 this morning. Creatinine 3.02. Urine output 25-30 mL an hour. Has a Driver catheter for urinary retention. Hemodynamically stable. Her nurse, oral intake is poor. Vital signs are stable. General: No acute distress. HEENT: Head exam is unremarkable. LUNGS: No audible rhonchi or wheezes. HEART: Rate and Rhythm are regular. ABDOMEN: Nontender. EXTREMITITES: No edema. Objective - Vital Signs Vital signs: Vital Signs Temp 99.0 F 02/22/23 16:00 Pulse 70 02/22/23 19:00 Resp 24 02/22/23 19:00 BP 101/94 02/22/23 19:00 Pulse Ox 93 L 02/23/23 08:37 FiO2 40 02/21/23 11:05 Intake & Output 02/22/23 02/23/23 02/23/23 18:59 06:59 18:59 Intake Total 956 110 10 Output Total 340 255 25 Balance 616 -145 -15 Weight 146.7 kg Intake: IV 230 110 10 0.9 NACL 130 110 10 Sodium Ferric Gluconat- 100 Sucrose 125 mg In Sodium Chloride 0.9% 100 ml @ 100 mls/hr IVPB DAILY [facility] Rx#:[id number] Oral 726 Output: Urine 340 255 25 Other: Voiding Method Indwelling Catheter Indwelling Catheter - Labs CBC & Chem 7: 02/23/23 05:11 02/23/23 05:11 Labs: Abnormal Lab Results - Last 24 Hours (Table) 02/22/23 02/23/23 02/23/23 Range/Units 15:37 05:11 05:11 RBC 2.00 L (4.30-5.90) m/uL Hgb 7.1 L (13.0-17.5) gm/dL Hct 21.6 L (39.0-53.0) % MCV 107.7 H (80.0-100.0) fL MCH 35.3 H (25.0-35.0) pg Sodium 125 L 126 L (137-145) mmol/L Chloride 90 L 91 L (98-107) mmol/L BUN 67 H 66 H (9-20) mg/dL Creatinine 3.04 H 3.02 H (0.66-1.25) mg/dL Glucose 105 H (74-99) mg/dL Calcium 8.3 L (8.4-10.2) mg/dL Assessment and Plan Plan: Assessment: 1. Acute kidney injury secondary to ATN and component of urinary retention. Creatinine 3.02 today. UA benign. 2. Hyponatremia, hypervolemic initially. Currently euvolemic. Urine sodium less than 20 and urine osmolality 313. Cortisol level not low. TSH normal. Status post IV Lasix and Samsca with no improvement in sodium level. Status post 3% this admission. Sodium level 126 this morning. 3. Chronic kidney disease stage IIIa with baseline creatinine 1.1-1.3 secondary to nephrosclerosis. 4. Urinary retention. Has Driver catheter. On Flomax. 5. Acute on chronic systolic CHF with ejection fraction of 45-50% with mild to moderate tricuspid regurgitation and severe pulmonary hypertension. 6. Anemia. Iron deficiency noted. Plan: Increase sodium chloride tablet frequency to 3 times a day. Maintain fluid restriction. Encouraged oral intake. Maintain IV iron. Repeat BMP this evening. Hold off on diuretics at this time. Repeat chest x-ray.
--- NOTE | 2023-02-23 10:20 | XR ---
EXAMINATION TYPE: XR chest 1V DATE OF EXAM: 02/23/2023 COMPARISON: 03/03/2023 HISTORY: Shortness of breath TECHNIQUE: Single frontal view of the chest is obtained. FINDINGS: The heart is enlarged and there is a stable cardiac device with no sizable pneumothorax. L eft basilar subsegmental consolidation and pleural thickening or tiny effusion stable. Slightly coars ened central interstitium. No pneumothorax. Osseous structures stable with arthropathy of the AC join ts. IMPRESSION: 1. Stable cardiomegaly. Although there is no overt failure correlate for mild central venous congesti on with left basilar atelectasis or infiltrate and tiny effusion.
[2023-02-23] MEDS: carvediloL 3.125 MG TAB PO SCH ×2 (10:43→17:07)
--- NOTE | 2023-02-23 12:24 | P.PN ---
Subjective Progress Note Date: 02/23/23 PROGRESS NOTE The patient is an 87-year-old male with a history of cardiomyopathy, atrial fibrillation who presented with change in mental status and severe hyponatremia. He has a history of permanent pacemaker implantation. He received hypertonic saline infusion. He is awake, alert, denies any chest discomfort, dizziness or palpitations. He denies any nausea or vomiting. His blood pressure has been on the low side and his beta tuyet has been on hold. His ejection fraction is 45-50% with RVSP of 56 limited to mercury February 23: The patient is stable compared to yesterday, he continues to have some episodes of confusion. He continues to be hemodynamically stable. His sodium has improved. He denies any nausea or vomiting. He has no dizziness or palpitations. His urinary output has been good. Medications: Aspirin, Flomax, Coreg 3.125 mg twice a day PHYSICAL EXAMINATION: Blood pressure 101/90 heart rate 70 LUNGS: Clear to auscultation HEART: Irregular rate and rhythm, S1, S2. No S3. Holosystolic systolic murmur at the apex ABDOMEN: Soft, nontender, no organomegaly EXTREMETIES: Trace to 1+ edema LAB: Sodium 126, BUN 66, creatinine 3.02. Hemoglobin 7.1 IMPRESSION: 1. Severe hyponatremia, improving 2. Cardiomyopathy, etiology unclear, no evidence of acute heart failure at this time 3. History of atrial fibrillation 4. Post-pacemaker implantation 5. Renal failure PLAN: 1. Continue present therapy 2. Increase physical activity 3. Depending on the mental status further evaluation regarding chronic anticoagulation 4. Adjust beta tuyet dose pending on blood pressure Objective - Vital Signs Vital signs: Vital Signs Temp 99.0 F 02/22/23 16:00 Pulse 70 02/22/23 19:00 Resp 24 02/22/23 19:00 BP 101/94 02/22/23 19:00 Pulse Ox 93 L 02/23/23 08:37 FiO2 40 02/21/23 11:05 Intake & Output 02/22/23 02/23/23 02/23/23 18:59 06:59 18:59 Intake Total 956 110 150 Output Total 340 255 165 Balance 616 -145 -15 Weight 146.7 kg Intake: IV 230 110 150 0.9 NACL 130 110 50 Sodium Ferric Gluconat- 100 100 Sucrose 125 mg In Sodium Chloride 0.9% 100 ml @ 100 mls/hr IVPB DAILY [facility] Rx#:[id number] Oral 726 Output: Urine 340 255 165 Other: Voiding Method Indwelling Catheter Indwelling Catheter Indwelling Catheter - Labs CBC & Chem 7: 02/23/23 05:11 02/23/23 05:11 Labs: Abnormal Lab Results - Last 24 Hours (Table) 02/22/23 02/23/23 02/23/23 Range/Units 15:37 05:11 05:11 RBC 2.00 L (4.30-5.90) m/uL Hgb 7.1 L (13.0-17.5) gm/dL Hct 21.6 L (39.0-53.0) % MCV 107.7 H (80.0-100.0) fL MCH 35.3 H (25.0-35.0) pg Sodium 125 L 126 L (137-145) mmol/L Chloride 90 L 91 L (98-107) mmol/L BUN 67 H 66 H (9-20) mg/dL Creatinine 3.04 H 3.02 H (0.66-1.25) mg/dL Glucose 105 H (74-99) mg/dL Calcium 8.3 L (8.4-10.2) mg/dL
--- NOTE | 2023-02-23 17:08 | P.PN ---
Subjective Progress Note Date: 02/23/23 (Delayed charting seen at 0845) Patient is an 87-year-old male with chronic systolic congestive heart failure, anemia, and chronic kidney disease stage III who presented to the ER with com plaints of shortness of breath and lower extremity edema. In the ER he underwent an extensive evaluation. It was significant for chest x-ray consistent with congestive heart failure, hemoglobin 7.9, sodium 116, BUN 53, creatinine 2.23 with serum osmolality of 265 and urine osmolality of 313. Aydee ent was admitted for severe hyponatremia suspected to be secondary very to diuretic use with Aldactone and Bumex. Initially they held off on IV fluids and consulted nephrology. The patient was evaluated by nephrology and was started on diuretics and sodium was monitored closely. He was also evaluated by cardiology and pulmonary. Initially diuretics were used, then Samsca 2 doses, and finally he was transferred to the ICU for 3% normal saline. Patient seen and examined at bedside. He complains of wanting to sit forward. He denies difficulty breathing. Vital signs reviewed General: nontoxic, no distress, appears at stated age Cardiovascular: S1S2 reg, no murmur, positive posterior tibial pulse bilateral, Lungs: Decreased breath sounds bilateral, no rhonchi, no rales , no accessory muscle use Abdominal: soft, nontender to palpation, no guarding, no appreciable organomegaly Ext: no gross muscle atrophy, 1+ edema b/l lower extremities, no contractures Neuro: CN II-XI grossly intact, no focal neuro deficits Psych: Alert, oriented, appropriate affect Assessment/Plan: Hypervolemic hyponatremia with a urine sodium less than 20 and urine osmolality of 313, status post 3% saline Acute kidney injury on chronic kidney disease stage III Urinary retention Acute on chronic systolic congestive heart failure with ejection fraction 45 to 50% and severe pulmonary hypertension -Serial sodium levels -Currently off of Aldactone, Zaroxolyn, and Bumex -Continue Coreg 3.125 mg twice daily -Cardiology note reviewed: Increase physical activity, depending on changes in mental status we'll reevaluate chronic anticoagulation, adjust beta tuyet b ased on blood pressures -Nephrology note reviewed: Increase sodium chloride to 3 times daily, maintain fluid prescription, IV iron, repeat BMP this afternoon, continue off diuretics -Patient received Samsca again on 02/22/23 at 2119 - repeat BMP this afternoon and in AM Macrocytic anemia - on IV iron per nephrology (10% SAT) - TSH and B12 normal - follow CBC Imaging: Chest x-ray reviewed with left-sided pleural effusion and increased pulmonary vasculature markings Data Review: Vitals reviewed temperature 97.8, pulse 70, respirations 22, blood pressure 111/61, O2 sat 96% Labs reviewed and hemoglobin 7.1, sodium 126, BUN 66, creatinine 3.02 DVT prophylaxis: SCDs Anticipated discharge date: Pending Clinical Course Anticipated discharge place: Pending Clinical Course This dictation was prepared using [employer] voice recognition software. Though every attempt is made to correct errors during dictation some may still exist. Objective - Vital Signs Vital signs: Vital Signs Temp 97.8 F 02/23/23 14:00 Pulse 70 02/23/23 14:00 Resp 22 02/23/23 14:00 BP 111/61 02/23/23 14:00 Pulse Ox 96 02/23/23 14:00 FiO2 40 02/21/23 11:05 Intake & Output 02/22/23 02/23/23 02/23/23 18:59 06:59 18:59 Intake Total 956 110 150 Output Total 340 255 165 Balance 616 -145 -15 Weight 146.7 kg Intake: IV 230 110 150 0.9 NACL 130 110 50 Sodium Ferric Gluconat- 100 100 Sucrose 125 mg In Sodium Chloride 0.9% 100 ml @ 100 mls/hr IVPB DAILY [facility] Rx#:[id number] Oral 726 Output: Urine 340 255 165 Other: Voiding Method Indwelling Catheter Indwelling Catheter Indwelling Catheter - Labs CBC & Chem 7: 02/23/23 05:11 02/23/23 05:11 Labs: Abnormal Lab Results - Last 24 Hours (Table) 02/23/23 02/23/23 Range/Units 05:11 05:11 RBC 2.00 L (4.30-5.90) m/uL Hgb 7.1 L (13.0-17.5) gm/dL Hct 21.6 L (39.0-53.0) % MCV 107.7 H (80.0-100.0) fL MCH 35.3 H (25.0-35.0) pg Sodium 126 L (137-145) mmol/L Chloride 91 L (98-107) mmol/L BUN 66 H (9-20) mg/dL Creatinine 3.02 H (0.66-1.25) mg/dL
[2023-02-23] MEDS ORDERED: TOLVAPTAN 15 MG TABLET PO ONE (18:19)
[2023-02-23] MEDS ORDERED: polyethylene glycoL 3350 17 GM POWD.PACK PO STA (19:47)
[2023-02-24 04:27] LABS: HCT 20.9 % (39.0-53.0); HGB 7.4 gm/dL (13.0-17.5); Hypochromasia Moderate; MCH 38.9 pg (25.0-35.0); MCHC 35.2 g/dL (31.0-37.0); MCV 110.3 fL (80.0-100.0); Macrocytosis Marked; Mean Platelet Volume 8.6; Platelet Count 134 k/uL (150-450); RBC 1.89 m/uL (4.30-5.90); RDW 13.7 % (11.5-15.5); WBC 9.4 k/uL (3.8-10.6)
[2023-02-24 04:37] LABS: African American GFR (CKD) 23 (>60 ml/min/1.73 sqM); Anion Gap 6 mmol/L; Blood Urea Nitrogen 75 mg/dL (9-20); Calcium 8.6 mg/dL (8.4-10.2); Carbon Dioxide 26 mmol/L (22-30); Chloride 95 mmol/L (98-107); Glucose 86 mg/dL (74-99); Magnesium 2.8 mg/dL (1.6-2.3); Non-African American GFR(CKD) 20 (>60 ml/min/1.73 sqM); Potassium 4.7 mmol/L (3.5-5.1); Sodium 127 mmol/L (137-145)
--- NOTE | 2023-02-24 07:41 | P.PN ---
Subjective Progress Note Date: 02/24/23 PROGRESS NOTE The patient is an 87-year-old male with a history of cardiomyopathy, atrial fibrillation who presented with change in mental status and severe hyponatremia. He has a history of permanent pacemaker implantation. He received hypertonic saline infusion. He is awake, alert, denies any chest discomfort, dizziness or palpitations. He denies any nausea or vomiting. His blood pressure has been on the low side and his beta tuyet has been on hold. His ejection fraction is 45-50% with RVSP of 56 limited to mercury February 23: The patient is stable compared to yesterday, he continues to have some episodes of confusion. He continues to be hemodynamically stable. His sodium has improved. He denies any nausea or vomiting. He has no dizziness or palpitations. His urinary output has been good. February 24: He remains unchanged, alert with episodes of confusion. There is no evidence of hemodynamic compromise he rated his blood pressure is stable. He is in atrial fibrillation with controlled ventricular response. There is no evidence of ventricular ectopic activity. His sodium is up to 127 and his BUN 75. His oxygenation is stable. Medications: Aspirin, Flomax, Coreg 3.125 mg twice a day, Flomax PHYSICAL EXAMINATION: Blood pressure 109/64 heart rate 70 LUNGS: Clear to auscultation HEART: Irregular rate and rhythm, S1, S2. No S3. Holosystolic systolic murmur at the apex ABDOMEN: Soft, nontender, no organomegaly EXTREMETIES: Trace edema LAB: Sodium 127, BUN 75, creatinine 2.79. Hemoglobin 7.4 IMPRESSION: 1. Severe hyponatremia, improving 2. Cardiomyopathy, etiology unclear, no evidence of acute heart failure at this time 3. History of atrial fibrillation 4. Post-pacemaker implantation 5. Renal failure PLAN: 1. Continue present therapy 2. Increase physical activity 3. Depending on the mental status further evaluation regarding chronic anticoagulation 4. Physical therapy 5. Follow renal functions Objective - Vital Signs Vital signs: Vital Signs Temp 96.9 F L 02/24/23 02:00 Pulse 70 02/24/23 02:00 Resp 12 02/24/23 02:00 BP 109/64 02/24/23 02:00 Pulse Ox 94 L 02/24/23 02:00 FiO2 40 02/21/23 11:05 Intake & Output 07/11/23 07/12/23 07/12/23 18:59 06:59 18:59 Intake Total 160 10 Output Total 385 400 Balance -225 -390 Weight 145.1 kg Intake: IV 160 10 0.9 NACL 60 10 Sodium Ferric Gluconat- 100 Sucrose 125 mg In Sodium Chloride 0.9% 100 ml @ 100 mls/hr IVPB DAILY [facility] Rx#:[id number] Output: Urine 385 400 Other: Voiding Method Indwelling Catheter Indwelling Catheter - Labs CBC & Chem 7: 02/24/23 04:15 02/24/23 04:15 Labs: Abnormal Lab Results - Last 24 Hours (Table) 02/23/23 02/24/23 02/24/23 Range/Units 16:46 04:15 04:15 RBC 1.89 L (4.30-5.90) m/uL Hgb 7.4 L (13.0-17.5) gm/dL Hct 20.9 L (39.0-53.0) % MCV 110.3 H (80.0-100.0) fL MCH 38.9 H (25.0-35.0) pg Plt Count 134 L (150-450) k/uL Macrocytosis Marked A Sodium 126 L 127 L (137-145) mmol/L Chloride 95 L (98-107) mmol/L BUN 75 H (9-20) mg/dL Creatinine 2.79 H (0.66-1.25) mg/dL Magnesium 2.8 H (1.6-2.3) mg/dL
[2023-02-24] MEDS: SODIUM FERRIC GLUCONAT-SUCROSE 125 MG in SODIUM CHLORIDE 0.9% 100 ML IVPB SCH (08:30)
[2023-02-24] MEDS: HYDROcodone/APAP 7.5-325MG 1 EACH TAB PO SCH ×2 (08:30→21:30)
[2023-02-24] MEDS: ASPIRIN 81 MG PO SCH (08:30)
[2023-02-24] MEDS: NYSTATIN 100,000 UNIT/GM POWD 15 GM TOPICAL SCH ×2 (08:31→21:30)
[2023-02-24] MEDS: TAMSULOSIN 0.4 MG CAP.ER.24H PO SCH (08:31)
[2023-02-24] MEDS: FAMOTIDINE 20 MG TAB PO SCH (08:31)
[2023-02-24] MEDS: carvediloL 3.125 MG TAB PO SCH ×2 (08:31→17:19)
[2023-02-24] MEDS: SODIUM CHLORIDE TAB 1 GM TAB PO SCH ×3 (08:32→21:30)
--- NOTE | 2023-02-24 09:47 | P.PN ---
Subjective Progress Note Date: 02/24/23 This is an 87-year-old male patient who is a poor historian. He does have a history of atrial fibrillation, permanent pacemaker implantation, previous myocardial infarction, former smoker, congestive heart failure, gastroesophageal reflux disease. He presented to the emergency room back on 01/18/2023 with ongoing progression of weakness and worsening shortness of breath. Chest x-ray showed evidence of cardiomegaly and pulmonary vascular congestion with a small left pleural effusion. Echocardiogram revealed preserved left ventricular systolic function with ejection fraction of 45-50%. There is severe right ventricular dilatation. Severe pulmonary hypertension with an RSVP of 56 mmHg. Troponins were negative. ProBNP 801. He was hyponatremic on admission with sodium of 116. His sodium remained low last several days and nephrology was consulted yesterday. He wanted the patient on 3% saline and have the patient transferred to the ICU. He is seen today in consultation. Current sodium 121. White count 6.8. Hemoglobin 7.1. Platelets 122. Potassium 4.7. Bicarb 27. BUN 61. Creatinine 2.64. Glucose 121. He is on 3% saline at 30 ML's per hour. He is arousable. Maintain O2 saturations up to 100% on 2 L/m per nasal cannula. He's been afebrile. Hemodynamically stable. Paced rhythm. Chest x- ray reveals a similar small left pleural effusion with left basilar patchy airsp jemma opacity/atelectasis. On today's evaluation of 02/22/2023, patient's volume status is adequate. No significant abnormalities of the chest x-ray. No evidence of any heart failure. The patient has diastolic heart failure with ejection fraction of 45-50% with severe pulmonary hypertension. The patient also developed an acute on top of chronic kidney failure with significant hyponatremia requiring hypertonic saline. The patient was given 3% saline and his sodium level is currently improvedIs at 124, potassium is at 4.8, BUN is at 63 with a creatinine of 2.7. The patient also has a built-in seat of 9.7 with a hemoglobin of 7.2 and a platelet count of 134. Chest x-ray shows no acute abnormalities. The patient is currently on room air oxygen. The patient was started on salt tablets. Lasix is currently on hold. No altered mentation. Is communicating. Is having his breakfast this morning. On 02/23/2023, no change in the patient's neurologic functions. On and off some limited confusion. He is communicating. He is still off the hypertonic saline solution. The patient's sodium level is stable at 126. Is also off diuretics. BUN is 66 with a creatinine of 3.02 which is essentially stable compared to yesterday. The white cell count of 10 with a hemoglobin of 7.5 and hemoglobin is also stable. He is on room air oxygen. No significant edema in his lower extremities bilaterally. The cardiac rhythm is sinus. Is able to tolerate diet. He had breakfast. He is communicating. The most recent chest x-ray was done on 02/21/2023 and the patient was found to have cardiomegaly. Pacemaker over the left anterior chest area with the leads. No airspace disease or pulmo nary infiltrates. He is receiving IV iron for his underlying iron deficiency anemia. Rest of the medications remain unchanged. Is able to urinate and he is on Flomax 02/24/2023, patient is being seen for a follow-up. No new complaints or any significant events overnight. His sodium level is aggressively improving and currently is up to 127. He is undergoing fluid restrictions. No hypertonic saline. He is on salt tablets. At the same time, he is off diuresis. No signs of any fluid overload. Urine output is adequate and the patient seems to be producing around 600 mL over the past 24 hours of urine output. The rest electrolytes are normal. Potassium levels at 4.7. BUN is at 75 with a creatinine of 2.7. The white cell count is at 9.4 with a hemoglobin of 7.4. Chest x-ray from yesterday showed negative abnormalities. There was cardiomegaly and mild pulmonary vascular congestion was present. He is communicating. Eyes off confused. Tolerating his diet. Objective - Vital Signs Vital signs: Vital Signs Temp 97.6 F 02/24/23 08:00 Pulse 69 02/24/23 08:00 Resp 16 02/24/23 08:00 BP 128/52 02/24/23 08:00 Pulse Ox 94 L 02/24/23 08:00 FiO2 40 02/21/23 11:05 Intake & Output 02/23/23 02/24/23 02/24/23 18:59 06:59 18:59 Intake Total 160 10 Output Total 385 400 Balance -225 -390 Weight 145.1 kg Intake: IV 160 10 0.9 NACL 60 10 Sodium Ferric Gluconat- 100 Sucrose 125 mg In Sodium Chloride 0.9% 100 ml @ 100 mls/hr IVPB DAILY [facility] Rx#:[id number] Output: Urine 385 400 Other: Voiding Method Indwelling Catheter Indwelling Catheter - Exam GENERAL EXAM: Arousable, poor historian, 87-year-old male patient, on RA, comfortable in no apparent distress. HEAD: Normocephalic. EYES: Normal reaction of pupils, equal size. NOSE: Clear with pink turbinates. THROAT: No erythema or exudates. NECK: No masses, no JVD. CHEST: No chest wall deformity. LUNGS: Equal air entry with faint crackles in the posterior bases. CVS: S1 and S2 normal with no audible murmur, regular rhythm. ABDOMEN: No hepatosplenomegaly, normal bowel sounds, no guarding or rigidity. SPINE: No scoliosis or deformity SKIN: No rashes CENTRAL NERVOUS SYSTEM: No focal deficits, tone is normal in all 4 extremities. EXTREMITIES: There is trace peripheral edema. No clubbing, no cyanosis. Per ipheral pulses are intact. - Labs CBC & Chem 7: 02/24/23 04:15 02/24/23 04:15 Labs: Abnormal Lab Results - Last 24 Hours (Table) 02/23/23 02/24/23 02/24/23 Range/Units 16:46 04:15 04:15 RBC 1.89 L (4.30-5.90) m/uL Hgb 7.4 L (13.0-17.5) gm/dL Hct 20.9 L (39.0-53.0) % MCV 110.3 H (80.0-100.0) fL MCH 38.9 H (25.0-35.0) pg Plt Count 134 L (150-450) k/uL Macrocytosis Marked A Sodium 126 L 127 L (137-145) mmol/L Chloride 95 L (98-107) mmol/L BUN 75 H (9-20) mg/dL Creatinine 2.79 H (0.66-1.25) mg/dL Magnesium 2.8 H (1.6-2.3) mg/dL Assessment and Plan Plan: Hyponatremia, likely secondary to diuresis/CHF and the patient is optimized and the fluid balance is adequate for now. No edema in his lower extremities. No significant abnormalities in his chest x-ray. The patient was given hypertonic saline and his sodium level came from 116-124. Currently is off the hypertonic saline taken salt tablets. That is also placed on hold. The sodium level is at 127. No signs of any fluid overload still on today's evaluation. Progressive weakness suspect secondary to hyponatremia , sodium level is stable, slowly improving Episodic confusion, without any focal neurological deficits Acute hypoxemic respiratory failure secondary to acute exacerbation of combined chronic mild systolic and diastolic congestive heart failure, currently on room air oxygen History of chronic kidney disease stage III Acute on top of chronic kidney disease and a creatinine and the creatinine is stable on today's evaluation of 2.7 History of atrial fibrillation Permanent pacemaker implantation Morbid obesity Former smoker Plan: Keep the diuretics on hold Fluid restriction The patient is off hypertonic saline Monitor sodium level and the level is progressively improving and the patient is producing adequate urine output. Sodium level is up to 127 Continue aspirin Continue Coreg with parameters Aldactone and Zaroxolyn are both on hold. The patient was also taking Bumex on outpatient basis is also on hold. Monitor renal function Monitor fluid balance Monitor mental status May transfer out from the pulmonary standpoint
--- NOTE | 2023-02-24 11:26 | P.PN ---
Subjective Progress Note Date: 02/24/23 Hospital Course: Patient is an 87-year-old male with chronic systolic congestive heart failure, anemia, and chronic kidney disease stage III who presented to the ER with complaints of shortness of breath and lower extremity edema. In the ER he underwent an extensive evaluation. It was significant for chest x-ray consistent with congestive heart failure, hemoglobin 7.9, sodium 116, BUN 53, creatinine 2.23 with serum osmolality of 265 and urine osmolality of 313. Patient was admitted for severe hyponatremia suspected to be secondary very to diuretic use with Aldactone and Bumex. Initially they held off on IV fluids and consulted nephrology. The patient was evaluated by nephrology and was started on diuretics and sodium was monitored closely. He was also evaluated by cardiol ogy and pulmonary. Initially diuretics were used, then Samsca 2 doses, and finally he was transferred to the ICU for 3% normal saline. Sodium slowly improving. Subjective: Patient seen and examined at bedside. No acute events overnight. Pertinent positives and negatives as discussed above, a complete review of systems was performed and all other systems are negative. Vitals Signs Reviewed. General: nontoxic, no distress, appears at stated age, obese Derm: warm, dry Head: atraumatic, normocephalic, symmetric Eyes: EOMI, no lid lag, anicteric sclera Mouth: no lip lesion, mucus membranes moist Cardiovascular: S1S2 reg, no murmur Lungs: CTA bilateral, no rhonchi, no rales , no accessory muscle use Abdominal: soft, nontender to palpation, no guarding, no appreciable organomegaly Ext: no gross muscle atrophy, trace peripheral edema, no contractures Neuro: CN II-XI grossly intact, no focal neuro deficits Psych: Alert, oriented 2, appropriate affect Data Reviewed Today: Pertinent Labs: Hemoglobin 7.4, platelet 134, sodium 127, creatinine 2.79 Imaging: No new imaging today Assessment and Plan: Hypervolemic hyponatremia status post 3% saline, improving Acute kidney injury on chronic kidney disease stage III, stable Urinary retention Acute on chronic systolic congestive heart failure with ejection fraction 45 to 50% and severe pulmonary hypertension -Serial sodium levels -Currently off of Aldactone, Zaroxolyn, and Bumex -Continue Coreg 3.125 mg twice daily -Cardiology note reviewed: Increase physical activity, depending on changes in mental status we'll reevaluate chronic anticoagulation, adjust beta tuyet based on blood pressures -Pulmonology note reviewed, patient can be transferred out of the ICU -Nephrology following, on sodium chloride tabs Macrocytic anemia - on IV iron per nephrology (10% SAT) - TSH and B12 normal - follow CBC -No active bleeding DVT ppx: SCDs Code status: No code Anticipated discharge place: Pending clinical course Anticipated discharge time: Pending clinical course Objective - Vital Signs Vital signs: Vital Signs Temp 97.6 F 02/24/23 08:00 Pulse 69 02/24/23 08:00 Resp 16 02/24/23 08:00 BP 128/52 02/24/23 08:00 Pulse Ox 94 L 02/24/23 08:00 FiO2 40 02/21/23 11:05 Intake & Output 02/23/23 02/24/23 02/24/23 18:59 06:59 18:59 Intake Total 160 10 Output Total 385 400 Balance -225 -390 Weight 145.1 kg Intake: IV 160 10 0.9 NACL 60 10 Sodium Ferric Gluconat- 100 Sucrose 125 mg In Sodium Chloride 0.9% 100 ml @ 100 mls/hr IVPB DAILY [facility] Rx#:[id number] Output: Urine 385 400 Other: Voiding Method Indwelling Catheter Indwelling Catheter Indwelling Catheter - Labs CBC & Chem 7: 02/24/23 04:15 02/24/23 04:15 Labs: Abnormal Lab Results - Last 24 Hours (Table) 02/23/23 02/24/23 02/24/23 Range/Units 16:46 04:15 04:15 RBC 1.89 L (4.30-5.90) m/uL Hgb 7.4 L (13.0-17.5) gm/dL Hct 20.9 L (39.0-53.0) % MCV 110.3 H (80.0-100.0) fL MCH 38.9 H (25.0-35.0) pg Plt Count 134 L (150-450) k/uL Macrocytosis Marked A Sodium 126 L 127 L (137-145) mmol/L Chloride 95 L (98-107) mmol/L BUN 75 H (9-20) mg/dL Creatinine 2.79 H (0.66-1.25) mg/dL Magnesium 2.8 H (1.6-2.3) mg/dL
--- NOTE | 2023-02-24 12:42 | P.PN ---
Subjective Patient is seen in follow-up for acute kidney injury and hyponatremia. Sodium level 12\7 this morning. Creatinine better at 2.79. Hemodynamically stable. Oral intake remains poor. On salt tabs. Vital signs are stable. General: No acute distress. HEENT: Head exam is unremarkable. LUNGS: No audible rhonchi or wheezes. HEART: Rate and Rhythm are regular. ABDOMEN: Nontender. EXTREMITITES: No edema. Objective - Vital Signs Vital signs: Vital Signs Temp 97.6 F 02/24/23 08:00 Pulse 69 02/24/23 08:00 Resp 16 02/24/23 08:00 BP 128/52 02/24/23 08:00 Pulse Ox 94 L 02/24/23 08:00 FiO2 40 02/21/23 11:05 Intake & Output 02/23/23 02/24/23 02/24/23 18:59 06:59 18:59 Intake Total 160 10 Output Total 385 400 Balance -225 -390 Weight 145.1 kg Intake: IV 160 10 0.9 NACL 60 10 Sodium Ferric Gluconat- 100 Sucrose 125 mg In Sodium Chloride 0.9% 100 ml @ 100 mls/hr IVPB DAILY [facility] Rx#:[id number] Output: Urine 385 400 Other: Voiding Method Indwelling Catheter Indwelling Catheter Indwelling Catheter - Labs CBC & Chem 7: 02/24/23 04:15 02/24/23 04:15 Labs: Abnormal Lab Results - Last 24 Hours (Table) 02/23/23 02/24/23 02/24/23 Range/Units 16:46 04:15 04:15 RBC 1.89 L (4.30-5.90) m/uL Hgb 7.4 L (13.0-17.5) gm/dL Hct 20.9 L (39.0-53.0) % MCV 110.3 H (80.0-100.0) fL MCH 38.9 H (25.0-35.0) pg Plt Count 134 L (150-450) k/uL Macrocytosis Marked A Sodium 126 L 127 L (137-145) mmol/L Chloride 95 L (98-107) mmol/L BUN 75 H (9-20) mg/dL Creatinine 2.79 H (0.66-1.25) mg/dL Magnesium 2.8 H (1.6-2.3) mg/dL Assessment and Plan Plan: Assessment: 1. Acute kidney injury secondary to ATN and component of urinary retention. Creatinine better at 2.79 today. UA benign. 2. Hyponatremia, hypervolemic initially. Currently euvolemic. Urine sodium less than 20 and urine osmolality 313. Cortisol level not low. TSH normal. Status post IV Lasix and Samsca with no improvement in sodium level. Status post 3% this admission. Sodium level 127 this morning. 3. Chronic kidney disease stage IIIa with baseline creatinine 1.1-1.3 secondary to nephrosclerosis. 4. Urinary retention. On Flomax. 5. Acute on chronic systolic CHF with ejection fraction of 45-50% with mild to moderate tricuspid regurgitation and severe pulmonary hypertension. 6. Anemia. Iron deficiency noted. Status post IV iron. Plan: Maintain salt tabs. Maintain fluid restriction. Encouraged oral intake. Hold off on diuretics at this time.
[2023-02-24] MEDS: SENNOSIDES-DOCUSATE SODIUM 1 EACH TAB PO SCH (15:32)
[2023-02-25 04:03] LABS: African American GFR (CKD) 21 (>60 ml/min/1.73 sqM); Anion Gap 6 mmol/L; Blood Urea Nitrogen 76 mg/dL (9-20); Calcium 8.6 mg/dL (8.4-10.2); Carbon Dioxide 29 mmol/L (22-30); Chloride 94 mmol/L (98-107); Glucose 103 mg/dL (74-99); Non-African American GFR(CKD) 18 (>60 ml/min/1.73 sqM); Potassium 4.8 mmol/L (3.5-5.1); Sodium 129 mmol/L (137-145)
[2023-02-25 04:27] LABS: HGB 7.6 gm/dL (13.0-17.5); MCH 35.2 pg (25.0-35.0); MCHC 33.1 g/dL (31.0-37.0); MCV 106.5 fL (80.0-100.0); Macrocytosis Moderate; Mean Platelet Volume 9.6; Platelet Count 140 k/uL (150-450); RBC 2.17 m/uL (4.30-5.90); RDW 14.2 % (11.5-15.5); WBC 9.2 k/uL (3.8-10.6)
[2023-02-25 04:58] LABS: Eosinophils # (M) 0.83 k/uL (0-0.7); Lymphocytes # (M) 0.64 k/uL (1.0-4.8); Neutrophils # (M) 6.53 k/uL (1.3-7.7); Neutrophils % (M) 71 %; Nucleated Red Blood Cells 0 /100 WBC (0-0); RBC Morphology Normal; Total Cells Counted 100
[2023-02-25] MEDS: carvediloL 3.125 MG TAB PO SCH ×3 (06:55→17:51)
--- NOTE | 2023-02-25 07:50 | P.PN ---
Subjective Progress Note Date: 02/25/23 PROGRESS NOTE The patient is an 87-year-old male with a history of cardiomyopathy, atrial fibrillation who presented with change in mental status and severe hyponatremia. He has a history of permanent pacemaker implantation. He received hypertonic saline infusion. He is awake, alert, denies any chest discomfort, dizziness or palpitations. He denies any nausea or vomiting. His blood pressure has been on the low side and his beta tuyet has been on hold. His ejection fraction is 45-50% with RVSP of 56 limited to mercury February 23: The patient is stable compared to yesterday, he continues to have some episodes of confusion. He continues to be hemodynamically stable. His sodium has improved. He denies any nausea or vomiting. He has no dizziness or palpitations. His urinary output has been good. February 24: He remains unchanged, alert with episodes of confusion. There is no evidence of hemodynamic compromise he rated his blood pressure is stable. He is in atrial fibrillation with controlled ventricular response. There is no evidence of ventricular ectopic activity. His sodium is up to 127 and his BUN 75. His oxygenation is stable. February 25: The the patient status is stable. He is awake with episodes of confusion. He is awaiting transfer to rehab. He is in sinus mechanism. Hemodynamically he is stable. There is no evidence of malignant arrhythmia. His urine output is good. There is no symptoms of chest discomfort, dyspnea or dizziness. Medications: Aspirin, Flomax, Coreg 3.125 mg twice a day, Flomax PHYSICAL EXAMINATION: Blood pressure 105/50 heart rate 70 LUNGS: Clear to auscultation HEART: Irregular rate and rhythm, S1, S2. No S3. Holosystolic systolic murmur at the apex ABDOMEN: Soft, nontender, no organomegaly EXTREMETIES: Trace edema LAB: Sodium 129, BUN 76, creatinine 3.02. Hemoglobin 7.6 IMPRESSION: 1. Severe hyponatremia, improving 2. Cardiomyopathy, etiology unclear, no evidence of acute heart failure at this time 3. History of atrial fibrillation 4. Post-pacemaker implantation 5. Renal failure PLAN: 1. Continue present therapy 2. Increase physical activity 3. Awaiting rehab transfer 4. We will see him on as needed basis, please feel free to call us for any question Objective - Vital Signs Vital signs: Vital Signs Temp 97.6 F 02/25/23 02:00 Pulse 70 02/25/23 02:00 Resp 14 02/25/23 02:00 BP 105/55 02/25/23 02:00 Pulse Ox 92 L 02/25/23 02:00 FiO2 40 02/21/23 11:05 Intake & Output 02/24/23 02/25/23 02/25/23 18:59 06:59 18:59 Intake Total 70 120 Output Total 350 360 Balance -280 -240 Weight 147.7 kg Intake: IV 70 120 0.9 NACL 70 120 Output: Urine 350 360 Other: Voiding Method Indwelling Catheter Indwelling Catheter - Labs CBC & Chem 7: 02/25/23 03:35 02/25/23 03:35 Labs: Abnormal Lab Results - Last 24 Hours (Table) 02/25/23 02/25/23 Range/Units 03:35 03:35 RBC 2.17 L (4.30-5.90) m/uL Hgb 7.6 L (13.0-17.5) gm/dL Hct 23.0 L (39.0-53.0) % MCV 106.5 H (80.0-100.0) fL MCH 35.2 H (25.0-35.0) pg Plt Count 140 L (150-450) k/uL Lymphocytes # (Manual) 0.64 L (1.0-4.8) k/uL Monocytes # (Manual) 1.20 H (0-1.0) k/uL Eosinophils # (Manual) 0.83 H (0-0.7) k/uL Sodium 129 L (137-145) mmol/L Chloride 94 L (98-107) mmol/L BUN 76 H (9-20) mg/dL Creatinine 3.02 H (0.66-1.25) mg/dL Glucose 103 H (74-99) mg/dL
--- NOTE | 2023-02-25 09:37 | P.PN ---
Subjective Progress Note Date: 02/25/23 This is an 87-year-old male patient who is a poor historian. He does have a history of atrial fibrillation, permanent pacemaker implantation, previous myocardial infarction, former smoker, congestive heart failure, gastroesophageal reflux disease. He presented to the emergency room back on 01/18/2023 with ongoing progression of weakness and worsening shortness of breath. Chest x-ray showed evidence of cardiomegaly and pulmonary vascular congestion with a small left pleural effusion. Echocardiogram revealed preserved left ventricular systolic function with ejection fraction of 45-50%. There is severe right ventricular dilatation. Severe pulmonary hypertension with an RSVP of 56 mmHg. Troponins were negative. ProBNP 801. He was hyponatremic on admission with sodium of 116. His sodium remained low last several days and nephrology was consulted yesterday. He wanted the patient on 3% saline and have the patient transferred to the ICU. He is seen today in consultation. Current sodium 121. White count 6.8. Hemoglobin 7.1. Platelets 122. Potassium 4.7. Bicarb 27. BUN 61. Creatinine 2.64. Glucose 121. He is on 3% saline at 30 ML's per hour. He is arousable. Maintain O2 saturations up to 100% on 2 L/m per nasal cannula. He's been afebrile. Hemodynamically stable. Paced rhythm. Chest x- ray reveals a similar small left pleural effusion with left basilar patchy airsp jemma opacity/atelectasis. On today's evaluation of 02/22/2023, patient's volume status is adequate. No significant abnormalities of the chest x-ray. No evidence of any heart failure. The patient has diastolic heart failure with ejection fraction of 45-50% with severe pulmonary hypertension. The patient also developed an acute on top of chronic kidney failure with significant hyponatremia requiring hypertonic saline. The patient was given 3% saline and his sodium level is currently improvedIs at 124, potassium is at 4.8, BUN is at 63 with a creatinine of 2.7. The patient also has a built-in seat of 9.7 with a hemoglobin of 7.2 and a platelet count of 134. Chest x-ray shows no acute abnormalities. The patient is currently on room air oxygen. The patient was started on salt tablets. Lasix is currently on hold. No altered mentation. Is communicating. Is having his breakfast this morning. On 02/23/2023, no change in the patient's neurologic functions. On and off some limited confusion. He is communicating. He is still off the hypertonic saline solution. The patient's sodium level is stable at 126. Is also off diuretics. BUN is 66 with a creatinine of 3.02 which is essentially stable compared to yesterday. The white cell count of 10 with a hemoglobin of 7.5 and hemoglobin is also stable. He is on room air oxygen. No significant edema in his lower extremities bilaterally. The cardiac rhythm is sinus. Is able to tolerate diet. He had breakfast. He is communicating. The most recent chest x-ray was done on 02/21/2023 and the patient was found to have cardiomegaly. Pacemaker over the left anterior chest area with the leads. No airspace disease or pulmo nary infiltrates. He is receiving IV iron for his underlying iron deficiency anemia. Rest of the medications remain unchanged. Is able to urinate and he is on Flomax 02/24/2023, patient is being seen for a follow-up. No new complaints or any significant events overnight. His sodium level is aggressively improving and currently is up to 127. He is undergoing fluid restrictions. No hypertonic saline. He is on salt tablets. At the same time, he is off diuresis. No signs of any fluid overload. Urine output is adequate and the patient seems to be producing around 600 mL over the past 24 hours of urine output. The rest electrolytes are normal. Potassium levels at 4.7. BUN is at 75 with a creatinine of 2.7. The white cell count is at 9.4 with a hemoglobin of 7.4. Chest x-ray from yesterday showed negative abnormalities. There was cardiomegaly and mild pulmonary vascular congestion was present. He is communicating. Eyes off confused. Tolerating his diet. 02/25/2023, the patient essentially unchanged. Episodic confusion present. There is obvious improvement in his sodium level which is up to 129. The rest of the blood work shows a potassium level of 4.8, BUN is at 76 with a creatinine of 3.02 which is essentially stable over the past several days. Hemoglobin is a lso stable at 7.6 with a white cell count of 9.2. He remains on room air oxygen. No diuretics and being utilized. He is euvolemic. He is on Coreg 3.125 mg twice a day. He is also on Flomax. We'll consider removing the Driver catheter. Ranges of being made for this patient to be moved to ECF. Objective - Vital Signs Vital signs: Vital Signs Temp 97.6 F 02/25/23 02:00 Pulse 70 02/25/23 02:00 Resp 14 02/25/23 02:00 BP 105/55 02/25/23 02:00 Pulse Ox 92 L 02/25/23 02:00 FiO2 40 02/21/23 11:05 Intake & Output 02/24/23 02/25/23 02/25/23 18:59 06:59 18:59 Intake Total 70 120 20 Output Total 350 360 50 Balance -280 -240 -30 Weight 147.7 kg Intake: IV 70 120 20 0.9 NACL 70 120 20 Output: Urine 350 360 50 Other: Voiding Method Indwelling Catheter Indwelling Catheter - Exam GENERAL EXAM: Arousable, poor historian, 87-year-old male patient, on RA, comfortable in no apparent distress. HEAD: Normocephalic. EYES: Normal reaction of pupils, equal size. NOSE: Clear with pink turbinates. THROAT: No erythema or exudates. NECK: No masses, no JVD. CHEST: No chest wall deformity. LUNGS: Equal air entry with faint crackles in the posterior bases. CVS: S1 and S2 normal with no audible murmur, regular rhythm. ABDOMEN: No hepatosplenomegaly, normal bowel sounds, no guarding or rigidity. SPINE: No scoliosis or deformity SKIN: No rashes CENTRAL NERVOUS SYSTEM: No focal deficits, tone is normal in all 4 extremities. EXTREMITIES: There is trace peripheral edema. No clubbing, no cyanosis. Peripheral pulses are intact. - Labs CBC & Chem 7: 02/25/23 03:35 02/25/23 03:35 Labs: Abnormal Lab Results - Last 24 Hours (Table) 02/25/23 02/25/23 Range/Units 03:35 03:35 RBC 2.17 L (4.30-5.90) m/uL Hgb 7.6 L (13.0-17.5) gm/dL Hct 23.0 L (39.0-53.0) % MCV 106.5 H (80.0-100.0) fL MCH 35.2 H (25.0-35.0) pg Plt Count 140 L (150-450) k/uL Lymphocytes # (Manual) 0.64 L (1.0-4.8) k/uL Monocytes # (Manual) 1.20 H (0-1.0) k/uL Eosinophils # (Manual) 0.83 H (0-0.7) k/uL Sodium 129 L (137-145) mmol/L Chloride 94 L (98-107) mmol/L BUN 76 H (9-20) mg/dL Creatinine 3.02 H (0.66-1.25) mg/dL Glucose 103 H (74-99) mg/dL Assessment and Plan Plan: Hyponatremia, likely secondary to diuresis/CHF and the patient is optimized and the fluid balance is adequate for now. No edema in his lower extremities. No significant abnormalities in his chest x-ray. The patient was given hypertonic saline and his sodium level came from 116-124. Currently is off the hypertonic saline taken salt tablets. The patient is currently off hypertonic saline and his sodium continues to improve and so currently up to 129.. The patient is euv olemic Progressive weakness suspect secondary to hyponatremia , sodium level is stable, slowly improving, currently up to 129 Episodic confusion, without any focal neurological deficits Acute hypoxemic respiratory failure secondary to acute exacerbation of combined chronic mild systolic and diastolic congestive heart failure, currently on room air oxygen History of chronic kidney disease stage III Acute on top of chronic kidney disease and a creatinine and the creatinine is stable on today's evaluation of 3 History of atrial fibrillation Permanent pacemaker implantation Morbid obesity Former smoker Plan: Sodium level continues to improve Clinically stable Keep the diuretics on hold Fluid restriction Continue aspirin Continue Coreg with parameters Aldactone and Zaroxolyn are both on hold. The patient was also taking Bumex on outpatient basis is also on hold. Monitor renal function Monitor fluid balance Monitor mental status May transfer out from the pulmonary standpoint, he is going to [facility]. Provide incentive spirometer
[2023-02-25] MEDS: NYSTATIN 100,000 UNIT/GM POWD 15 GM TOPICAL SCH ×2 (09:58→23:34)
[2023-02-25] MEDS: ASPIRIN 81 MG PO SCH (09:58)
[2023-02-25] MEDS: SODIUM CHLORIDE TAB 1 GM TAB PO SCH ×3 (10:07→23:33)
[2023-02-25] MEDS: SENNOSIDES-DOCUSATE SODIUM 1 EACH TAB PO SCH ×2 (10:08→23:33)
[2023-02-25] MEDS: TAMSULOSIN 0.4 MG CAP.ER.24H PO SCH (10:08)
[2023-02-25] MEDS: HYDROcodone/APAP 7.5-325MG 1 EACH TAB PO SCH ×2 (10:08→23:32)
[2023-02-25] MEDS: FAMOTIDINE 20 MG TAB PO SCH (10:09)
--- NOTE | 2023-02-25 11:44 | P.PN ---
Subjective Patient is seen in follow-up for acute kidney injury and hyponatremia. Sodium level 129 this morning. Renal function little worse. Hemodynamically stable. Oral intake remains poor. On salt tabs. Nonoliguric. Vital signs are stable. General: No acute distress. HEENT: Head exam is unremarkable. LUNGS: No audible rhonchi or wheezes. HEART: Rate and Rhythm are regular. ABDOMEN: Nontender. EXTREMITITES: No edema. Objective - Vital Signs Vital signs: Vital Signs Temp 98.7 F 02/25/23 08:00 Pulse 74 02/25/23 08:00 Resp 16 02/25/23 08:00 BP 105/55 02/25/23 02:00 Pulse Ox 93 L 02/25/23 08:00 FiO2 40 02/21/23 11:05 Intake & Output 02/24/23 02/25/23 02/25/23 18:59 06:59 18:59 Intake Total 70 120 20 Output Total 350 360 50 Balance -280 -240 -30 Weight 147.7 kg Intake: IV 70 120 20 0.9 NACL 70 120 20 Output: Urine 350 360 50 Other: Voiding Method Indwelling Catheter Indwelling Catheter - Labs CBC & Chem 7: 02/25/23 03:35 02/25/23 03:35 Labs: Abnormal Lab Results - Last 24 Hours (Table) 02/25/23 02/25/23 Range/Units 03:35 03:35 RBC 2.17 L (4.30-5.90) m/uL Hgb 7.6 L (13.0-17.5) gm/dL Hct 23.0 L (39.0-53.0) % MCV 106.5 H (80.0-100.0) fL MCH 35.2 H (25.0-35.0) pg Plt Count 140 L (150-450) k/uL Lymphocytes # (Manual) 0.64 L (1.0-4.8) k/uL Monocytes # (Manual) 1.20 H (0-1.0) k/uL Eosinophils # (Manual) 0.83 H (0-0.7) k/uL Sodium 129 L (137-145) mmol/L Chloride 94 L (98-107) mmol/L BUN 76 H (9-20) mg/dL Creatinine 3.02 H (0.66-1.25) mg/dL Glucose 103 H (74-99) mg/dL Assessment and Plan Plan: Assessment: 1. Acute kidney injury secondary to ATN and component of urinary retention. Creatinine 3.02 today. UA benign. 2. Hyponatremia, hypervolemic initially. Currently euvolemic. Urine sodium less than 20 and urine osmolality 313. Cortisol level not low. TSH normal. St atus post IV Lasix and Samsca with no improvement in sodium level. Status post 3% this admission. Sodium level 129 this morning. 3. Chronic kidney disease stage IIIa with baseline creatinine 1.1-1.3 secondary to nephrosclerosis. 4. Urinary retention. On Flomax. Has Driver catheter. 5. Acute on chronic systolic CHF with ejection fraction of 45-50% with mild to moderate tricuspid regurgitation and severe pulmonary hypertension. 6. Anemia. Iron deficiency noted. Status post IV iron. Plan: Maintain salt tabs. Maintain fluid restriction. Encouraged oral intake. Hold off on diuretics at this time.
--- NOTE | 2023-02-25 13:10 | P.PN ---
Subjective Progress Note Date: 02/25/23 Hospital Course: Patient is an 87-year-old male with chronic systolic congestive heart failure, anemia, and chronic kidney disease stage III who presented to the ER with complaints of shortness of breath and lower extremity edema. In the ER he underwent an extensive evaluation. It was significant for chest x-ray consistent with congestive heart failure, hemoglobin 7.9, sodium 116, BUN 53, creatinine 2.23 with serum osmolality of 265 and urine osmolality of 313. Patient was admitted for severe hyponatremia suspected to be secondary very to diuretic use with Aldactone and Bumex. Initially they held off on IV fluids and consulted nephrology. The patient was evaluated by nephrology and was started on diuretics and sodium was monitored closely. He was also evaluated by cardio logy and pulmonary. Initially diuretics were used, then Samsca 2 doses, and finally he was transferred to the ICU for 3% normal saline. Sodium slowly improving. Subjective: Patient seen and examined at bedside. No acute events overnight. Pertinent positives and negatives as discussed above, a complete review of systems was performed and all other systems are negative. Vitals Signs Reviewed. General: nontoxic, no distress, appears at stated age, obese Derm: warm, dry Head: atraumatic, normocephalic, symmetric Eyes: EOMI, no lid lag, anicteric sclera Mouth: no lip lesion, mucus membranes moist Cardiovascular: S1S2 reg, no murmur Lungs: CTA bilateral, no rhonchi, no rales , no accessory muscle use Abdominal: soft, nontender to palpation, no guarding, no appreciable organomegaly Ext: no gross muscle atrophy, trace peripheral edema, no contractures Neuro: CN II-XI grossly intact, no focal neuro deficits Psych: Alert, oriented 2, appropriate affect Data Reviewed Today: Pertinent Labs: Hemoglobin 7.6, platelet 140, sodium 129, BUN 74, creatinine 3.02 Imaging: No new imaging today Assessment and Plan: Hypervolemic hyponatremia status post 3% saline, improving Acute kidney injury on chronic kidney disease stage III, stable Urinary retention Acute on chronic systolic congestive heart failure with ejection fraction 45 to 50% and severe pulmonary hypertension -Serial sodium levels, continue salt tabs -Currently off of Aldactone, Zaroxolyn, and Bumex, keep patient off of diuretics for now as reviewed by cardiology and nephrology -Continue Coreg 3.125 mg twice daily -Cardiology note reviewed: cleared for d/c to ECF -Pulmonology note reviewed, patient can be transferred out of the ICU, cleared for dc to ECF -Nephrology note reviewed: on sodium chloride tabs, continue to monitor renal function and electrolytes Macrocytic anemia - on IV iron per nephrology (10% SAT) - TSH and B12 normal - follow CBC -No active bleeding DVT ppx: SCDs Code status: No code Anticipated discharge place: Pending clinical course Anticipated discharge time: Pending clinical course Objective - Vital Signs Vital signs: Vital Signs Temp 98.7 F 02/25/23 08:00 Pulse 74 02/25/23 08:00 Resp 16 02/25/23 08:00 BP 105/55 02/25/23 02:00 Pulse Ox 93 L 02/25/23 08:00 FiO2 40 02/21/23 11:05 Intake & Output 02/24/23 02/25/23 02/25/23 18:59 06:59 18:59 Intake Total 70 120 20 Output Total 350 360 50 Balance -280 -240 -30 Weight 147.7 kg Intake: IV 70 120 20 0.9 NACL 70 120 20 Output: Urine 350 360 50 Other: Voiding Method Indwelling Catheter Indwelling Catheter Indwelling Catheter - Labs CBC & Chem 7: 02/25/23 03:35 02/25/23 03:35 Labs: Abnormal Lab Results - Last 24 Hours (Table) 02/25/23 02/25/23 02/25/23 Range/Units 03:35 03:35 03:35 RBC 2.17 L (4.30-5.90) m/uL Hgb 7.6 L (13.0-17.5) gm/dL Hct 23.0 L (39.0-53.0) % MCV 106.5 H (80.0-100.0) fL MCH 35.2 H (25.0-35.0) pg Plt Count 140 L (150-450) k/uL Lymphocytes # (Manual) 0.64 L (1.0-4.8) k/uL Monocytes # (Manual) 1.20 H (0-1.0) k/uL Eosinophils # (Manual) 0.83 H (0-0.7) k/uL Sodium 129 L (137-145) mmol/L Chloride 94 L (98-107) mmol/L BUN 76 H (9-20) mg/dL Creatinine 3.02 H (0.66-1.25) mg/dL Glucose 103 H (74-99) mg/dL Magnesium 2.9 H (1.6-2.3) mg/dL
--- NOTE | 2023-02-25 21:49 | XR ---
EXAMINATION: XR chest 1V portable 02/25/2023 9:39 PM CLINICAL INDICATION: PHH; pulmonary edema TECHNIQUE: AP upright portable COMPARISON: 02/23/2023 FINDINGS: The overlying soft tissues are prominent. There is pulmonary venous congestion, vascular cephalizatio n, and a fine reticular pattern of increased density bilaterally silhouetting the pulmonary vasculatu re arborization. This reticular pattern can correlate with a clinical diagnosis of mild interstitial phase pulmonary edema. There are no focal areas of airlessness to suggest major atelectasis or tran lung consolidation. The pleural spaces are negative. Cardiac pacemaker. The cardiac silhouette is markedly enlarged, unchanged. The skeletal structures and soft tissues are negative for acute findings. IMPRESSION: Findings suggest mild interstitial phase pulmonary edema, cardiogenic etiology.
[2023-02-25] MEDS ORDERED: FUROSEMIDE 10 MG/ML 2 ML VIAL IV STA (22:03)
[2023-02-26] MEDS: carvediloL 3.125 MG TAB PO SCH ×2 (07:45→18:17)
[2023-02-26 08:51] VITALS: PULSE 71; RESP 20; TEMP 98.2
--- NOTE | 2023-02-26 09:36 | P.PN ---
Subjective Progress Note Date: 02/26/23 This is an 87-year-old male patient who is a poor historian. He does have a history of atrial fibrillation, permanent pacemaker implantation, previous myocardial infarction, former smoker, congestive heart failure, gastroesophageal reflux disease. He presented to the emergency room back on 01/18/2023 with ongoing progression of weakness and worsening shortness of breath. Chest x-ray showed evidence of cardiomegaly and pulmonary vascular congestion with a small left pleural effusion. Echocardiogram revealed preserved left ventricular systolic function with ejection fraction of 45-50%. There is severe right ventricular dilatation. Severe pulmonary hypertension with an RSVP of 56 mmHg. Troponins were negative. ProBNP 801. He was hyponatremic on admission with sodium of 116. His sodium remained low last several days and nephrology was consulted yesterday. He wanted the patient on 3% saline and have the patient transferred to the ICU. He is seen today in consultation. Current sodium 121. White count 6.8. Hemoglobin 7.1. Platelets 122. Potassium 4.7. Bicarb 27. BUN 61. Creatinine 2.64. Glucose 121. He is on 3% saline at 30 ML's per hour. He is arousable. Maintain O2 saturations up to 100% on 2 L/m per nasal cannula. He's been afebrile. Hemodynamically stable. Paced rhythm. Chest x- ray reveals a similar small left pleural effusion with left basilar patchy airsp jemma opacity/atelectasis. On today's evaluation of 02/22/2023, patient's volume status is adequate. No significant abnormalities of the chest x-ray. No evidence of any heart failure. The patient has diastolic heart failure with ejection fraction of 45-50% with severe pulmonary hypertension. The patient also developed an acute on top of chronic kidney failure with significant hyponatremia requiring hypertonic saline. The patient was given 3% saline and his sodium level is currently improvedIs at 124, potassium is at 4.8, BUN is at 63 with a creatinine of 2.7. The patient also has a built-in seat of 9.7 with a hemoglobin of 7.2 and a platelet count of 134. Chest x-ray shows no acute abnormalities. The patient is currently on room air oxygen. The patient was started on salt tablets. Lasix is currently on hold. No altered mentation. Is communicating. Is having his breakfast this morning. On 02/23/2023, no change in the patient's neurologic functions. On and off some limited confusion. He is communicating. He is still off the hypertonic saline solution. The patient's sodium level is stable at 126. Is also off diuretics. BUN is 66 with a creatinine of 3.02 which is essentially stable compared to yesterday. The white cell count of 10 with a hemoglobin of 7.5 and hemoglobin is also stable. He is on room air oxygen. No significant edema in his lower extremities bilaterally. The cardiac rhythm is sinus. Is able to tolerate diet. He had breakfast. He is communicating. The most recent chest x-ray was done on 02/21/2023 and the patient was found to have cardiomegaly. Pacemaker over the left anterior chest area with the leads. No airspace disease or pulmo nary infiltrates. He is receiving IV iron for his underlying iron deficiency anemia. Rest of the medications remain unchanged. Is able to urinate and he is on Flomax 02/24/2023, patient is being seen for a follow-up. No new complaints or any significant events overnight. His sodium level is aggressively improving and currently is up to 127. He is undergoing fluid restrictions. No hypertonic saline. He is on salt tablets. At the same time, he is off diuresis. No signs of any fluid overload. Urine output is adequate and the patient seems to be producing around 600 mL over the past 24 hours of urine output. The rest electrolytes are normal. Potassium levels at 4.7. BUN is at 75 with a creatinine of 2.7. The white cell count is at 9.4 with a hemoglobin of 7.4. Chest x-ray from yesterday showed negative abnormalities. There was cardiomegaly and mild pulmonary vascular congestion was present. He is communicating. Eyes off confused. Tolerating his diet. 02/25/2023, the patient essentially unchanged. Episodic confusion present. There is obvious improvement in his sodium level which is up to 129. The rest of the blood work shows a potassium level of 4.8, BUN is at 76 with a creatinine of 3.02 which is essentially stable over the past several days. Hemoglobin is a lso stable at 7.6 with a white cell count of 9.2. He remains on room air oxygen. No diuretics and being utilized. He is euvolemic. He is on Coreg 3.125 mg twice a day. He is also on Flomax. We'll consider removing the Driver catheter. Ranges of being made for this patient to be moved to [facility]. On 02/26/2023, the patient is being seen on the medical floor. The patient was moved outside the intensive care unit yesterday. He remains on oxygen at 2 L/m nasal cannula. Denies having any significant complaints. Driver catheter still in place. No major edema lower extremities. No major edema in the upper extremities and the patient is resting comfortably in bed. No angina. No palpitations. No chest pain. Labs are pending from today. Most recent sodium level was at 129. Objective - Vital Signs Vital signs: Vital Signs Temp 98.2 F 02/26/23 08:00 Pulse 71 02/26/23 08:00 Resp 20 02/26/23 08:00 BP 99/59 02/26/23 08:00 Pulse Ox 97 02/26/23 08:08 FiO2 40 02/21/23 11:05 Intake & Output 02/25/23 02/26/23 02/26/23 18:59 06:59 18:59 Intake Total 80 Output Total 220 250 Balance -140 -250 Intake: IV 80 0.9 NACL 80 Output: Urine 220 250 Other: Voiding Method Indwelling Catheter Indwelling Catheter Indwelling Catheter - Exam GENERAL EXAM: Arousable, poor historian, 87-year-old male patient, on RA, co mfortable in no apparent distress. HEAD: Normocephalic. EYES: Normal reaction of pupils, equal size. NOSE: Clear with pink turbinates. THROAT: No erythema or exudates. NECK: No masses, no JVD. CHEST: No chest wall deformity. LUNGS: Equal air entry with faint crackles in the posterior bases. CVS: S1 and S2 normal with no audible murmur, regular rhythm. ABDOMEN: No hepatosplenomegaly, normal bowel sounds, no guarding or rigidity. SPINE: No scoliosis or deformity SKIN: No rashes CENTRAL NERVOUS SYSTEM: No focal deficits, tone is normal in all 4 extremities. EXTREMITIES: There is trace peripheral edema. No clubbing, no cyanosis. Peripheral pulses are intact. - Labs CBC & Chem 7: 02/25/23 03:35 02/25/23 03:35 Labs: Abnormal Lab Results - Last 24 Hours (Table) 02/25/23 Range/Units 03:35 Magnesium 2.9 H (1.6-2.3) mg/dL Assessment and Plan Plan: Hyponatremia, likely secondary to diuresis/CHF and the patient is optimized and the fluid balance is adequate for now. No edema in his lower extremities. No significant abnormalities in his chest x-ray. The patient was given hypertonic saline and his sodium level came from 116-124. Currently is off the hypertonic saline taken salt tablets. The patient is currently off hypertonic saline and his sodium continues to improve and so currently up to 129.. The patient is euvolemic Progressive weakness suspect secondary to hyponatremia , sodium level is stable, slowly improving, currently up to 129 Episodic confusion, without any focal neurological deficits Acute hypoxemic respiratory failure secondary to acute exacerbation of combined chronic mild systolic and diastolic congestive heart failure, currently on room air oxygen History of chronic kidney disease stage III Acute on top of chronic kidney disease and a creatinine and the creatinine is stable on today's evaluation of 3 History of atrial fibrillation Permanent pacemaker implantation Morbid obesity Former smoker Plan: Clinically stable and the patient was moved out of the intensive care unit and the patient is currently on a medical floor Sodium level continues to improve, awaiting labs from today Clinically stable Keep the diuretics on hold Fluid restriction Continue aspirin Continue Coreg with parameters Aldactone and Zaroxolyn are both on hold. The patient was also taking Bumex on outpatient basis is also on hold. Monitor renal function Monitor fluid balance Monitor mental status May transfer out from the pulmonary standpoint, he is going to ECF. Provide incentive spirometer
[2023-02-26] MEDS: FAMOTIDINE 20 MG TAB PO SCH (10:08)
[2023-02-26] MEDS: TAMSULOSIN 0.4 MG CAP.ER.24H PO SCH (10:08)
[2023-02-26] MEDS: ASPIRIN 81 MG PO SCH (10:08)
[2023-02-26] MEDS: HYDROcodone/APAP 7.5-325MG 1 EACH TAB PO SCH (10:09)
[2023-02-26] MEDS ORDERED: FUROSEMIDE 10 MG/ML 4 ML VIAL IV STA (10:10)
[2023-02-26] MEDS: SODIUM CHLORIDE TAB 1 GM TAB PO SCH (10:11)
[2023-02-26] MEDS: NYSTATIN 100,000 UNIT/GM POWD 15 GM TOPICAL SCH (10:19)
[2023-02-26] MEDS: SENNOSIDES-DOCUSATE SODIUM 1 EACH TAB PO SCH (10:20)
--- NOTE | 2023-02-26 12:12 | FL ---
EXAMINATION TYPE: FL barium swallow w video DATE OF EXAM: 02/26/2023 CLINICAL HISTORY: 87-year-old male CHF, coughing, assess for aspiration TECHNIQUE: Deglutition study is performed utilizing thin liquid barium, barium thick applesauce, and barium coated cracker. COMPARISON: None. Total fluoroscopy time: 2 minutes 13 seconds. Total images: None. Real-time fluoroscopy support was provided to speech pathology. DOSE AREA PRODUCT (DAP) UGY*M,MGY*CM: 5 FINDINGS: Swallow initiation was mildly delayed with bolus free spilling to the level of the vallecula. The patient is edentulous. Thin liquids show intermittent transient penetration. Mild pharyngeal resi duals are noted. Otherwise, no other penetration or aspiration is seen. IMPRESSION: Mildly delayed swallow. Intermittent episodes of transient penetration with thin liquid. Mild pharyng eal residuals. No aspiration. Please refer to speech therapist notes for further details if necessary.
--- NOTE | 2023-02-26 12:33 | P.PN ---
Subjective Patient is seen in follow-up for acute kidney injury and hyponatremia. Sodium level 129 yesterday. Creatinine 3.02 yesterday. Hemodynamically stable. Oral intake fair. On salt tabs. Nonoliguric. Vital signs are stable. General: No acute distress. HEENT: Head exam is unremarkable. LUNGS: Scattered rhonchi. HEART: Rate and Rhythm are regular. ABDOMEN: Nontender. EXTREMITITES: No edema. Objective - Vital Signs Vital signs: Vital Signs Temp 98.2 F 02/26/23 08:00 Pulse 71 02/26/23 08:00 Resp 20 02/26/23 08:00 BP 99/59 02/26/23 08:00 Pulse Ox 97 02/26/23 08:08 FiO2 40 02/21/23 11:05 Intake & Output 02/25/23 02/26/23 02/26/23 18:59 06:59 18:59 Intake Total 80 Output Total 220 250 Balance -140 -250 Intake: IV 80 0.9 NACL 80 Output: Urine 220 250 Other: Voiding Method Indwelling Catheter Indwelling Catheter Indwelling Catheter - Labs CBC & Chem 7: 02/25/23 03:35 02/25/23 03:35 Assessment and Plan Plan: Assessment: 1. Acute kidney injury secondary to ATN and component of urinary retention. Creatinine 3.02 yesterday. UA benign. 2. Hyponatremia, hypervolemic initially. Currently euvolemic. Urine sodium less than 20 and urine osmolality 313. Cortisol level not low. TSH normal. Status post IV Lasix and Samsca with no improvement in sodium level. Status post 3% this admission. Sodium level 129 yesterday. 3. Chronic kidney disease stage IIIa with baseline creatinine 1.1-1.3 secondary to nephrosclerosis. 4. Urinary retention. On Flomax. Has Driver catheter. 5. Acute on chronic systolic CHF with ejection fraction of 45-50% with mild to moderate tricuspid regurgitation and severe pulmonary hypertension. 6. Anemia. Iron deficiency noted. Status post IV iron. Plan: Stop salt tabs. Maintain fluid restriction. Lasix 40 mg IV once today. Start oral Lasix once daily tomorrow. Check renal ultrasound. Encouraged oral intake. Add Aranesp.
[2023-02-26] MEDS ORDERED: DARBEPOETIN ALFA 40 MCG/0.4 ML SYRINGE SQ SCH (13:00)
--- NOTE | 2023-02-26 13:10 | US ---
EXAMINATION TYPE: US kidneys/renal and bladder DATE OF EXAM: 02/26/2023 COMPARISON: US CLINICAL INDICATION: Male, 87 years old with history of kim; KIM EXAM MEASUREMENTS: Right Kidney: 11.0 x 5.5 x 4.5 cm Left Kidney: 11.4 x 4.9 x 5.3 cm Immobile, morbidly obese, elderly pt, very difficult exam Right Kidney: No evidence of hydro, cystic lesion lower pole= 5.8 x 5.2 x 4.6 cm Left Kidney: No evidence of hydro, limited visualization/ hypoechoic lesion mid anterior= 1.3 x 1.1 x 1.2 cm Bladder: Non-vis, pt has cath in place IMPRESSION: 1. Right renal simple cyst. 2. Small cyst left kidney
--- NOTE | 2023-02-26 14:00 | P.DS ---
Providers Date of admission: 02/17/23 21:23 Expected date of discharge: 02/26/23 Attending physician: Alix King MD Consults: 02/18/23 01:06 Consult Physician Urgent Consulting Provider: Lebron Cano Consult Reason/Comments: CHF Do you want consulting provider notified?: Yes Consult Physician Urgent Consulting Provider: Santi Alves Consult Reason/Comments: HypoNa Do you want consulting provider notified?: Yes 02/20/23 17:33 Consult Physician Urgent Consulting Provider: Terry Benjamin Consult Reason/Comments: ICU management Do you want consulting provider notified?: Already Contacted Primary care physician: Bubba Allen Hospital Course: Hypervolemic hyponatremia status post 3% saline, improving Acute kidney injury on chronic kidney disease stage III, stable Urinary retention Acute on chronic systolic congestive heart failure with ejection fraction 45 to 50% and severe pulmonary hypertension Macrocytic anemia Hospital Course: Patient is an 87-year-old male with chronic systolic congestive heart failure, anemia, and chronic kidney disease stage III who presented to the ER with complaints of shortness of breath and lower extremity edema. In the ER he underwent an extensive evaluation. It was significant for chest x-ray consistent with congestive heart failure, hemoglobin 7.9, sodium 116, BUN 53, creatinine 2.23 with serum osmolality of 265 and urine osmolality of 313. Patient was admitted for severe hyponatremia suspected to be secondary very to diuretic use with Aldactone and Bumex. Initially they held off on IV fluids and consulted nephrology. The patient was evaluated by nephrology and was started on diuretics and sodium was monitored closely. He was also evaluated by cardiology and pulmonary. Initially diuretics were used, then Samsca 2 doses, and finally he was transferred to the ICU for 3% normal saline. Sodium slowly improvied. Patient's diuretics were discontinued, and follow-up basic metabolic panel was ordered on discharge. Patient was cleared by nephrology, cardiology, pulmonology. Patient went to extended care facility on discharge for rehab. I spent 45 minutes coordinating this discharge on 02/26 Gen: awake, alert HEENT: normocephalic, atraumatic, good hearing acuity, moist mucous membranes Resp: good air exchange, breathing comfortably with no accessory muscle use CVS: good distal perfusion x 4, GI: soft, NTTP, ND : no SPT, no CVAT, buenrostro catheter not present MSK: bilateral pitting edema, no clubbing Neuro: non-focal, moving all extremities Psych: cooperative, euthymic mood Patient Condition at Discharge: Poor Plan - Discharge Summary Discharge Rx Participant: No New Discharge Prescriptions: New Ipratropium-Albuterol Nebulize [Duoneb 0.5 mg-3 mg/3 ml Soln] 3 ml INHALATION RT-QID PRN each PRN Reason: Shortness Of Breath Or Wheezing Tamsulosin [Flomax] 0.4 mg PO PC-BRKFST cap Furosemide [Lasix] 40 mg PO DAILY #0 tab Mag Hydrox/Al Hydrox/Simeth [Maalox] 15 ml PO Q6HR PRN ml PRN Reason: Indigestion Nystatin 100,000 Unit/gm Powd [Mycostatin Powder] 1 applic TOPICAL BID each Famotidine [Pepcid] 20 mg PO DAILY tab Sennosides-Docusate Sodium [Senokot-S] 1 each PO BID tab Acetaminophen Tab [Tylenol] 650 mg PO Q6HR PRN tab PRN Reason: Mild Pain Or Fever > 100.5 ALPRAZolam [Xanax] 0.25 mg PO Q6HR PRN #9 tab PRN Reason: Anxiety Darbepoetin Zacarias [Aranesp] 40 mcg SQ Q7D each Continue carvediloL [Coreg] 3.125 mg PO BID Docusate [Colace] 100 mg PO BID Aspirin [Adult Low Dose Aspirin EC] 81 mg PO BID HYDROcodone/APAP 7.5-325MG [Norton 7.5-325] 1.5 tab PO BID #6 tab Discontinued Spironolactone 50 mg PO DAILY Bumetanide [BUMEX] 1 mg PO BID@0900,1200 Solifenacin Succinate [Vesicare] 5 mg PO DAILY metOLazone [Zaroxolyn] 2.5 mg PO MOFR Discharge Medication List carvediloL [Coreg] 3.125 mg PO BID 05/25/18 [History] Aspirin [Adult Low Dose Aspirin EC] 81 mg PO BID 06/29/19 [History] Docusate [Colace] 100 mg PO BID 06/29/19 [History] ALPRAZolam [Xanax] 0.25 mg PO Q6HR PRN #9 tab 02/26/23 [Rx] Acetaminophen Tab [Tylenol] 650 mg PO Q6HR PRN tab 02/26/23 [Rx] Darbepoetin Zacarias [Aranesp] 40 mcg SQ Q7D each 02/26/23 [Rx] Famotidine [Pepcid] 20 mg PO DAILY tab 02/26/23 [Rx] Furosemide [Lasix] 40 mg PO DAILY #0 tab 02/26/23 [Rx] HYDROcodone/APAP 7.5-325MG [Norton 7.5-325] 1.5 tab PO BID #6 tab 02/26/23 [Rx] Ipratropium-Albuterol Nebulize [Duoneb 0.5 mg-3 mg/3 ml Soln] 3 ml INHALATION RT-QID PRN each 02/26/23 [Rx] Mag Hydrox/Al Hydrox/Simeth [Maalox] 15 ml PO Q6HR PRN ml 02/26/23 [Rx] Nystatin 100,000 Unit/gm Powd [Mycostatin Powder] 1 applic TOPICAL BID each 02/26/23 [Rx] Sennosides-Docusate Sodium [Senokot-S] 1 each PO BID tab 02/26/23 [Rx] Tamsulosin [Flomax] 0.4 mg PO PC-BRKFST cap 02/26/23 [Rx] Follow up Appointment(s)/Referral(s): [facility] [NON-STAFF] - Bubba Allen DO [Primary Care Provider] - 1-2 days Discharge Disposition: TRANSFER TO SNF/ECF
[2023-02-26] MEDS: ALPRAZolam 0.25 MG TAB PO PRN (14:26)
[2023-02-26 18:15] VITALS: BP 104/52
[2023-02-27] MEDS ORDERED: FUROSEMIDE 40 MG TAB PO SCH (09:00)
== END 2023-02-26 18:27 | DRG 640 ==
LOC: EC 19:49 → 3SCARD 21:23 → 2SICU 02-20 17:54 → 5NMEDONC 02-25 15:40
PROVIDERS: ADMIT Internal Medicine; ATTEND Internal Medicine
DX: E87.1 Hypo-osmolality and hyponatremia (principal); G93.41 Metabolic encephalopathy; J96.01 Acute respiratory failure with hypoxia; N17.0 Acute kidney failure with tubular necrosis; I50.43 Acute on chronic combined systolic (congestive) and diastolic (congestive) heart failure; I13.0 Hypertensive heart and chronic kidney disease with heart failure and stage 1 through stage 4 chronic kidney disease, or unspecified chronic kidney disease; I42.9 Cardiomyopathy, unspecified; Z68.41 Body mass index [BMI] 40.0-44.9, adult; J98.11 Atelectasis; I27.20 Pulmonary hypertension, unspecified; D63.1 Anemia in chronic kidney disease; E11.22 Type 2 diabetes mellitus with diabetic chronic kidney disease; E66.01 Morbid (severe) obesity due to excess calories; N18.31 Chronic kidney disease, stage 3a; J44.9 Chronic obstructive pulmonary disease, unspecified; Z66 Do not resuscitate; T50.1X5A Adverse effect of loop [high-ceiling] diuretics, initial encounter; R33.9 Retention of urine, unspecified; D50.9 Iron deficiency anemia, unspecified; D53.9 Nutritional anemia, unspecified; E86.1 Hypovolemia; I08.1 Rheumatic disorders of both mitral and tricuspid valves; I25.10 Atherosclerotic heart disease of native coronary artery without angina pectoris; I25.2 Old myocardial infarction; K21.9 Gastro-esophageal reflux disease without esophagitis; M54.50 Low back pain, unspecified; Z79.82 Long term (current) use of aspirin; Z79.899 Other long term (current) drug therapy; Z87.891 Personal history of nicotine dependence; Z95.0 Presence of cardiac pacemaker; Z75.1 Person awaiting admission to adequate facility elsewhere; Z71.3 Dietary counseling and surveillance
CPT/HCPCS: 36415; 36600; 51798; 71045; 71046; 74230; 76770; 80048; 80053; 81003; 82533; 82570; 82607; 82728; 82746; 82805; 83540; 83550; 83605; 83735; 83880; 83930; 83935; 84133; 84145; 84295; 84300; 84443; 84484; 85025; 85027; 85379; 85610; 85730; 93005; 93306; 94640; 94760; 96360; 99285

== ENCOUNTER 2023-03-08 10:03 | Inpatient (IN) | payer MEDICARE ==
[2023-03-08] MEDS: SODIUM CHLORIDE 0.9% 1,000 ML IV STA ×2 (10:31→11:16)
--- NOTE | 2023-03-08 10:32 | ED ---
General Adult HPI - General Chief complaint: GI Bleed Stated complaint: GI Bleed Time Seen by Provider: 03/08/23 10:08 Source: EMS Mode of arrival: EMS - History of Present Illness Initial comments: Dictation was produced using [employer] dictation software. please excuse any gr ammatical, word or spelling errors. Chief Complaint: 87-year-old male presents emergency department for hematemesis, nausea vomiting and low blood pressure History of Present Illness: Is 87-year-old male from [facility]. According to EMS and received report from custodial staff patient had a bout of coffee-ground emesis today. He did have continued nausea however later nausea was not coffee-ground. They also note his blood pressure is low. Patient is a poor historian. He is allegedly DO NOT RESUSCITATE status. Patient has come multiple comorbidities. He does not take any anticoagulation medications however documentation shows the patient was recently admitted for heart failure, hyponatremia. He was admitted to the ICU during that stay. The ROS documented in this emergency department record has been reviewed and confirmed by me. Those systems with pertinent positive or negative responses have been documented in the HPI. All other systems are other negative and/or noncontributory. - Related Data Home Medications Medication Instructions Recorded Confirmed carvediloL [Coreg] 3.125 mg PO BID 05/25/18 03/08/23 Docusate [Colace] 100 mg PO BID 06/29/19 03/08/23 ALPRAZolam [Xanax] 0.5 mg PO Q6H PRN 03/08/23 03/08/23 Acetaminophen Tab [Tylenol] 650 mg PO Q6H PRN 03/08/23 03/08/23 Cholecalciferol [Vitamin D3 (25 25 mcg PO DAILY 03/08/23 03/08/23 Mcg = 1000 Iu)] HYDROcodone/APAP 7.5-325MG [Andrews 1 tab PO BID 03/08/23 03/08/23 7.5-325] Ipratropium-Albuterol Nebulize 3 ml INHALATION RT-TID 03/08/23 03/08/23 [Duoneb 0.5 mg-3 mg/3 ml Soln] Maalox Plus 30 ml PO Q6H PRN 03/08/23 03/08/23 Sennosides-Docusate Sodium 2 tab PO BID 03/08/23 03/08/23 [Senokot-S] Tamsulosin [Flomax] 0.4 mg PO DAILY 03/08/23 03/08/23 Previous Rx's Medication Instructions Recorded Darbepoetin Zacarias [Aranesp] 40 mcg SQ Q7D each 02/26/23 Famotidine [Pepcid] 20 mg PO DAILY tab 02/26/23 Nystatin 100,000 Unit/gm Powd 1 applic TOPICAL BID each 02/26/23 [Mycostatin Powder] Allergies Allergy/AdvReac Type Severity Reaction Status Date / Time No Known Allergies Allergy Verified 03/08/23 11:07 Review of Systems ROS Statement: Those systems with pertinent positive or pertinent negative responses have been documented in the HPI. ROS Other: All systems not noted in ROS Statement are negative. Past Medical History Past Medical History: Atrial Fibrillation, Cancer, GERD/Reflux, Myocardial Infarction ([place]) Additional Past Medical History / Comment(s): Pt states he was told he had a "slight heart attack" in the , occasional low back pain, benign colon polyps, occasional lower leg edema. Last Myocardial Infarction Date:: History of Any Multi-Drug Resistant Organisms: None Reported Past Surgical History: Pacemaker Additional Past Surgical History / Comment(s): Pacemaker originally inserted in and replaced in 2018 at [facility] on [place], septal surgery for fractured nose, colonoscopy with benign polypectomy, upper scope Past Anesthesia/Blood Transfusion Reactions: No Reported Reaction Type of Cardiac Device: Permanent Pacemaker Device Placement Date:: and replaced in 2017 Past Psychological History: No Psychological Hx Reported Smoking Status: Former smoker Past Alcohol Use History: None Reported Past Drug Use History: None Reported - Past Family History Father Family Medical History: No Reported History Additional Family Medical History / Comment(s): Father was healthy and lived to be in his 70s or 80s. Mother Family Medical History: CVA/TIA, Vascular Disorder Additional Family Medical History / Comment(s): Mother of a cerebral hemorrhage at the age of 57 yrs. General Exam - General Exam Comments Initial Comments: PHYSICAL EXAM: General Impression: Alert and oriented x3/4, not in acute distress, lethargic HEENT: Normocephalic atraumatic, extra-ocular movements intact, pupils equal and reactive to light bilaterally, dry mucous membranes Cardiovascular: Heart regular rate and rhythm Chest: Able to complete full sentences, no retractions, no tachypnea Abdomen: abdomen soft, non-tender, non-distended, no organomegaly Musculoskeletal: Pulses present and equal in all extremities, 4+ pitting edema to the bilateral lower extremities Motor: no focal deficits noted Neurological: CN II-XII grossly intact, no focal motor or sensory deficits noted Skin: Intact with no visualized rashes Course Vital Signs 03/08/23 03/08/23 10:07 12:00 Temperature 97.1 F L Pulse Rate 69 71 Respiratory 18 20 Rate Blood Pressure 86/42 92/51 O2 Sat by Pulse 97 98 Oximetry - Reevaluation(s) Reevaluation #1: 03/08/23 10:32 Patient seen and evaluated in room #11. Blood pressure upon arrival was 86/42, rest of vital signs within acceptable limits. Reevaluation #2: 03/08/23 13:19 patient initially placed on 0.01 mcg per KG per minute of similar strength Levophed. He maintained an arterial pressures. Case was discussed with video systems engineer, Dr. Benjamin requested that Levophed be turned off see if he is blood pressure remained stable and should it be he should be disposition to cardiac telemetry. Levophed was discontinued and after 30 minutes patient's blood pressure began to decrease again. Patient was placed back on the 0.01 g dosage with stable blood pressures. Procedures - Sepsis Sepsis Focused Exam #1 Time Sepsis Criteria Met: : Sepsis Focused Exam Date: 03/08/23 Sepsis Focused Exam Time: 13:25 Sepsis Focused Exam Complete: Yes Vital Signs & RN Notes Reviewed: Yes Capillary Refill: < 2 Seconds: Fingers, Toes Peripheral Pulses: Normal: Radial (R), Radial (L), Posterior Tibialis (R), Posterior Tibialis (L), Dorsalis Pedis (R), Dorsalis Pedis (L) Skin Color: Pallor Respiratory Exam: normal lung sounds Cardiovascular Exam: regular rate Medical Decision Making - Medical Decision Making Was pt. sent in by a medical professional or institution (, PA, LAB COURIER, urgent care, hospital, or custodial...) When possible be specific @ -Sent from custodial Did you speak to anyone other than the patient for history (EMS, parent, family, police, friend...)? What history was obtained from this source @ -No Did you review nursing and triage notes (agree or disagree)? Why? @ -I reviewed and agree with nursing and triage notes Were old charts reviewed (outside hosp., previous admission, EMS record, old EKG, old radiological studies, urgent care reports/EKG's, custodial records)? Report findings @ -No old charts were reviewed Differential Diagnosis (chest pain, altered mental status, abdominal pain women, abdominal pain men, vaginal bleeding, musculoskeletal, weakness, fever, dyspnea, syncope, headache, dizziness, GI bleed, back pain, seizure, CVA, palpatations, mental health)? @ -Differential Weakness: Hypoglycemia, shock, sepsis, hyponatremia, anemia, infection, WA, ETOH, adverse medicine reaction, overdose, stroke, this is not meant to be an all-inclusive list. EKG interpreted by me (3pts min.). @ -See above X-rays interpreted by me (1pt min.). @ -Chest x-ray shows infiltrate in the right lower lobe CT interpreted by me (1pt min.). @ -None done U/S interpreted by me (1pt. min.). @ -None done What testing was considered but not performed or refused? (CT, X-rays, U/S, labs)? Why? @ -None What meds were considered but not given or refused? Why? @ -None Did you discuss the management of the patient with other professionals (professionals i.e. , PA, LAB COURIER, lab, RT, psych nurse, social organization professor, prepared foods service team member, teacher, commanding officer motorized squad, oil field caser)? Give summary @ -Discussed with Dr. Goodson and Dr. Benjamin for ICU admission Was smoking cessation discussed for >3mins.? @ -No Was critical care preformed (if so, how long)? @ -Yes, 73 minutes Were there social determinants of health that impacted care today? How? (Homelessness, low income, unemployed, alcoholism, drug addiction, transportation, low edu. Level, literacy, decrease access to med. care, detention, rehab)? @ -No Was there de-escalation of care discussed even if they declined (Discuss DNR or withdrawal of care, Hospice)? DNR status @ -No What co-morbidities impacted this encounter? (DM, HTN, Smoking, COPD, CAD, Cancer, CVA, ARF, Chemo, Hep., AIDS, mental health diagnosis, sleep apnea, morbid obesity)? @ -None Was patient admitted / discharged? Hospital course, mention meds given and route, prescriptions, significant lab abnormalities, going to OR and other pertinent info. @ -87 Year-old male presents to the emergency department for hypertension, alleged hematemesis and nausea vomiting. Patient hypertensive on arrival. Suspect patient is over diuresed. Patient given fluids with improvement. He is placed on low-dose Levophed with stable blood pressures. Laboratory evaluation shows stable CBC, coag panel. BUN is doubled to 135 with elevated renal markers creatinine 3.68. Stool occult blood is negative. Chest x-ray shows right lower lobe infiltrate. Patient started antibiotics. Clinical presentation concerning for sepsis. Patient given gentle IV hydration due to history of heart failure. Undiagnosed new problem with uncertain prognosis? @ -No Drug Therapy requiring intensive monitoring for toxicity (Heparin, Nitro, Insulin, Cardizem)? @ -No Were any procedures done? @ -No Diagnosis/symptom? Acute, or Chronic, or Acute on Chronic? Uncomplicated (without systemic symptoms) or Complicated (systemic symptoms)? @ -Hypertension multifactorial Side effects of treatment? @ -No Exacerbation, Progression, or Severe Exacerbation? @ -No Poses a threat to life or bodily function? How? (Chest pain, [place], [place], pneumonia, PE, COPD, DKA, ARF, appy, cholecystitis, CVA, Diverticulitis, Homicidal, Suicidal, threat to staff... and all critical care pts) @ -yes - Lab Data Result diagrams: 03/08/23 10:31 03/08/23 10:31 Lab Results 03/08/23 03/08/23 03/08/23 Range/Units 10:25 10:31 10:31 WBC 10.2 (3.8-10.6) k/uL RBC 2.10 L (4.30-5.90) m/uL Hgb 7.4 L (13.0-17.5) gm/dL Hct 23.3 L (39.0-53.0) % MCV 111.3 H (80.0-100.0) fL MCH 35.3 H (25.0-35.0) pg MCHC 31.8 (31.0-37.0) g/dL RDW 15.6 H (11.5-15.5) % Plt Count 146 L (150-450) k/uL MPV 9.1 Neutrophils % (Manual) 75 % Lymphocytes % (Manual) 6 % Monocytes % (Manual) 8 % Eosinophils % (Manual) 11 % Neutrophils # (Manual) 7.65 (1.3-7.7) k/uL Lymphocytes # (Manual) 0.61 L (1.0-4.8) k/uL Monocytes # (Manual) 0.82 (0-1.0) k/uL Eosinophils # (Manual) 1.12 H (0-0.7) k/uL Nucleated RBCs 0 (0-0) /100 WBC Manual Slide Review Performed Hypochromasia Marked Anisocytosis (manual) Present Macrocytosis Marked A PT (9.0-12.0) sec INR (<1.2) APTT (22.0-30.0) sec Sodium (137-145) mmol/L Potassium (3.5-5.1) mmol/L Chloride (98-107) mmol/L Carbon Dioxide (22-30) mmol/L Anion Gap mmol/L BUN (9-20) mg/dL Creatinine (0.66-1.25) mg/dL Est GFR (CKD-EPI)AfAm (>60 ml/min/1.73 sqM) Est GFR (CKD-EPI)NonAf (>60 ml/min/1.73 sqM) Glucose (74-99) mg/dL Plasma Lactic Acid Ranjan (0.7-2.0) mmol/L Calcium (8.4-10.2) mg/dL Magnesium (1.6-2.3) mg/dL Total Bilirubin (0.2-1.3) mg/dL AST (17-59) U/L ALT (4-49) U/L Alkaline Phosphatase (38-126) U/L Troponin I (0.000-0.034) ng/mL Total Protein (6.3-8.2) g/dL Albumin (3.5-5.0) g/dL Stool Occult Blood Negative (Negative) Blood Type A Positive Blood Type Recheck A Pos Bld Type Recheck Status No Antibody Screen NEGATIVE Spec Expiration Date 03/11/2023232403/08/23 03/08/23 03/08/23 Range/Units 10:31 10:31 10:31 WBC (3.8-10.6) k/uL RBC (4.30-5.90) m/uL Hgb (13.0-17.5) gm/dL Hct (39.0-53.0) % MCV (80.0-100.0) fL MCH (25.0-35.0) pg MCHC (31.0-37.0) g/dL RDW (11.5-15.5) % Plt Count (150-450) k/uL MPV Neutrophils % (Manual) % Lymphocytes % (Manual) % Monocytes % (Manual) % Eosinophils % (Manual) % Neutrophils # (Manual) (1.3-7.7) k/uL Lymphocytes # (Manual) (1.0-4.8) k/uL Monocytes # (Manual) (0-1.0) k/uL Eosinophils # (Manual) (0-0.7) k/uL Nucleated RBCs (0-0) /100 WBC Manual Slide Review Hypochromasia Anisocytosis (manual) Macrocytosis PT 12.6 H (9.0-12.0) sec INR 1.2 H (<1.2) APTT 28.2 (22.0-30.0) sec Sodium 139 (137-145) mmol/L Potassium 4.9 (3.5-5.1) mmol/L Chloride 103 (98-107) mmol/L Carbon Dioxide 26 (22-30) mmol/L Anion Gap 10 mmol/L BUN 135 H* (9-20) mg/dL Creatinine 3.68 H (0.66-1.25) mg/dL Est GFR (CKD-EPI)AfAm 16 (>60 ml/min/1.73 sqM) Est GFR (CKD-EPI)NonAf 14 (>60 ml/min/1.73 sqM) Glucose 129 H (74-99) mg/dL Plasma Lactic Acid Ranjan 1.3 (0.7-2.0) mmol/L Calcium 8.4 (8.4-10.2) mg/dL Magnesium 3.4 H (1.6-2.3) mg/dL Total Bilirubin 2.2 H (0.2-1.3) mg/dL AST 57 (17-59) U/L ALT 23 (4-49) U/L Alkaline Phosphatase 153 H (38-126) U/L Troponin I (0.000-0.034) ng/mL Total Protein 6.7 (6.3-8.2) g/dL Albumin 3.0 L (3.5-5.0) g/dL Stool Occult Blood (Negative) Blood Type Blood Type Recheck Bld Type Recheck Status Antibody Screen Spec Expiration Date 03/08/23 Range/Units 10:31 WBC (3.8-10.6) k/uL RBC (4.30-5.90) m/uL Hgb (13.0-17.5) gm/dL Hct (39.0-53.0) % MCV (80.0-100.0) fL MCH (25.0-35.0) pg MCHC (31.0-37.0) g/dL RDW (11.5-15.5) % Plt Count (150-450) k/uL MPV Neutrophils % (Manual) % Lymphocytes % (Manual) % Monocytes % (Manual) % Eosinophils % (Manual) % Neutrophils # (Manual) (1.3-7.7) k/uL Lymphocytes # (Manual) (1.0-4.8) k/uL Monocytes # (Manual) (0-1.0) k/uL Eosinophils # (Manual) (0-0.7) k/uL Nucleated RBCs (0-0) /100 WBC Manual Slide Review Hypochromasia Anisocytosis (manual) Macrocytosis PT (9.0-12.0) sec INR (<1.2) APTT (22.0-30.0) sec Sodium (137-145) mmol/L Potassium (3.5-5.1) mmol/L Chloride (98-107) mmol/L Carbon Dioxide (22-30) mmol/L Anion Gap mmol/L BUN (9-20) mg/dL Creatinine (0.66-1.25) mg/dL Est GFR (CKD-EPI)AfAm (>60 ml/min/1.73 sqM) Est GFR (CKD-EPI)NonAf (>60 ml/min/1.73 sqM) Glucose (74-99) mg/dL Plasma Lactic Acid Ranjan (0.7-2.0) mmol/L Calcium (8.4-10.2) mg/dL Magnesium (1.6-2.3) mg/dL Total Bilirubin (0.2-1.3) mg/dL AST (17-59) U/L ALT (4-49) U/L Alkaline Phosphatase (38-126) U/L Troponin I 0.023 (0.000-0.034) ng/mL Total Protein (6.3-8.2) g/dL Albumin (3.5-5.0) g/dL Stool Occult Blood (Negative) Blood Type Blood Type Recheck Bld Type Recheck Status Antibody Screen Spec Expiration Date Disposition Clinical Impression: Hypotension Disposition: ADMITTED IP TO THIS HOSP Condition: Critical Referrals: Bubba Allen DO [Primary Care Provider] - 1-2 days Decision Time: 13:00
[2023-03-08 10:41] LABS: HCT 23.3 % (39.0-53.0); HGB 7.4 gm/dL (13.0-17.5); Hypochromasia Marked; MCH 35.3 pg (25.0-35.0); MCHC 31.8 g/dL (31.0-37.0); MCV 111.3 fL (80.0-100.0); Macrocytosis Marked; Mean Platelet Volume 9.1; Platelet Count 146 k/uL (150-450); RDW 15.6 % (11.5-15.5); WBC 10.2 k/uL (3.8-10.6)
[2023-03-08 11:03] LABS: ALT 23 U/L (4-49); African American GFR (CKD) 16 (>60 ml/min/1.73 sqM); Anion Gap 10 mmol/L; Calcium 8.4 mg/dL (8.4-10.2); Carbon Dioxide 26 mmol/L (22-30); Chloride 103 mmol/L (98-107); Glucose 129 mg/dL (74-99); Non-African American GFR(CKD) 14 (>60 ml/min/1.73 sqM); Sodium 139 mmol/L (137-145); Total Bilirubin 2.2 mg/dL (0.2-1.3)
[2023-03-08 11:07] LABS: INR 1.2 (<1.2); Partial Thromboplastin Time 28.2 sec (22.0-30.0); Prothrombin Time 12.6 sec (9.0-12.0)
[2023-03-08 11:11] LABS: Eosinophils # (M) 1.12 k/uL (0-0.7); Nucleated Red Blood Cells 0 /100 WBC (0-0)
[2023-03-08 11:15] LABS: Lymphocytes # (M) 0.61 k/uL (1.0-4.8); Monocytes # (M) 0.82 k/uL (0-1.0); Neutrophils # (M) 7.65 k/uL (1.3-7.7); Neutrophils % (M) 75 %; Total Cells Counted 200
[2023-03-08] MEDS: NOREPINEPHRINE 4 MG in SODIUM CHLORIDE 0.9% 250 ML IV SCH (11:15)
[2023-03-08 11:16] LABS: Anisocytosis (M) Present
[2023-03-08 11:21] LABS: Potassium 4.9 mmol/L (3.5-5.1)
[2023-03-08 11:22] LABS: Blood Urea Nitrogen 135 mg/dL (9-20)
[2023-03-08 11:23] LABS: AST 57 U/L (17-59); Alkaline Phosphatase 153 U/L (38-126); Magnesium 3.4 mg/dL (1.6-2.3); Total Protein 6.7 g/dL (6.3-8.2)
--- NOTE | 2023-03-08 11:42 | XR ---
EXAMINATION TYPE: XR chest 1V portable DATE OF EXAM: 03/08/2023 11:35 AM COMPARISON: Chest radiographs from 02/25/2023 TECHNIQUE: XR chest 1V portable Frontal view of the chest. CLINICAL INDICATION:Male, 87 years old with history of hypotension; FINDINGS: Lungs/Pleura: The right lower lobe airspace opacities. There is no evidence of pleural effusion, foca l consolidation, or pneumothorax. Pulmonary vascularity: Unremarkable. Heart/mediastinum: Cardiomediastinal silhouette is enlarged and stable. Three lead cardiac conduction device overlying the left hemithorax with lead tips projecting over the right ventricle, right atriu m and coronary sinus. Musculoskeletal: No acute osseous pathology. IMPRESSION: Increased right lower lower lobe airspace opacities correlate for developing pneumonia and/or aspirat ion.
[2023-03-08] MEDS ORDERED: NALOXONE 0.4 MG/ML 1 ML VIAL IV PRN (13:17)
[2023-03-08] MEDS ORDERED: PIPERACILLIN-TAZOBACTAM 3.375 GM in SODIUM CHLORIDE 0.9% 100 ML IVPB STA (13:25)
[2023-03-08] MEDS ORDERED: SODIUM CHLORIDE 0.9% 1,000 ML IV SCH (13:30)
[2023-03-08] MEDS ORDERED: PANTOPRAZOLE 40 MG/10 ML VIAL IVP ONE (14:00)
[2023-03-08] MEDS ORDERED: ONDANSETRON 4 MG/2 ML VIAL IVP PRN (14:21)
[2023-03-08] MEDS ORDERED: MELATONIN 3 MG TABLET PO PRN (14:21)
[2023-03-08] MEDS ORDERED: ACETAMINOPHEN TAB 325 MG TAB PO PRN (14:21)
--- NOTE | 2023-03-08 14:31 | P.HPIM ---
History of Present Illness H&P Date: 03/08/23 Patient is an 87-year-old male with chronic systolic congestive heart failure, anemia, and chronic kidney disease stage III/IV who presented to the ER via EMS from [facility] due to coffee-ground emesis 1. On arrival to the ER he was hypotensive with a blood pressure of 86/40 to the remainder of his vitals are within normal limits. Laboratory analysis was remarkable for hemoglobin 7.4 (7.6 on discharge), platelets 146, sodium 139, BUN 135, creatinine 3.68 (up from 3.02 on discharge), bilirubin 2.2, AST 57, ALT 23, alkaline phosphatase 153, stool occult blood was negative. Chest x-ray is reviewed by myself shows right lower lobe opacification. The ER he was started on levothyroxine and Zosyn. Arrangements were made for admission to the ICU. Patient seen and examined at bedside. He does have some garbled speech but his anal 3. He reports continued nausea but no recent vomiting. He denies any abdominal pain. He denies any diarrhea. He is feeling short of breath but denies chest pain, lightheadedness, dizziness. He doesn't believe he has had a GI bleed in the past. He states his legs have been getting more swollen. He is aware that he had low salt last time he came here. Called his daughter and discussed the case. She states he was doing okay at [facility] but was having some weakness and difficulty working with therapy. Today they called her and stated he had an episode of coffee-ground emesis may resend him to the hospital. She confirms that he is a DO NOT RESUSCITATE. She does report that he had an issue with bleeding in the past and some colon polyps and required a blood transfusion. Vital signs reviewed General: nontoxic, ill-appearing, appears at stated age, obese Derm: warm, dry Eyes: EOMI, no lid lag, anicteric sclera, pupils equal round reactive to light ENT: Nose and ears atraumatic, no thrush, no pharyngeal erythema, garbled speech, dried blood in the back of his throat Cardiovascular: S1S2 reg, no murmur, positive posterior tibial pulse bilateral, 3+ edema bilateral lower extremities, capillary refill less than 2 seconds Lungs: Decreased breath sounds bilateral, no rhonchi, no rales, no wheeze, + accessory muscle use Abdominal: soft, nontender to palpation, no guarding, no appreciable organomegaly, normal bowel sounds Ext: no gross muscle atrophy, moving all 470s independently, no contractures Neuro: CN II-XII grossly intact, no focal neuro deficits noted Psych: Alert, oriented, appropriate affect Assessment/Plan: GI bleed, Suspect Upper Anemia, Acute on chronic with iron def Hypotension, udetermined etiology- hemorrhagic? Yet patient appear fluid ove rladed Possible aspiration Thrombocytopenia - Admit to the ICU as discussed with ED physician - ? uremic bleeding - Protonix 80 mg IVP X 1 now and then 40 mg IV BID - Levophed, titrate to MAp of 60 - Consult surgery and Intensive care - D/W Daughter Margo over the phone, she is POA and confirms that he is a DNR. - Zosyn with pharmacy dosing for elevated creatinine - Serial CBC Acute exacerbation of systolic congestive heart failure with ejection fraction 45-50% KIM on CKD III/ IV Baseline Cr 2-3, possible cardio renal Hx urinary retention - Lasix 60 mg IV BID - hold coreg due to hypotension - insert buenrostro - strict I and O - Avoid nephrotoxic agents - consult nephrology: Case discussed with Dr. Alves who added zyroxlyn and DDAVP with increased BUN Class III obesity with BMI 41.1 -May be falsely elevated due to fluid retention -Outpatient structured weight loss Chronic: P. A fib Gerd CAD Imaging: As per HPI Data Review: As per HPI The patient is admitted with an anticipated greater than 2 midnight stay for evaluation of GI bleed Surrogate decision-maker: Daughter CODE STATUS:DNR DVT prophylaxis: SCDs Anticipated discharge date: Pending Clinical Course Anticipated discharge place: Pending Clinical Course This dictation was prepared using [employer] voice recognition software. T minh every attempt is made to correct errors during dictation some may still exist. Past Medical History Past Medical History: Atrial Fibrillation, Coronary Artery Disease (CAD), Cancer, Heart Failure, GERD/Reflux, Myocardial Infarction ([place]) Additional Past Medical History / Comment(s): Pt states he was told he had a " slight heart attack" in the , occasional low back pain, benign colon polyps, occasional lower leg edema, CKD IV Last Myocardial Infarction Date:: History of Any Multi-Drug Resistant Organisms: None Reported Past Surgical History: Pacemaker Additional Past Surgical History / Comment(s): Pacemaker originally inserted in and replaced in 2018 at [facility] on [place], septal surgery for fractured nose, colonoscopy with benign polypectomy, upper scope Past Anesthesia/Blood Transfusion Reactions: No Reported Reaction Type of Cardiac Device: Permanent Pacemaker Device Placement Date:: and replaced in 2018 Past Psychological History: No Psychological Hx Reported Smoking Status: Former smoker Past Alcohol Use History: None Reported Past Drug Use History: None Reported - Past Family History Father Family Medical History: No Reported History Additional Family Medical History / Comment(s): Father was healthy and lived to be in his 70s or 80s. Mother Family Medical History: CVA/TIA, Vascular Disorder Additional Family Medical History / Comment(s): Mother of a cerebral hemorrhage at the age of 57 yrs. Medications and Allergies Home Medications Medication Instructions Recorded Confirmed Type carvediloL [Coreg] 3.125 mg PO BID 05/25/18 03/08/23 History Docusate [Colace] 100 mg PO BID 06/29/19 03/08/23 History Darbepoetin Zacarias [Aranesp] 40 mcg SQ Q7D each 02/26/23 03/08/23 Rx Famotidine [Pepcid] 20 mg PO DAILY tab 02/26/23 03/08/23 Rx Nystatin 100,000 Unit/gm Powd 1 applic TOPICAL BID each 02/26/23 03/08/23 Rx [Mycostatin Powder] ALPRAZolam [Xanax] 0.5 mg PO Q6H PRN 03/08/23 03/08/23 History Acetaminophen Tab [Tylenol] 650 mg PO Q6H PRN 03/08/23 03/08/23 History Cholecalciferol [Vitamin D3 (25 25 mcg PO DAILY 03/08/23 03/08/23 History Mcg = 1000 Iu)] HYDROcodone/APAP 7.5-325MG [[place] 1 tab PO BID 03/08/23 03/08/23 History 7.5-325] Ipratropium-Albuterol Nebulize 3 ml INHALATION RT-TID 03/08/23 03/08/23 History [Duoneb 0.5 mg-3 mg/3 ml Soln] Maalox Plus 30 ml PO Q6H PRN 03/08/23 03/08/23 History Sennosides-Docusate Sodium 2 tab PO BID 03/08/23 03/08/23 History [Senokot-S] Tamsulosin [Flomax] 0.4 mg PO DAILY 03/08/23 03/08/23 History Allergies Allergy/AdvReac Type Severity Reaction Status Date / Time No Known Allergies Allergy Verified 03/08/23 11:07 Physical Exam Osteopathic Statement: *. No significant issues noted on an osteopathic structural exam other than those noted in the History and Physical/Consult. Vitals: Vital Signs Temp Pulse Resp BP Pulse Ox 03/08/23 12:00 71 20 92/51 98 03/08/23 10:07 97.1 F L 69 18 86/42 97 Intake and Output 03/07/23 03/08/23 03/08/23 22:59 06:59 14:59 Other: Weight 145.15 kg Results CBC & Chem 7: 03/08/23 10:31 03/08/23 10:31 Labs: Abnormal Lab Results - Last 24 Hours (Table) 03/08/23 03/08/23 03/08/23 Range/Units 10:31 10:31 10:31 RBC 2.10 L (4.30-5.90) m/uL Hgb 7.4 L (13.0-17.5) gm/dL Hct 23.3 L (39.0-53.0) % MCV 111.3 H (80.0-100.0) fL MCH 35.3 H (25.0-35.0) pg RDW 15.6 H (11.5-15.5) % Plt Count 146 L (150-450) k/uL Lymphocytes # (Manual) 0.61 L (1.0-4.8) k/uL Eosinophils # (Manual) 1.12 H (0-0.7) k/uL Macrocytosis Marked A PT 12.6 H (9.0-12.0) sec INR 1.2 H (<1.2) BUN 135 H* (9-20) mg/dL Creatinine 3.68 H (0.66-1.25) mg/dL Glucose 129 H (74-99) mg/dL Magnesium 3.4 H (1.6-2.3) mg/dL Total Bilirubin 2.2 H (0.2-1.3) mg/dL Alkaline Phosphatase 153 H (38-126) U/L Albumin 3.0 L (3.5-5.0) g/dL
--- NOTE | 2023-03-08 14:40 | P.NPCON ---
History of Present Illness - Reason for Consult acute renal failure, chronic renal failure - History of Present Illness Reason for consultation: Acute kidney injury on chronic kidney disease History of present illness: Patient is a 87-year-old male seen in renal consultation for acute kidney injury on chronic kidney disease. Patient was recently admitted at this facility earlier this month and was seen for acute kidney injury and hyponatremia. Patient did require 3% saline during prior admission. Patient has chronic kidney disease stage III. Baseline creatinine 1.1-1.3 in April 2021. Earlier this month patient's creatinine was 2.2-3. He also has history of systolic CHF with ejection fraction of 45-50% with mild to moderate tricuspid regurgitation and severe pulmonary hypertension. Patient had urinary retention last admission and Driver catheter was removed prior to discharge. Patient was an extended care facility and was brought to the hospital due to an episode of hematemesis. Hemoglobin is 7.4. Patient's hemoglobin at the time of last discharge was 7.6 dated 02/25/2023. Patient's renal ultrasound from earlier this month showed no evidence of hydronephrosis. Patient is currently on 6 L nasal cannula. He is on low-dose Levophed. Blood pressure is in the systolic 80s to 90s. He did receive 1 L bolus of normal saline on admission. He's also on midodrine. Patient is not a very reliable historian. Vital signs are stable. General: Resting in bed. HEENT: On nasal cannula. LUNGS: Scattered rhonchi. HEART: Rate and Rhythm are regular. ABDOMEN: Obese. EXTREMITITES: 2+ edema. Past Medical History Past Medical History: Atrial Fibrillation, Cancer, GERD/Reflux, Myocardial Infarction ([place]) Additional Past Medical History / Comment(s): Pt states he was told he had a "slight heart attack" in the , occasional low back pain, benign colon polyps, occasional lower leg edema. Last Myocardial Infarction Date:: History of Any Multi-Drug Resistant Organisms: None Reported Past Surgical History: Pacemaker Additional Past Surgical History / Comment(s): Pacemaker originally inserted in and replaced in 2018 at [facility] on [place], septal surgery for fractured nose, colonoscopy with benign polypectomy, upper scope Past Anesthesia/Blood Transfusion Reactions: No Reported Reaction Type of Cardiac Device: Permanent Pacemaker Device Placement Date:: and replaced in 2018 Past Psychological History: No Psychological Hx Reported Smoking Status: Former smoker Past Alcohol Use History: None Reported Past Drug Use History: None Reported - Past Family History Father Family Medical History: No Reported History Additional Family Medical History / Comment(s): Father was healthy and lived to be in his 70s or 80s. Mother Family Medical History: CVA/TIA, Vascular Disorder Additional Family Medical History / Comment(s): Mother of a cerebral hemorrhage at the age of 57 yrs. Medications and Allergies Home Medications Medication Instructions Recorded Confirmed Type carvediloL [Coreg] 3.125 mg PO BID 05/25/18 03/08/23 History Docusate [Colace] 100 mg PO BID 06/29/19 03/08/23 History Darbepoetin Zacarias [Aranesp] 40 mcg SQ Q7D each 02/26/23 03/08/23 Rx Famotidine [Pepcid] 20 mg PO DAILY tab 02/26/23 03/08/23 Rx Nystatin 100,000 Unit/gm Powd 1 applic TOPICAL BID each 02/26/23 03/08/23 Rx [Mycostatin Powder] ALPRAZolam [Xanax] 0.5 mg PO Q6H PRN 03/08/23 03/08/23 History Acetaminophen Tab [Tylenol] 650 mg PO Q6H PRN 03/08/23 03/08/23 History Cholecalciferol [Vitamin D3 (25 25 mcg PO DAILY 03/08/23 03/08/23 History Mcg = 1000 Iu)] HYDROcodone/APAP 7.5-325MG [[place] 1 tab PO BID 03/08/23 03/08/23 History 7.5-325] Ipratropium-Albuterol Nebulize 3 ml INHALATION RT-TID 03/08/23 03/08/23 History [Duoneb 0.5 mg-3 mg/3 ml Soln] Maalox Plus 30 ml PO Q6H PRN 03/08/23 03/08/23 History Sennosides-Docusate Sodium 2 tab PO BID 03/08/23 03/08/23 History [Senokot-S] Tamsulosin [Flomax] 0.4 mg PO DAILY 03/08/23 03/08/23 History Allergies Allergy/AdvReac Type Severity Reaction Status Date / Time No Known Allergies Allergy Verified 03/08/23 11:07 Physical Exam Vitals: Vital Signs Temp Pulse Resp BP Pulse Ox 03/08/23 12:00 71 20 92/51 98 03/08/23 10:07 97.1 F L 69 18 86/42 97 Intake and Output 03/07/23 03/08/23 03/08/23 22:59 06:59 14:59 Other: Weight 145.15 kg Results - Lab Results Most recent lab results Calcium 8.4 mg/dL (8.4-10.2) 03/08/23 10:31 Magnesium 3.4 mg/dL (1.6-2.3) H 03/08/23 10:31 03/08/23 10:31 03/08/23 10:31 Assessment and Plan Plan: Assessment: 1. Acute kidney injury secondary to ATN secondary to hypotension and cardiorenal syndrome. Creatinine 3.68 today. Ultrasound from earlier this month showed no evidence of hydronephrosis. 2. Chronic kidney disease stage III with baseline creatinine 1.1-1.3 from April 2021. However creatinine from earlier this month was in the range of 2.3-3. UA dated 02/17/2023 showed no proteinuria. Suspect underlying nephrosclerosis and cardiorenal syndrome. 3. Acute hypoxic history failure. 4. Volume overload. 5. Acute on chronic systolic CHF with ejection fraction of 45% with severe pulmonary hypertension and mild to moderate tricuspid regurgitation. 6. Anemia of chronic kidney disease with an episode of hematemesis. Rule out iron deficiency. Plan: IV Lasix 60 mg twice daily. Metolazone 5 mg once daily. IV DDAVP 1 dose today. Check iron studies. Add Aranesp. Wean Levophed. Maintain midodrine. Cortisol level 21 dated 02/19/2023. Strict is and os. Insert Driver catheter. Continue to assess daily for need for renal replacement therapy. Thank you for the consultation. I will continue to follow the patient daily during his hospital stay.
[2023-03-08] MEDS ORDERED: DARBEPOETIN ALFA 40 MCG/0.4 ML SYRINGE SQ SCH (15:00)
[2023-03-08] MEDS: FUROSEMIDE 10 MG/ML 10 ML VIAL IV SCH ×2 (15:29→21:14)
[2023-03-08] MEDS ORDERED: DESMOPRESSIN ACETATE 44 MCG in SODIUM CHLORIDE 0.9% 50 ML IVPB ONE (15:30)
[2023-03-08] MEDS ORDERED: SODIUM CHLORIDE 0.9% 1,000 ML IV ONE (16:00)
[2023-03-08] MEDS: MIDODRINE 5 MG TAB PO SCH ×2 (16:08→20:26)
--- NOTE | 2023-03-08 16:28 | P.CNPUL ---
History of Present Illness Consult date: 03/08/23 Requesting physician: Jeannine Suggs Chief complaint: Hypotension. History of present illness: Pulmonary consult dated 03/08/2023. 87-year-old male who was seen in the emergency department. He is seen in room 11. He apparently presented to the hospital with complaints of a possible GI bleed. He apparently had an episode of coffee ground emesis. He was having nausea, but not vomiting. He was found to be hypotensive, and given some fluids, and then started on some norepinephrine. I was called by the ER physic arie, who wanted the patient admitted to the intensive care unit, for monitoring and management, given the fact that he was on norepinephrine. I recommended some additional IV fluids, and midodrine. The patient is currently seen in the emergency department, and is currently on norepinephrine at 0.01 mcg/kg/m, and getting oxygen by nasal cannula at 5 L. The patient is a DO NOT RESUSCITATE patient. He was recently seen by me on February 17, for progressive weakness secondary to acute kidney injury, and hyponatremia. He has a history of chronic systolic and diastolic CHF, stage III chronic kidney disease, atrial fibrillation, previous pacemaker implantation, morbid obesity, and previous tobacco use. His hyponatremia was thought to be hypovolemic hyponatremia. He was transferred to the intensive care unit, where he was given 3% saline per nephrology. The patient cannot really give much of a history, and is mostly mumbling. I've asked the nurse to give him another liter of saline. White count 10.2, hemoglobin 7.4, hematocrit 23.3, with a platelet count of 146,000. PT is 12.6 with an INR 1.2. Sodium 139, potassium 4.9, chlorides 103, CO2 26, anion gap 10, BUN 135, and creatinine 3.68. Chest x-ray shows what appears to be some possible infiltrate in the right lower lobe. There is some history of aspiration. Review of Systems REVIEW OF SYSTEMS: CONSTITUTIONAL: Weakness. NEUROLOGIC: [ Negative.] HEENT: [ Negative.] CARDIAC: Hypotension. PULMONARY: Shortness of breath. GI: Coffee ground emesis. : [Negative.] RHEUMATOLOGIC: [ Negative.] IMMUNOLOGIC: [ Negative.] ENDOCRINE: [Negative. ] DERMATOLOGIC: [Negative.] Past Medical History Past Medical History: Atrial Fibrillation, Coronary Artery Disease (CAD), Cancer, Heart Failure, GERD/Reflux, Myocardial Infarction ([place]) Additional Past Medical History / Comment(s): Pt states he was told he had a "slight heart attack" in the , occasional low back pain, benign colon polyps, occasional lower leg edema, CKD IV Last Myocardial Infarction Date:: History of Any Multi-Drug Resistant Organisms: None Reported Past Surgical History: Pacemaker Additional Past Surgical History / Comment(s): Pacemaker originally inserted in and replaced in 2018 at [facility] on [place], septal surgery for fractured nose, colonoscopy with benign polypectomy, upper scope Past Anesthesia/Blood Transfusion Reactions: No Reported Reaction Type of Cardiac Device: Permanent Pacemaker Device Placement Date:: and replaced in 2018 Past Psychological History: No Psychological Hx Reported Smoking Status: Former smoker Past Alcohol Use History: None Reported Past Drug Use History: None Reported - Past Family History Father Family Medical History: No Reported History Additional Family Medical History / Comment(s): Father was healthy and lived to be in his 70s or 80s. Mother Family Medical History: CVA/TIA, Vascular Disorder Additional Family Medical History / Comment(s): Mother of a cerebral he morrhage at the age of 57 yrs. Medications and Allergies Home Medications Medication Instructions Recorded Confirmed Type carvediloL [Coreg] 3.125 mg PO BID 05/25/18 03/08/23 History Docusate [Colace] 100 mg PO BID 06/29/19 03/08/23 History Darbepoetin Zacarias [Aranesp] 40 mcg SQ Q7D each 02/26/23 03/08/23 Rx Famotidine [Pepcid] 20 mg PO DAILY tab 02/26/23 03/08/23 Rx Nystatin 100,000 Unit/gm Powd 1 applic TOPICAL BID each 02/26/23 03/08/23 Rx [Mycostatin Powder] ALPRAZolam [Xanax] 0.5 mg PO Q6H PRN 03/08/23 03/08/23 History Acetaminophen Tab [Tylenol] 650 mg PO Q6H PRN 03/08/23 03/08/23 History Cholecalciferol [Vitamin D3 (25 25 mcg PO DAILY 03/08/23 03/08/23 History Mcg = 1000 Iu)] HYDROcodone/APAP 7.5-325MG [[place] 1 tab PO BID 03/08/23 03/08/23 History 7.5-325] Ipratropium-Albuterol Nebulize 3 ml INHALATION RT-TID 03/08/23 03/08/23 History [Duoneb 0.5 mg-3 mg/3 ml Soln] Maalox Plus 30 ml PO Q6H PRN 03/08/23 03/08/23 History Sennosides-Docusate Sodium 2 tab PO BID 03/08/23 03/08/23 History [Senokot-S] Tamsulosin [Flomax] 0.4 mg PO DAILY 03/08/23 03/08/23 History Allergies Allergy/AdvReac Type Severity Reaction Status Date / Time No Known Allergies Allergy Verified 03/08/23 11:07 Physical Exam Osteopathic Statement: *. No significant issues noted on an osteopathic structural exam other than those noted in the History and Physical/Consult. Vitals: Vital Signs Temp Pulse Resp BP Pulse Ox 03/08/23 12:00 71 20 92/51 98 03/08/23 10:07 97.1 F L 69 18 86/42 97 Intake and Output 03/08/23 03/08/23 03/08/23 06:59 14:59 22:59 Other: Weight 145.15 kg No acute distress, somnolent, not a particularly good historian, currently on 5 L of oxygen by nasal cannula. HEENT examination is grossly unremarkable. Neck supple. Full range of motion. No adenopathy thyromegaly or neck vein distention. Cardiovascular examination reveals regular rhythm rate. S1-S2 normal. No S3 or S4. No discernible murmur noted. Heart sounds are distant. Heart rate 71 bpm. Lungs reveal scattered bilateral rhonchi. No wheezes or crackles. Breath sounds are equal bilaterally. 2 L saturation is 98%. Abdomen distended, with bowel sounds. No tenderness. Extremities are intact. No cyanosis or clubbing. There is 1+ edema.. Skin reveals multiple areas of ecchymoses. Neurologic examination is difficult to evaluate. Results - Laboratory Findings CBC and BMP: 03/08/23 10:31 03/08/23 10:31 PT/INR, D-dimer PT 12.6 sec (9.0-12.0) H 03/08/23 10:31 INR 1.2 (<1.2) H 03/08/23 10:31 Abnormal lab findings: Abnormal Labs 03/08/23 03/08/23 03/08/23 10:31 10:31 10:31 RBC 2.10 L Hgb 7.4 L Hct 23.3 L MCV 111.3 H MCH 35.3 H RDW 15.6 H Plt Count 146 L Lymphocytes # (Manual) 0.61 L Eosinophils # (Manual) 1.12 H Macrocytosis Marked A PT 12.6 H INR 1.2 H BUN 135 H* Creatinine 3.68 H Glucose 129 H Magnesium 3.4 H Total Bilirubin 2.2 H Alkaline Phosphatase 153 H Albumin 3.0 L - Diagnostic Findings Chest x-ray: image reviewed Assessment and Plan Assessment: Coffee ground emesis, rule out acute GI bleed. Possible aspiration pneumonia, right lower lobe. Recent hospitalization for hypovolemic hyponatremia, requiring 3% saline. Acute on chronic kidney disease. Acute hypotension, of unclear etiology. The patient is currently on a small amount of norepinephrine. History of chronic atrial fibrillation. History of myocardial infarction. History of gastroesophageal reflux disease. Pulmonary hypertension. History of pacemaker implantation. Morbid obesity. History of tobacco use. Plan: Plan dated 03/08/2023. The patient is currently on a small amount the norepinephrine for her hypotension. The patient is a DO NOT RESUSCITATE patient. I did approve a bed in the intensive care unit for closer monitoring and management. The patient will get another liter of saline, to determine if we can wean off the norepinephrine. The patient was given midodrine, 10 mg 3 times a day. In addition, the patient was placed on Zosyn for possible aspiration pneumonia. The patient's overall prognosis is very poor. Additional recommendations and suggestions are forthcoming. Time with Patient: Greater than 30
[2023-03-08] MEDS: metOLazone 5 MG TAB PO SCH (17:06)
[2023-03-08 17:39] LABS: HCT 22.2 % (39.0-53.0); Hypochromasia Marked; MCH 36.5 pg (25.0-35.0); MCHC 31.6 g/dL (31.0-37.0); MCV 115.5 fL (80.0-100.0); Macrocytosis Marked; Mean Platelet Volume 9.1; Platelet Count 128 k/uL (150-450); RBC 1.92 m/uL (4.30-5.90); RDW 15.9 % (11.5-15.5); WBC 9.6 k/uL (3.8-10.6)
[2023-03-08] MEDS: IPRATROPIUM-ALBUTEROL 3 ML NEB INHALATION SCH (20:33)
[2023-03-08] MEDS: HYDROcodone/APAP 7.5-325MG 1 EACH TAB PO SCH (21:15)
[2023-03-08] MEDS: PANTOPRAZOLE 40 MG/10 ML VIAL IVP SCH (21:15)
[2023-03-08 22:14] LABS: Glucose,Whole Blood 144 mg/dL (70-110)
[2023-03-09 00:01] LABS: Anisocytosis Slight; HCT 23.1 % (39.0-53.0); HGB 7.2 gm/dL (13.0-17.5); Hypochromasia Marked; MCH 35.8 pg (25.0-35.0); MCHC 31.2 g/dL (31.0-37.0); MCV 114.6 fL (80.0-100.0); Platelet Count 140 k/uL (150-450); RBC 2.02 m/uL (4.30-5.90); RDW 16.1 % (11.5-15.5); WBC 10.7 k/uL (3.8-10.6)
[2023-03-09 00:13] LABS: Macrocytosis Marked
[2023-03-09] MEDS: SENNOSIDES-DOCUSATE SODIUM 1 EACH TAB PO SCH ×3 (00:51→20:16)
[2023-03-09] MEDS: PIPERACILLIN-TAZOBACTAM 3.375 GM in SODIUM CHLORIDE 0.9% 100 ML IVPB SCH ×2 (01:55→17:39)
[2023-03-09 03:21] LABS: % Iron Saturation 11.07 (15.00-50.00)
[2023-03-09] MEDS ORDERED: SODIUM CHLORIDE 0.9% 500 ML 500 ML IV ONE (04:16)
[2023-03-09 04:32] LABS: HCT 22.7 % (39.0-53.0); HGB 7.2 gm/dL (13.0-17.5); Hypochromasia Marked; MCH 35.9 pg (25.0-35.0); MCHC 31.5 g/dL (31.0-37.0); MCV 114.2 fL (80.0-100.0); Mean Platelet Volume 9.3; Platelet Count 130 k/uL (150-450); RBC 1.99 m/uL (4.30-5.90); RDW 15.8 % (11.5-15.5); WBC 10.5 k/uL (3.8-10.6)
[2023-03-09 04:43] LABS: African American GFR (CKD) 17 (>60 ml/min/1.73 sqM); Anion Gap 8 mmol/L; Calcium 7.9 mg/dL (8.4-10.2); Carbon Dioxide 26 mmol/L (22-30); Chloride 105 mmol/L (98-107); Glucose 96 mg/dL (74-99); Magnesium 3.2 mg/dL (1.6-2.3); Non-African American GFR(CKD) 15 (>60 ml/min/1.73 sqM); Potassium 4.6 mmol/L (3.5-5.1); Sodium 139 mmol/L (137-145)
[2023-03-09 04:44] LABS: Blood Urea Nitrogen 117 mg/dL (9-20)
[2023-03-09 05:09] LABS: Macrocytosis Marked
[2023-03-09 06:15] LABS: Anisocytosis Slight; HCT 22.6 % (39.0-53.0); HGB 7.1 gm/dL (13.0-17.5); Hypochromasia Marked; MCH 35.7 pg (25.0-35.0); MCHC 31.4 g/dL (31.0-37.0); MCV 113.6 fL (80.0-100.0); Mean Platelet Volume 9.2; Platelet Count 127 k/uL (150-450); RBC 1.99 m/uL (4.30-5.90); RDW 16.1 % (11.5-15.5); WBC 10.5 k/uL (3.8-10.6)
[2023-03-09 06:42] LABS: Macrocytosis Marked
[2023-03-09] MEDS: MIDODRINE 5 MG TAB PO SCH ×3 (06:45→17:39)
--- NOTE | 2023-03-09 07:33 | P.GSHP ---
History of Present Illness H&P Date: 03/09/23 Chief Complaint: Anemia, GI bleed This 87-year-old male with multiple medical problems. Patient is known to have history of chronic anemia. Patient was examined the medical doctor today. There is question of possible upper GI bleed. Apparently some blood seen in the patient's mouth. Patient is a poor historian. Past medical history is obtained from the chart. Past Medical History Past Medical History: Atrial Fibrillation, Coronary Artery Disease (CAD), Cancer, Heart Failure, GERD/Reflux, Myocardial Infarction (NM) Additional Past Medical History / Comment(s): Pt states he was told he had a "slight heart attack" in the , occasional low back pain, benign colon polyps, occasional lower leg edema, CKD IV Last Myocardial Infarction Date:: History of Any Multi-Drug Resistant Organisms: None Reported Past Surgical History: Pacemaker Additional Past Surgical History / Comment(s): Pacemaker originally inserted in and replaced in [address] [facility] on [place], septal surgery for fractured nose, colonoscopy with benign polypectomy, upper scope Past Anesthesia/Blood Transfusion Reactions: No Reported Reaction Type of Cardiac Device: Permanent Pacemaker Device Placement Date:: and replaced in 2017 Past Psychological History: No Psychological Hx Reported Smoking Status: Former smoker Past Alcohol Use History: None Reported Past Drug Use History: None Reported - Past Family History Father Family Medical History: No Reported History Additional Family Medical History / Comment(s): Father was healthy and lived to be in his 70s or 80s. Mother Family Medical History: CVA/TIA, Vascular Disorder Additional Family Medical History / Comment(s): Mother of a cerebral hemorrhage at the age of 57 yrs. Medications and Allergies Home Medications Medication Instructions Recorded Confirmed Type carvediloL [Coreg] 3.125 mg PO BID 05/25/18 03/08/23 History Docusate [Colace] 100 mg PO BID 06/29/19 03/08/23 History Darbepoetin Zacarias [Aranesp] 40 mcg SQ Q7D each 02/26/23 03/08/23 Rx Famotidine [Pepcid] 20 mg PO DAILY tab 02/26/23 03/08/23 Rx Nystatin 100,000 Unit/gm Powd 1 applic TOPICAL BID each 02/26/23 03/08/23 Rx [Mycostatin Powder] ALPRAZolam [Xanax] 0.5 mg PO Q6H PRN 03/08/23 03/08/23 History Acetaminophen Tab [Tylenol] 650 mg PO Q6H PRN 03/08/23 03/08/23 History Cholecalciferol [Vitamin D3 (25 25 mcg PO DAILY 03/08/23 03/08/23 History Mcg = 1000 Iu)] HYDROcodone/APAP 7.5-325MG [Perry 1 tab PO BID 03/08/23 03/08/23 History 7.5-325] Ipratropium-Albuterol Nebulize 3 ml INHALATION RT-TID 03/08/23 03/08/23 History [Duoneb 0.5 mg-3 mg/3 ml Soln] Maalox Plus 30 ml PO Q6H PRN 03/08/23 03/08/23 History Sennosides-Docusate Sodium 2 tab PO BID 03/08/23 03/08/23 History [Senokot-S] Tamsulosin [Flomax] 0.4 mg PO DAILY 03/08/23 03/08/23 History Allergies Allergy/AdvReac Type Severity Reaction Status Date / Time No Known Allergies Allergy Verified 03/08/23 11:07 Surgical - Exam Vital Signs Temp Pulse Resp BP Pulse Ox 97.1 F L 69 18 86/42 97 03/08/23 10:07 03/08/23 10:07 03/08/23 10:07 03/08/23 10:07 03/08/23 10:07 - General well developed, no distress - Eyes PERRL - ENT normal pinna - Neck no masses - Respiratory normal expansion - Cardiovascular Rhythm: regular - Abdomen Abdomen: soft, non tender Results - Labs 03/09/23 05:55 03/09/23 04:01 Abnormal Lab Results - Last 24 Hours (Table) 03/08/23 03/08/23 03/08/23 Range/Units 10:31 10:31 10:31 WBC (3.8-10.6) k/uL RBC 2.10 L (4.30-5.90) m/uL Hgb 7.4 L (13.0-17.5) gm/dL Hct 23.3 L (39.0-53.0) % MCV 111.3 H (80.0-100.0) fL MCH 35.3 H (25.0-35.0) pg RDW 15.6 H (11.5-15.5) % Plt Count 146 L (150-450) k/uL Lymphocytes # (Manual) 0.61 L (1.0-4.8) k/uL Eosinophils # (Manual) 1.12 H (0-0.7) k/uL Macrocytosis Marked A PT 12.6 H (9.0-12.0) sec INR 1.2 H (<1.2) BUN 135 H* (9-20) mg/dL Creatinine 3.68 H (0.66-1.25) mg/dL Glucose 129 H (74-99) mg/dL POC Glucose (mg/dL) (70-110) mg/dL Calcium (8.4-10.2) mg/dL Phosphorus (2.5-4.5) mg/dL Magnesium 3.4 H (1.6-2.3) mg/dL Iron (65-175) UG/DL % Saturation (15.00-50.00) Transferrin (204.0-354.0) mg/dL Total Bilirubin 2.2 H (0.2-1.3) mg/dL Alkaline Phosphatase 153 H (38-126) U/L Albumin 3.0 L (3.5-5.0) g/dL 03/08/23 03/08/23 03/08/23 Range/Units 16:51 16:51 22:12 WBC (3.8-10.6) k/uL RBC 1.92 L (4.30-5.90) m/uL Hgb 7.0 L (13.0-17.5) gm/dL Hct 22.2 L (39.0-53.0) % MCV 115.5 H (80.0-100.0) fL MCH 36.5 H (25.0-35.0) pg RDW 15.9 H (11.5-15.5) % Plt Count 128 L (150-450) k/uL Lymphocytes # (Manual) (1.0-4.8) k/uL Eosinophils # (Manual) (0-0.7) k/uL Macrocytosis Marked A PT (9.0-12.0) sec INR (<1.2) BUN (9-20) mg/dL Creatinine (0.66-1.25) mg/dL Glucose (74-99) mg/dL POC Glucose (mg/dL) 144 H (70-110) mg/dL Calcium (8.4-10.2) mg/dL Phosphorus (2.5-4.5) mg/dL Magnesium (1.6-2.3) mg/dL Iron 31 L (65-175) UG/DL % Saturation 11.07 L (15.00-50.00) Transferrin 200.0 L (204.0-354.0) mg/dL Total Bilirubin (0.2-1.3) mg/dL Alkaline Phosphatase (38-126) U/L Albumin (3.5-5.0) g/dL 03/08/23 03/09/23 03/09/23 Range/Units 23:05 04:01 04:01 WBC 10.7 H (3.8-10.6) k/uL RBC 2.02 L 1.99 L (4.30-5.90) m/uL Hgb 7.2 L 7.2 L (13.0-17.5) gm/dL Hct 23.1 L 22.7 L (39.0-53.0) % MCV 114.6 H 114.2 H (80.0-100.0) fL MCH 35.8 H 35.9 H (25.0-35.0) pg RDW 16.1 H 15.8 H (11.5-15.5) % Plt Count 140 L 130 L (150-450) k/uL Lymphocytes # (Manual) (1.0-4.8) k/uL Eosinophils # (Manual) (0-0.7) k/uL Macrocytosis Marked A Marked A PT (9.0-12.0) sec INR (<1.2) BUN 117 H* (9-20) mg/dL Creatinine 3.59 H (0.66-1.25) mg/dL Glucose (74-99) mg/dL POC Glucose (mg/dL) (70-110) mg/dL Calcium 7.9 L (8.4-10.2) mg/dL Phosphorus 5.0 H (2.5-4.5) mg/dL Magnesium 3.2 H (1.6-2.3) mg/dL Iron (65-175) UG/DL % Saturation (15.00-50.00) Transferrin (204.0-354.0) mg/dL Total Bilirubin (0.2-1.3) mg/dL Alkaline Phosphatase (38-126) U/L Albumin (3.5-5.0) g/dL 03/09/23 Range/Units 05:55 WBC (3.8-10.6) k/uL RBC 1.99 L (4.30-5.90) m/uL Hgb 7.1 L (13.0-17.5) gm/dL Hct 22.6 L (39.0-53.0) % MCV 113.6 H (80.0-100.0) fL MCH 35.7 H (25.0-35.0) pg RDW 16.1 H (11.5-15.5) % Plt Count 127 L (150-450) k/uL Lymphocytes # (Manual) (1.0-4.8) k/uL Eosinophils # (Manual) (0-0.7) k/uL Macrocytosis Marked A PT (9.0-12.0) sec INR (<1.2) BUN (9-20) mg/dL Creatinine (0.66-1.25) mg/dL Glucose (74-99) mg/dL POC Glucose (mg/dL) (70-110) mg/dL Calcium (8.4-10.2) mg/dL Phosphorus (2.5-4.5) mg/dL Magnesium (1.6-2.3) mg/dL Iron (65-175) UG/DL % Saturation (15.00-50.00) Transferrin (204.0-354.0) mg/dL Total Bilirubin (0.2-1.3) mg/dL Alkaline Phosphatase (38-126) U/L Albumin (3.5-5.0) g/dL Diabetes panel 03/08/23 03/09/23 Range/Units 10:31 04:01 Sodium 139 139 (137-145) mmol/L Potassium 4.9 4.6 (3.5-5.1) mmol/L Chloride 103 105 (98-107) mmol/L Carbon Dioxide 26 26 (22-30) mmol/L BUN 135 H* 117 H* (9-20) mg/dL Creatinine 3.68 H 3.59 H (0.66-1.25) mg/dL Glucose 129 H 96 (74-99) mg/dL Calcium 8.4 7.9 L (8.4-10.2) mg/dL AST 57 (17-59) U/L ALT 23 (4-49) U/L Alkaline Phosphatase 153 H (38-126) U/L Total Protein 6.7 (6.3-8.2) g/dL Albumin 3.0 L (3.5-5.0) g/dL Calcium panel 03/08/23 03/09/23 Range/Units 10:31 04:01 Calcium 8.4 7.9 L (8.4-10.2) mg/dL Phosphorus 5.0 H (2.5-4.5) mg/dL Albumin 3.0 L (3.5-5.0) g/dL Pituitary panel 03/08/23 03/09/23 Range/Units 10:31 04:01 Sodium 139 139 (137-145) mmol/L Potassium 4.9 4.6 (3.5-5.1) mmol/L Chloride 103 105 (98-107) mmol/L Carbon Dioxide 26 26 (22-30) mmol/L BUN 135 H* 117 H* (9-20) mg/dL Creatinine 3.68 H 3.59 H (0.66-1.25) mg/dL Glucose 129 H 96 (74-99) mg/dL Calcium 8.4 7.9 L (8.4-10.2) mg/dL Adrenal panel 03/08/23 03/09/23 Range/Units 10:31 04:01 Sodium 139 139 (137-145) mmol/L Potassium 4.9 4.6 (3.5-5.1) mmol/L Chloride 103 105 (98-107) mmol/L Carbon Dioxide 26 26 (22-30) mmol/L BUN 135 H* 117 H* (9-20) mg/dL Creatinine 3.68 H 3.59 H (0.66-1.25) mg/dL Glucose 129 H 96 (74-99) mg/dL Calcium 8.4 7.9 L (8.4-10.2) mg/dL Total Bilirubin 2.2 H (0.2-1.3) mg/dL AST 57 (17-59) U/L ALT 23 (4-49) U/L Alkaline Phosphatase 153 H (38-126) U/L Total Protein 6.7 (6.3-8.2) g/dL Albumin 3.0 L (3.5-5.0) g/dL Assessment and Plan Assessment: History of anemia and possible upper GI bleed. Patient undergo EGD if stable t omorrow.
--- NOTE | 2023-03-09 08:18 | XR ---
EXAMINATION TYPE: XR chest 1V portable DATE OF EXAM: 03/09/2023 HISTORY: Shortness of breath. COMPARISON: 03/08/2023 TECHNIQUE: Single view of the chest is submitted. FINDINGS: Demonstrated are scattered senescent parenchymal change. Improved aeration right lower lobe. The heart is stable. Hilar and mediastinal structures are within normal limits. Degenerative changes are seen of the dorsal spine. IMPRESSION: 1. Chronic changes without evidence for acute pulmonary disease.
[2023-03-09] MEDS: IPRATROPIUM-ALBUTEROL 3 ML NEB INHALATION SCH ×3 (08:29→20:31)
[2023-03-09] MEDS ORDERED: TAMSULOSIN 0.4 MG CAP.ER.24H PO SCH (09:00)
--- NOTE | 2023-03-09 09:20 | P.PN ---
Subjective Progress Note Date: 03/09/23 Principal diagnosis: Hypotension. Pulmonary consult dated 03/08/2023. 87-year-old male who was seen in the emergency department. He is seen in room 11. He apparently presented to the hospital with complaints of a possible GI bleed. He apparently had an episode of coffee ground emesis. He was having nausea, but not vomiting. He was found to be hypotensive, and given some fluids, and then started on some norepinephrine. I was called by the ER physician, who wanted the patient admitted to the intensive care unit, for monitoring and management, given the fact that he was on norepinephrine. I recommended some additional IV fluids, and midodrine. The patient is currently seen in the emergency department, and is currently on norepinephrine at 0.01 mcg/kg/m, and getting oxygen by nasal cannula at 5 L. The patient is a DO NOT RESUSCITATE patient. He was recently seen by me on February 17, for progressive weakness secondary to acute kidney injury, and hyponatremia. He has a history of chronic systolic and diastolic CHF, stage III chronic kidney disease, atrial fibrillation, previous pacemaker implantation, morbid obesity, and previous tobacco use. His hyponatremia was thought to be hypovolemic hyponatremia. He was transferred to the intensive care unit, where he was given 3% saline per nephrology. The patient cannot really give much of a history, and is mostly mumbling. I've asked the nurse to give him another liter of saline. White count 10.2, hemoglobin 7.4, hematocrit 23.3, with a platelet count of 146,000. PT is 12.6 with an INR 1.2. Sodium 139, potassium 4.9, chlorides 103, CO2 26, anion gap 10, BUN 135, and creatinine 3.68. Chest x-ray shows what appears to be some possible infiltrate in the right lower lobe. There is some history of aspiration. Progress note dated 03/09/2023. 87-year-old male, a DO NOT RESUSCITATE patient, who was seen in the emergency room yesterday, room 11. He initially came in with coffee ground emesis, and w as thought to have a GI bleed. In the emergency department, the patient was hypotensive, and was started on norepinephrine. He is seen today in room 266, intensive care unit. He is on 3 L of oxygen by nasal cannula. Is getting norepinephrine at 0.01 mcg/kg/m. He is also getting saline at KVO. He seems to be much more comfortable today than yesterday. No additional evidence of GI bleeding. White count is 10.5, hemoglobin 7.1, hematocrit 22.6, and a platelet count of 127,000. Sodium 139, potassium 4.6, chlorides 105, CO2 26, anion gap 8, BUN 117, and creatinine 3.59. Chest x-ray shows no acute abnormalities. The patient remains on Zosyn. Objective - Vital Signs Vital signs: Vital Signs Temp 97.8 F 03/09/23 03:00 Pulse 68 03/09/23 08:41 Resp 15 03/09/23 07:00 BP 110/82 03/09/23 07:00 Pulse Ox 96 03/09/23 07:00 FiO2 Intake & Output 03/08/23 03/09/23 03/09/23 18:59 06:59 18:59 Intake Total 834.332 20 Output Total 250 325 25 Balance -250 509.332 -5 Weight 145.15 kg 142 kg Intake: IV 730 20 Piperacillin-Tazobactam 3 100 .375 gm In Sodium Chloride 0.9% 100 ml @ 25 mls/hr IVPB Q12H [facility] Rx# :[id number] Sodium Chloride 0.9% 500 450 ml 500 ml @ 999 mls/hr IV .[id number] [facility] Rx#:[id number] Sodium Chloride 0.9% @20 180 20 mls/hr Intake, IV Titration 104.332 Amount Norepinephrine 4 mg In 104.332 Sodium Chloride 0.9% 250 ml @ 0.03 MCG/KG/MIN 16. 591 mls/hr IV .[id number] [facility] Rx#:[id number] Output: Urine 250 325 25 Uretheral (Driver) 250 Other: Voiding Method Indwelling Catheter - Exam No acute distress, awake and alert, currently on 3 L of oxygen by nasal cannula. HEENT examination is grossly unremarkable. Neck supple. Full range of motion. No adenopathy thyromegaly or neck vein distention. Cardiovascular examination reveals regular rhythm rate. S1-S2 normal. No S3 or S4. No discernible murmur noted. Heart sounds are distant. Heart rate 68 bpm. Lungs reveal scattered bilateral rhonchi. No wheezes or crackles. Breath sounds are equal bilaterally. 3 L saturation is 96%. Abdomen distended, with bowel sounds. No tenderness. Extremities are intact. No cyanosis or clubbing. There is 1+ edema.. Skin reveals multiple areas of ecchymoses. Neurologic examination is difficult to evaluate. - Labs CBC & Chem 7: 03/09/23 05:55 03/09/23 04:01 Labs: Abnormal Lab Results - Last 24 Hours (Table) 03/08/23 03/08/23 03/08/23 Range/Units 10:31 10:31 10:31 WBC (3.8-10.6) k/uL RBC 2.10 L (4.30-5.90) m/uL Hgb 7.4 L (13.0-17.5) gm/dL Hct 23.3 L (39.0-53.0) % MCV 111.3 H (80.0-100.0) fL MCH 35.3 H (25.0-35.0) pg RDW 15.6 H (11.5-15.5) % Plt Count 146 L (150-450) k/uL Lymphocytes # (Manual) 0.61 L (1.0-4.8) k/uL Eosinophils # (Manual) 1.12 H (0-0.7) k/uL Macrocytosis Marked A PT 12.6 H (9.0-12.0) sec INR 1.2 H (<1.2) BUN 135 H* (9-20) mg/dL Creatinine 3.68 H (0.66-1.25) mg/dL Glucose 129 H (74-99) mg/dL POC Glucose (mg/dL) (70-110) mg/dL Calcium (8.4-10.2) mg/dL Phosphorus (2.5-4.5) mg/dL Magnesium 3.4 H (1.6-2.3) mg/dL Iron (65-175) UG/DL % Saturation (15.00-50.00) Transferrin (204.0-354.0) mg/dL Total Bilirubin 2.2 H (0.2-1.3) mg/dL Alkaline Phosphatase 153 H (38-126) U/L Albumin 3.0 L (3.5-5.0) g/dL 03/08/23 03/08/23 03/08/23 Range/Units 16:51 16:51 22:12 WBC (3.8-10.6) k/uL RBC 1.92 L (4.30-5.90) m/uL Hgb 7.0 L (13.0-17.5) gm/dL Hct 22.2 L (39.0-53.0) % MCV 115.5 H (80.0-100.0) fL MCH 36.5 H (25.0-35.0) pg RDW 15.9 H (11.5-15.5) % Plt Count 128 L (150-450) k/uL Lymphocytes # (Manual) (1.0-4.8) k/uL Eosinophils # (Manual) (0-0.7) k/uL Macrocytosis Marked A PT (9.0-12.0) sec INR (<1.2) BUN (9-20) mg/dL Creatinine (0.66-1.25) mg/dL Glucose (74-99) mg/dL POC Glucose (mg/dL) 144 H (70-110) mg/dL Calcium (8.4-10.2) mg/dL Phosphorus (2.5-4.5) mg/dL Magnesium (1.6-2.3) mg/dL Iron 31 L (65-175) UG/DL % Saturation 11.07 L (15.00-50.00) Transferrin 200.0 L (204.0-354.0) mg/dL Total Bilirubin (0.2-1.3) mg/dL Alkaline Phosphatase (38-126) U/L Albumin (3.5-5.0) g/dL 03/08/23 03/09/23 03/09/23 Range/Units 23:05 04:01 04:01 WBC 10.7 H (3.8-10.6) k/uL RBC 2.02 L 1.99 L (4.30-5.90) m/uL Hgb 7.2 L 7.2 L (13.0-17.5) gm/dL Hct 23.1 L 22.7 L (39.0-53.0) % MCV 114.6 H 114.2 H (80.0-100.0) fL MCH 35.8 H 35.9 H (25.0-35.0) pg RDW 16.1 H 15.8 H (11.5-15.5) % Plt Count 140 L 130 L (150-450) k/uL Lymphocytes # (Manual) (1.0-4.8) k/uL Eosinophils # (Manual) (0-0.7) k/uL Macrocytosis Marked A Marked A PT (9.0-12.0) sec INR (<1.2) BUN 117 H* (9-20) mg/dL Creatinine 3.59 H (0.66-1.25) mg/dL Glucose (74-99) mg/dL POC Glucose (mg/dL) (70-110) mg/dL Calcium 7.9 L (8.4-10.2) mg/dL Phosphorus 5.0 H (2.5-4.5) mg/dL Magnesium 3.2 H (1.6-2.3) mg/dL Iron (65-175) UG/DL % Saturation (15.00-50.00) Transferrin (204.0-354.0) mg/dL Total Bilirubin (0.2-1.3) mg/dL Alkaline Phosphatase (38-126) U/L Albumin (3.5-5.0) g/dL 03/09/23 Range/Units 05:55 WBC (3.8-10.6) k/uL RBC 1.99 L (4.30-5.90) m/uL Hgb 7.1 L (13.0-17.5) gm/dL Hct 22.6 L (39.0-53.0) % MCV 113.6 H (80.0-100.0) fL MCH 35.7 H (25.0-35.0) pg RDW 16.1 H (11.5-15.5) % Plt Count 127 L (150-450) k/uL Lymphocytes # (Manual) (1.0-4.8) k/uL Eosinophils # (Manual) (0-0.7) k/uL Macrocytosis Marked A PT (9.0-12.0) sec INR (<1.2) BUN (9-20) mg/dL Creatinine (0.66-1.25) mg/dL Glucose (74-99) mg/dL POC Glucose (mg/dL) (70-110) mg/dL Calcium (8.4-10.2) mg/dL Phosphorus (2.5-4.5) mg/dL Magnesium (1.6-2.3) mg/dL Iron (65-175) UG/DL % Saturation (15.00-50.00) Transferrin (204.0-354.0) mg/dL Total Bilirubin (0.2-1.3) mg/dL Alkaline Phosphatase (38-126) U/L Albumin (3.5-5.0) g/dL Assessment and Plan Assessment: Coffee ground emesis, rule out acute GI bleed. Possible aspiration pneumonia, right lower lobe. Recent hospitalization for hypovolemic hyponatremia, requiring 3% saline. Acute on chronic kidney disease. Acute hypotension, of unclear etiology. The patient is currently on a small amount of norepinephrine. History of chronic atrial fibrillation. History of myocardial infarction. History of gastroesophageal reflux disease. Pulmonary hypertension. History of pacemaker implantation. Morbid obesity. History of tobacco use. Plan: Plan dated 03/08/2023. The patient is currently on a small amount the norepinephrine for her hypotension. The patient is a DO NOT RESUSCITATE patient. I did approve a bed in the intensive care unit for closer monitoring and management. The patient will get another liter of saline, to determine if we can wean off the norep inephrine. The patient was given midodrine, 10 mg 3 times a day. In addition, the patient was placed on Zosyn for possible aspiration pneumonia. The patient's overall prognosis is very poor. Additional recommendations and suggestions are forthcoming. Plan dated 03/09/2023. The patient was admitted to the intensive care unit, because of hypotension, requiring norepinephrine. Some fluids in the emergency department. Labs, x- rays, and medications are all reviewed. The patient's on 3 L of oxygen. The patient is a DO NOT RESUSCITATE patient. Follow make recommendations along the way. The patient's overall prognosis is very guarded. He remains on Zosyn for possible aspiration pneumonia. A pro-calcitonin level has been ordered. Time with Patient: Greater than 30
[2023-03-09] MEDS: CHOLECALCIFEROL 25 MCG (1000 IU) TABLET PO SCH (10:07)
[2023-03-09] MEDS: FUROSEMIDE 10 MG/ML 10 ML VIAL IV SCH ×2 (10:08→20:16)
[2023-03-09] MEDS: HYDROcodone/APAP 7.5-325MG 1 EACH TAB PO SCH ×2 (10:08→20:17)
[2023-03-09] MEDS: FAMOTIDINE 20 MG TAB PO SCH (10:08)
[2023-03-09] MEDS: PANTOPRAZOLE 40 MG/10 ML VIAL IVP SCH ×2 (10:12→20:16)
--- NOTE | 2023-03-09 10:32 | P.PN ---
Subjective Progress Note Date: 03/09/23 He reports generalized weakness, dyspnea. Gen: awake, alert HEENT: normocephalic, atraumatic, good hearing acuity, moist mucous membranes Resp: good air exchange, breathing comfortably with no accessory muscle use CVS: good distal perfusion x 4, GI: soft, NTTP, ND : no SPT, no CVAT, buenrostro catheter is present MSK: Bilateral pitting edema, no clubbing Neuro: non-focal, moving all extremities Psych: cooperative, euthymic mood Hospital course: Patient is an 87-year-old male with chronic systolic congestive heart failure with ejection fraction 45-50%, anemia, and chronic kidney disease stage III/IV who presented to the ER via EMS from [facility] due to coffee-ground emesis 1. On arrival to the ER he was hypotensive with a blood pressure of 86/40, the remainder of his vitals are within normal limits. Laboratory analysis was remarkable for hemoglobin 7.4 (7.6 on discharge), platelets 146, sodium 139, BUN 135, creatinine 3.68 (up from 3.02 on discharge), bilirubin 2.2, AST 57, ALT 23, alkaline phosphatase 153, stool occult blood was negative. Chest x-ray showed right lower lobe opacification, cardiomegaly, vascular congestion. In the ER, he was started on levophed and Zosyn. Arrangements were made for admission to the ICU. Patient was given IV fluids and was able to be weaned off of pressors. Pulmonology, nephrology consulted on patient's care. Due to concern for upper GI bleed with significant uremia, patient was given a dose of DDAVP, and Gen. surgery was consulted for endoscopy as well. Assessment/plan: GI bleed, Suspect Upper Anemia, Acute on chronic with iron def Hypotension, undetermined etiology Possible aspiration Thrombocytopenia - Continue Protonix 40 mg IV BID - Levophed, titrate to MAp of 60 was discontinued, Midodrine was added - Consult surgery and Intensive care, appreciate recommendations - Zosyn 3.375 mg twice a day - Serial CBC Acute exacerbation of systolic congestive heart failure with ejection fraction 45-50% KIM on CKD III/ IV Baseline Cr 2-3, possible cardio renal Hx urinary retention - Lasix 60 mg IV BID - Metolazone 5 mg daily - hold coreg due to hypotension - insert buenrostro - strict I and O - Avoid nephrotoxic agents - consult nephrology Class III obesity with BMI 41.1 -May be falsely elevated due to fluid retention -Outpatient structured weight loss Chronic: Permanent A fib with V paced rhythm GERD without esophagitis CAD Imaging: Chest x-ray from 03/09 reviewed by me today, appears to have bilateral alveolar opacities, cardiomegaly, increased vascularity consistent with heart failure exacerbation and volume overload Data Review: Today, patient is afebrile, 108/57, heart rate 70, 95% on 2 L nasal cannula. CBC shows hemoglobin of 7.1, platelets of 127. Basic metabolic panel shows creatinine of 117, creatinine 3.59. Magnesium is 3.2. Surrogate decision-maker: Daughter CODE STATUS:DNR DVT prophylaxis: SCDs Objective - Vital Signs Vital signs: Vital Signs Temp 97.8 F 03/09/23 03:00 Pulse 68 03/09/23 08:41 Resp 15 03/09/23 07:00 BP 110/82 03/09/23 07:00 Pulse Ox 96 03/09/23 07:00 FiO2 Intake & Output 03/08/23 03/09/23 03/09/23 18:59 06:59 18:59 Intake Total 834.332 32.996 Output Total 250 325 25 Balance -250 509.332 7.996 Weight 145.15 kg 142 kg Intake: IV 730 20 Piperacillin-Tazobactam 3 100 .375 gm In Sodium Chloride 0.9% 100 ml @ 25 mls/hr IVPB Q12H [facility] Rx# :[id number] Sodium Chloride 0.9% 500 450 ml 500 ml @ 999 mls/hr IV .Q31M [facility] Rx#:[id number] Sodium Chloride 0.9% @20 180 20 mls/hr Intake, IV Titration 104.332 12.996 Amount Norepinephrine 4 mg In 104.332 12.996 Sodium Chloride 0.9% 250 ml @ 0.03 MCG/KG/MIN 16. 591 mls/hr IV .[id number] [facility] Rx#:[id number] Output: Urine 250 325 25 Uretheral (Buenrostro) 250 Other: Voiding Method Indwelling Catheter - Labs CBC & Chem 7: 03/09/23 05:55 03/09/23 04:01 Labs: Abnormal Lab Results - Last 24 Hours (Table) 0703/08/23 03/08/23 Range/Units 10:31 10:31 10:31 WBC (3.8-10.6) k/uL RBC 2.10 L (4.30-5.90) m/uL Hgb 7.4 L (13.0-17.5) gm/dL Hct 23.3 L (39.0-53.0) % MCV 111.3 H (80.0-100.0) fL MCH 35.3 H (25.0-35.0) pg RDW 15.6 H (11.5-15.5) % Plt Count 146 L (150-450) k/uL Lymphocytes # (Manual) 0.61 L (1.0-4.8) k/uL Eosinophils # (Manual) 1.12 H (0-0.7) k/uL Macrocytosis Marked A PT 12.6 H (9.0-12.0) sec INR 1.2 H (<1.2) BUN 135 H* (9-20) mg/dL Creatinine 3.68 H (0.66-1.25) mg/dL Glucose 129 H (74-99) mg/dL POC Glucose (mg/dL) (70-110) mg/dL Calcium (8.4-10.2) mg/dL Phosphorus (2.5-4.5) mg/dL Magnesium 3.4 H (1.6-2.3) mg/dL Iron (65-175) UG/DL % Saturation (15.00-50.00) Transferrin (204.0-354.0) mg/dL Total Bilirubin 2.2 H (0.2-1.3) mg/dL Alkaline Phosphatase 153 H (38-126) U/L Albumin 3.0 L (3.5-5.0) g/dL 03/08/23 03/08/23 03/08/23 Range/Units 16:51 16:51 22:12 WBC (3.8-10.6) k/uL RBC 1.92 L (4.30-5.90) m/uL Hgb 7.0 L (13.0-17.5) gm/dL Hct 22.2 L (39.0-53.0) % MCV 115.5 H (80.0-100.0) fL MCH 36.5 H (25.0-35.0) pg RDW 15.9 H (11.5-15.5) % Plt Count 128 L (150-450) k/uL Lymphocytes # (Manual) (1.0-4.8) k/uL Eosinophils # (Manual) (0-0.7) k/uL Macrocytosis Marked A PT (9.0-12.0) sec INR (<1.2) BUN (9-20) mg/dL Creatinine (0.66-1.25) mg/dL Glucose (74-99) mg/dL POC Glucose (mg/dL) 144 H (70-110) mg/dL Calcium (8.4-10.2) mg/dL Phosphorus (2.5-4.5) mg/dL Magnesium (1.6-2.3) mg/dL Iron 31 L (65-175) UG/DL % Saturation 11.07 L (15.00-50.00) Transferrin 200.0 L (204.0-354.0) mg/dL Total Bilirubin (0.2-1.3) mg/dL Alkaline Phosphatase (38-126) U/L Albumin (3.5-5.0) g/dL 03/08/23 03/09/23 03/09/23 Range/Units 23:05 04:01 04:01 WBC 10.7 H (3.8-10.6) k/uL RBC 2.02 L 1.99 L (4.30-5.90) m/uL Hgb 7.2 L 7.2 L (13.0-17.5) gm/dL Hct 23.1 L 22.7 L (39.0-53.0) % MCV 114.6 H 114.2 H (80.0-100.0) fL MCH 35.8 H 35.9 H (25.0-35.0) pg RDW 16.1 H 15.8 H (11.5-15.5) % Plt Count 140 L 130 L (150-450) k/uL Lymphocytes # (Manual) (1.0-4.8) k/uL Eosinophils # (Manual) (0-0.7) k/uL Macrocytosis Marked A Marked A PT (9.0-12.0) sec INR (<1.2) BUN 117 H* (9-20) mg/dL Creatinine 3.59 H (0.66-1.25) mg/dL Glucose (74-99) mg/dL POC Glucose (mg/dL) (70-110) mg/dL Calcium 7.9 L (8.4-10.2) mg/dL Phosphorus 5.0 H (2.5-4.5) mg/dL Magnesium 3.2 H (1.6-2.3) mg/dL Iron (65-175) UG/DL % Saturation (15.00-50.00) Transferrin (204.0-354.0) mg/dL Total Bilirubin (0.2-1.3) mg/dL Alkaline Phosphatase (38-126) U/L Albumin (3.5-5.0) g/dL 03/09/23 Range/Units 05:55 WBC (3.8-10.6) k/uL RBC 1.99 L (4.30-5.90) m/uL Hgb 7.1 L (13.0-17.5) gm/dL Hct 22.6 L (39.0-53.0) % MCV 113.6 H (80.0-100.0) fL MCH 35.7 H (25.0-35.0) pg RDW 16.1 H (11.5-15.5) % Plt Count 127 L (150-450) k/uL Lymphocytes # (Manual) (1.0-4.8) k/uL Eosinophils # (Manual) (0-0.7) k/uL Macrocytosis Marked A PT (9.0-12.0) sec INR (<1.2) BUN (9-20) mg/dL Creatinine (0.66-1.25) mg/dL Glucose (74-99) mg/dL POC Glucose (mg/dL) (70-110) mg/dL Calcium (8.4-10.2) mg/dL Phosphorus (2.5-4.5) mg/dL Magnesium (1.6-2.3) mg/dL Iron (65-175) UG/DL % Saturation (15.00-50.00) Transferrin (204.0-354.0) mg/dL Total Bilirubin (0.2-1.3) mg/dL Alkaline Phosphatase (38-126) U/L Albumin (3.5-5.0) g/dL
--- NOTE | 2023-03-09 10:51 | P.PN ---
Subjective Patient is seen in follow-up for acute kidney injury on chronic kidney disease. Renal function stable. On IV Lasix and metolazone. Urine output 25-30 mL an hour. Didn't received Lasix last night. On Levophed. Vital signs are stable. On Levophed. General: No acute distress. HEENT: Head exam is unremarkable. On his cannula. LUNGS: Scattered rhonchi. HEART: Rate and Rhythm are regular. ABDOMEN: Nontender, obese. EXTREMITITES: 2+ edema. Objective - Vital Signs Vital signs: Vital Signs Temp 95.5 F L 03/09/23 08:00 Pulse 70 03/09/23 10:15 Resp 23 03/09/23 10:15 BP 108/57 03/09/23 10:15 Pulse Ox 95 03/09/23 10:15 FiO2 Intake & Output 03/08/23 03/09/23 03/09/23 18:59 06:59 18:59 Intake Total 834.332 82.996 Output Total 250 325 105 Balance -250 509.332 -22.004 Weight 145.15 kg 142 kg Intake: IV 730 70 Piperacillin-Tazobactam 3 100 .375 gm In Sodium Chloride 0.9% 100 ml @ 25 mls/hr IVPB Q12H [facility] Rx# :[id number] Sodium Chloride 0.9% 500 450 ml 500 ml @ 999 mls/hr IV .Q31M [facility] Rx#:[id number] Sodium Chloride 0.9% @20 180 70 mls/hr Intake, IV Titration 104.332 12.996 Amount Norepinephrine 4 mg In 104.332 12.996 Sodium Chloride 0.9% 250 ml @ 0.03 MCG/KG/MIN 16. 591 mls/hr IV .[id number] [facility] Rx#:[id number] Output: Urine 250 325 105 Uretheral (Driver) 250 Other: Voiding Method Indwelling Catheter Indwelling Catheter - Labs CBC & Chem 7: 03/09/23 05:55 03/09/23 04:01 Labs: Abnormal Lab Results - Last 24 Hours (Table) 03/08/23 03/08/23 03/08/23 Range/Units 10:31 10:31 10:31 WBC (3.8-10.6) k/uL RBC 2.10 L (4.30-5.90) m/uL Hgb 7.4 L (13.0-17.5) gm/dL Hct 23.3 L (39.0-53.0) % MCV 111.3 H (80.0-100.0) fL MCH 35.3 H (25.0-35.0) pg RDW 15.6 H (11.5-15.5) % Plt Count 146 L (150-450) k/uL Lymphocytes # (Manual) 0.61 L (1.0-4.8) k/uL Eosinophils # (Manual) 1.12 H (0-0.7) k/uL Macrocytosis Marked A PT 12.6 H (9.0-12.0) sec INR 1.2 H (<1.2) BUN 135 H* (9-20) mg/dL Creatinine 3.68 H (0.66-1.25) mg/dL Glucose 129 H (74-99) mg/dL POC Glucose (mg/dL) (70-110) mg/dL Calcium (8.4-10.2) mg/dL Phosphorus (2.5-4.5) mg/dL Magnesium 3.4 H (1.6-2.3) mg/dL Iron (65-175) UG/DL % Saturation (15.00-50.00) Transferrin (204.0-354.0) mg/dL Total Bilirubin 2.2 H (0.2-1.3) mg/dL Alkaline Phosphatase 153 H (38-126) U/L Albumin 3.0 L (3.5-5.0) g/dL 03/08/23 03/08/23 03/08/23 Range/Units 16:51 16:51 22:12 WBC (3.8-10.6) k/uL RBC 1.92 L (4.30-5.90) m/uL Hgb 7.0 L (13.0-17.5) gm/dL Hct 22.2 L (39.0-53.0) % MCV 115.5 H (80.0-100.0) fL MCH 36.5 H (25.0-35.0) pg RDW 15.9 H (11.5-15.5) % Plt Count 128 L (150-450) k/uL Lymphocytes # (Manual) (1.0-4.8) k/uL Eosinophils # (Manual) (0-0.7) k/uL Macrocytosis Marked A PT (9.0-12.0) sec INR (<1.2) BUN (9-20) mg/dL Creatinine (0.66-1.25) mg/dL Glucose (74-99) mg/dL POC Glucose (mg/dL) 144 H (70-110) mg/dL Calcium (8.4-10.2) mg/dL Phosphorus (2.5-4.5) mg/dL Magnesium (1.6-2.3) mg/dL Iron 31 L (65-175) UG/DL % Saturation 11.07 L (15.00-50.00) Transferrin 200.0 L (204.0-354.0) mg/dL Total Bilirubin (0.2-1.3) mg/dL Alkaline Phosphatase (38-126) U/L Albumin (3.5-5.0) g/dL 03/08/23 03/09/23 03/09/23 Range/Units 23:05 04:01 04:01 WBC 10.7 H (3.8-10.6) k/uL RBC 2.02 L 1.99 L (4.30-5.90) m/uL Hgb 7.2 L 7.2 L (13.0-17.5) gm/dL Hct 23.1 L 22.7 L (39.0-53.0) % MCV 114.6 H 114.2 H (80.0-100.0) fL MCH 35.8 H 35.9 H (25.0-35.0) pg RDW 16.1 H 15.8 H (11.5-15.5) % Plt Count 140 L 130 L (150-450) k/uL Lymphocytes # (Manual) (1.0-4.8) k/uL Eosinophils # (Manual) (0-0.7) k/uL Macrocytosis Marked A Marked A PT (9.0-12.0) sec INR (<1.2) BUN 117 H* (9-20) mg/dL Creatinine 3.59 H (0.66-1.25) mg/dL Glucose (74-99) mg/dL POC Glucose (mg/dL) (70-110) mg/dL Calcium 7.9 L (8.4-10.2) mg/dL Phosphorus 5.0 H (2.5-4.5) mg/dL Magnesium 3.2 H (1.6-2.3) mg/dL Iron (65-175) UG/DL % Saturation (15.00-50.00) Transferrin (204.0-354.0) mg/dL Total Bilirubin (0.2-1.3) mg/dL Alkaline Phosphatase (38-126) U/L Albumin (3.5-5.0) g/dL 03/09/23 Range/Units 05:55 WBC (3.8-10.6) k/uL RBC 1.99 L (4.30-5.90) m/uL Hgb 7.1 L (13.0-17.5) gm/dL Hct 22.6 L (39.0-53.0) % MCV 113.6 H (80.0-100.0) fL MCH 35.7 H (25.0-35.0) pg RDW 16.1 H (11.5-15.5) % Plt Count 127 L (150-450) k/uL Lymphocytes # (Manual) (1.0-4.8) k/uL Eosinophils # (Manual) (0-0.7) k/uL Macrocytosis Marked A PT (9.0-12.0) sec INR (<1.2) BUN (9-20) mg/dL Creatinine (0.66-1.25) mg/dL Glucose (74-99) mg/dL POC Glucose (mg/dL) (70-110) mg/dL Calcium (8.4-10.2) mg/dL Phosphorus (2.5-4.5) mg/dL Magnesium (1.6-2.3) mg/dL Iron (65-175) UG/DL % Saturation (15.00-50.00) Transferrin (204.0-354.0) mg/dL Total Bilirubin (0.2-1.3) mg/dL Alkaline Phosphatase (38-126) U/L Albumin (3.5-5.0) g/dL Assessment and Plan Plan: Assessment: 1. Acute kidney injury secondary to ATN secondary to hypotension and cardiorenal syndrome. Creatinine stable at 3.59 today. Ultrasound from earlier this month showed no evidence of hydronephrosis. 2. Chronic kidney disease stage III with baseline creatinine 1.1-1.3 from April 2021. However creatinine from earlier this month was in the range of 2.3-3. UA dated 02/17/2023 showed no proteinuria. Suspect underlying nephrosclerosis and cardiorenal syndrome. 3. Acute hypoxic history failure. 4. Volume overload. 5. Acute on chronic systolic CHF with ejection fraction of 45% with severe pulmonary hypertension and mild to moderate tricuspid regurgitation. 6. Anemia of chronic kidney disease with an episode of hematemesis. Iron deficiency noted. Status post IV DDAVP 03/08/2023. No active bleeding per nu rse. Also on Aranesp. Plan: IV Lasix 60 mg twice daily. Metolazone 5 mg once daily. Add IV iron. Wean Levophed. Maintain midodrine. Cortisol level 21 dated 02/19/2023. Strict is and os. Continue to assess daily for need for renal replacement therapy. Phosphorus 5.0 dated 03/09/2023.
--- NOTE | 2023-03-09 11:15 | P.PN ---
Subjective Progress Note Date: 03/09/23 CHIEF COMPLAINT: Anemia, GI bleed HISTORY OF PRESENT ILLNESS: Patient currently in the ICU. He is off the Levophed. He's had no further signs of bleeding. Denies any abdominal pain. Afebrile. Hemoglobin stable at 7.1 PHYSICAL EXAM: VITAL SIGNS: Reviewed. GENERAL: Well-developed in no acute distress. ABDOMEN: Soft. Nondistended. Nontender. NEUROLOGIC: Alert and oriented. Cranial nerves II through XII grossly intact. ASSESSMENT: 1. Anemia and possible upper GI bleed PLAN: -Patient scheduled for EGD today with Dr. Dolan -Keep patient nothing by mouth -Continue IV Protonix Physician Professional Caster note has been reviewed by physician. Signing provider agrees with the documented findings, assessment, and plan of care. Objective - Vital Signs Vital signs: Vital Signs Temp 97.8 F 03/09/23 03:00 Pulse 68 03/09/23 08:41 Resp 15 03/09/23 07:00 BP 110/82 03/09/23 07:00 Pulse Ox 96 03/09/23 07:00 FiO2 Intake & Output 03/08/23 03/09/23 03/09/23 18:59 06:59 18:59 Intake Total 834.332 32.996 Output Total 250 325 25 Balance -250 509.332 7.996 Weight 145.15 kg 142 kg Intake: IV 730 20 Piperacillin-Tazobactam 3 100 .375 gm In Sodium Chloride 0.9% 100 ml @ 25 mls/hr IVPB Q12H [facility] Rx# :[id number] Sodium Chloride 0.9% 500 450 ml 500 ml @ 999 mls/hr IV .Q31M [facility] Rx#:[id number] Sodium Chloride 0.9% @20 180 20 mls/hr Intake, IV Titration 104.332 12.996 Amount Norepinephrine 4 mg In 104.332 12.996 Sodium Chloride 0.9% 250 ml @ 0.03 MCG/KG/MIN 16. 591 mls/hr IV .[id number] [facility] Rx#:[id number] Output: Urine 250 325 25 Uretheral (Driver) 250 Other: Voiding Method Indwelling Catheter - Labs CBC & Chem 7: 03/09/23 05:55 03/09/23 04:01 Labs: Abnormal Lab Results - Last 24 Hours (Table) 03/08/23 03/08/23 03/08/23 Range/Units 10:31 10:31 10:31 WBC (3.8-10.6) k/uL RBC 2.10 L (4.30-5.90) m/uL Hgb 7.4 L (13.0-17.5) gm/dL Hct 23.3 L (39.0-53.0) % MCV 111.3 H (80.0-100.0) fL MCH 35.3 H (25.0-35.0) pg RDW 15.6 H (11.5-15.5) % Plt Count 146 L (150-450) k/uL Lymphocytes # (Manual) 0.61 L (1.0-4.8) k/uL Eosinophils # (Manual) 1.12 H (0-0.7) k/uL Macrocytosis Marked A PT 12.6 H (9.0-12.0) sec INR 1.2 H (<1.2) BUN 135 H* (9-20) mg/dL Creatinine 3.68 H (0.66-1.25) mg/dL Glucose 129 H (74-99) mg/dL POC Glucose (mg/dL) (70-110) mg/dL Calcium (8.4-10.2) mg/dL Phosphorus (2.5-4.5) mg/dL Magnesium 3.4 H (1.6-2.3) mg/dL Iron (65-175) UG/DL % Saturation (15.00-50.00) Transferrin (204.0-354.0) mg/dL Total Bilirubin 2.2 H (0.2-1.3) mg/dL Alkaline Phosphatase 153 H (38-126) U/L Albumin 3.0 L (3.5-5.0) g/dL 03/08/23 03/08/23 03/08/23 Range/Units 16:51 16:51 22:12 WBC (3.8-10.6) k/uL RBC 1.92 L (4.30-5.90) m/uL Hgb 7.0 L (13.0-17.5) gm/dL Hct 22.2 L (39.0-53.0) % MCV 115.5 H (80.0-100.0) fL MCH 36.5 H (25.0-35.0) pg RDW 15.9 H (11.5-15.5) % Plt Count 128 L (150-450) k/uL Lymphocytes # (Manual) (1.0-4.8) k/uL Eosinophils # (Manual) (0-0.7) k/uL Macrocytosis Marked A PT (9.0-12.0) sec INR (<1.2) BUN (9-20) mg/dL Creatinine (0.66-1.25) mg/dL Glucose (74-99) mg/dL POC Glucose (mg/dL) 144 H (70-110) mg/dL Calcium (8.4-10.2) mg/dL Phosphorus (2.5-4.5) mg/dL Magnesium (1.6-2.3) mg/dL Iron 31 L (65-175) UG/DL % Saturation 11.07 L (15.00-50.00) Transferrin 200.0 L (204.0-354.0) mg/dL Total Bilirubin (0.2-1.3) mg/dL Alkaline Phosphatase (38-126) U/L Albumin (3.5-5.0) g/dL 03/08/23 03/09/23 03/09/23 Range/Units 23:05 04:01 04:01 WBC 10.7 H (3.8-10.6) k/uL RBC 2.02 L 1.99 L (4.30-5.90) m/uL Hgb 7.2 L 7.2 L (13.0-17.5) gm/dL Hct 23.1 L 22.7 L (39.0-53.0) % MCV 114.6 H 114.2 H (80.0-100.0) fL MCH 35.8 H 35.9 H (25.0-35.0) pg RDW 16.1 H 15.8 H (11.5-15.5) % Plt Count 140 L 130 L (150-450) k/uL Lymphocytes # (Manual) (1.0-4.8) k/uL Eosinophils # (Manual) (0-0.7) k/uL Macrocytosis Marked A Marked A PT (9.0-12.0) sec INR (<1.2) BUN 117 H* (9-20) mg/dL Creatinine 3.59 H (0.66-1.25) mg/dL Glucose (74-99) mg/dL POC Glucose (mg/dL) (70-110) mg/dL Calcium 7.9 L (8.4-10.2) mg/dL Phosphorus 5.0 H (2.5-4.5) mg/dL Magnesium 3.2 H (1.6-2.3) mg/dL Iron (65-175) UG/DL % Saturation (15.00-50.00) Transferrin (204.0-354.0) mg/dL Total Bilirubin (0.2-1.3) mg/dL Alkaline Phosphatase (38-126) U/L Albumin (3.5-5.0) g/dL 03/09/23 Range/Units 05:55 WBC (3.8-10.6) k/uL RBC 1.99 L (4.30-5.90) m/uL Hgb 7.1 L (13.0-17.5) gm/dL Hct 22.6 L (39.0-53.0) % MCV 113.6 H (80.0-100.0) fL MCH 35.7 H (25.0-35.0) pg RDW 16.1 H (11.5-15.5) % Plt Count 127 L (150-450) k/uL Lymphocytes # (Manual) (1.0-4.8) k/uL Eosinophils # (Manual) (0-0.7) k/uL Macrocytosis Marked A PT (9.0-12.0) sec INR (<1.2) BUN (9-20) mg/dL Creatinine (0.66-1.25) mg/dL Glucose (74-99) mg/dL POC Glucose (mg/dL) (70-110) mg/dL Calcium (8.4-10.2) mg/dL Phosphorus (2.5-4.5) mg/dL Magnesium (1.6-2.3) mg/dL Iron (65-175) UG/DL % Saturation (15.00-50.00) Transferrin (204.0-354.0) mg/dL Total Bilirubin (0.2-1.3) mg/dL Alkaline Phosphatase (38-126) U/L Albumin (3.5-5.0) g/dL
[2023-03-09] MEDS ORDERED: LIDOCAINE 2% INJ 20 MG/ML (2 ML VIAL) ONE (11:20)
[2023-03-09] MEDS ORDERED: PROPOFOL 10 MG/ML 20 ML VIAL IV ONE (11:20)
[2023-03-09] MEDS ORDERED: IV FLUID CONTINUATION 1,000 ML IV ONE (11:27)
--- NOTE | 2023-03-09 11:33 | P.OP ---
Date of Procedure: 03/09/23 Preoperative Diagnosis: Anemia Upper GI bleed Postoperative Diagnosis: Anemia No evidence of upper GI bleed Procedure(s) Performed: EGD Anesthesia: MAC Surgeon: Luis Dolan Pathology: none sent Condition: stable Disposition: PACU Description of Procedure: The patient's placed on the endoscopy table in the lateral position. He received IV sedation. The gastro-/oropharynx passed in the esophagus and the stomach. Scope was placed through the pylorus. The first second portion duodenum appeared normal. There is no evidence of any blood in the duodenum. Scope summer back the antrum this appeared to be minimally inflamed with no evidence of bleeding. The scope was then retroflexed and remainder the stomach appeared normal. There was no evidence of blood in the stomach. The GE junction was at 40 cm per the distal esophagus appeared normal. The proximal esophagus appeared normal. Scope withdrawn for patient. There is no evidence of any upper GI bleed. Unclear if the patient is having any significant GI bleed. The patient may need a colonoscopy.
[2023-03-09 11:46] LABS: Glucose,Whole Blood 103 mg/dL (70-110)
[2023-03-09] MEDS: NOREPINEPHRINE 4 MG in SODIUM CHLORIDE 0.9% 250 ML IV SCH (12:05)
[2023-03-09] MEDS: SODIUM FERRIC GLUCONAT-SUCROSE 125 MG in SODIUM CHLORIDE 0.9% 100 ML IVPB SCH (12:06)
[2023-03-09] MEDS: metOLazone 5 MG TAB PO SCH (12:07)
[2023-03-10] MEDS: PIPERACILLIN-TAZOBACTAM 3.375 GM in SODIUM CHLORIDE 0.9% 100 ML IVPB SCH ×2 (01:39→14:24)
[2023-03-10 05:18] LABS: African American GFR (CKD) 17 (>60 ml/min/1.73 sqM); Anion Gap 11 mmol/L; Calcium 8.2 mg/dL (8.4-10.2); Carbon Dioxide 23 mmol/L (22-30); Chloride 105 mmol/L (98-107); Glucose 118 mg/dL (74-99); Non-African American GFR(CKD) 14 (>60 ml/min/1.73 sqM); Potassium 4.6 mmol/L (3.5-5.1); Sodium 139 mmol/L (137-145)
[2023-03-10 05:28] LABS: Blood Urea Nitrogen 123 mg/dL (9-20)
[2023-03-10 05:40] LABS: Basophils % (A) 0 %; Eosinophils # (A) 0.4 k/uL (0-0.7); Eosinophils % (A) 3 %; HCT 22.4 % (39.0-53.0); Hypochromasia Marked; Lymphocytes # (A) 0.6 k/uL (1.0-4.8); Lymphocytes % (A) 5 %; MCH 30.4 pg (25.0-35.0); MCHC 27.3 g/dL (31.0-37.0); MCV 111.7 fL (80.0-100.0); Macrocytosis Marked; Mean Platelet Volume 9.6; Monocytes # (A) 1.3 k/uL (0-1.0); Monocytes % (A) 11 %; Neutrophils % (A) 76 %; Platelet Count 144 k/uL (150-450); RBC 2.01 m/uL (4.30-5.90); RDW 15.9 % (11.5-15.5); WBC 11.8 k/uL (3.8-10.6)
[2023-03-10 05:43] LABS: HGB 6.1 gm/dL (13.0-17.5)
[2023-03-10] MEDS: NOREPINEPHRINE 4 MG in SODIUM CHLORIDE 0.9% 250 ML IV SCH ×2 (06:07→07:15)
[2023-03-10] MEDS: PANTOPRAZOLE 40 MG/10 ML VIAL IVP SCH ×2 (08:53→20:43)
[2023-03-10] MEDS: FUROSEMIDE 10 MG/ML 10 ML VIAL IV SCH ×2 (08:53→20:43)
[2023-03-10] MEDS: IPRATROPIUM-ALBUTEROL 3 ML NEB INHALATION SCH ×3 (09:06→20:58)
[2023-03-10] MEDS: HYDROcodone/APAP 7.5-325MG 1 EACH TAB PO SCH ×3 (10:00→20:44)
[2023-03-10] MEDS: MIDODRINE 5 MG TAB PO SCH ×4 (10:00→17:40)
[2023-03-10] MEDS: SODIUM FERRIC GLUCONAT-SUCROSE 125 MG in SODIUM CHLORIDE 0.9% 100 ML IVPB SCH (10:01)
[2023-03-10] MEDS: FAMOTIDINE 20 MG TAB PO SCH (10:01)
[2023-03-10] MEDS: SENNOSIDES-DOCUSATE SODIUM 1 EACH TAB PO SCH ×3 (10:01→20:44)
[2023-03-10] MEDS: CHOLECALCIFEROL 25 MCG (1000 IU) TABLET PO SCH ×2 (10:01→10:04)
[2023-03-10] MEDS: metOLazone 5 MG TAB PO SCH ×2 (10:02→10:04)
--- NOTE | 2023-03-10 11:52 | P.PN ---
Subjective Progress Note Date: 03/10/23 87-year-old male who was seen in the emergency department. He is seen in room 11. He apparently presented to the hospital with complaints of a possible GI bleed. He apparently had an episode of coffee ground emesis. He was having nausea, but not vomiting. He was found to be hypotensive, and given some fluids, and then started on some norepinephrine. I was called by the ER physician, who wanted the patient admitted to the intensive care unit, for monitoring and management, given the fact that he was on norepinephrine. I recommended some additional IV fluids, and midodrine. The patient is currently seen in the emergency department, and is currently on norepinephrine at 0.01 mcg/kg/m, and getting oxygen by nasal cannula at 5 L. The patient is a DO NOT RESUSCITATE patient. He was recently seen by me on February 17, for progressive weakness secondary to acute kidney injury, and hyponatremia. He has a history of chronic systolic and diastolic CHF, stage III chronic kidney disease, atrial fibrillation, previous pacemaker implantation, morbid obesity, and previous tobacco use. His hyponatremia was thought to be hypovolemic hyponatremia. He was transferred to the intensive care unit, where he was given 3% saline per nephrology. The patient cannot really give much of a history, and is mostly mumbling. I've asked the nurse to give him another liter of saline. White count 10.2, hemoglobin 7.4, hematocrit 23.3, with a platelet count of 146,000. PT is 12.6 with an INR 1.2. Sodium 139, potassium 4.9, chlorides 103, CO2 26, anion gap 10, BUN 135, and creatinine 3.68. Chest x-ray shows what appears to be some possible infiltrate in the right lower lobe. There is some history of a spiration. Progress note dated 03/09/2023. 87-year-old male, a DO NOT RESUSCITATE patient, who was seen in the emergency room yesterday, room 11. He initially came in with coffee ground emesis, and was thought to have a GI bleed. In the emergency department, the patient was hypotensive, and was started on norepinephrine. He is seen today in room 266, intensive care unit. He is on 3 L of oxygen by nasal cannula. Is getting norepinephrine at 0.01 mcg/kg/m. He is also getting saline at KVO. He seems to be much more comfortable today than yesterday. No additional evidence of GI bleeding. White count is 10.5, hemoglobin 7.1, hematocrit 22.6, and a platelet count of 127,000. Sodium 139, potassium 4.6, chlorides 105, CO2 26, anion gap 8, BUN 117, and creatinine 3.59. Chest x-ray shows no acute abnormalities. The patient remains on Zosyn. The patient is seen today 03/10/2023 in follow-up on the regular medical floor. He is maintaining O2 saturations in the 90s on 2 L/m per nasal cannula. His hemoglobin was 6.1 is currently receiving 1 unit of packed red blood cells. He did undergo EGD yesterday that revealed no evidence of upper GI bleeding. White count 11.8. Platelets 144. Sodium 139. Potassium 4.6. Bicarb 23. BUN 123. Creatinine 3.63. Glucose 118. He remains on Lasix 60 mg IV every 12 hours. He is making urine. Nephrology is following closely. Objective - Vital Signs Vital signs: Vital Signs Temp 7.8 F L 03/10/23 08:55 Pulse 70 03/10/23 09:45 Resp 20 03/10/23 09:45 BP 104/62 03/10/23 09:45 Pulse Ox 95 03/10/23 09:45 FiO2 Intake & Output 03/09/23 03/10/23 03/10/23 18:59 06:59 18:59 Intake Total 312.996 0 310 Output Total 420 445 Balance -107.004 -445 310 Intake: IV 300 Piperacillin-Tazobactam 3 50 .375 gm In Sodium Chloride 0.9% 100 ml @ 25 mls/hr IVPB Q12H [facility] Rx# :[id number] Sodium Chloride 0.9% @20 150 mls/hr Intake, IV Titration 12.996 Amount Norepinephrine 4 mg In 12.996 Sodium Chloride 0.9% 250 ml @ 0.03 MCG/KG/MIN 16. 591 mls/hr IV .[id number] [facility] Rx#:[id number] Blood Product 0 310 Rc As-1 Unit 0 310 [id number] Output: Urine 420 445 Other: Voiding Method Indwelling Catheter Indwelling Catheter - Exam Awake, alert 87-year-old male. No acute distress, awake and alert, currently on 3 L of oxygen by nasal cannula. HEENT examination is grossly unremarkable. Neck supple. Full range of motion. No adenopathy thyromegaly or neck vein distention. Cardiovascular examination reveals regular rhythm rate. S1-S2 normal. No S3 or S4. No discernible murmur noted. Heart sounds are distant. Lungs reveal scattered bilateral rhonchi. No wheezes or crackles. Breath sounds are equal bilaterally. Abdomen distended, with bowel sounds. No tenderness. Extremities are intact. No cyanosis or clubbing. There is 1+ edema.. Skin reveals multiple areas of ecchymoses. Neurologic examination is difficult to evaluate. - Labs CBC & Chem 7: 03/10/23 04:48 03/10/23 04:48 Labs: Abnormal Lab Results - Last 24 Hours (Table) 03/08/23 03/09/23 03/10/23 Range/Units 10:25 04:01 04:48 WBC 11.8 H (3.8-10.6) k/uL RBC 2.01 L (4.30-5.90) m/uL Hgb 6.1 L* (13.0-17.5) gm/dL Hct 22.4 L (39.0-53.0) % MCV 111.7 H (80.0-100.0) fL MCHC 27.3 L (31.0-37.0) g/dL RDW 15.9 H (11.5-15.5) % Plt Count 144 L (150-450) k/uL Neutrophils # 9.0 H (1.3-7.7) k/uL Lymphocytes # 0.6 L (1.0-4.8) k/uL Monocytes # 1.3 H (0-1.0) k/uL Macrocytosis Marked A BUN (9-20) mg/dL Creatinine (0.66-1.25) mg/dL Glucose (74-99) mg/dL Calcium (8.4-10.2) mg/dL Procalcitonin 0.43 H (0.02-0.09) ng/mL Crossmatch See Detail 03/10/23 Range/Units 04:48 WBC (3.8-10.6) k/uL RBC (4.30-5.90) m/uL Hgb (13.0-17.5) gm/dL Hct (39.0-53.0) % MCV (80.0-100.0) fL MCHC (31.0-37.0) g/dL RDW (11.5-15.5) % Plt Count (150-450) k/uL Neutrophils # (1.3-7.7) k/uL Lymphocytes # (1.0-4.8) k/uL Monocytes # (0-1.0) k/uL Macrocytosis BUN 123 H* (9-20) mg/dL Creatinine 3.63 H (0.66-1.25) mg/dL Glucose 118 H (74-99) mg/dL Calcium 8.2 L (8.4-10.2) mg/dL Procalcitonin (0.02-0.09) ng/mL Crossmatch Microbiology - Last 24 Hours (Table) 03/08/23 14:57 Blood Culture - Preliminary Blood 03/08/23 15:12 Blood Culture - Preliminary Blood Assessment and Plan Assessment: Coffee ground emesis, rule out acute GI bleed. EGD on 03/09/2023 did not reveal any active bleeding Acute anemia secondary to above, receiving 1 unit of packed red blood cells, hemoglobin 6.1 Possible aspiration pneumonia, right lower lobe. Remains on Zosyn Recent hospitalization for hypovolemic hyponatremia, requiring 3% saline. Acute on chronic kidney disease. Acute hypotension, of unclear etiology. The patient is currently on a small a mount of norepinephrine. History of chronic atrial fibrillation. History of myocardial infarction. History of gastroesophageal reflux disease. Pulmonary hypertension. History of pacemaker implantation. Morbid obesity. History of tobacco use. Plan: The patient was seen and evaluated Labs and medications reviewed Receiving 1 unit of packed red blood cells Remains on Zosyn Nephrology is following Titrate the FiO2 as tolerated We'll continue to follow I have personally seen and examined the patient, performed the documentation and the assessment and plan as written. Number of minutes spent on the visit: 10.
--- NOTE | 2023-03-10 12:47 | P.PN ---
Subjective Patient is seen in follow-up for acute kidney injury on chronic kidney disease. Renal function stable. On IV Lasix and metolazone. Urine output documented is 865 mL 4 today. Off vasopressors. Transferred out of ICU.. Vital signs are stable. General: No acute distress. HEENT: Head exam is unremarkable. On his cannula. LUNGS: Scattered rhonchi. HEART: Rate and Rhythm are regular. ABDOMEN: Nontender, obese. EXTREMITITES: 2+ edema. Objective - Vital Signs Vital signs: Vital Signs Temp 7.8 F L 03/10/23 08:55 Pulse 70 03/10/23 09:45 Resp 20 03/10/23 09:45 BP 104/62 03/10/23 09:45 Pulse Ox 95 03/10/23 09:45 FiO2 Intake & Output 03/09/23 03/10/23 03/10/23 18:59 06:59 18:59 Intake Total 312.996 0 310 Output Total 420 445 Balance -107.004 -445 310 Intake: IV 300 Piperacillin-Tazobactam 3 50 .375 gm In Sodium Chloride 0.9% 100 ml @ 25 mls/hr IVPB Q12H [facility] Rx# :[id number] Sodium Chloride 0.9% @20 150 mls/hr Intake, IV Titration 12.996 Amount Norepinephrine 4 mg In 12.996 Sodium Chloride 0.9% 250 ml @ 0.03 MCG/KG/MIN 16. 591 mls/hr IV .[id number] [facility] Rx#:[id number] Blood Product 0 310 Rc As-1 Unit 0 310 [id number] Output: Urine 420 445 Other: Voiding Method Indwelling Catheter Indwelling Catheter Indwelling Catheter - Labs CBC & Chem 7: 03/10/23 04:48 03/10/23 04:48 Labs: Abnormal Lab Results - Last 24 Hours (Table) 03/08/23 03/09/23 03/10/23 Range/Units 10:25 04:01 04:48 WBC 11.8 H (3.8-10.6) k/uL RBC 2.01 L (4.30-5.90) m/uL Hgb 6.1 L* (13.0-17.5) gm/dL Hct 22.4 L (39.0-53.0) % MCV 111.7 H (80.0-100.0) fL MCHC 27.3 L (31.0-37.0) g/dL RDW 15.9 H (11.5-15.5) % Plt Count 144 L (150-450) k/uL Neutrophils # 9.0 H (1.3-7.7) k/uL Lymphocytes # 0.6 L (1.0-4.8) k/uL Monocytes # 1.3 H (0-1.0) k/uL Macrocytosis Marked A BUN (9-20) mg/dL Creatinine (0.66-1.25) mg/dL Glucose (74-99) mg/dL Calcium (8.4-10.2) mg/dL Procalcitonin 0.43 H (0.02-0.09) ng/mL Crossmatch See Detail 03/10/23 Range/Units 04:48 WBC (3.8-10.6) k/uL RBC (4.30-5.90) m/uL Hgb (13.0-17.5) gm/dL Hct (39.0-53.0) % MCV (80.0-100.0) fL MCHC (31.0-37.0) g/dL RDW (11.5-15.5) % Plt Count (150-450) k/uL Neutrophils # (1.3-7.7) k/uL Lymphocytes # (1.0-4.8) k/uL Monocytes # (0-1.0) k/uL Macrocytosis BUN 123 H* (9-20) mg/dL Creatinine 3.63 H (0.66-1.25) mg/dL Glucose 118 H (74-99) mg/dL Calcium 8.2 L (8.4-10.2) mg/dL Procalcitonin (0.02-0.09) ng/mL Crossmatch Microbiology - Last 24 Hours (Table) 03/08/23 14:57 Blood Culture - Preliminary Blood 03/08/23 15:12 Blood Culture - Preliminary Blood Assessment and Plan Plan: Assessment: 1. Acute kidney injury secondary to ATN secondary to hypotension and cardiorenal syndrome. Creatinine stable at 3.63 today. Elevated BUN partially due to GI bleed. Ultrasound from earlier this month showed no evidence of hydronephrosis. 2. Chronic kidney disease stage III with baseline creatinine 1.1-1.3 from April 2021. However creatinine from earlier this month was in the range of 2.3-3. UA dated 02/17/2023 showed no proteinuria. Suspect underlying nephrosclerosis and cardiorenal syndrome. 3. Acute hypoxic history failure. 4. Volume overload. 5. Acute on chronic systolic CHF with ejection fraction of 45% with severe pulmonary hypertension and mild to moderate tricuspid regurgitation. 6. Anemia of chronic kidney disease with an episode of hematemesis. Iron deficiency noted. Status post IV DDAVP 03/08/2023. No active bleeding per nurs e. Also on Aranesp. EGD done 03/09/2023 showed no evidence of upper GI bleed. Status post blood transfusion this morning. Plan: Maintain IV Lasix. Maintain metolazone. Continue IV iron. Maintain midodrine. Cortisol level 21 dated 02/19/2023. Strict is and os. Phosphorus 5.0 dated 03/09/2023. Hospice consult placed. Patient is not an ideal candidate for renal replacement therapy due to age and comorbidities. Continue to assess on daily basis. Repeat IV DDAVP today.
[2023-03-10] MEDS ORDERED: DESMOPRESSIN ACETATE 32 MCG in SODIUM CHLORIDE 0.9% 50 ML IVPB ONE (13:00)
--- NOTE | 2023-03-10 13:45 | P.PN ---
Subjective Progress Note Date: 03/10/23 CHIEF COMPLAINT: Anemia, GI bleed HISTORY OF PRESENT ILLNESS: Patient was transferred out of the ICU yesterday. Patient still having some episodes of confusion. Apparently he's been having difficulty swallowing and speech therapy eval has been ordered. Per nursing staff no further episodes of coffee-ground emesis reported. No bloody bowel movements reported. Patient's hemoglobin 6.1 and he is receiving a unit of blood. Afebrile. WBC 11.8 H Isai 6.1 platelets 144 creatinine 3.63 patient status post EGD with no evidence of upper GI bleed. Critical care service has ordered a consult for hospice evaluation. PHYSICAL EXAM: VITAL SIGNS: Reviewed. GENERAL: Well-developed in no acute distress. ABDOMEN: Soft. Nondistended. Nontender. NEUROLOGIC: Awake and alert x [address] didn't think he was at [facility] instead of [facility] ASSESSMENT: 1. Anemia with EGD showing no active bleeding PLAN: -Patient has hospice meeting scheduled -Continue IV Protonix -No plans for colonoscopy at this time Physician Panel Fitter note has been reviewed by physician. Signing provider agrees with the documented findings, assessment, and plan of care. Objective - Vital Signs Vital signs: Vital Signs Temp 7.8 F L 03/10/23 08:55 Pulse 70 03/10/23 09:45 Resp 20 03/10/23 09:45 BP 104/62 03/10/23 09:45 Pulse Ox 95 03/10/23 09:45 FiO2 Intake & Output 03/09/23 03/10/23 03/10/23 18:59 06:59 18:59 Intake Total 312.996 0 310 Output Total 420 445 Balance -107.004 -445 310 Intake: IV 300 Piperacillin-Tazobactam 3 50 .375 gm In Sodium Chloride 0.9% 100 ml @ 25 mls/hr IVPB Q12H [facility] Rx# :[id number] Sodium Chloride 0.9% @20 150 mls/hr Intake, IV Titration 12.996 Amount Norepinephrine 4 mg In 12.996 Sodium Chloride 0.9% 250 ml @ 0.03 MCG/KG/MIN 16. 591 mls/hr IV .[id number] [facility] Rx#:[id number] Blood Product 0 310 Rc As-1 Unit 0 310 [id number] Output: Urine 420 445 Other: Voiding Method Indwelling Catheter Indwelling Catheter - Labs CBC & Chem 7: 03/10/23 04:48 03/10/23 04:48 Labs: Abnormal Lab Results - Last 24 Hours (Table) 03/08/23 03/09/23 03/10/23 Range/Units 10:25 04:01 04:48 WBC 11.8 H (3.8-10.6) k/uL RBC 2.01 L (4.30-5.90) m/uL Hgb 6.1 L* (13.0-17.5) gm/dL Hct 22.4 L (39.0-53.0) % MCV 111.7 H (80.0-100.0) fL MCHC 27.3 L (31.0-37.0) g/dL RDW 15.9 H (11.5-15.5) % Plt Count 144 L (150-450) k/uL Neutrophils # 9.0 H (1.3-7.7) k/uL Lymphocytes # 0.6 L (1.0-4.8) k/uL Monocytes # 1.3 H (0-1.0) k/uL Macrocytosis Marked A BUN (9-20) mg/dL Creatinine (0.66-1.25) mg/dL Glucose (74-99) mg/dL Calcium (8.4-10.2) mg/dL Procalcitonin 0.43 H (0.02-0.09) ng/mL Crossmatch See Detail 03/10/23 Range/Units 04:48 WBC (3.8-10.6) k/uL RBC (4.30-5.90) m/uL Hgb (13.0-17.5) gm/dL Hct (39.0-53.0) % MCV (80.0-100.0) fL MCHC (31.0-37.0) g/dL RDW (11.5-15.5) % Plt Count (150-450) k/uL Neutrophils # (1.3-7.7) k/uL Lymphocytes # (1.0-4.8) k/uL Monocytes # (0-1.0) k/uL Macrocytosis BUN 123 H* (9-20) mg/dL Creatinine 3.63 H (0.66-1.25) mg/dL Glucose 118 H (74-99) mg/dL Calcium 8.2 L (8.4-10.2) mg/dL Procalcitonin (0.02-0.09) ng/mL Crossmatch Microbiology - Last 24 Hours (Table) 03/08/23 14:57 Blood Culture - Preliminary Blood 03/08/23 15:12 Blood Culture - Preliminary Blood
--- NOTE | 2023-03-10 15:14 | P.PN ---
Subjective Progress Note Date: 03/10/23 He reports generalized weakness, dry throat. Gen: awake, alert HEENT: normocephalic, atraumatic, good hearing acuity, moist mucous membranes Resp: good air exchange, breathing comfortably with no accessory muscle use CVS: good distal perfusion x 4, GI: soft, NTTP, ND : no SPT, no CVAT, buenrostro catheter is present MSK: Bilateral pitting edema, no clubbing Neuro: non-focal, moving all extremities Psych: cooperative, euthymic mood Hospital course: Patient is an 87-year-old male with chronic systolic congestive heart failure with ejection fraction 45-50%, anemia, and chronic kidney disease stage III/IV who presented to the ER via EMS from [facility] due to coffee-ground emesis 1. On arrival to the ER he was hypotensive with a blood pressure of 86/40, the remainder of his vitals are within normal limits. Laboratory analysis was remarkable for hemoglobin 7.4 (7.6 on discharge), platelets 146, sodium 139, BUN 135, creatinine 3.68 (up from 3.02 on discharge), bilirubin 2.2, AST 57, ALT 23, alkaline phosphatase 153, stool occult blood was negative. Chest x-ray showed right lower lobe opacification, cardiomegaly, vascular congestion. In the ER, he was started on levophed and Zosyn. Arrangements were made for admission to the ICU. Patient was given IV fluids and was able to be weaned off of pressors. Pulmonology, nephrology consulted on patient's care. Due to concern for upper GI bleed with significant uremia, patient was given a dose of DDAVP, and Gen. surgery was consulted for endoscopy as well. Assessment/plan: GI bleed, Suspect Upper Anemia, Acute on chronic with iron def Hypotension, undetermined etiology Possible aspiration Thrombocytopenia - Continue Protonix 40 mg IV BID - Levophed, titrate to MAp of 60 was discontinued, Midodrine was added - Consult surgery and Intensive care, appreciate recommendations - Zosyn 3.375 mg twice a day - Serial CBC Acute exacerbation of systolic congestive heart failure with ejection fraction 45-50% KIM on CKD III/ IV Baseline Cr 2-3, possible cardio renal Hx urinary retention - Lasix 60 mg IV BID - Metolazone 5 mg daily - hold coreg due to hypotension - insert buenrostro - strict I and O - Avoid nephrotoxic agents - discussed with nephrology, additional dose of DDAVP today Class III obesity with BMI 41.1 -May be falsely elevated due to fluid retention -Outpatient structured weight loss Chronic: Permanent A fib with V paced rhythm GERD without esophagitis CAD Imaging: Chest x-ray from 03/09 reviewed by me today, appears to have bilateral alveolar opacities, cardiomegaly, increased vascularity consistent with heart failure exacerbation and volume overload Data Review: Today, patient is afebrile, 108/57, heart rate 70, 95% on 2 L nasal cannula. CBC shows hemoglobin of 7.1, platelets of 127. Basic metabolic panel shows creatinine of 117, creatinine 3.59. Magnesium is 3.2. Surrogate decision-maker: Daughter CODE STATUS:DNR DVT prophylaxis: SCDs Objective - Vital Signs Vital signs: Vital Signs Temp 97.3 F L 03/10/23 13:21 Pulse 68 03/10/23 13:21 Resp 16 03/10/23 13:21 BP 96/50 03/10/23 13:21 Pulse Ox 97 03/10/23 13:21 FiO2 Intake & Output 03/09/23 03/10/23 03/10/23 18:59 06:59 18:59 Intake Total 312.996 0 310 Output Total 420 445 Balance -107.004 -445 310 Intake: IV 300 Piperacillin-Tazobactam 3 50 .375 gm In Sodium Chloride 0.9% 100 ml @ 25 mls/hr IVPB Q12H [facility] Rx# :[id number] Sodium Chloride 0.9% @20 150 mls/hr Intake, IV Titration 12.996 Amount Norepinephrine 4 mg In 12.996 Sodium Chloride 0.9% 250 ml @ 0.03 MCG/KG/MIN 16. 591 mls/hr IV .[id number] [facility]IN[facility] Rx#:[id number] Blood Product 0 310 Rc As-1 Unit 0 310 [id number] Output: Urine 420 445 Other: Voiding Method Indwelling Catheter Indwelling Catheter Indwelling Catheter - Labs CBC & Chem 7: 03/10/23 04:48 03/10/23 04:48 Labs: Abnormal Lab Results - Last 24 Hours (Table) 03/08/23 03/09/23 03/10/23 Range/Units 10:25 04:01 04:48 WBC 11.8 H (3.8-10.6) k/uL RBC 2.01 L (4.30-5.90) m/uL Hgb 6.1 L* (13.0-17.5) gm/dL Hct 22.4 L (39.0-53.0) % MCV 111.7 H (80.0-100.0) fL MCHC 27.3 L (31.0-37.0) g/dL RDW 15.9 H (11.5-15.5) % Plt Count 144 L (150-450) k/uL Neutrophils # 9.0 H (1.3-7.7) k/uL Lymphocytes # 0.6 L (1.0-4.8) k/uL Monocytes # 1.3 H (0-1.0) k/uL Macrocytosis Marked A BUN (9-20) mg/dL Creatinine (0.66-1.25) mg/dL Glucose (74-99) mg/dL Calcium (8.4-10.2) mg/dL Procalcitonin 0.43 H (0.02-0.09) ng/mL Crossmatch See Detail 03/10/23 Range/Units 04:48 WBC (3.8-10.6) k/uL RBC (4.30-5.90) m/uL Hgb (13.0-17.5) gm/dL Hct (39.0-53.0) % MCV (80.0-100.0) fL MCHC (31.0-37.0) g/dL RDW (11.5-15.5) % Plt Count (150-450) k/uL Neutrophils # (1.3-7.7) k/uL Lymphocytes # (1.0-4.8) k/uL Monocytes # (0-1.0) k/uL Macrocytosis BUN 123 H* (9-20) mg/dL Creatinine 3.63 H (0.66-1.25) mg/dL Glucose 118 H (74-99) mg/dL Calcium 8.2 L (8.4-10.2) mg/dL Procalcitonin (0.02-0.09) ng/mL Crossmatch Microbiology - Last 24 Hours (Table) 03/08/23 14:57 Blood Culture - Preliminary Blood 03/08/23 15:12 Blood Culture - Preliminary Blood
--- NOTE | 2023-03-10 15:16 | P.PN ---
Progress Note - Text Progress Note Date: 03/10/23 I had a 30 minute phone call with patient's DURABLE POWER OF VP CLINICAL, his daughter, today over the phone regarding his significant comorbid medical conditions including acute kidney injury superimposed on chronic kidney disease stage IV, chronic systolic heart failure, significant uremia, GI bleed. We discussed patient's overall care and agreed that patient's trajectory was overall poor in terms of prognosis. Given his frailty, he was unlikely to benefit from dialysis or colonoscopy. We agreed to conservative blood transfusion, medical treatment, however, overall care would be transitioned to hospice services. Hospice consult was placed.
[2023-03-10 16:06] LABS: Appearance,Urine Turbid (Clear); Bacteria,Urine Moderate /hpf; Bilirubin,Urine Negative (Negative); Blood,Urine Large (Negative); Color,Urine Light Red; Glucose,Urine (UA) Negative (Negative); Hyaline Casts,Urine 6 /lpf (0-2); Ketones,Urine Negative (Negative); Leukocyte Esterase,Urine Large (Negative); Nitrite,Urine Negative (Negative); Protein,Urine 2+ (Negative); RBC,Urine >182 /hpf (0-5); Specific Gravity,Urine 1.012 (1.001-1.035); Squamous Epithelial Cell,Urine 2 /hpf (0-4); Urobilinogen,Urine <2.0 mg/dL (<2.0); WBC,Urine 115 /hpf (0-5)
[2023-03-10 16:57] LABS: Creatinine,Urine Random 65.4 mg/dL; Protein/Creatinine Ratio,Urine 2.018
[2023-03-11] MEDS: MORPHINE SULFATE 2 MG/ML SYRINGE IVP PRN ×3 (00:25→12:30)
[2023-03-11] MEDS: PIPERACILLIN-TAZOBACTAM 3.375 GM in SODIUM CHLORIDE 0.9% 100 ML IVPB SCH ×2 (02:30→14:42)
[2023-03-11 04:35] LABS: African American GFR (CKD) 15 (>60 ml/min/1.73 sqM); Anion Gap 13 mmol/L; Calcium 8.5 mg/dL (8.4-10.2); Carbon Dioxide 22 mmol/L (22-30); Chloride 103 mmol/L (98-107); Glucose 101 mg/dL (74-99); Magnesium 3.1 mg/dL (1.6-2.3); Non-African American GFR(CKD) 13 (>60 ml/min/1.73 sqM); Potassium 4.6 mmol/L (3.5-5.1); Sodium 138 mmol/L (137-145)
[2023-03-11 04:47] LABS: Blood Urea Nitrogen 127 mg/dL (9-20)
[2023-03-11 08:24] VITALS: RESP 14; TEMP 97.4
--- NOTE | 2023-03-11 08:53 | CDI ---
Documentation Clarification Form Date: 03/11/2023 08:12:07 AM From: Jodi Ly RN, CCDS Admit Date: 03/08/2023 01:17:00 PM Patient Name: Royal Hopkins Visit Number: [id number] Discharge Date: ATTENTION: The Clinical Documentation Specialists (CDI) and [facility] Coding Staff appreciate your assistance in clarifying documentation. Please respond to the clarification below the line at the bottom and electronically sign. The CDI & [facility] Coding staff will review the response and follow-up if needed. Please note: Queries are made part of the Legal Health Record. If you have any questions, please contact the author of this message via ITS. Dr. Cliff Veloz There is documentation of [insert documentation, date, location]. Additional clarification is requested. History/Risk Factors: Atrial Fibrillation, Cancer, GERD/Reflux, Myocardial Infarction ([place]) Former smoker Clinical Indicators: 87-year-old male on arrival to the ER he was hypotensive with a blood pressure of 86/40 hemoglobin 7.4. In the ER, he was started on levophed drip tried to wean, discontinued and after 30 minutes patient's blood pressure began to decrease again and placed bonk on Levophed with stable blood pressure. He had coffee-ground emesis x1. Anemia. Admitted to ICU. 03/08 VS 92/51 71/20 98% 2/L Labs: 03/08 HGB 7.4, 7.0, 7.2 03/09 HGB 7.1 03/10 HGB 6.1 Treatment: ICU/Telemetry monitoring Levophed drip (tritate) Monitor BP per ICU protocol .9 NS 1,000 ML IV Bolus Transfused 1 Unit PRBC Can you please clarify if treatment meet criteria for? [ ] Hypovolemic Shock [ x ] Hemorrhagic Shock [ ] Other, please specify [ ] Unable to determine (Template Last Revised: October 2020) MTDD
[2023-03-11] MEDS: IPRATROPIUM-ALBUTEROL 3 ML NEB INHALATION SCH ×2 (09:07→11:50)
[2023-03-11] MEDS: PANTOPRAZOLE 40 MG/10 ML VIAL IVP SCH (10:27)
[2023-03-11] MEDS: FUROSEMIDE 10 MG/ML 10 ML VIAL IV SCH (10:27)
[2023-03-11] MEDS: CHOLECALCIFEROL 25 MCG (1000 IU) TABLET PO SCH (10:28)
[2023-03-11] MEDS: MIDODRINE 5 MG TAB PO SCH ×3 (10:28→16:52)
[2023-03-11] MEDS: FAMOTIDINE 20 MG TAB PO SCH (10:28)
[2023-03-11] MEDS: HYDROcodone/APAP 7.5-325MG 1 EACH TAB PO SCH (10:28)
[2023-03-11] MEDS: metOLazone 5 MG TAB PO SCH (10:29)
[2023-03-11] MEDS: SENNOSIDES-DOCUSATE SODIUM 1 EACH TAB PO SCH (10:29)
[2023-03-11] MEDS: SODIUM FERRIC GLUCONAT-SUCROSE 125 MG in SODIUM CHLORIDE 0.9% 100 ML IVPB SCH (10:50)
--- NOTE | 2023-03-11 11:28 | P.PN ---
Subjective Progress Note Date: 03/11/23 87-year-old male who was seen in the emergency department. He is seen in room 11. He apparently presented to the hospital with complaints of a possible GI bleed. He apparently had an episode of coffee ground emesis. He was having nausea, but not vomiting. He was found to be hypotensive, and given some fluids, and then started on some norepinephrine. I was called by the ER physician, who wanted the patient admitted to the intensive care unit, for monitoring and management, given the fact that he was on norepinephrine. I recommended some additional IV fluids, and midodrine. The patient is currently seen in the emergency department, and is currently on norepinephrine at 0.01 mcg/kg/m, and getting oxygen by nasal cannula at 5 L. The patient is a DO NOT RESUSCITATE patient. He was recently seen by me on February 17, for progressive weakness secondary to acute kidney injury, and hyponatremia. He has a history of chronic systolic and diastolic CHF, stage III chronic kidney disease, atrial fibrillation, previous pacemaker implantation, morbid obesity, and previous tobacco use. His hyponatremia was thought to be hypovolemic hyponatremia. He was transferred to the intensive care unit, where he was given 3% saline per nephrology. The patient cannot really give much of a history, and is mostly mumbling. I've asked the nurse to give him another liter of saline. White count 10.2, hemoglobin 7.4, hematocrit 23.3, with a platelet count of 146,000. PT is 12.6 with an INR 1.2. Sodium 139, potassium 4.9, chlorides 103, CO2 26, anion gap 10, BUN 135, and creatinine 3.68. Chest x-ray shows what appears to be some possible infiltrate in the right lower lobe. There is some history of a spiration. Progress note dated 03/09/2023. 87-year-old male, a DO NOT RESUSCITATE patient, who was seen in the emergency room yesterday, room 11. He initially came in with coffee ground emesis, and was thought to have a GI bleed. In the emergency department, the patient was hypotensive, and was started on norepinephrine. He is seen today in room 266, intensive care unit. He is on 3 L of oxygen by nasal cannula. Is getting norepinephrine at 0.01 mcg/kg/m. He is also getting saline at KVO. He seems to be much more comfortable today than yesterday. No additional evidence of GI bleeding. White count is 10.5, hemoglobin 7.1, hematocrit 22.6, and a platelet count of 127,000. Sodium 139, potassium 4.6, chlorides 105, CO2 26, anion gap 8, BUN 117, and creatinine 3.59. Chest x-ray shows no acute abnormalities. The patient remains on Zosyn. The patient is seen today 03/10/2023 in follow-up on the regular medical floor. He is maintaining O2 saturations in the 90s on 2 L/m per nasal cannula. His hemoglobin was 6.1 is currently receiving 1 unit of packed red blood cells. He did undergo EGD yesterday that revealed no evidence of upper GI bleeding. White count 11.8. Platelets 144. Sodium 139. Potassium 4.6. Bicarb 23. BUN 123. Creatinine 3.63. Glucose 118. He remains on Lasix 60 mg IV every 12 hours. He is making urine. Nephrology is following closely. The patient is seen today 03/11/2023 in follow-up on the regular medical floor. He is currently resting comfortably in bed. Awake and alert in no acute distress. O2 saturations in the 90s on 3 L/m per nasal cannula. Normal saline and 20 ML's per hour. He is continued on DuoNeb inhalations, Zosyn. Remains on IV diuretics. No accurate I&O. He is status post 1 unit of packed red blood cells. Hemoglobin of 6.1. Follow-up labs pending. Sodium 138. Potassium 4.6. Bicarb 22. BUN 127. Creatinine 3.96. Glucose 101. Urine culture pending. Blood culture revealing no growth. Objective - Vital Signs Vital signs: Vital Signs Temp 97.4 F L 03/11/23 07:55 Pulse 70 03/11/23 08:00 Resp 14 03/11/23 08:00 BP 91/55 03/11/23 07:55 Pulse Ox 97 03/11/23 09:07 FiO2 Intake & Output 03/10/23 03/11/23 03/11/23 18:59 06:59 18:59 Intake Total 310 100 Output Total 300 150 Balance 10 -50 Intake: Intake, IV Titration 100 Amount Piperacillin-Tazobactam 3 100 .375 gm In Sodium Chloride 0.9% 100 ml @ 25 mls/hr IVPB Q12H [facility] Rx# :[id number] Blood Product 310 Rc As-1 Unit 310 [id number] Output: Urine 300 150 Other: Voiding Method Indwelling Catheter Indwelling Catheter Indwelling Catheter - Exam Awake, alert 87-year-old male. No acute distress, currently on 3 L of oxygen by nasal cannula. HEENT examination is grossly unremarkable. Neck supple. Full range of motion. No adenopathy thyromegaly or neck vein distention. Cardiovascular examination reveals regular rhythm rate. S1-S2 normal. No S3 or S4. No discernible murmur noted. Heart sounds are distant. Lungs reveal scattered bilateral rhonchi. No wheezes or crackles. Breath sounds are equal bilaterally. Abdomen distended, with bowel sounds. No tenderness. Extremities are intact. No cyanosis or clubbing. There is 1+ edema.. Skin reveals multiple areas of ecchymoses. Neurologic examination is difficult to evaluate. - Labs CBC & Chem 7: 03/10/23 04:48 03/11/23 03:24 Labs: Abnormal Lab Results - Last 24 Hours (Table) 03/10/23 03/10/23 03/11/23 Range/Units 10:09 10:09 03:24 BUN 127 H* (9-20) mg/dL Creatinine 3.96 H (0.66-1.25) mg/dL Glucose 101 H (74-99) mg/dL Magnesium 3.1 H (1.6-2.3) mg/dL Urine Protein 2+ H (Negative) Urine Blood Large H (Negative) Ur Leukocyte Esterase Large H (Negative) Urine RBC >182 H (0-5) /hpf Urine WBC 115 H (0-5) /hpf Urine Bacteria Moderate H (None) /hpf Hyaline Casts 6 H (0-2) /lpf Ur Random Sodium 36 L (40-220) mmol/L Microbiology - Last 24 Hours (Table) 03/08/23 14:57 Blood Culture - Preliminary Blood 03/08/23 15:12 Blood Culture - Preliminary Blood Assessment and Plan Assessment: Coffee ground emesis, rule out acute GI bleed. EGD on 03/09/2023 did not reveal any active bleeding Acute anemia secondary to above, receiving 1 unit of packed red blood cells, hemoglobin 6.1 and a follow-up hemoglobin pending Possible aspiration pneumonia, right lower lobe. Remains on Zosyn Recent hospitalization for hypovolemic hyponatremia, requiring 3% saline. Acute on chronic kidney disease. Acute hypotension, of unclear etiology. The patient is currently on a small amount of norepinephrine. History of chronic atrial fibrillation. History of myocardial infarction. History of gastroesophageal reflux disease. Pulmonary hypertension. History of pacemaker implantation. Morbid obesity. History of tobacco use. Plan: The patient was seen and evaluated Labs and medications reviewed Remains on Zosyn, bronchodilators DNR/DNI CODE STATUS [facility] I have personally seen and examined the patient, performed the documentation and the assessment and plan as written. Number of minutes spent on the visit: 10.
--- NOTE | 2023-03-11 13:15 | P.DS ---
Providers Date of admission: 03/08/23 13:17 Expected date of discharge: 03/11/23 Attending physician: Jeannine Suggs DO Consults: 03/08/23 13:17 Consult Physician Stat Consulting Provider: Terry Benjamin Consult Reason/Comments: icu patient Do you want consulting provider notified?: Yes 03/08/23 14:22 Consult Physician Routine Consulting Provider: Luis Dolan Consult Reason/Comments: GI Bleed Do you want consulting provider notified?: Yes Consult Physician Routine Consulting Provider: Santi Alves Consult Reason/Comments: KIM on CKD Do you want consulting provider notified?: Yes Primary care physician: [facility] Course: Assessment/plan: GI bleed, Suspect Upper Anemia, Acute on chronic with iron def Hypotension, undetermined etiology Possible aspiration Thrombocytopenia Acute exacerbation of systolic congestive heart failure with ejection fraction 45-50% KIM on CKD III/ IV Baseline Cr 2-3, possible cardio renal Hx urinary retention Class III obesity with BMI 41.1 Permanent A fib with V paced rhythm GERD without esophagitis CAD Hospital course: Patient is an 87-year-old male with chronic systolic congestive heart failure with ejection fraction 45-50%, anemia, and chronic kidney disease stage III/IV who presented to the ER via EMS from [facility] due to coffee-ground emesis 1. On arrival to the ER he was hypotensive with a blood pressure of 86/40, the remainder of his vitals are within normal limits. Laboratory analysis was remarkable for hemoglobin 7.4 (7.6 on discharge), platelets 146, sodium 139, BUN 135, creatinine 3.68 (up from 3.02 on discharge), bilirubin 2.2, AST 57, ALT 23, alkaline phosphatase 153, stool occult blood was negative. Chest x-ray showed right lower lobe opacification, cardiomegaly, vascular congestion. In the ER, he was started on levophed and Zosyn. Arrangements were made for admission to the ICU. Patient was given IV fluids and was able to be weaned off of pressors. Pulmonology, nephrology consulted on patient's care. Due to concern for upper GI bleed with significant uremia, patient was given a dose of DDAVP, and Gen. surgery was consulted for endoscopy as well. Patient did undergo endoscopy which did not show any evidence of bleed. Patient was weaned off pressors and transition to the floor. Also care conversation was held with patient's [employer] which is his daughter, hospice was recommended giving his worsening kidney function on top of multiple comorbidities. Patient and family were agreeable to transition to comfort care. [facility]. I spent 45 minutes coordinating this discharge on 03/11 Gen: awake, alert HEENT: normocephalic, atraumatic, good hearing acuity, moist mucous membranes Resp: good air exchange, breathing comfortably with no accessory muscle use CVS: good distal perfusion x 4, GI: soft, NTTP, ND : no SPT, no CVAT, buenrostro catheter is present MSK: Bilateral pitting edema, no clubbing Neuro: non-focal, moving all extremities Psych: cooperative, euthymic mood Patient Condition at Discharge: Critical Plan - Discharge Summary Discharge Rx Participant: Yes New Discharge Prescriptions: New Furosemide [Lasix] 80 mg PO BID #60 tablet Pantoprazole [Protonix] 40 mg PO BID #60 tab Cefdinir 300 mg PO Q12HR #10 cap Midodrine [ProAmatine] 10 mg PO AC-TID tab metOLazone [Zaroxolyn] 5 mg PO DAILY #30 tab Continue Docusate [Colace] 100 mg PO BID Nystatin 100,000 Unit/gm Powd [Mycostatin Powder] 1 applic TOPICAL BID each Famotidine [Pepcid] 20 mg PO DAILY tab Maalox Plus 30 ml PO Q6H PRN PRN Reason: Indigestion Acetaminophen Tab [Tylenol] 650 mg PO Q6H PRN PRN Reason: Pain Ipratropium-Albuterol Nebulize [Duoneb 0.5 mg-3 mg/3 ml Soln] 3 ml INHALATION RT-TID Cholecalciferol [Vitamin D3 (25 Mcg = 1000 Iu)] 25 mcg PO DAILY Tamsulosin [Flomax] 0.4 mg PO DAILY Sennosides-Docusate Sodium [Senokot-S] 2 tab PO BID Darbepoetin Zacarias [Aranesp] 40 mcg SQ Q7D each ALPRAZolam [Xanax] 0.5 mg PO Q6H PRN #12 tab PRN Reason: Anxiety Changed HYDROcodone/APAP 7.5-325MG [[place] 7.5-325] 1 tab PO BID #6 tab Discontinued carvediloL [Coreg] 3.125 mg PO BID Discharge Medication List Docusate [Colace] 100 mg PO BID 06/29/19 [History] Darbepoetin Zacarias [Aranesp] 40 mcg SQ Q7D each 02/26/23 [Rx] Famotidine [Pepcid] 20 mg PO DAILY tab 02/26/23 [Rx] Nystatin 100,000 Unit/gm Powd [Mycostatin Powder] 1 applic TOPICAL BID each 02/26/23 [Rx] Acetaminophen Tab [Tylenol] 650 mg PO Q6H PRN 03/08/23 [History] Cholecalciferol [Vitamin D3 (25 Mcg = 1000 Iu)] 25 mcg PO DAILY 03/08/23 [History] Ipratropium-Albuterol Nebulize [Duoneb 0.5 mg-3 mg/3 ml Soln] 3 ml INHALATION RT-TID 03/08/23 [History] Maalox Plus 30 ml PO Q6H PRN 03/08/23 [History] Sennosides-Docusate Sodium [Senokot-S] 2 tab PO BID 03/08/23 [History] Tamsulosin [Flomax] 0.4 mg PO DAILY 03/08/23 [History] ALPRAZolam [Xanax] 0.5 mg PO Q6H PRN #12 tab 03/11/23 [Rx] Cefdinir 300 mg PO Q12HR #10 cap 03/11/23 [Rx] Furosemide [Lasix] 80 mg PO BID #60 tablet 03/11/23 [Rx] HYDROcodone/APAP 7.5-325MG [[place] 7.5-325] 1 tab PO BID #6 tab 03/11/23 [Rx] Midodrine [ProAmatine] 10 mg PO AC-TID tab 03/11/23 [Rx] Pantoprazole [Protonix] 40 mg PO BID #60 tab 03/11/23 [Rx] metOLazone [Zaroxolyn] 5 mg PO DAILY #30 tab 03/11/23 [Rx] Follow up Appointment(s)/Referral(s): Bubba Allen DO [Primary Care Provider] - 1-2 days Discharge Disposition: TRANSFER TO SNF/ECF
--- NOTE | 2023-03-11 13:45 | P.PN ---
Subjective Progress Note Date: 03/11/23 CHIEF COMPLAINT: Anemia, GI bleed HISTORY OF PRESENT ILLNESS: Patient lying in bed comfortably. He remains confused. He did not pass a swallow eval. Patient is being transferred to ECF with hospice later today. PHYSICAL EXAM: VITAL SIGNS: Reviewed. GENERAL: Well-developed in no acute distress. ABDOMEN: Soft. Nondistended. Nontender. ASSESSMENT: 1. Anemia with EGD showing no active bleeding PLAN: -Agree with plans for ECF with hospice -No plans for colonoscopy. Patient would not be able to tolerate bowel prep. Physician Hospice Nurse Practitioner note has been reviewed by physician. Signing provider agrees with the documented findings, assessment, and plan of care. Objective - Vital Signs Vital signs: Vital Signs Temp 97.4 F L 03/11/23 07:55 Pulse 70 03/11/23 08:00 Resp 14 03/11/23 08:00 BP 91/55 03/11/23 07:55 Pulse Ox 97 03/11/23 09:07 FiO2 Intake & Output 03/10/23 03/11/23 03/11/23 18:59 06:59 18:59 Intake Total 310 100 Output Total 300 150 Balance 10 -50 Intake: Intake, IV Titration 100 Amount Piperacillin-Tazobactam 3 100 .375 gm In Sodium Chloride 0.9% 100 ml @ 25 mls/hr IVPB Q12H [facility] Rx# :[id number] Blood Product 310 Rc As-1 Unit 310 [id number] Output: Urine 300 150 Other: Voiding Method Indwelling Catheter Indwelling Catheter Indwelling Catheter - Labs CBC & Chem 7: 03/10/23 04:48 03/11/23 03:24 Labs: Abnormal Lab Results - Last 24 Hours (Table) 03/10/23 03/10/23 03/11/23 Range/Units 10:09 10:09 03:24 BUN 127 H* (9-20) mg/dL Creatinine 3.96 H (0.66-1.25) mg/dL Glucose 101 H (74-99) mg/dL Magnesium 3.1 H (1.6-2.3) mg/dL Urine Protein 2+ H (Negative) Urine Blood Large H (Negative) Ur Leukocyte Esterase Large H (Negative) Urine RBC >182 H (0-5) /hpf Urine WBC 115 H (0-5) /hpf Urine Bacteria Moderate H (None) /hpf Hyaline Casts 6 H (0-2) /lpf Ur Random Sodium 36 L (40-220) mmol/L Microbiology - Last 24 Hours (Table) 03/08/23 14:57 Blood Culture - Preliminary Blood 03/08/23 15:12 Blood Culture - Preliminary Blood
[2023-03-11 14:08] VITALS: BP 102/46; PULSE 68
== END 2023-03-11 17:46 | DRG 377 ==
LOC: EC 10:03 → 2SICU 13:17 → 5NMEDONC 03-10 05:23
PROVIDERS: ADMIT Internal Medicine; ATTEND Internal Medicine
PROC: 3E033XZ Introduction of Vasopressor into Peripheral Vein, Percutaneous Approach (ICD-10-PCS; principal; 2023-03-08)
PROC: 0DJ08ZZ Inspection of Upper Intestinal Tract, Via Natural or Artificial Opening Endoscopic (ICD-10-PCS; 2023-03-09)
PROC: 30233N1 Transfusion of Nonautologous Red Blood Cells into Peripheral Vein, Percutaneous Approach (ICD-10-PCS; 2023-03-10)
DX: K92.0 Hematemesis (principal); I50.43 Acute on chronic combined systolic (congestive) and diastolic (congestive) heart failure; J96.01 Acute respiratory failure with hypoxia; N17.0 Acute kidney failure with tubular necrosis; R57.8 Other shock; J69.0 Pneumonitis due to inhalation of food and vomit; I13.0 Hypertensive heart and chronic kidney disease with heart failure and stage 1 through stage 4 chronic kidney disease, or unspecified chronic kidney disease; I48.21 Permanent atrial fibrillation; N18.4 Chronic kidney disease, stage 4 (severe); Z68.41 Body mass index [BMI] 40.0-44.9, adult; D62 Acute posthemorrhagic anemia; D69.6 Thrombocytopenia, unspecified; I27.20 Pulmonary hypertension, unspecified; E66.01 Morbid (severe) obesity due to excess calories; Z66 Do not resuscitate; Z51.5 Encounter for palliative care; D63.1 Anemia in chronic kidney disease; R54 Age-related physical debility; I07.1 Rheumatic tricuspid insufficiency; R33.9 Retention of urine, unspecified; K21.9 Gastro-esophageal reflux disease without esophagitis; I25.10 Atherosclerotic heart disease of native coronary artery without angina pectoris; Z95.0 Presence of cardiac pacemaker; Z87.891 Personal history of nicotine dependence; Z79.899 Other long term (current) drug therapy; I25.2 Old myocardial infarction; Z87.19 Personal history of other diseases of the digestive system; Z82.49 Family history of ischemic heart disease and other diseases of the circulatory system
CPT/HCPCS: 36415; 43235; 71045; 80048; 80053; 81001; 82272; 82533; 82570; 82728; 83540; 83550; 83605; 83735; 83880; 84100; 84145; 84156; 84300; 84484; 85025; 85027; 85610; 85730; 86850; 86900; 86901; 86920; 87040; 93005; 94640; 94760; 96361; 96365; 96366; 96368; 96375; 96376; 99291